=== PATIENT | female | born 1945 | race Caucasian/White ===

== ENCOUNTER → 2017-08-11 12:02 | Outpatient (CLI) | payer MEDICARE, OTHER, SELFPAY ==
[2017-08-11 13:40] LABS: Absolute Lymphocyte Count 2.08 X10^3/ul (0.83-4.51); Absolute Neutrophil Count 5.4 X10^3/uL (2.0-7.7); Basophil# 0.03 X10^3/uL; Basophil% 0.3 % (0-1); Eosinophil# 0.43 X10^3/uL; Hematocrit 37.4 % (37-47); Hemoglobin 11.8 g/dl (12.0-15.0); Lymphocyte # 2.08 X10^3/ul (4.0); Lymphocyte % 24.2 % (19-41); Mean Corp Hgb Conc 31.6 g/gl (32-36); Mean Corpuscular Hgb 30.3 pg (27.0-32.0); Mean Corpuscular Volume 96.1 fL (81-99); Mean Platelet Vol. 10.3 fl (6.2-12.0); Monocyte# 0.62 X10^3/uL; Monocyte% 7.2 % (0-10); Neutrophil # 5.38 X10^3/uL (2.7-7.7); Neutrophil % 62.8 % (47-70); POSITIVE COUNT NO; POSITIVE DIFFERENTIAL NO; POSITIVE MORPHOLOGY NO; Platelet Count 251 K/mm3 (150-450); RBC Distribution Width CV 13.1 % (11.6-14.6); RBC Distribution Width SD 44.4 fl (35.1-43.9); Red Blood Count 3.89 M/mm3 (4.2-5.4); White Blood Count 8.6 K/mm3 (4.4-11.0)
[2017-08-11 13:45] LABS: Erythrocyte Sedimentation Rate 47 mm/hr (0-30)
[2017-08-11 14:11] LABS: ALB/GLOB Ratio 0.9 RATIO (0.9-2.4); AST(SGOT) 17 U/L (15-37); Alanine Aminotransfer ALT/SGPT 16 U/L (13-56); Albumin, Serum 3.4 g/dL (3.2-5.0); Alkaline Phosphatase 94 U/L (45-117); Anion Gap 6 (5-15); BUN 23 mg/dL (7-18); BUN/Creat Ratio 17.7 RATIO (10-20); Calcium,Total 8.9 mg/dL (8.5-10.1); Chloride 107 mmol/L (98-107); EST Glomerular Filtration Rate 43 mL/min (>60); Est Glom Filt Rate - Afr Amer 51 mL/min (>60); Globulin 3.9 g/dL (2.2-4.2); Glucose 106 mg/dL (74-106); Potassium 4.4 mmol/L (3.5-5.1); Protein, Total 7.3 g/dL (6.4-8.2); Sodium Level 142 mmol/L (136-145); Uric Acid 7.5 mg/dL (2.6-6.0)
== END ==
PROVIDERS: Family Provider Family Medicine; PCP Family Medicine; Visit Provider Podiatrist
DX: M10.9 Gout, unspecified (principal); L03.90 Cellulitis, unspecified
CPT/HCPCS: 36415; 80053; 84550; 85025; 85652; 86140

== ENCOUNTER → 2020-03-03 | Outpatient (CLI) | payer MEDICARE, OTHER, SELFPAY ==
--- NOTE | 2020-03-04 10:20 | PFT ---
INTRODUCTION: The patient is a 75-year-old female that presents for pulmonary function studies secondary to a diagnosis of COPD. Respiratory therapy reports good patient effort. Bronchodilators were used during testing. INTERPRETATION: Forced expiration spirometry demonstrates the presence of a mild large airways obstructive ventilatory defect. There was no significant response to aerosolized bronchodilators. Spirograms are of good quality and do not plateau indicating slow emptying of the lungs. Body plethysmography was performed and revealed an elevated TLC and RV, indicative of underlying hyperinflation and air trapping. Diffusing capacity by single breath CO was reduced to 56% of predicted. IMPRESSION: Irreversible mild large airways obstructive ventilatory defect with associated hyperinflation, air trapping and reduction in diffusing capacity.
== END | disposition home or self-care (01) ==
LOC: PSN 10:47
PROVIDERS: PCP Family Medicine; Referring Provider Family Medicine; Visit Provider Family Medicine
DX: J44.9 Chronic obstructive pulmonary disease, unspecified (principal)
CPT/HCPCS: 94060; 94726; 94729

== ENCOUNTER → 2020-04-28 16:44 | Outpatient (CLI) | payer MEDICARE, OTHER, SELFPAY ==
--- NOTE | 2020-04-28 16:50 | RAD_ITS ---
STUDY: X-RAY - LUMBAR SPINE REASON FOR EXAM: Female, 75 years old. LOW BACK PAIN. TECHNIQUE: 3 view(s) of the lumbar spine were obtained. COMPARISON: 09/20/2016 FINDINGS: Normal lumbar lordosis. There is no substantial scoliosis. Status post discectomy and interbody fusion at L3/L4 with anatomic alignment which is unchanged. Interval removal of pedicle screws from L3. Interval transpedicular fixation at L1/L2 with anatomic alignment. There is multilevel endplate spondylosis of the lumbar vertebrae. There is multi-level degenerative disc disease with multi-level disc space narrowing. The soft tissue structures are unremarkable. RAD/Lumbar Spine 2 or 3 Views IMPRESSION: Interval transpedicular fixation at L1/L2 with diffuse degenerative disc disease. Electronically Signed: Orlin Roe MD at 17:15 EST Tel , Service support ,
== END ==
PROVIDERS: PCP Family Medicine; Referring Provider Anesthesiology Pain Medicine; Visit Provider Anesthesiology Pain Medicine
DX: M54.5 Low back pain (principal)
CPT/HCPCS: 72100

== ENCOUNTER 2021-01-29 17:25 | Emergency (ER) | payer MEDICARE, OTHER, SELFPAY ==
[2021-01-29 17:28] VITALS: BP 130/81; PULSE 96; RESP 16; TEMP 36.1; O2SAT 96; BMI 37.8
[2021-01-29 17:46] LABS: Bedside Glucose > 500 mg/dL (70-110)
[2021-01-29 17:54] LABS: Absolute Lymphocyte Count 1.38 X10^3/uL (0.83-4.51); Basophil# 0.06 X10^3/uL; Basophil% 0.5 % (0-1); Eosinophil# 0.07 X10^3/uL; Eosinophils% 0.6 % (0-5); Hematocrit 42.8 % (37-47); Hemoglobin 14.7 g/dL (12.0-15.0); Lymphocyte # 1.38 X10^3/ul (0.83-4.51); Lymphocyte % 11.4 % (19-41); Mean Corp Hgb Conc 34.3 g/dL (32-36); Mean Corpuscular Hgb 31.1 pg (27.0-32.0); Mean Corpuscular Volume 90.7 fL (81-99); Mean Platelet Vol. 11.6 fl (6.2-12.0); Monocyte# 0.54 X10^3/uL; Monocyte% 4.5 % (0-10); NRBC Flagged by Analyzer 0 % (0-5); Neutrophil # 10.01 X10^3/uL (2.7-7.7); Neutrophil % 82.4 % (47-70); Platelet Count 285 K/mm3 (150-450); RBC Distribution Width CV 12.8 % (11.6-14.6); RBC Distribution Width SD 42.8 fl (35.1-43.9); Red Blood Count 4.72 M/mm3 (4.2-5.4); White Blood Count 12.1 K/mm3 (4.4-11.0)
[2021-01-29 18:12] LABS: ALB/GLOB Ratio 0.9 RATIO (0.9-2.4); AST(SGOT) 15 U/L (15-37); Alanine Aminotransfer ALT/SGPT 24 U/L (13-56); Albumin, Serum 3.6 g/dL (3.2-5.0); Alkaline Phosphatase 134 U/L (45-117); Anion Gap 16 (5-15); BUN 40 mg/dL (7-18); BUN/Creat Ratio 20.3 RATIO (10-20); Calcium,Total 9.9 mg/dL (8.5-10.1); Chloride 91 mmol/L (98-107); Creatinine, Serum 1.97 mg/dL (0.55-1.02); EST Glomerular Filtration Rate 26 mL/min (>60); Est Glom Filt Rate - Afr Amer 32 mL/min (>60); Estimated Creatinine Clearance 17.76 ml/min; Globulin 4.2 g/dL (2.2-4.2); Glucose 644 mg/dL (74-106); Potassium 4.6 mmol/L (3.5-5.1); Protein, Total 7.8 g/dL (6.4-8.2); Sodium Level 127 mmol/L (136-145)
--- NOTE | 2021-01-29 21:28 | EDS_ITS ---
HPI History of Present Illness Chief Complaint: Confusion Narrative Narrative: 76-year-old female presenting with confusion for the last 3 days. Apparently her blood sugars were elevated. Her seed cleaning machine operator has her taking NovoLog 30 at breakfast, 30 at lunch, 34 at dinner. She states she did not take her nightly medication after eating. Patient's daughter states she is very confused. Patient herself complains that she cannot sleep very well. She has not had a cough or shortness of breath. She denies fever or chills. She denies nausea or vomiting. She does not have abdominal pain. [facility] Medical History (Updated 01/29/21 @ 22:08 by Laura Rivers) Anxiety Congestive heart failure (CHF) Dementia Depression Diabetes Hypertension Hypothyroidism Home Medications allopurinol 100 mg PO DAILY 01/29/21 [History Last Taken Unknown] amlodipine 5 mg PO DAILY 01/29/21 [History Last Taken Unknown] aripiprazole 5 mg PO QHS 01/29/21 [History Last Taken Unknown] budesonide-formoterol [Symbicort] 2 puff INHALATION BID 01/29/21 [History Last Taken Unknown] buspirone 10 mg PO TID 01/29/21 [History Last Taken Unknown] cholecalciferol (vitamin D3) [Vitamin D3] 125 mcg PO DAILY 01/29/21 [History Last Taken Unknown] cyanocobalamin (vitamin B-12) 5,000 mcg PO DAILY 01/29/21 [History Last Taken Unknown] duloxetine 30 mg PO DAILY 01/29/21 [History Last Taken Unknown] duloxetine 60 mg PO DAILY 01/29/21 [History Last Taken Unknown] gabapentin 600 mg PO 4X/DAY PRN PRN 01/29/21 [History Last Taken Unknown] hydrochlorothiazide 12.5 mg PO DAILY 01/29/21 [History Last Taken Unknown] insulin NPH isoph U-100 human [Novolin N Flexpen] 68 unit SUBCUT DINNER 01/29/21 [History Last Taken Unknown] insulin aspart U-100 [Novolog Flexpen U-100 Insulin] 30 unit SUBCUT BID 01/29/21 [History Last Taken Unknown] insulin aspart U-100 [Novolog Flexpen U-100 Insulin] 34 unit SUBCUT DINNER 01/29/21 [History Last Taken Unknown] insulin glargine [Basaglar KwikPen U-100 Insulin] 22 unit SUBCUT BREAKFAST 01/29/21 [History Last Taken Unknown] levothyroxine 50 mcg PO DAILY 01/29/21 [History Last Taken Unknown] oxybutynin chloride 10 mg PO DAILY 01/29/21 [History Last Taken Unknown] simvastatin 80 mg PO QPM 01/29/21 [History Last Taken Unknown] torsemide 40 mg PO DAILY 01/29/21 [History Last Taken Unknown] Allergy/AdvReac Type Severity Reaction Status Date / Time Penicillins Allergy PT UNSURE Verified 01/29/21 17:26 OF REACTION Social History Smoking Status: Unknown if ever smoked ROS ROS ED Constitutional Constitutional ED: Denies chills or fever(s) Eyes Eyes: Denies blurry vision or diplopia ENT ENT ED: Denies rhinorrhea or sore throat Cardiovascular Cardiovascular: Denies chest pain or palpitations Respiratory/Chest Respiratory/Chest: Denies cough or dyspnea Gastrointestinal Gastrointestinal: Denies abdominal pain, nausea or vomiting Genitourinary Genitourinary ED: Denies dysuria or hematuria Musculoskeletal Musculoskeletal: Denies arthralgias or myalgias Integumentary Denies rash Neurologic Neurologic: Denies headache(s) or paresthesias EXAM Physical Exam Const Vital Signs: 01/29/21 17:28 01/29/21 21:59 01/29/21 22:08 Temperature 97 F L 97 F L Temperature Source Temporal Temporal Pulse Rate 96 96 Respiratory Rate 16 16 Blood Pressure 130/81 H 169/88 H 169/88 H Blood Pressure Mean 97 115 115 Pulse Ox 96 96 Oxygen Delivery Method Room Air Room Air Positive well nourished General Appearance ED: NAD HEJUAN Reports dry mucous membranes Negative for trauma Mouth ED: Yes dry mucous membranes Mouth: dry mucous membranes Eyes PERRL and EOMs intact bilaterally Cardio regular rate and regular rhythm GI normal to inspection, nondistended, normoactive bowel sounds Extremity normal to inspection Neuro oriented x3 and CN's II-XII intact bilaterally Sensorium / Orientation: alert Motor Exam: strength 5/5 throughout Psych mental status grossly normal Skin no rashes or lesions noted MDM MDM MDM Narrative Medical decision making narrative: Patient seen and evaluated for hyperglycemia. Patient states that she ate her dinner but did not take her insulin. She states her blood sugars have been high. She recently had her medications changed by her seed cleaning machine operator. She states she has a current med list. I did review this however she did not take her medication. Patient's daughter and she were concerned she might have a urinary tract infection. Her urinalysis is negative. CBC shows a slight leukocytosis of 12.1, H&H are stable. Creatinine is slightly elevated at 1.97 which is elevated over her previous. Patient was given 2 L of IV fluids and her blood sugar was rechecked and found to be 433. At this point she was given 20 of insulin lispro. She feels improved cognitively she states she feels less confused. I did have a chest x-ray performed which on my interpretation shows no acute cardiopulmonary process and the radiologist does agree. Since I did not find any evidence of infection to treat and the patient's blood sugar has improved she now wishes to be discharged home. I do believe this is reasonable. I think she should follow-up with her doctor to ensure her kidney function gets rechecked but she should take her medications as prescribed. She does not appear to be in DKA. Impression: 1. Hyperglycemia 2. Acute kidney injury 3. Generalized weakness Lab Data Attestation: I reviewed the patient's lab results. Labs: Laboratory Results - last 24 hr 01/29/21 01/29/21 01/29/21 17:33 17:40 17:40 WBC 12.1 H RBC 4.72 Hgb 14.7 Hct 42.8 MCV 90.7 MCH 31.1 MCHC 34.3 RDW Std Deviation 42.8 RDW Coeff of Neeta 12.8 Plt Count 285 MPV 11.6 Immature Gran % (Auto) 0.600 Neut % (Auto) 82.4 H Lymph % (Auto) 11.4 L [place] % (Auto) 4.5 Eos % (Auto) 0.6 Baso % (Auto) 0.5 Absolute Neuts (auto) 10.0 H Absolute Lymphs (auto) 1.38 Nucleated RBC % 0 Sodium 127 L Potassium 4.6 Chloride 91 L Carbon Dioxide 20.0 L Anion Gap 16 H BUN 40 H Creatinine 1.97 H Estim Creat Clear Calc 17.76 Est GFR (MDRD) Af Amer 32 L Est GFR (MDRD) Non-Af 26 L BUN/Creatinine Ratio 20.3 H Glucose 644 H* Calcium 9.9 Total Bilirubin 0.60 AST 15 ALT 24 Alkaline Phosphatase 134 H Total Protein 7.8 Albumin 3.6 Globulin 4.2 Albumin/Globulin Ratio 0.9 Urine Color Urine Clarity Urine pH Ur Specific [place] Urine Protein Urine Glucose (UA) Urine Ketones Urine Occult Blood Urine Nitrite Urine Bilirubin Urine Urobilinogen Ur Leukocyte Esterase Urine RBC Urine WBC Ur Squamous Epith Cells Urine Bacteria Hyaline Casts Urine Mucus POC Glucose > 500 H* 01/29/21 01/29/21 01/30/21 21:57 23:25 01:01 WBC RBC Hgb Hct MCV MCH MCHC RDW Std Deviation RDW Coeff of Neeta Plt Count MPV Immature Gran % (Auto) Neut % (Auto) Lymph % (Auto) [place] % (Auto) Eos % (Auto) Baso % (Auto) Absolute Neuts (auto) Absolute Lymphs (auto) Nucleated RBC % Sodium Potassium Chloride Carbon Dioxide Anion Gap BUN Creatinine Estim Creat Clear Calc Est GFR (MDRD) Af Amer Est GFR (MDRD) Non-Af BUN/Creatinine Ratio Glucose Calcium Total Bilirubin AST ALT Alkaline Phosphatase Total Protein Albumin Globulin Albumin/Globulin Ratio Urine Color Yellow Urine Clarity Clear Urine pH 5.0 Ur Specific [place] 1.015 Urine Protein 30 H Urine Glucose (UA) 1000 H Urine Ketones 50 H Urine Occult Blood Negative Urine Nitrite Negative Urine Bilirubin Negative Urine Urobilinogen Normal Ur Leukocyte Esterase Negative Urine RBC 0 SEEN Urine WBC 0 SEEN Ur Squamous Epith Cells 0 SEEN Urine Bacteria 0 SEEN Hyaline Casts 0-5 SEEN Urine Mucus 0 SEEN POC Glucose > 500 H* 433 H Radiography Diagnostic Testing: Radiology Impression Chest X-Ray 01/29/21 23:07 IMPRESSION: No acute cardiopulmonary disease. Electronically Signed: Holden Iglesias DO at 23:48 EDT Tel [phone], Service support , Discharge Plan Triage Chief Complaint: Confusion ED Provider: Pieter Gabriel Dx/Rx/DC Orders Instructions: ED Diabetic Hyperglycemia Prescriptions: No Action gabapentin 600 mg Tablet 600 mg PO 4X/DAY PRN PRN (Reason: Pain) RF: 0 torsemide 20 mg Tablet 40 mg PO DAILY RF: 0 oxybutynin chloride 10 mg Tablet Extended Release 24hr 10 mg PO DAILY RF: 0 amlodipine 5 mg Tablet 5 mg PO DAILY RF: 0 simvastatin 80 mg Tablet 80 mg PO QPM RF: 0 allopurinol 100 mg Tablet 100 mg PO DAILY RF: 0 buspirone 10 mg Tablet 10 mg PO TID RF: 0 hydrochlorothiazide 12.5 mg Capsule 12.5 mg PO DAILY RF: 0 Novolin N Flexpen 100 unit/mL (3 mL) Insulin Pen 68 unit SUBCUT DINNER RF: 0 insulin aspart U-100 [Novolog Flexpen U-100 Insulin] 100 unit/mL (3 mL) Insulin Pen 30 unit SUBCUT BID RF: 0 insulin aspart U-100 [Novolog Flexpen U-100 Insulin] 100 unit/mL (3 mL) Insulin Pen 34 unit SUBCUT DINNER RF: 0 aripiprazole 5 mg Tablet 5 mg PO QHS RF: 0 duloxetine 30 mg Capsule,Delayed Release(Dr/Ec) 30 mg PO DAILY RF: 0 duloxetine 60 mg Capsule,Delayed Release(Dr/Ec) 60 mg PO DAILY RF: 0 budesonide-formoterol [Symbicort] 160-4.5 mcg/actuation Hfa Aerosol Inhaler 2 puff INHALATION BID RF: 0 Basaglar KwikPen U-100 Insulin 100 unit/mL (3 mL) Insulin Pen 22 unit SUBCUT BREAKFAST RF: 0 cholecalciferol (vitamin D3) [Vitamin D3] 125 mcg (5,000 unit) Tablet 125 mcg PO DAILY RF: 0 levothyroxine 50 mcg Capsule 50 mcg PO DAILY RF: 0 cyanocobalamin (vitamin B-12) 5,000 mcg Capsule 5,000 mcg PO DAILY RF: 0 Primary Care Provider: Chris Thorne Referrals: Chris Thorne MD [Primary Care Provider] - Disposition Disposition: Home, Self Care Discharge Date/Time: 01/30/21 02:13
[2021-01-29 21:58] LABS: Bacteria 0 SEEN /hpf (None Seen); Mucous, Urine 0 SEEN /hpf (<or=2+); Red Blood Cells-Urine 0 SEEN /hpf (0-5); Squamous Epithelial Cells - UA 0 SEEN /hpf (5-10); White Blood Cells 0 SEEN /hpf (0-5)
[2021-01-29 21:59] VITALS: BP 169/88
[2021-01-29 22:08] VITALS: BP 169/88; PULSE 96; RESP 16; TEMP 36.1; O2SAT 96
[2021-01-29 22:22] LABS: Color, Urine Yellow (Yellow); Glucose, Dipstick 1000 mg/dl (Normal); Ketone-Dipstick 50 mg/dl (Negative); Leukocyte Esterase-Dipstick Negative /ul (Negative); Nitrite-Dipstick Negative (Negative); Occult Blood-Urine Negative /ul (Negative); Protein-Dipstick 30 mg/dl (Negative); Specific Gravity, Urine 1.015 (1.002-1.030); Urine Bilirubin Dipstick Negative (Negative); Urine Clarity Clear (Clear); Urine Urobilinogen Normal (Normal)
[2021-01-29 22:28] LABS: Hyaline Cast 0-5 SEEN /lpf (0-5)
[2021-01-29] MEDS: 0.9% Normal Saline 1,000 ML 999 ML IV (22:29)
--- NOTE | 2021-01-29 23:07 | RAD_ITS ---
STUDY: X-RAY CHEST REASON FOR EXAM: Female, 76 years old. Confusion for 3 days. Urinary problems. TECHNIQUE: Single AP portable view of the chest. COMPARISON: None. FINDINGS: The lungs are clear and expanded. There is no demonstrated pleural abnormality. Normal size heart. Normal mediastinum and jovany. Normal visualized pulmonary arteries. There is mild atherosclerotic calcification of the aortic arch with tortuosity. The thoracic spine is obscured by the mediastinum. There is no evidence of fusion on the upper lumbar spine. There is degenerative osteoarthritis of the bilateral shoulders. There is no demonstrated abnormality of the visualized soft tissue structures of the upper abdomen. RAD/Chest 1 View (Portable) IMPRESSION: No acute cardiopulmonary disease. Electronically Signed: Holden Iglesias DO at 23:48 EDT Tel [phone], Service support ,
[2021-01-29 23:41] LABS: Bedside Glucose > 500 mg/dL (70-110)
[2021-01-30 01:06] LABS: Bedside Glucose 433 mg/dL (70-110)
[2021-01-30] MEDS: Insulin Lispro 100 UNIT/ML INSULN.PEN 20 UNIT SC (02:12)
[2021-01-30 02:13] VITALS: BP 172/65; RESP 18
== END 2021-01-30 02:13 | disposition home or self-care (01) ==
PROVIDERS: Emergency Provider Student in an Organized Health Care Education/Training Program; PCP Family Medicine
DX: E11.65 Type 2 diabetes mellitus with hyperglycemia (principal); N17.9 Acute kidney failure, unspecified; R53.1 Weakness; F03.90 Unspecified dementia, unspecified severity, without behavioral disturbance, psychotic disturbance, mood disturbance, and anxiety; F41.9 Anxiety disorder, unspecified; F32.9 Major depressive disorder, single episode, unspecified; E03.9 Hypothyroidism, unspecified; I11.0 Hypertensive heart disease with heart failure; I50.9 Heart failure, unspecified; Z79.4 Long term (current) use of insulin; Z79.899 Other long term (current) drug therapy; Z23 Encounter for immunization
CPT/HCPCS: 71045; 80053; 81001; 82962; 85025; 87426; 90471; 96360; 96361; 99284; J7030; A4216

== ENCOUNTER 2022-06-01 22:40 | Emergency (ER) | payer MEDICARE, OTHER, SELFPAY ==
[2022-06-01 22:42] VITALS: PULSE 89; RESP 16; TEMP 36.1; O2SAT 97; BMI 36.8
--- NOTE | 2022-06-01 22:46 | NURSING ---
NG tube flushed easily with 150 ml luke warm tap water with return. No complications and tolerated well.
--- NOTE | 2022-06-01 23:00 | EDS_ITS ---
HPI History of Present Illness Chief Complaint: Other, Pain/Inj Detail of Chief Complaint: Needs NG tube flushed per the [place]. Patient unable to give any his Informant: EMS and SNF Onset/Context/Timing Onset: Today Timing: Continuous Current Severity: Mild Maximum Severity: Mild Narrative Narrative: 77-year-old female history of dementia, diabetes, hypertension tension and stroke. Sent in this evening from the [facility] due to her NG tube is obstructed. [facility] stroke and history of aspiration. Patient is unable to give any history. Prior similar symptoms: No Recent Illness/Hospitalization: Yes [facility] Medical History Anxiety Congestive heart failure (CHF) Dementia Depression Diabetes Hypertension Hypothyroidism Home Medications allopurinol 100 mg tablet 100 mg PO DAILY 01/29/21 [History Last Taken Unknown] amlodipine 5 mg tablet 5 mg PO DAILY 01/29/21 [History Last Taken Unknown] aripiprazole 5 mg tablet 5 mg PO QHS 01/29/21 [History Last Taken Unknown] budesonide-formoterol HFA 160 mcg-4.5 mcg/actuation aerosol inhaler (Symbicort) 2 puff inhalation BID 01/29/21 [History Last Taken Unknown] buspirone 10 mg tablet 10 mg PO TID 01/29/21 [History Last Taken Unknown] cholecalciferol (vitamin D3) 125 mcg (5,000 unit) tablet (Vitamin D3) 125 mcg PO DAILY 01/29/21 [History Last Taken Unknown] cyanocobalamin (vitamin B-12) 5,000 mcg capsule 5,000 mcg PO DAILY 01/29/21 [History Last Taken Unknown] duloxetine 30 mg capsule,delayed release 30 mg PO DAILY 01/29/21 [History Last Taken Unknown] duloxetine 60 mg capsule,delayed release 60 mg PO DAILY 01/29/21 [History Last Taken Unknown] gabapentin 600 mg tablet 600 mg PO 4X/DAY PRN PRN Pain 01/29/21 [History Last Taken Unknown] hydrochlorothiazide 12.5 mg capsule 12.5 mg PO DAILY 01/29/21 [History Last Taken Unknown] insulin NPH isoph U-100 human 100 unit/mL (3 mL) subcutaneous pen (Novolin N FlexPen) 68 unit subcut DINNER 01/29/21 [History Last Taken Unknown] insulin aspart U-100 100 unit/mL (3 mL) subcutaneous pen (Novolog FlexPen U-100 Insulin aspart) 30 unit subcut BID 01/29/21 [History Last Taken Unknown] insulin aspart U-100 100 unit/mL (3 mL) subcutaneous pen (Novolog FlexPen U-100 Insulin aspart) 34 unit subcut DINNER 01/29/21 [History Last Taken Unknown] insulin glargine 100 unit/mL (3 mL) subcutaneous pen (Basaglar KwikPen U-100 Insulin) 22 unit subcut BREAKFAST 01/29/21 [History Last Taken Unknown] levothyroxine 50 mcg capsule 50 mcg PO DAILY 01/29/21 [History Last Taken Unknown] oxybutynin chloride 10 mg tablet,extended release 24 hr 10 mg PO DAILY 01/29/21 [History Last Taken Unknown] simvastatin 80 mg tablet 80 mg PO QPM 01/29/21 [History Last Taken Unknown] torsemide 20 mg tablet 40 mg PO DAILY 01/29/21 [History Last Taken Unknown] Allergy/AdvReac Type Severity Reaction Status Date / Time Penicillins Allergy PT UNSURE Verified 01/29/21 17:26 OF REACTION Social History Smoking Status: Unknown if ever smoked ROS ROS ED Review of Systems ROS Unobtainable: due to mental status EXAM Physical Exam Narrative Exam Narrative: 77-year-old female. No acute distress. Vital signs stable afebrile. H EENT exam. Moist Ri[employer] members. NG tube in place. Neck nontender. Lungs clear. Heart regular rhythm rate about 90 no murmur. Abdomen soft nontender. Obese. Reportedly had a prior stroke. Very weak in the left hand. Paralysis left leg. Neurologically her eyes are open. She really answers very limited questions. She is a very limited informant. Const Vital Signs: 06/01/22 22:42 06/01/22 22:46 Temperature 96.9 F L Temperature Source Temporal Pulse Rate 89 Respiratory Rate 16 Respiratory Effort Normal Respiratory Pattern Normal Pulse Ox 97 Oxygen Delivery Method Room Air Positive well nourished, well developed and obese; Negative for cachectic, contractures or unkempt General Appearance ED: well developed and NAD; Negative for unkempt, cachectic, contractures, cyanotic or diaphoretic Nutritional Appearance: obese; Negative for cachectic HEENT Reports moist mucous membranes; Denies dry mucous membranes Negative for trauma or tenderness Mouth ED: No dry mucous membranes Mouth: No dry mucous membranes Eyes PERRL and EOMs intact bilaterally General Eye ED: Negative for pale conjunctiva Neck no lymphadenopathy, supple and no JVD General: Negative for tenderness Chest Wall inspection of chest normal and palpation of chest normal Chest: Negative for other Resp normal respiratory effort and clear to auscultation bilaterally Effort and Inspection: Negative for retractions Auscultation: Negative for rales, rhonchi or wheezes Cardio regular rate, regular rhythm, S1 normal heart sound, S2 normal heart sound and no murmurs Rate: Negative for bradycardia or tachycardic GI normal to inspection, nondistended, normoactive bowel sounds, non-tender, non- distended and no masses Inspection: Negative for abdominal distention Auscultation: normoactive bowel sounds Palpation: soft; Negative for tender or guarding Extremity Negative for normal to inspection Extremity Narrative: Left-sided weakness from prior stroke. General Extremety ED: Negative for edema or tenderness General Extremity: Negative for edema Neuro No oriented x3 Neuro Narrative: Left-sided weakness from prior stroke. Left leg paralysis. Sensorium / Orientation: alert Motor Exam: Negative for strength 5/5 throughout Psych Appearance: Negative for unkempt Attitude: No agitated Mood & Affect: Negative for anxious or tearful Skin no rashes or lesions noted and no wounds Lesions: No lesion noted Rashes: No rashes noted Trauma: Negative for abrasion Wounds: Negative for wounds noted MDM MDM MDM Narrative Medical decision making narrative: 77-year-old female has an NG tube in place was sent from the [facility] because the tube was obstructed. Nurses were able to flush it and can get return without difficulty now. We did check a blood sugar because she is d iabetic is 169. I spoke to the nursing facility myself. She will be sent back by ambulance. No tests are necessary at this time. Discharge Plan Triage Chief Complaint: Other, Pain/Inj ED Provider: Sabas Diallo Dx/Rx/DC Orders Clinical Impression: Obstruction of nasogastric tube, History of stroke, History of diabetes mellitus Prescriptions: No Action gabapentin 600 mg Tablet 600 mg PO 4X/DAY PRN PRN (Reason: Pain) torsemide 20 mg Tablet 40 mg PO DAILY oxybutynin chloride 10 mg Tablet Extended Release 24hr 10 mg PO DAILY amlodipine 5 mg Tablet 5 mg PO DAILY simvastatin 80 mg Tablet 80 mg PO QPM allopurinol 100 mg Tablet 100 mg PO DAILY buspirone 10 mg Tablet 10 mg PO TID hydrochlorothiazide 12.5 mg Capsule 12.5 mg PO DAILY Novolin N FlexPen 100 unit/mL (3 mL) Insulin Pen 68 unit SUBCUT DINNER insulin aspart U-100 [Novolog FlexPen U-100 Insulin] 100 unit/mL (3 mL) Insulin Pen 30 unit SUBCUT BID insulin aspart U-100 [Novolog FlexPen U-100 Insulin] 100 unit/mL (3 mL) Insulin Pen 34 unit SUBCUT DINNER aripiprazole 5 mg Tablet 5 mg PO QHS duloxetine 30 mg Capsule,Delayed Release(Dr/Ec) 30 mg PO DAILY duloxetine 60 mg Capsule,Delayed Release(Dr/Ec) 60 mg PO DAILY budesonide-formoterol [Symbicort] 160-4.5 mcg/actuation Hfa Aerosol Inhaler 2 puff INHALATION BID Basaglar KwikPen U-100 Insulin 100 unit/mL (3 mL) Insulin Pen 22 unit SUBCUT BREAKFAST cholecalciferol (vitamin D3) [Vitamin D3] 125 mcg (5,000 unit) Tablet 125 mcg PO DAILY levothyroxine 50 mcg Capsule 50 mcg PO DAILY cyanocobalamin (vitamin B-12) 5,000 mcg Capsule 5,000 mcg PO DAILY Primary Care Provider: Chris Thorne Referrals: Chris Thorne MD [Primary Care Provider] - As Needed Activity Restrictions/Additional Instructions: We were able to flush the NG tube. Her blood sugar is 169. Disposition Disposition: Home, Self Care
--- NOTE | 2022-06-01 23:49 | NURSING ---
report called to [facility] nurse.
[2022-06-02 08:05] LABS: Bedside Glucose 165 mg/dL (74-106)
[2022-06-02 08:05] LABS: Bedside Glucose 169 mg/dL (74-106)
== END 2022-06-02 00:11 | disposition home or self-care (01) ==
PROVIDERS: Emergency Provider Emergency Medicine; PCP Family Medicine; Visit Provider Emergency Medicine
DX: T85.598A Other mechanical complication of other gastrointestinal prosthetic devices, implants and grafts, initial encounter (principal); I11.0 Hypertensive heart disease with heart failure; I50.9 Heart failure, unspecified; E11.9 Type 2 diabetes mellitus without complications; E66.9 Obesity, unspecified; Z86.73 Personal history of transient ischemic attack (TIA), and cerebral infarction without residual deficits; X58.XXXA Exposure to other specified factors, initial encounter
CPT/HCPCS: 82962; 99284

== ENCOUNTER 2022-06-10 09:15 | Emergency (ER) | payer MEDICARE, OTHER, SELFPAY ==
[2022-06-10 09:16] VITALS: BP 116/56; PULSE 50; RESP 16; TEMP 35.9; O2SAT 97; BMI 38.5
--- NOTE | 2022-06-10 09:27 | EX.ED.DYSGE1 ---
HPI History of Present Illness Chief Complaint: Other, Pain/Inj Detail of Chief Complaint: Obstructed feeding tube Informant: EMS and SNF Onset/Context/Timing Onset: Today Timing: Continuous Quality: Unable to instill or aspirate anything from Corpak feeding tube Location: Right naris Current Severity: Not applicable Maximum Severity: Not applicable Worsened by: Pill fragments are noted and pelvic cause of obstruction Relieved by: Nothing and reason why patient was transferred to the emergency department Associated Symptoms Associated Symptoms: None Narrative Narrative: LegPatient is a 77-year-old woman status post stroke Corpak feeding tube placed right naris. She presents because the feeding tube is obstructed. She voices no complaints. History is limited. 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 She also has dysphagia following the stroke. There is a past history of type 2 diabetes, COPD, neoplasm of the bronchus, anemia, hypothyroidism, hyperlipidemia, major depression, obstructive sleep apnea, essential hypertension, GERD and chronic kidney disease. There is no records at [facility] or using [facility] sink to determine when patient had her stroke. 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 Congestive heart failure (CHF) Dementia Depression Diabetes Dysphagia following cerebral infarction Encephalopathy, unspecified Gastro-esophageal reflux disease without esophagitis Gout, unspecified Hemiplegia and hemiparesis following cerebral infarction affecting left non-dominant side Hypertension Hypothyroidism Malignant neoplasm of unspecified part of unspecified bronchus or lung Home Medications allopurinol 100 mg tablet 100 mg PO DAILY 01/29/21 [History Last Taken Unknown] amlodipine 5 mg tablet 5 mg PO DAILY 01/29/21 [History Last Taken Unknown] aripiprazole 5 mg tablet 5 mg PO QHS 01/29/21 [History Last Taken Unknown] budesonide-formoterol HFA 160 mcg-4.5 mcg/actuation aerosol inhaler (Symbicort) 2 puff inhalation BID 01/29/21 [History Last Taken Unknown] buspirone 10 mg tablet 10 mg PO TID 01/29/21 [History Last Taken Unknown] cholecalciferol (vitamin D3) 125 mcg (5,000 unit) tablet (Vitamin D3) 125 mcg PO DAILY 01/29/21 [History Last Taken Unknown] cyanocobalamin (vitamin B-12) 5,000 mcg capsule 5,000 mcg PO DAILY 01/29/21 [History Last Taken Unknown] duloxetine 30 mg capsule,delayed release 30 mg PO DAILY 01/29/21 [History Last Taken Unknown] duloxetine 60 mg capsule,delayed release 60 mg PO DAILY 01/29/21 [History Last Taken Unknown] gabapentin 600 mg tablet 600 mg PO 4X/DAY PRN PRN Pain 01/29/21 [History Last Taken Unknown] hydrochlorothiazide 12.5 mg capsule 12.5 mg PO DAILY 01/29/21 [History Last Taken Unknown] insulin NPH isoph U-100 human 100 unit/mL (3 mL) subcutaneous pen (Novolin N FlexPen) 68 unit subcut DINNER 01/29/21 [History Last Taken Unknown] insulin aspart U-100 100 unit/mL (3 mL) subcutaneous pen (Novolog FlexPen U-100 Insulin aspart) 30 unit subcut BID 01/29/21 [History Last Taken Unknown] insulin aspart U-100 100 unit/mL (3 mL) subcutaneous pen (Novolog FlexPen U-100 Insulin aspart) 34 unit subcut DINNER 01/29/21 [History Last Taken Unknown] insulin glargine 100 unit/mL (3 mL) subcutaneous pen (Basaglar KwikPen U-100 Insulin) 22 unit subcut BREAKFAST 01/29/21 [History Last Taken Unknown] levothyroxine 50 mcg capsule 50 mcg PO DAILY 01/29/21 [History Last Taken Unknown] oxybutynin chloride 10 mg tablet,extended release 24 hr 10 mg PO DAILY 01/29/21 [History Last Taken Unknown] simvastatin 80 mg tablet 80 mg PO QPM 01/29/21 [History Last Taken Unknown] torsemide 20 mg tablet 40 mg PO DAILY 01/29/21 [History Last Taken Unknown] Allergy/AdvReac Type Severity Reaction Status Date / Time Penicillins Allergy PT UNSURE Verified 06/10/22 09:16 OF REACTION Social History (Updated 06/10/22 @ 09:[address] Hammad Cobian MD) household members: none housing: intermediate Smoking Status: Unknown if ever smoked ROS ROS ED Review of Systems ROS Unobtainable: due to mental status EXAM Physical Exam Const Vital Signs: 06/10/22 09:16 Temperature 96.7 F L Temperature Source Temporal Pulse Rate 50 L Respiratory Rate 16 Blood Pressure 116/56 L Blood Pressure Mean 76 Pulse Ox 97 Oxygen Delivery Method Room Air Positive well nourished, well developed and obese General Appearance ED: well developed, NAD and pallor; Negative for cyanotic or diaphoretic Nutritional Appearance: obese HEENT Reports moist mucous membranes HEENT Narrative: Head is atraumatic normocephalic. Ears normal. Mucosa moist. Patient has feeding tube inserted right naris. Eyes PERRL and EOMs intact bilaterally General Eye ED: Negative for scleral icterus Neck no lymphadenopathy, supple and no JVD Chest Wall inspection of chest normal and palpation of chest normal Resp normal respiratory effort and clear to auscultation bilaterally Cardio regular rhythm, S1 normal heart sound, S2 normal heart sound and no murmurs Rate: bradycardia GI normal to inspection, nondistended, normoactive bowel sounds, non-tender, non-distended and no masses; Negative for hepatosplenomegaly Back/Spine no CVA tenderness Extremity normal to inspection General Extremety ED: Yes edema; Negative for tenderness General Extremity: edema Neuro No oriented x3 and No no sensory deficits noted Sensorium / Orientation: Negative for alert Motor Exam: Negative for strength 5/5 throughout Psych Psych Narrative: Depressed mood with flat affect. Skin no rashes or lesions noted, no wounds and No skin turgor normal General Skin Exam: pallor; Negative for jaundice MDM MDM MDM Narrative Medical decision making narrative: Nurse attempting to alleviate the obstruction. There are pill fragments noted. Charge nurse contacted Endo determine if they have a brush that can be used to alleviate the obstruction. Spoke with Dr. Zapata. He recommended getting a KUB to determine if the tube is kinked. He had no other suggestions regarding alleviating the obstruction. Radiography Chest X-Ray - ED: 1 View (Single view KUB was obtained. The feeding tube is not kinked.) and Read by ED Physician (An additional KUB was obtained with the guidewire in place. Unable to see the guidewire. In light of this we will remove the feeding tube and place a new tube. This was independent reviewed and interpreted by me at 1425) Diagnostic Testing: Clinical Impression(s) from Imaging Studies KUB X-Ray 06/10/22 13:47 IMPRESSION: The tip of the feeding tube is in the second portion of the duodenum. Electronically Signed: Leonardo Escalera MD at 14:42 EST , KUB X-Ray 06/10/22 14:23 IMPRESSION: The tip of the feeding tube is in the second portion of the duodenum. The tip of the guidewire is in the distal third of the esophagus. Electronically Signed: Leonardo Escalera MD at 14:43 EST , KUB was obtained. This is x-ray #3. the Dobbhoff is in the stomach but not in the duodenum Recommend not using the tube for 24 to 48 hours. Procedures Other Procedures Procedure(s): Nursing staff and I attempted to alleviate obstruction of the feeding tube. After 20 to 25 minutes of attempting to alleviate the obstruction using a fine brush procedure was aborted. Spoke with Dr. Zapata. He recommended KUB to determine if the tube is kinked. Tube is not kinked. In light of this the old tube was removed and a new tube was placed. The tube is in proper position however the magnet/metal is not in the duodenum. Discharge Plan Triage Chief Complaint: Other, Pain/Inj ED Provider: CobianHammad Dx/Rx/DC Orders Clinical Impression: Feeding tube obstruction, Encounter for feeding tube placement Instructions: Feeding Tube Prescriptions: No Action gabapentin 600 mg Tablet 600 mg PO 4X/DAY PRN PRN (Reason: Pain) torsemide 20 mg Tablet 40 mg PO DAILY oxybutynin chloride 10 mg Tablet Extended Release 24hr 10 mg PO DAILY amlodipine 5 mg Tablet 5 mg PO DAILY simvastatin 80 mg Tablet 80 mg PO QPM allopurinol 100 mg Tablet 100 mg PO DAILY buspirone 10 mg Tablet 10 mg PO TID hydrochlorothiazide 12.5 mg Capsule 12.5 mg PO DAILY Novolin N FlexPen 100 unit/mL (3 mL) Insulin Pen 68 unit SUBCUT DINNER insulin aspart U-100 [Novolog FlexPen U-100 Insulin] 100 unit/mL (3 mL) Insulin Pen 30 unit SUBCUT BID insulin aspart U-100 [Novolog FlexPen U-100 Insulin] 100 unit/mL (3 mL) Insulin Pen 34 unit SUBCUT DINNER aripiprazole 5 mg Tablet 5 mg PO QHS duloxetine 30 mg Capsule,Delayed Release(Dr/Ec) 30 mg PO DAILY duloxetine 60 mg Capsule,Delayed Release(Dr/Ec) 60 mg PO DAILY budesonide-formoterol [Symbicort] 160-4.5 mcg/actuation Hfa Aerosol Inhaler 2 puff INHALATION BID Basaglar KwikPen U-100 Insulin 100 unit/mL (3 mL) Insulin Pen 22 unit SUBCUT BREAKFAST cholecalciferol (vitamin D3) [Vitamin D3] 125 mcg (5,000 unit) Tablet 125 mcg PO DAILY levothyroxine 50 mcg Capsule 50 mcg PO DAILY cyanocobalamin (vitamin B-12) 5,000 mcg Capsule 5,000 mcg PO DAILY Primary Care Provider: Chris Thorne Referrals: Chris Thorne MD [Primary Care Provider] - As Needed Activity Restrictions/Additional Instructions: Recommend not using the feeding tube for 24 hours and recommend obtaining KUB to determine if the feeding tube is in the proper position i.e. metal portion in the duodenum Disposition Disposition: Home, Self Care
--- NOTE | 2022-06-10 13:47 | RAD_ITS ---
STUDY: X-RAY - ABDOMEN/PELVIS REASON FOR EXAM: Female, 77 years old. Determine placement of nasogastric tube TECHNIQUE: Single AP view of the abdomen / pelvis. COMPARISON: None. FINDINGS: The tip of the feeding tube is in the second portion of the duodenum. RAD/Abdomen Single View (Portable) IMPRESSION: The tip of the feeding tube is in the second portion of the duodenum. Electronically Signed: Leonardo Escalera MD at 14:42 EST ,
--- NOTE | 2022-06-10 14:23 | RAD_ITS ---
STUDY: X-RAY - ABDOMEN/PELVIS REASON FOR EXAM: Female, 77 years old. To assess where guidewire is inside the feeding tu TECHNIQUE: Single AP view of the abdomen / pelvis. COMPARISON: None. FINDINGS: The tip of the feeding tube is seen in the second portion of the duodenum. The tip of the guidewire is in the distal third of the esophagus. RAD/Abdomen Single View (Portable) IMPRESSION: The tip of the feeding tube is in the second portion of the duodenum. The tip of the guidewire is in the distal third of the esophagus. Electronically Signed: Leonardo Escalera MD at 14:43 EST ,
--- NOTE | 2022-06-10 14:49 | ED.RN ---
Existing dobhoff unable to be flushed/cleared. Dr. Cobian replaced with a 12 fr feeding tube.
--- NOTE | 2022-06-10 15:10 | RAD_ITS ---
STUDY: X-RAY - ABDOMEN/PELVIS REASON FOR EXAM: Female, 77 years old. Placement of new feeding tube TECHNIQUE: Single AP view of the abdomen / pelvis. COMPARISON: Comparison is made with prior study done earlier today. FINDINGS: The tip of the feeding tube is coiled in the fundal portion of the stomach. RAD/Abdomen Single View (Portable) IMPRESSION: The tip of the feeding tube is coiled in the fundal portion of the stomach. Electronically Signed: Leonardo Escalera MD at 15:40 EST ,
--- NOTE | 2022-06-10 15:23 | ED.RN ---
ETA FOR PHYSICIANS IS [id number]
--- NOTE | 2022-06-10 16:03 | ED.RN ---
CORRECTION, ETA FOR PHYSICIANS IS [id number]
[2022-06-10 16:21] VITALS: BP 122/59; RESP 16; O2SAT 91
== END 2022-06-10 17:38 | disposition home or self-care (01) ==
PROVIDERS: Emergency Provider Emergency Medicine; PCP Family Medicine; Visit Provider Emergency Medicine
DX: K94.23 Gastrostomy malfunction (principal); J44.9 Chronic obstructive pulmonary disease, unspecified; I13.0 Hypertensive heart and chronic kidney disease with heart failure and stage 1 through stage 4 chronic kidney disease, or unspecified chronic kidney disease; I50.9 Heart failure, unspecified; E11.22 Type 2 diabetes mellitus with diabetic chronic kidney disease; E03.9 Hypothyroidism, unspecified; N18.9 Chronic kidney disease, unspecified; I69.391 Dysphagia following cerebral infarction; F32.9 Major depressive disorder, single episode, unspecified; G47.33 Obstructive sleep apnea (adult) (pediatric); E78.5 Hyperlipidemia, unspecified; D64.9 Anemia, unspecified; E66.9 Obesity, unspecified
CPT/HCPCS: 74018; 99284

== ENCOUNTER 2022-06-11 22:48 | Emergency (ER) | payer MEDICARE, OTHER, SELFPAY ==
[2022-06-11 22:51] VITALS: BP 152/59; PULSE 55; RESP 18; TEMP 36.7; O2SAT 95; BMI 28.3
--- NOTE | 2022-06-11 23:09 | EDS_ITS ---
HPI History of Present Illness Chief Complaint: General Illness Narrative Narrative: 77-year-old female presents for feeding tube replacement. History and physical is limited secondary to her baseline mental status.In review of her EMR, she was here yesterday for a clogged Dobbhoff. It was reported that it had been replaced with a Corpak. She has had past medical history of cerebral infarct causing her dysphagia and difficulty swallowing. She presents because NG tube has been pulled out. 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 Congestive heart failure (CHF) Dementia Depression Diabetes Dysphagia following cerebral infarction Encephalopathy, unspecified Gastro-esophageal reflux disease without esophagitis Gout, unspecified Hemiplegia and hemiparesis following cerebral infarction affecting left non- dominant side Hypertension Hypothyroidism Malignant neoplasm of unspecified part of unspecified bronchus or lung Home Medications allopurinol 100 mg tablet 100 mg PO DAILY 01/29/21 [History Last Taken Unknown] amlodipine 5 mg tablet 5 mg PO DAILY 01/29/21 [History Last Taken Unknown] aripiprazole 5 mg tablet 5 mg PO QHS 01/29/21 [History Last Taken Unknown] budesonide-formoterol HFA 160 mcg-4.5 mcg/actuation aerosol inhaler (Symbicort) 2 puff inhalation BID 01/29/21 [History Last Taken Unknown] buspirone 10 mg tablet 10 mg PO TID 01/29/21 [History Last Taken Unknown] cholecalciferol (vitamin D3) 125 mcg (5,000 unit) tablet (Vitamin D3) 125 mcg PO DAILY 01/29/21 [History Last Taken Unknown] cyanocobalamin (vitamin B-12) 5,000 mcg capsule 5,000 mcg PO DAILY 01/29/21 [History Last Taken Unknown] duloxetine 30 mg capsule,delayed release 30 mg PO DAILY 01/29/21 [History Last Taken Unknown] duloxetine 60 mg capsule,delayed release 60 mg PO DAILY 01/29/21 [History Last Taken Unknown] gabapentin 600 mg tablet 600 mg PO 4X/DAY PRN PRN Pain 01/29/21 [History Last Taken Unknown] hydrochlorothiazide 12.5 mg capsule 12.5 mg PO DAILY 01/29/21 [History Last Taken Unknown] insulin NPH isoph U-100 human 100 unit/mL (3 mL) subcutaneous pen (Novolin N FlexPen) 68 unit subcut DINNER 01/29/21 [History Last Taken Unknown] insulin aspart U-100 100 unit/mL (3 mL) subcutaneous pen (Novolog FlexPen U-100 Insulin aspart) 30 unit subcut BID 01/29/21 [History Last Taken Unknown] insulin aspart U-100 100 unit/mL (3 mL) subcutaneous pen (Novolog FlexPen U-100 Insulin aspart) 34 unit subcut DINNER 01/29/21 [History Last Taken Unknown] insulin glargine 100 unit/mL (3 mL) subcutaneous pen (Basaglar KwikPen U-100 Insulin) 22 unit subcut BREAKFAST 01/29/21 [History Last Taken Unknown] levothyroxine 50 mcg capsule 50 mcg PO DAILY 01/29/21 [History Last Taken Unknown] oxybutynin chloride 10 mg tablet,extended release 24 hr 10 mg PO DAILY 01/29/21 [History Last Taken Unknown] simvastatin 80 mg tablet 80 mg PO QPM 01/29/21 [History Last Taken Unknown] torsemide 20 mg tablet 40 mg PO DAILY 01/29/21 [History Last Taken Unknown] Allergy/AdvReac Type Severity Reaction Status Date / Time Penicillins Allergy PT UNSURE Verified 06/10/22 09:16 OF REACTION Social History household members: none housing: [facility] Smoking Status: Unknown if ever smoked ROS ROS ED ROS Narrative Unable to obtain secondary to dementia Review of Systems ROS Unobtainable: due to mental condition EXAM Physical Exam Narrative Exam Narrative: Afebrile. Vital signs noted. HEENT: Normocephalic. Atraumatic. PERRL, EOMI. Neck soft and supple. No point tenderness or step off. Cardiovascular: Regular rate and rhythm. No murmurs, rubs, or gallops appreciated. Respiratory: No tachypnea. Lungs clear to auscultation bilaterally. Gastrointestinal: Abdomen soft, nontender, with normoactive bowel sounds. No rebound or guarding. Neurological: Awake. Alert. Verbal. Skin: No rash. Normal color. No pallor. Musculoskeletal: No pedal edema. Full range of motion extremities. Const Vital Signs: 06/11/22 22:51 Temperature 98.0 F Temperature Source Temporal Pulse Rate 55 L Respiratory Rate 18 Blood Pressure 152/59 H Blood Pressure Mean 90 Pulse Ox 95 Oxygen Delivery Method Room Air MDM MDM MDM Narrative Medical decision making narrative: At this hour, I am unable to have special procedures place a Dobbhoff as she arrived at the beginning of an overnight shift. Regular NG will be inserted and she will be discharged back so that she can get medications and nutrition. She will require Dobbhoff placement for Corpak placement as an outpatient during regular business hours. NG tube was placed by RN. I reviewed her KUB for placement, and see the tip of the NG tube in the stomach in correct position. I reviewed the radiology report who confirms proper placement. At this point in time, I feel she can be [facility] placement of a Dobbhoff for Corpak. Disposition is discharged home in stable condition. Radiography Diagnostic Testing: Clinical Impression(s) from Imaging Studies KUB X-Ray 06/11/22 23:15 IMPRESSION: NG tube as described. Electronically Signed: Holden Iglesias DO at 23:40 EST Reading Location ID and State: [address] [place] [address] Tel [phone], Service support , Discharge Plan Triage Chief Complaint: General Illness ED Provider: Joseluis Pete Dx/Rx/DC Orders Clinical Impression: Encounter for feeding tube placement, Uses feeding tube Instructions: NG Feeding Tube Dc Prescriptions: No Action gabapentin 600 mg Tablet 600 mg PO 4X/DAY PRN PRN (Reason: Pain) torsemide 20 mg Tablet 40 mg PO DAILY oxybutynin chloride 10 mg Tablet Extended Release 24hr 10 mg PO DAILY amlodipine 5 mg Tablet 5 mg PO DAILY simvastatin 80 mg Tablet 80 mg PO QPM allopurinol 100 mg Tablet 100 mg PO DAILY buspirone 10 mg Tablet 10 mg PO TID hydrochlorothiazide 12.5 mg Capsule 12.5 mg PO DAILY Novolin N FlexPen 100 unit/mL (3 mL) Insulin Pen 68 unit SUBCUT DINNER insulin aspart U-100 [Novolog FlexPen U-100 Insulin] 100 unit/mL (3 mL) Insulin Pen 30 unit SUBCUT BID insulin aspart U-100 [Novolog FlexPen U-100 Insulin] 100 unit/mL (3 mL) Insulin Pen 34 unit SUBCUT DINNER aripiprazole 5 mg Tablet 5 mg PO QHS duloxetine 30 mg Capsule,Delayed Release(Dr/Ec) 30 mg PO DAILY duloxetine 60 mg Capsule,Delayed Release(Dr/Ec) 60 mg PO DAILY budesonide-formoterol [Symbicort] 160-4.5 mcg/actuation Hfa Aerosol Inhaler 2 puff INHALATION BID Basaglar KwikPen U-100 Insulin 100 unit/mL (3 mL) Insulin Pen 22 unit SUBCUT BREAKFAST cholecalciferol (vitamin D3) [Vitamin D3] 125 mcg (5,000 unit) Tablet 125 mcg PO DAILY levothyroxine 50 mcg Capsule 50 mcg PO DAILY cyanocobalamin (vitamin B-12) 5,000 mcg Capsule 5,000 mcg PO DAILY Primary Care Provider: Chris Thorne Referrals: Chris Thorne MD [Primary Care Provider] - As soon as possible Activity Restrictions/Additional Instructions: You will require a more permanent feeding tube such as a Dobbhoff or Corpak to be placed by special procedures as an outpatient. Disposition Disposition: Detention Facility Discharge Location: [facility]
--- NOTE | 2022-06-11 23:15 | RAD_ITS ---
STUDY: X-RAY - ABDOMEN/PELVIS REASON FOR EXAM: Female, 77 years old. NG tube placement. TECHNIQUE: A AP view of the lower chest and upper abdomen was performed. COMPARISON: June 10, 2022. FINDINGS: Normal visualized lung bases. The Dobbhoff catheter seen on the earlier exam is no longer present. There is now an NG tube with its tip in the central abdomen in expected position of the proximal stomach. There is an unremarkable bowel gas pattern. There is no demonstrated free abdominal air. The visualized liver, spleen and kidneys are grossly normal in size and morphology. Normal soft tissue structures. Normal visualized osseous structures. RAD/Abdomen Single View (Portable) IMPRESSION: NG tube as described. Electronically Signed: Holden Iglesias DO at 23:40 EST ,
--- NOTE | 2022-06-12 00:14 | NURSING ---
attempted to call nurse report to the [facility] was transferred to unit with no answer.
[2022-06-12 03:30] VITALS: RESP 16
== END 2022-06-12 06:30 | disposition skilled nursing facility (03) ==
PROVIDERS: Emergency Provider Emergency Medicine; PCP Family Medicine; Visit Provider Emergency Medicine
DX: K94.23 Gastrostomy malfunction (principal); I11.0 Hypertensive heart disease with heart failure; I50.9 Heart failure, unspecified; E11.9 Type 2 diabetes mellitus without complications
CPT/HCPCS: 74018; 99285

== ENCOUNTER 2022-06-14 12:51 | Emergency (ER) | payer MEDICARE, OTHER, SELFPAY ==
[2022-06-14 12:53] VITALS: BP 130/60; PULSE 61; RESP 12; TEMP 36.2; O2SAT 97; BMI 35.6
--- NOTE | 2022-06-14 13:10 | EX.ED.DYSGE1 ---
HPI <RAJINDER Lockett - Last Filed: 06/14/22 15:34> History of Present Illness Chief Complaint: Wound Narrative Narrative: Patient presenting with a broken filter on her NG tube. This does not affect the NG tube function in any way. History and physical is limited due to her baseline mental status. PMH includes cerebral infarct causing her dysphagia and difficulty swallowing. Patient also presented to the ED 06/11/2022 after her NG tube was pulled out. A new NG tube was replaced at that time. 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 Congestive heart failure (CHF) Dementia Depression Diabetes Dysphagia following cerebral infarction Encephalopathy, unspecified Gastro-esophageal reflux disease without esophagitis Gout, unspecified Hemiplegia and hemiparesis following cerebral infarction affecting left non-dominant side Hypertension Hypothyroidism Malignant neoplasm of unspecified part of unspecified bronchus or lung Home Medications allopurinol 100 mg tablet 100 mg PO DAILY 01/29/21 [History Last Taken Unknown] amlodipine 5 mg tablet 5 mg PO DAILY 01/29/21 [History Last Taken Unknown] aripiprazole 5 mg tablet 5 mg PO QHS 01/29/21 [History Last Taken Unknown] budesonide-formoterol HFA 160 mcg-4.5 mcg/actuation aerosol inhaler (Symbicort) 2 puff inhalation BID 01/29/21 [History Last Taken Unknown] buspirone 10 mg tablet 10 mg PO TID 01/29/21 [History Last Taken Unknown] cholecalciferol (vitamin D3) 125 mcg (5,000 unit) tablet (Vitamin D3) 125 mcg PO DAILY 01/29/21 [History Last Taken Unknown] cyanocobalamin (vitamin B-12) 5,000 mcg capsule 5,000 mcg PO DAILY 01/29/21 [History Last Taken Unknown] duloxetine 30 mg capsule,delayed release 30 mg PO DAILY 01/29/21 [History Last Taken Unknown] duloxetine 60 mg capsule,delayed release 60 mg PO DAILY 01/29/21 [History Last Taken Unknown] gabapentin 600 mg tablet 600 mg PO 4X/DAY PRN PRN Pain 01/29/21 [History Last Taken Unknown] hydrochlorothiazide 12.5 mg capsule 12.5 mg PO DAILY 01/29/21 [History Last Taken Unknown] insulin NPH isoph U-100 human 100 unit/mL (3 mL) subcutaneous pen (Novolin N FlexPen) 68 unit subcut DINNER 01/29/21 [History Last Taken Unknown] insulin aspart U-100 100 unit/mL (3 mL) subcutaneous pen (Novolog FlexPen U-100 Insulin aspart) 30 unit subcut BID 01/29/21 [History Last Taken Unknown] insulin aspart U-100 100 unit/mL (3 mL) subcutaneous pen (Novolog FlexPen U-100 Insulin aspart) 34 unit subcut DINNER 01/29/21 [History Last Taken Unknown] insulin glargine 100 unit/mL (3 mL) subcutaneous pen (Basaglar KwikPen U-100 Insulin) 22 unit subcut BREAKFAST 01/29/21 [History Last Taken Unknown] levothyroxine 50 mcg capsule 50 mcg PO DAILY 01/29/21 [History Last Taken Unknown] oxybutynin chloride 10 mg tablet,extended release 24 hr 10 mg PO DAILY 01/29/21 [History Last Taken Unknown] simvastatin 80 mg tablet 80 mg PO QPM 01/29/21 [History Last Taken Unknown] torsemide 20 mg tablet 40 mg PO DAILY 01/29/21 [History Last Taken Unknown] Allergy/AdvReac Type Severity Reaction Status Date / Time Penicillins Allergy PT UNSURE Verified 06/10/22 09:16 OF REACTION Social History household members: none housing: skilled nursing Smoking Status: Unknown if ever smoked ROS <RAJINDER Lockett - Last Filed: 06/14/22 15:34> ROS ED Review of Systems ROS Unobtainable: due to mental condition EXAM <RAJINDER Lockett - Last Filed: 06/14/22 15:34> Physical Exam Const Vital Signs: 06/14/22 12:53 Temperature 97.2 F L Temperature Source Temporal Pulse Rate 61 Respiratory Rate 12 Blood Pressure 130/60 H Blood Pressure Mean 83 Pulse Ox 97 Oxygen Delivery Method Room Air Positive well nourished and no apparent distress General Appearance ED: comfortable HEENT Reports normocephalic, head/scalp atraumatic and moist mucous membranes Eyes PERRL and EOMs intact bilaterally Neck full ROM and supple Chest Wall inspection of chest normal Resp normal respiratory effort and clear to auscultation bilaterally Cardio regular rate and regular rhythm GI soft to palpation, non-tender and non-distended Extremity normal to inspection Neuro Sensorium / Orientation: awake and alert Speech: speech normal Skin no rashes or lesions noted and no wounds <Dr. Jet Coles, - Last Filed: 06/14/22 15:23> Physical Exam Const Vital Signs: 06/14/22 12:53 Temperature 97.2 F L Temperature Source Temporal Pulse Rate 61 Respiratory Rate 12 Blood Pressure 130/60 H Blood Pressure Mean 83 Pulse Ox 97 Oxygen Delivery Method Room Air MDM <RAJINDER Lockett - Last Filed: 06/14/22 15:34> [facility] Narrative Medical decision making narrative: Patient in no acute distress and nontoxic-appearing. Presenting due to broken filter on the NG tube. Nursing states that the feedings are being given through the filter and not through the NG suction. They also state that the tubing is not being flushed appropriately. Nursing spoke with [facility] to discuss appropriate management of NG tube flushing. Patient will be discharged back to her facility in stable condition. Attending note: Patient seen and evaluated with formwork carpenter. I perform my own [id number] evaluation. I agree with the plan of work-up. Sent in due to obstructive NG tube. Seen 3 days ago for replacement had a Dobbhoff there previously with stroke history with problem with dysarthria and dysphagia. 3 days ago had NG placed due to no specialists available. Sent back due to it being clogged. Per nursing apparently feedings were being given through the filter and not directly through the NG suction. The filter was broken. This was replaced by nursing. This currently should be working. NG tube clear of obstruction. Nursing will call back to facility maintenance technician discussion appropriate management of NG tube with flushing and use. Patient will be discharged back to facility. <Dr. Jet Coles, - Last Filed: 06/14/22 15:23> [facility] Narrative Medical decision making narrative: Attending note: Patient seen and evaluated with formwork carpenter. I perform my own [id number] evaluation. I agree with the plan of work-up. Sent in due to obstructive NG tube. Seen 3 days ago for replacement had a Dobbhoff there previously with stroke history with problem with dysarthria and dysphagia. 3 days ago had NG placed due to no specialists available. Sent back due to it being clogged. Per nursing apparently feedings were being given through the filter and not directly through the NG suction. The filter was broken. This was replaced by nursing. This currently should be working. NG tube clear of obstruction. Nursing will call back to facility maintenance technician discussion appropriate management of NG tube with flushing and use. Patient will be discharged back to facility. Discharge Plan Triage Chief Complaint: Wound ED Midlevel Provider: Heather Peñaloza ED Provider: Jet Coles Dx/Rx/DC Orders Clinical Impression: Feeding tube obstruction, Feeding by G-tube Instructions: NG Feeding Tube Dc, Tube Feeding Flush Dc Prescriptions: No Action gabapentin 600 mg Tablet 600 mg PO 4X/DAY PRN PRN (Reason: Pain) torsemide 20 mg Tablet 40 mg PO DAILY oxybutynin chloride 10 mg Tablet Extended Release 24hr 10 mg PO DAILY amlodipine 5 mg Tablet 5 mg PO DAILY simvastatin 80 mg Tablet 80 mg PO QPM allopurinol 100 mg Tablet 100 mg PO DAILY buspirone 10 mg Tablet 10 mg PO TID hydrochlorothiazide 12.5 mg Capsule 12.5 mg PO DAILY Novolin N FlexPen 100 unit/mL (3 mL) Insulin Pen 68 unit SUBCUT DINNER insulin aspart U-100 [Novolog FlexPen U-100 Insulin] 100 unit/mL (3 mL) Insulin Pen 30 unit SUBCUT BID insulin aspart U-100 [Novolog FlexPen U-100 Insulin] 100 unit/mL (3 mL) Insulin Pen 34 unit SUBCUT DINNER aripiprazole 5 mg Tablet 5 mg PO QHS duloxetine 30 mg Capsule,Delayed Release(Dr/Ec) 30 mg PO DAILY duloxetine 60 mg Capsule,Delayed Release(Dr/Ec) 60 mg PO DAILY budesonide-formoterol [Symbicort] 160-4.5 mcg/actuation Hfa Aerosol Inhaler 2 puff INHALATION BID Basaglar KwikPen U-100 Insulin 100 unit/mL (3 mL) Insulin Pen 22 unit SUBCUT BREAKFAST cholecalciferol (vitamin D3) [Vitamin D3] 125 mcg (5,000 unit) Tablet 125 mcg PO DAILY levothyroxine 50 mcg Capsule 50 mcg PO DAILY cyanocobalamin (vitamin B-12) 5,000 mcg Capsule 5,000 mcg PO DAILY Primary Care Provider: Chris Thorne Referrals: Chris Thorne MD [Primary Care Provider] - 1 Day Activity Restrictions/Additional Instructions: Please be sure and NG tube is being flushed appropriately. Disposition Disposition: Home, Self Care
--- NOTE | 2022-06-14 13:32 | ED.RN ---
ETA 1530
== END 2022-06-14 16:20 | disposition home or self-care (01) ==
PROVIDERS: Emergency Provider Emergency Medicine; PCP Family Medicine; Visit Provider Emergency Medicine
DX: K94.23 Gastrostomy malfunction (principal); I11.0 Hypertensive heart disease with heart failure; I50.9 Heart failure, unspecified; E11.9 Type 2 diabetes mellitus without complications; R13.10 Dysphagia, unspecified; I69.391 Dysphagia following cerebral infarction
CPT/HCPCS: 99284

== ENCOUNTER 2022-06-17 15:07 | Emergency (ER) | payer MEDICARE, OTHER, SELFPAY ==
[2022-06-17 15:09] VITALS: BP 101/34; PULSE 94; RESP 19; TEMP 35.9; O2SAT 97; BMI 35.6
[2022-06-17 15:14] VITALS: BP 101/34; PULSE 96; RESP 24; O2SAT 97
--- NOTE | 2022-06-17 15:33 | ED.RN ---
NG removed from right nare. remaining 9 inches of NG removed. informed and no further orders replaced. no s/s of distress. branden rodriguez rn [id number]
--- NOTE | 2022-06-17 15:56 | EDS_ITS ---
HPI History of Present Illness Chief Complaint: Foreign Body Narrative Narrative: 77-year-old female [facility] with NG feeding tube displacement. She has past medical history of diabetes, cerebral infarct with residual dysphagia and difficulty swallowing along with reported left-sided weakness. She is unable to provide any history secondary to her baseline mental status. She has been seen in the ED multiple times for feeding tube dislodging and clogging. I last saw her on an overnight shift where her Corpak had been dislodged completely and removed by the ED physician as she had pulled out her Dobbhoff. She is not scheduled for PEG tube placement for another few weeks. In review of her most recent visit, intermediate facility staff had been infusing her filter on her NG tube. She presents today because the NG is almost completely dislodged from her nares. 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 Congestive heart failure (CHF) Dementia Depression Diabetes Dysphagia following cerebral infarction Encephalopathy, unspecified Gastro-esophageal reflux disease without esophagitis Gout, unspecified Hemiplegia and hemiparesis following cerebral infarction affecting left non- dominant side Hypertension Hypothyroidism Malignant neoplasm of unspecified part of unspecified bronchus or lung Home Medications allopurinol 100 mg tablet 100 mg PO DAILY 01/29/21 [History Last Taken Unknown] amlodipine 5 mg tablet 5 mg PO DAILY 01/29/21 [History Last Taken Unknown] aripiprazole 5 mg tablet 5 mg PO QHS 01/29/21 [History Last Taken Unknown] budesonide-formoterol HFA 160 mcg-4.5 mcg/actuation aerosol inhaler (Symbicort) 2 puff inhalation BID 01/29/21 [History Last Taken Unknown] buspirone 10 mg tablet 10 mg PO TID 01/29/21 [History Last Taken Unknown] cholecalciferol (vitamin D3) 125 mcg (5,000 unit) tablet (Vitamin D3) 125 mcg PO DAILY 01/29/21 [History Last Taken Unknown] cyanocobalamin (vitamin B-12) 5,000 mcg capsule 5,000 mcg PO DAILY 01/29/21 [History Last Taken Unknown] duloxetine 30 mg capsule,delayed release 30 mg PO DAILY 01/29/21 [History Last Taken Unknown] duloxetine 60 mg capsule,delayed release 60 mg PO DAILY 01/29/21 [History Last Taken Unknown] gabapentin 600 mg tablet 600 mg PO 4X/DAY PRN PRN Pain 01/29/21 [History Last Taken Unknown] hydrochlorothiazide 12.5 mg capsule 12.5 mg PO DAILY 01/29/21 [History Last Taken Unknown] insulin NPH isoph U-100 human 100 unit/mL (3 mL) subcutaneous pen (Novolin N FlexPen) 68 unit subcut DINNER 01/29/21 [History Last Taken Unknown] insulin aspart U-100 100 unit/mL (3 mL) subcutaneous pen (Novolog FlexPen U-100 Insulin aspart) 30 unit subcut BID 01/29/21 [History Last Taken Unknown] insulin aspart U-100 100 unit/mL (3 mL) subcutaneous pen (Novolog FlexPen U-100 Insulin aspart) 34 unit subcut DINNER 01/29/21 [History Last Taken Unknown] insulin glargine 100 unit/mL (3 mL) subcutaneous pen (Basaglar KwikPen U-100 Insulin) 22 unit subcut BREAKFAST 01/29/21 [History Last Taken Unknown] levothyroxine 50 mcg capsule 50 mcg PO DAILY 01/29/21 [History Last Taken Unknown] oxybutynin chloride 10 mg tablet,extended release 24 hr 10 mg PO DAILY 01/29/21 [History Last Taken Unknown] simvastatin 80 mg tablet 80 mg PO QPM 01/29/21 [History Last Taken Unknown] torsemide 20 mg tablet 40 mg PO DAILY 01/29/21 [History Last Taken Unknown] Allergy/AdvReac Type Severity Reaction Status Date / Time Penicillins Allergy PT UNSURE Verified 06/10/22 09:16 OF REACTION Social History household members: none housing: [facility] Smoking Status: Unknown if ever smoked ROS ROS ED ROS Narrative Unable to obtain secondary to baseline mental status. Review of Systems ROS Unobtainable: due to mental status EXAM Physical Exam Narrative Exam Narrative: Afebrile. Vital signs noted. No acute distress. HEENT: Normocephalic. Atraumatic. PERRL, EOMI. Neck soft and supple. No point tenderness or step off. NG tube almost completely removed from right nares with large amount of slack. Cardiovascular: Regular rate and rhythm. No murmurs, rubs, or gallops appreciated. Respiratory: No tachypnea. Lungs clear to auscultation bilaterally. Gastrointestinal: Abdomen soft, nontender, with normoactive bowel sounds. No rebound or guarding. Neurological: Awake. Alert. Nonfocal, nonlateralizing. Skin: No rash. Normal color. No pallor. Musculoskeletal: No pedal edema. Full range of motion extremities. Const Vital Signs: 06/17/22 15:09 06/17/22 15:14 06/17/22 15:15 Temperature 96.6 F L Temperature Source Temporal Pulse Rate 94 96 Respiratory Rate 19 H 24 H Respiratory Effort Normal Respiratory Pattern Normal Blood Pressure 101/34 L 101/34 L Blood Pressure Mean 56 56 Pulse Ox 97 97 Oxygen Delivery Method Room Air Room Air MDM MDM MDM Narrative Medical decision making narrative: I reviewed her prior outpatient records. She has been seen multiple times for dislodging or clogging of her feeding tube. Charge nurse called special procedures and they are unable to place a Dobbhoff today. NG tube will be replaced by emergency department RN. I do not feel that any laboratory work is indicated. Once placement is confirmed, she will be [facility]. I reviewed the patient's KUB x-ray. NG tube appears to be in good placement on my interpretation. Patient will be discharged in improved and stable condition. Discharge Plan Triage Chief Complaint: Foreign Body ED Provider: Joseluis Pete Dx/Rx/DC Orders Clinical Impression: Encounter for feeding tube placement, Uses feeding tube Instructions: ED Feeding Tube Replacement Prescriptions: No Action gabapentin 600 mg Tablet 600 mg PO 4X/DAY PRN PRN (Reason: Pain) torsemide 20 mg Tablet 40 mg PO DAILY oxybutynin chloride 10 mg Tablet Extended Release 24hr 10 mg PO DAILY amlodipine 5 mg Tablet 5 mg PO DAILY simvastatin 80 mg Tablet 80 mg PO QPM allopurinol 100 mg Tablet 100 mg PO DAILY buspirone 10 mg Tablet 10 mg PO TID hydrochlorothiazide 12.5 mg Capsule 12.5 mg PO DAILY Novolin N FlexPen 100 unit/mL (3 mL) Insulin Pen 68 unit SUBCUT DINNER insulin aspart U-100 [Novolog FlexPen U-100 Insulin] 100 unit/mL (3 mL) Insulin Pen 30 unit SUBCUT BID insulin aspart U-100 [Novolog FlexPen U-100 Insulin] 100 unit/mL (3 mL) Insulin Pen 34 unit SUBCUT DINNER aripiprazole 5 mg Tablet 5 mg PO QHS duloxetine 30 mg Capsule,Delayed Release(Dr/Ec) 30 mg PO DAILY duloxetine 60 mg Capsule,Delayed Release(Dr/Ec) 60 mg PO DAILY budesonide-formoterol [Symbicort] 160-4.5 mcg/actuation Hfa Aerosol Inhaler 2 puff INHALATION BID Basaglar KwikPen U-100 Insulin 100 unit/mL (3 mL) Insulin Pen 22 unit SUBCUT BREAKFAST cholecalciferol (vitamin D3) [Vitamin D3] 125 mcg (5,000 unit) Tablet 125 mcg PO DAILY levothyroxine 50 mcg Capsule 50 mcg PO DAILY cyanocobalamin (vitamin B-12) 5,000 mcg Capsule 5,000 mcg PO DAILY Primary Care Provider: Chris Thorne Referrals: Chris Thorne MD [Primary Care Provider] - Disposition Disposition: Jail Facility Discharge Location: [facility]
[2022-06-17] MEDS: Oxymetazoline 0.05% 1 SPRAY SPRAY.BTL 2 SPRAY NASAL (16:25)
--- NOTE | 2022-06-17 16:31 | RAD_ITS ---
EXAM: XR ABDOMEN, 1 VIEW CLINICAL INDICATION: ng tube placement -- KUB with both diaphragms for NG/OG Verification TECHNIQUE: Frontal supine view of the abdomen/pelvis. This report was created using [employer] report generation technology. COMPARISON: 06/11/2022 FINDINGS: LOWER THORAX: No acute pathology. GASTROINTESTINAL TRACT: Unremarkable. Non-obstructive. No bowel or stomach distention. ORGANS: Unremarkable as visualized. No organomegaly. No abnormal calcifications. BONES/JOINTS: Bilateral pedicle screws are seen at L1-L2. SOFT TISSUES: No acute pathology. TUBES, LINES AND DEVICES: Nasogastric tube is in place with the distal tip within the mid stomach. RAD/Abdomen Single View (Portable) IMPRESSION: Nasogastric tube with the distal tip in the mid stomach. There has been no significant change from the reference exam. Electronically Signed: Nilesh Hernández MD at 16:56 EST ,
[2022-06-17 17:08] VITALS: RESP 18
--- NOTE | 2022-06-17 17:11 | ED.RN ---
THIS RN CALLED REPORT BACK TO [facility], INFORMED OF PLAN OF CARE AND DISCHARGE. NURSE VERBALIZES UNDERSTANDING AND DENIES ANY FURTHER QUESTIONS AT THIS TIME.
[2022-06-17 19:32] VITALS: BP 98/50; PULSE 95; RESP 20; O2SAT 96
== END 2022-06-17 19:38 | disposition skilled nursing facility (03) ==
PROVIDERS: Emergency Provider Emergency Medicine; PCP Family Medicine; Visit Provider Emergency Medicine
DX: K94.23 Gastrostomy malfunction (principal); I11.0 Hypertensive heart disease with heart failure; I50.9 Heart failure, unspecified; E11.9 Type 2 diabetes mellitus without complications; I69.391 Dysphagia following cerebral infarction; R13.10 Dysphagia, unspecified
CPT/HCPCS: 74018; 99285

== ENCOUNTER 2022-06-18 18:07 | Emergency (ER) | payer MEDICARE, OTHER, SELFPAY ==
[2022-06-18 18:11] VITALS: BP 127/53; PULSE 50; RESP 16; TEMP 36.8; O2SAT 98; BMI 36.4
--- NOTE | 2022-06-18 18:36 | EDS_ITS ---
HPI History of Present Illness Chief Complaint: General Illness Informant: EMS and SNF Narrative Narrative: Patient has no complaints. She is currently in [place] [facility]. She states she knows she has diabetes. She is pending getting a PEG tube placed within this coming week. She keeps having her NG tube or Dobbhoff tubes dislodged. This 1 came out sometime today. She is not complaining of any pain. I have no reports of fevers or vomiting. She just needs this to been for hydration and caloric intake. She is at nursing facility due to prior stroke with dysphagia and global weakness worse on the left. 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 Congestive heart failure (CHF) Dementia Depression Diabetes Dysphagia following cerebral infarction Encephalopathy, unspecified Gastro-esophageal reflux disease without esophagitis Gout, unspecified Hemiplegia and hemiparesis following cerebral infarction affecting left non- dominant side Hypertension Hypothyroidism Malignant neoplasm of unspecified part of unspecified bronchus or lung Home Medications allopurinol 100 mg tablet 100 mg PO DAILY 01/29/21 [History Last Taken Unknown] amlodipine 5 mg tablet 5 mg PO DAILY 01/29/21 [History Last Taken Unknown] aripiprazole 5 mg tablet 5 mg PO QHS 01/29/21 [History Last Taken Unknown] budesonide-formoterol HFA 160 mcg-4.5 mcg/actuation aerosol inhaler (Symbicort) 2 puff inhalation BID 01/29/21 [History Last Taken Unknown] buspirone 10 mg tablet 10 mg PO TID 01/29/21 [History Last Taken Unknown] cholecalciferol (vitamin D3) 125 mcg (5,000 unit) tablet (Vitamin D3) 125 mcg PO DAILY 01/29/21 [History Last Taken Unknown] cyanocobalamin (vitamin B-12) 5,000 mcg capsule 5,000 mcg PO DAILY 01/29/21 [History Last Taken Unknown] duloxetine 30 mg capsule,delayed release 30 mg PO DAILY 01/29/21 [History Last Taken Unknown] duloxetine 60 mg capsule,delayed release 60 mg PO DAILY 01/29/21 [History Last Taken Unknown] gabapentin 600 mg tablet 600 mg PO 4X/DAY PRN PRN Pain 01/29/21 [History Last Taken Unknown] hydrochlorothiazide 12.5 mg capsule 12.5 mg PO DAILY 01/29/21 [History Last Taken Unknown] insulin NPH isoph U-100 human 100 unit/mL (3 mL) subcutaneous pen (Novolin N FlexPen) 68 unit subcut DINNER 01/29/21 [History Last Taken Unknown] insulin aspart U-100 100 unit/mL (3 mL) subcutaneous pen (Novolog FlexPen U-100 Insulin aspart) 30 unit subcut BID 01/29/21 [History Last Taken Unknown] insulin aspart U-100 100 unit/mL (3 mL) subcutaneous pen (Novolog FlexPen U-100 Insulin aspart) 34 unit subcut DINNER 01/29/21 [History Last Taken Unknown] insulin glargine 100 unit/mL (3 mL) subcutaneous pen (Basaglar KwikPen U-100 Insulin) 22 unit subcut BREAKFAST 01/29/21 [History Last Taken Unknown] levothyroxine 50 mcg capsule 50 mcg PO DAILY 01/29/21 [History Last Taken Unknown] oxybutynin chloride 10 mg tablet,extended release 24 hr 10 mg PO DAILY 01/29/21 [History Last Taken Unknown] simvastatin 80 mg tablet 80 mg PO QPM 01/29/21 [History Last Taken Unknown] torsemide 20 mg tablet 40 mg PO DAILY 01/29/21 [History Last Taken Unknown] Allergy/AdvReac Type Severity Reaction Status Date / Time Penicillins Allergy PT UNSURE Verified 06/18/22 18:16 OF REACTION Social History household members: none housing: [facility] Smoking Status: Unknown if ever smoked ROS ROS ED ROS Narrative Limited history per patient. Constitutional Constitutional ED: Denies fever(s) Cardiovascular Cardiovascular: Denies chest pain Gastrointestinal Gastrointestinal: Denies abdominal pain, diarrhea, nausea or vomiting Integumentary Denies rash Neurologic Neurologic: Denies headache(s) Allergic/Immunologic Allergic/Immunologic ED: Denies tongue swelling EXAM Physical Exam Narrative Exam Narrative: Patient is awake and alert. She is somewhat quiet. HEENT shows no sign of trauma. Mucous membranes are moist. No sign of bleeding in the nares. It looks like the tube had been in the right side but there is no erosions. There is just a little discharge on the outside. No sinus tenderness. Oropharynx is normal and voice is normal. Swallowing is normal. Neck is supple. Heart is regular with a rate of about 55. Lungs are clear. Abdomen is obese but overall benign. There is no tenderness whatsoever. Extremities show no sign of trauma. She does have boot orthoses on both lower extremities for protection. Patient is awake she is alert. She knows some of her history but not all of it. Const Vital Signs: 06/18/22 18:11 06/18/22 18:15 Temperature 98.2 F Temperature Source Oral Pulse Rate 50 L Respiratory Rate 16 Respiratory Effort Normal Non-Labored Respiratory Pattern Normal Blood Pressure 127/53 H Blood Pressure Mean 77 Pulse Ox 98 Oxygen Delivery Method Room Air MDM MDM MDM Narrative Medical decision making narrative: NG tube was placed here. We checked her postoperative film. The NG was still in the esophagus. My independent interpretation of her first x-ray shows the NG tube in the mid esophagus. Radiology did also call and notified me of this but we had already advanced the NG tube. I discussed this with the nurse. We passed at 20 or more centimeters down. My independent interpretation of the patient's repeat x-ray shows better positioning. NG does appear to be within the stomach now. Plan will be to go back to her care center. She is set to have the PEG tube placed this week. Radiography Diagnostic Testing: Clinical Impression(s) from Imaging Studies KUB X-Ray 06/18/22 18:50 IMPRESSION: Nasogastric tube with the distal tip in the mid to distal esophagus and should be advanced at least 15 cm into the stomach. Electronically Signed: Nilesh Hernández MD at 19:09 EST , ADDENDUM: 06/18/22 193 IMPRESSION: Nasogastric tube with the distal tip in the mid to distal esophagus and should be advanced at least 15 cm into the stomach. N.B. : The above Results were Read Back by Nilesh Hernández MD to KARLIE STRICKLAND MD, and understanding confirmed on 06/18/2022 19:25:20 (ET). Electronically Signed: Nilesh Hernández MD at 19:09 EST , KUB X-Ray 06/18/22 19:37 IMPRESSION: Nasogastric tube in good position. Electronically Signed: Nilesh Hernández MD at 20:02 EST , Discharge Plan Triage Chief Complaint: General Illness ED Provider: Karlie Strickland Dx/Rx/DC Orders Clinical Impression: Encounter for nasogastric (NG) tube placement, Uses feeding tube Instructions: NG Feeding Tube Dc Prescriptions: No Action gabapentin 600 mg Tablet 600 mg PO 4X/DAY PRN PRN (Reason: Pain) torsemide 20 mg Tablet 40 mg PO DAILY oxybutynin chloride 10 mg Tablet Extended Release 24hr 10 mg PO DAILY amlodipine 5 mg Tablet 5 mg PO DAILY simvastatin 80 mg Tablet 80 mg PO QPM allopurinol 100 mg Tablet 100 mg PO DAILY buspirone 10 mg Tablet 10 mg PO TID hydrochlorothiazide 12.5 mg Capsule 12.5 mg PO DAILY Novolin N FlexPen 100 unit/mL (3 mL) Insulin Pen 68 unit SUBCUT DINNER insulin aspart U-100 [Novolog FlexPen U-100 Insulin] 100 unit/mL (3 mL) Insulin Pen 30 unit SUBCUT BID insulin aspart U-100 [Novolog FlexPen U-100 Insulin] 100 unit/mL (3 mL) Insulin Pen 34 unit SUBCUT DINNER aripiprazole 5 mg Tablet 5 mg PO QHS duloxetine 30 mg Capsule,Delayed Release(Dr/Ec) 30 mg PO DAILY duloxetine 60 mg Capsule,Delayed Release(Dr/Ec) 60 mg PO DAILY budesonide-formoterol [Symbicort] 160-4.5 mcg/actuation Hfa Aerosol Inhaler 2 puff INHALATION BID Basaglar KwikPen U-100 Insulin 100 unit/mL (3 mL) Insulin Pen 22 unit SUBCUT BREAKFAST cholecalciferol (vitamin D3) [Vitamin D3] 125 mcg (5,000 unit) Tablet 125 mcg PO DAILY levothyroxine 50 mcg Capsule 50 mcg PO DAILY cyanocobalamin (vitamin B-12) 5,000 mcg Capsule 5,000 mcg PO DAILY Primary Care Provider: Chris Thorne Referrals: Chris Thorne MD [Primary Care Provider] - Keep Gregor appointment (Also keep scheduled appointment for PEG tube placement.) Disposition Disposition: Shelter Acute Care
[2022-06-18] MEDS: Oxymetazoline 0.05% 1 SPRAY SPRAY.BTL 2 SPRAY NASAL (18:37)
--- NOTE | 2022-06-18 18:50 | RAD_ITS ---
We are attempting to reach an attending provider to discuss findings. An addendum with communication details will be sent when the communication is complete. EXAM: XR ABDOMEN, 1 VIEW CLINICAL INDICATION: NG Tube placement -- KUB with both diaphragms for NG/OG Verification TECHNIQUE: Frontal supine view of the abdomen/pelvis. This report was created using [employer] report generation technology. COMPARISON: 07/05/2022 FINDINGS: LOWER THORAX: See below. GASTROINTESTINAL TRACT: Unremarkable. Non-obstructive. No bowel or stomach distention. ORGANS: Unremarkable as visualized. No organomegaly. No abnormal calcifications. BONES/JOINTS: No acute pathology. SOFT TISSUES: No acute pathology. TUBES, LINES AND DEVICES: Nasogastric tube is been retracted with the distal tip in the mid to distal esophagus. The side port is above the level of the any. This should be advanced several centimeters below the diaphragm into the stomach. RAD/Abdomen Single View (Portable) IMPRESSION: Nasogastric tube with the distal tip in the mid to distal esophagus and should be advanced at least 15 cm into the stomach. Electronically Signed: Nilesh Hernández MD at 19:09 EST ,
--- NOTE | 2022-06-18 19:37 | RAD_ITS ---
EXAM: XR ABDOMEN, 1 VIEW CLINICAL INDICATION: NG Insertion TECHNIQUE: Frontal supine view of the abdomen/pelvis. This report was created using [employer] report generation technology. COMPARISON: 06/18/2022 at 1849 hours FINDINGS: LOWER THORAX: No acute pathology. GASTROINTESTINAL TRACT: Unremarkable. Non-obstructive. No bowel or stomach distention. ORGANS: Unremarkable as visualized. No organomegaly. No abnormal calcifications. BONES/JOINTS: No acute pathology. SOFT TISSUES: No acute pathology. TUBES, LINES AND DEVICES: Nasogastric tube has been advanced with the distal tip in the mid stomach. RAD/Abdomen Single View (Portable) IMPRESSION: Nasogastric tube in good position. Electronically Signed: Nilesh Hernández MD at 20:02 EST ,
[2022-06-18 20:32] VITALS: BP 131/55; PULSE 55; RESP 16; O2SAT 95
[2022-06-18 23:07] VITALS: BP 135/61; PULSE 55; RESP 15; O2SAT 95
== END 2022-06-18 23:08 ==
PROVIDERS: Emergency Provider Emergency Medicine; PCP Family Medicine; Visit Provider Emergency Medicine
DX: K94.23 Gastrostomy malfunction (principal); I69.354 Hemiplegia and hemiparesis following cerebral infarction affecting left non-dominant side; I11.0 Hypertensive heart disease with heart failure; I50.9 Heart failure, unspecified; E11.9 Type 2 diabetes mellitus without complications; I69.391 Dysphagia following cerebral infarction; R13.10 Dysphagia, unspecified
CPT/HCPCS: 74018; 99285

== ENCOUNTER 2022-06-23 14:58 | Inpatient (IN) | payer OTHER, MEDICARE, SELFPAY ==
[2022-06-23] VITALS (8 sets, daily range): BP systolic 103–129; BP diastolic 32–66; PULSE 57–99; RESP 12–33; TEMP 36.1–37.1; O2SAT 94–98; BMI 37.9; BMI 17.2
--- NOTE | 2022-06-23 15:04 | CT_ITS ---
STUDY: CT BRAIN WITHOUT CONTRAST REASON FOR EXAM: Female, 77 years old. altered mental status RADIATION DOSAGE (If Supplied By Facility): CTDIvol = ( 44.99 ) mGy, DLP = ( 829.85 ) mGycm TECHNIQUE: Transaxial CT imaging of the brain was performed without administration of intravenous contrast material. Individualized dose optimization techniques were used for this CT. COMPARISON: No relevant priors. FINDINGS: Normal soft tissue structures. Normal calvarium. There is mild cerebral atrophy with widening of the extra-axial spaces and ventricular dilatation. There are areas of decreased attenuation within the white matter tracts of the supratentorial brain, consistent with microvascular disease changes. There is no intracranial hemorrhage. No acute territorial infarct. Chronic right parietal infarct. Normal visualized paranasal sinuses. CT/Brain/Head without Contrast IMPRESSION: No acute findings. Chronic right parietal infarct. Microvascular ischemic changes. Mild atrophy. Electronically Signed: Lory Saha MD at 16:35 EST Reading Location ID and State: [id number] / Tel , Service support ,
--- NOTE | 2022-06-23 15:04 | EKG12_ITS ---
Test Reason : Blood Pressure : / mmHG Vent. Rate : 099 BPM Atrial Rate : 099 BPM P-R Int : 156 ms QRS Dur : 088 ms QT Int : 342 ms P-R-T Axes : 053 013 045 degrees QTc Int : 438 ms Sinus rhythm with frequent Premature ventricular complexes Low voltage QRS Borderline ECG Confirmed by LINDA NAVARRETE, TALON ([id number]), research editor LIDA CARSON ([id number]) on 06/25/2022 10:07:44 AM Referred By: Confirmed By:TALON MCKEON MD
--- NOTE | 2022-06-23 15:05 | EDS_ITS ---
HPI History of Present Illness Chief Complaint: Alt LOC Narrative Narrative: History and physical is mildly limited secondary to patient condition. Patient is a 77-year-old female presenting from the [place] with acute mental status change. She has past medical history of right cerebral artery infarction with left-sided weakness at her baseline. She has been seen multiple times in the emergency department for nasogastric tube replacement. It has been either malfunctioning and clogged or it has been removed. Initially she had a Dobbhoff, then a Corpak, then an NG tube, and now she is presenting with altered mental status. It was obtained from EMS that at the [place] they had to sternal rub her in order to awaken her. She also appeared pale. She states that she feels tired, but denies any pain. Patient is DNR Com[facility] Care arrest. 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 Congestive heart failure (CHF) Dementia Depression Diabetes Dysphagia following cerebral infarction Encephalopathy, unspecified Gastro-esophageal reflux disease without esophagitis Gout, unspecified Hemiplegia and hemiparesis following cerebral infarction affecting left non- dominant side Hypertension Hypothyroidism Malignant neoplasm of unspecified part of unspecified bronchus or lung Home Medications allopurinol 100 mg tablet 50 mg PO DAILY 01/29/21 [History Last Taken Unknown] amlodipine 5 mg tablet 10 mg PO DAILY 01/29/21 [History Last Taken Unknown] budesonide-formoterol HFA 160 mcg-4.5 mcg/actuation aerosol inhaler (Symbicort) 2 puff inhalation BID 01/29/21 [History Last Taken Unknown] cholecalciferol (vitamin D3) 125 mcg (5,000 unit) tablet (Vitamin D3) 125 mcg PO DAILY 01/29/21 [History Last Taken Unknown] cyanocobalamin (vitamin B-12) 5,000 mcg capsule 5,000 mcg PO DAILY 01/29/21 [History Last Taken Unknown] insulin NPH isoph U-100 human 100 unit/mL (3 mL) subcutaneous pen (Novolin N FlexPen) 68 unit subcut DINNER 01/29/21 [History Last Taken Unknown] insulin aspart U-100 100 unit/mL (3 mL) subcutaneous pen (Novolog FlexPen U-100 Insulin aspart) 30 unit subcut BID 01/29/21 [History Last Taken Unknown] insulin aspart U-100 100 unit/mL (3 mL) subcutaneous pen (Novolog FlexPen U-100 Insulin aspart) 34 unit subcut DINNER 01/29/21 [History Last Taken Unknown] insulin glargine 100 unit/mL (3 mL) subcutaneous pen (Basaglar KwikPen U-100 Insulin) 22 unit subcut BREAKFAST 01/29/21 [History Last Taken Unknown] levothyroxine 50 mcg capsule 50 mcg PO DAILY 01/29/21 [History Last Taken Unknown] apixaban 5 mg tablet 5 mg feeding tube BID 06/23/22 [History Last Taken Unknown] atorvastatin 40 mg tablet 40 mg PO DAILY 06/23/22 [History Last Taken Unknown] bisacodyl 10 mg rectal suppository 10 mg SC DAILY PRN Constipation 06/23/22 [History Last Taken Unknown] carvedilol 6.25 mg tablet (Coreg) 1 mg feeding tube BID 06/23/22 [History Last Taken Unknown] Allergy/AdvReac Type Severity Reaction Status Date / Time Penicillins Allergy PT UNSURE Verified 06/18/22 18:16 OF REACTION Social History household members: none housing: [facility] Smoking Status: Unknown if ever smoked ROS ROS ED ROS Narrative Mildly limited secondary to patient condition, obtained from EMS additionally. Constitutional: No fever, no chills. Positive fatigue. HEENT: No sore throat. No neck pain. No loss of vision. No rhinorrhea. Cardiovascular: No chest pain. No palpitations. No pedal edema. Respiratory: No cough, no shortness of breath. Abdominal: No abdominal pain. No nausea. No vomiting. Genitourinary: No dysuria. No hematuria. Musculoskeletal: No myalgias. No arthralgias. Neurologic: No headaches. No dizziness. No lightheadedness. Decreased mental status and lethargy today. Skin: No rash. No change in color. Psychiatric: No depression. No anxiety. EXAM Physical Exam Narrative Exam Narrative: Afebrile. Vital signs noted. HEENT: Normocephalic. Atraumatic. PERRL, EOMI. Neck soft and supple. No point tenderness or step off. Nasogastric tube in right nares. Cardiovascular: Regular rate and rhythm. No murmurs, rubs, or gallops appreciated. Respiratory: No tachypnea. Lungs clear to auscultation bilaterally. Gastrointestinal: Abdomen soft, nontender, with normoactive bowel sounds. No rebound or guarding. Neurological: Awake. Alert. Nonfocal, nonlateralizing. Left-sided weakness. Skin: No rash. Normal color. No pallor. Musculoskeletal: No pedal edema. Left hand edema/upper extremity edema Const Vital Signs: 06/23/22 15:00 06/23/22 14:59 06/23/22 15:59 Temperature 97 F L Temperature Source Temporal Pulse Rate 97 97 Respiratory Rate 12 33 H 18 Blood Pressure 103/66 124/55 H Blood Pressure Mean 78 78 Pulse Ox 95 95 Oxygen Delivery Method Room Air Room Air 06/23/22 16:00 06/23/22 17:00 06/23/22 17:34 Temperature 97.6 F L Temperature Source Temporal Pulse Rate 99 99 Respiratory Rate 19 H 19 H 19 H Blood Pressure 106/50 L 108/32 L Blood Pressure Mean 68 57 Pulse Ox 94 95 Oxygen Delivery Method Room Air Room Air MDM MDM MDM Narrative Medical decision making narrative: I do not feel that the patient is necessarily having extension of her stroke as she is awake and has baseline weakness. She may have occult urinary tract infection. She is afebrile here. Comprehensive work-up was pursued. Straight cath urine specimen will be obtained along with CT of the brain to make sure she is not having intracranial hemorrhage. She may have an occult pneumonia so chest x-ray will also be obtained, however this is less likely because she is afebrile pulse ox of 95% on room air, no reported cough. I will also check for liver failure as form of encephalopathy and ammonia level will also be obtained. I reviewed her laboratory work, she has slightly elevated white count of 11.5, hemoglobin stable at 10.5 with hematocrit 36.2. Platelet count normal at 183. Her CMP P was obtained and reviewed, and shows a sodium of 162, chloride 132 with a BUN elevated at 127. She has a creatinine of 1.9, but history of chronic kidney injury. Ammonia level is slightly elevated at 36 which I think is nonspecific. Urinalysis obtained through straight cath was reviewed and shows WBCs 50-100 with yeast +1. She will be started on Rocephin. I interpreted her chest x-ray and see no evidence of acute pathology such as pneumothorax or pneumonia. I already reviewed the radiology report as well, and they confirm no acute process. She is already receiving Rocephin. Additionally, I reviewed the CT imaging of her brain and see the old right-sided MCA stroke but no evidence of an acute hemorrhage. I reviewed the radiology report and there is no acute process, she has the stable MCA stroke on the right and atrophy. Given her hypernatremia and hyperchloremia consistent with dehydration. She was bolused normal saline 1 L intravenously. I do feel that she requires admission currently given her hypernatremia, mental status change, and UT,. Patient was discussed with the hospitalist, Dr. Gamble. I feel she is stable for the general medical floor. Disposition is admit in stable condition. Lab Data Attestation: I reviewed the patient's lab results. Labs: Laboratory Results - last 24 hr 06/23/22 06/23/22 06/23/22 15:16 15:16 15:16 WBC 11.5 H RBC 3.47 L Hgb 10.5 L Hct 36.2 L MCV 104.3 H MCH 30.3 MCHC 29.0 L RDW Std Deviation 60.7 H RDW Coeff of Neeta 15.9 H Plt Count 183 MPV 13.6 H Immature Gran % (Auto) 0.400 Neut % (Auto) 79.7 H Lymph % (Auto) 12.4 L Ashley % (Auto) 4.0 Eos % (Auto) 3.1 Baso % (Auto) 0.4 Absolute Neuts (auto) 9.1 H Absolute Lymphs (auto) 1.42 Nucleated RBC % 0 Sodium 162 H* Potassium 5.0 Chloride 132 H* Carbon Dioxide 27.0 Anion Gap 3 L BUN 127 H* Creatinine 1.90 H Estim Creat Clear Calc 18.12 Est GFR (MDRD) Af Amer 33 L Est GFR (MDRD) Non-Af 27 L BUN/Creatinine Ratio 66.8 H Glucose 330 H Calcium 10.0 Total Bilirubin 0.40 AST 31 ALT 46 Alkaline Phosphatase 97 Ammonia 36.0 H Total Protein 6.3 L Albumin 2.2 L Globulin 4.1 Albumin/Globulin Ratio 0.5 L Urine Color Urine Clarity Urine pH Ur Specific [place] Urine Protein Urine Glucose (UA) Urine Ketones Urine Occult Blood Urine Nitrite Urine Bilirubin Urine Urobilinogen Ur Leukocyte Esterase Urine RBC Urine WBC Ur Squamous Epith Cells Urine Bacteria Urine Mucus Urine Yeast 06/23/22 15:23 WBC RBC Hgb Hct MCV MCH MCHC RDW Std Deviation RDW Coeff of Neeta Plt Count MPV Immature Gran % (Auto) Neut % (Auto) Lymph % (Auto) Ashley % (Auto) Eos % (Auto) Baso % (Auto) Absolute Neuts (auto) Absolute Lymphs (auto) Nucleated RBC % Sodium Potassium Chloride Carbon Dioxide Anion Gap BUN Creatinine Estim Creat Clear Calc Est GFR (MDRD) Af Amer Est GFR (MDRD) Non-Af BUN/Creatinine Ratio Glucose Calcium Total Bilirubin AST ALT Alkaline Phosphatase Ammonia Total Protein Albumin Globulin Albumin/Globulin Ratio Urine Color Yellow Urine Clarity Cloudy Urine pH 5.0 Ur Specific [place] 1.015 Urine Protein 30 H Urine Glucose (UA) Normal Urine Ketones Negative Urine Occult Blood 150 H Urine Nitrite Positive H Urine Bilirubin Negative Urine Urobilinogen Normal Ur Leukocyte Esterase 500 H Urine RBC 0 SEEN Urine WBC 50-100 SEEN Ur Squamous Epith Cells 0 SEEN Urine Bacteria 2+ Urine Mucus 0 SEEN Urine Yeast 1+ Radiography Diagnostic Testing: Clinical Impression(s) from Imaging Studies Brain CT 06/23/22 15:04 IMPRESSION: No acute findings. Chronic right parietal infarct. Microvascular ischemic changes. Mild atrophy. Electronically Signed: Lory Saha MD at 16:35 EST Reading Location ID and State: Gagan Watkins MD Tel , Service support , Chest X-Ray 06/23/22 15:58 IMPRESSION: No acute cardiopulmonary disease. Electronically Signed: Lory Saha MD at 17:07 EST Reading Location ID and State: Gagan Watkins MD Tel , Service support , Discharge Plan Dx/Rx/DC Orders Clinical Impression: Altered level of consciousness, Hypernatremia, Dehydration, UTI (urinary tract infection), History of stroke, Encephalopathy, Hyperchloremia, Hyperammonemia Disposition Disposition: Acute Care [facility]
--- NOTE | 2022-06-23 15:13 | NURSING ---
NO OLD EKGS
[2022-06-23 15:28] LABS: Mucous, Urine 0 SEEN /hpf (<or=2+); Red Blood Cells-Urine 0 SEEN /hpf (0-5); Squamous Epithelial Cells - UA 0 SEEN /hpf (5-10)
[2022-06-23 15:36] LABS: Color, Urine Yellow (Yellow); Glucose, Dipstick Normal (Normal); Ketone-Dipstick Negative (Negative); Leukocyte Esterase-Dipstick 500 /ul (Negative); Nitrite-Dipstick Positive (Negative); Occult Blood-Urine 150 /ul (Negative); Protein-Dipstick 30 mg/dl (Negative); Specific Gravity, Urine 1.015 (1.002-1.030); Urine Bilirubin Dipstick Negative (Negative); Urine Clarity Cloudy (Clear); Urine Urobilinogen Normal (Normal)
[2022-06-23 15:42] LABS: Absolute Lymphocyte Count 1.42 X10^3/uL (0.83-4.51); Absolute Neutrophil Count 9.1 X10^3/uL (2.0-7.7); Basophil# 0.05 X10^3/uL; Basophil% 0.4 % (0-1); Eosinophil# 0.35 X10^3/uL; Eosinophils% 3.1 % (0-5); Hematocrit 36.2 % (37-47); Hemoglobin 10.5 g/dL (12.0-15.0); Lymphocyte # 1.42 X10^3/ul (0.83-4.51); Lymphocyte % 12.4 % (19-41); Mean Corpuscular Hgb 30.3 pg (27.0-32.0); Mean Corpuscular Volume 104.3 fL (81-99); Mean Platelet Vol. 13.6 fl (6.2-12.0); Monocyte# 0.46 X10^3/uL; NRBC Flagged by Analyzer 0 % (0-5); Neutrophil # 9.14 X10^3/uL (2.7-7.7); Neutrophil % 79.7 % (47-70); Platelet Count 183 K/mm3 (150-450); RBC Distribution Width CV 15.9 % (11.6-14.6); RBC Distribution Width SD 60.7 fl (35.1-43.9); Red Blood Count 3.47 M/mm3 (4.2-5.4); White Blood Count 11.5 K/mm3 (4.4-11.0)
[2022-06-23 15:43] LABS: Bacteria 2+ /hpf (None Seen); White Blood Cells 50-100 SEEN /hpf (0-5); Yeast-Urine 1+ /hpf (None Seen)
[2022-06-23 15:57] LABS: ALB/GLOB Ratio 0.5 RATIO (0.9-2.4); AST(SGOT) 31 U/L (15-37); Alanine Aminotransfer ALT/SGPT 46 U/L (13-56); Albumin, Serum 2.2 g/dL (3.2-5.0); Alkaline Phosphatase 97 U/L (45-117); Anion Gap 3 (5-15); BUN 127 mg/dL (7-18); BUN/Creat Ratio 66.8 RATIO (10-20); Chloride 132 mmol/L (98-107); EST Glomerular Filtration Rate 27 mL/min (>60); Est Glom Filt Rate - Afr Amer 33 mL/min (>60); Estimated Creatinine Clearance 18.12 ml/min; Globulin 4.1 g/dL (2.2-4.2); Glucose 330 mg/dL (74-106); Protein, Total 6.3 g/dL (6.4-8.2); Sodium Level 162 mmol/L (136-145)
--- NOTE | 2022-06-23 15:58 | RAD_ITS ---
INDICATION: cad EXAMINATION/TECHNIQUE: X-RAY - XR Chest 1 View COMPARISON: 06/18/2022. FINDINGS: LINES/DEVICES: NG tube extends into the stomach. Terminus is not visualized. LUNGS: No consolidation, edema or effusion. No pneumothorax. MEDIASTINUM AND CARDIOVASCULAR STRUCTURES: Cardiac silhouette not enlarged. Central airways and mediastinal contour are unremarkable. BONES AND SOFT TISSUES: Unremarkable. RAD/Chest 1 View (Portable) IMPRESSION: No acute cardiopulmonary disease. Electronically Signed: Lory Saha MD at 17:07 EST Reading Location ID and State: [id number] / Tel , Service support ,
[2022-06-23] MEDS: Ceftriaxone 1 GM/50 ML BAG IV (16:08)
[2022-06-23] MEDS: 0.9% Normal Saline 1,000 ML 999 ML IV (16:11)
--- NOTE | 2022-06-23 17:22 | NURSING ---
DR RODRIGUEZ FOR DR FONG
--- NOTE | 2022-06-23 17:23 | HP.PCM.HOS_ITS ---
HPI - General General Date of Admission: 06/23/22 Date of Service: 06/23/22 Chief Complaint: Mental status change from baseline. HPI Narrative The patient is a 77 y/o F w/ PMHx: Obesity, Hx CVA with chronic aphasia, dysphagia, L sided hemiparesis and reported intermittent verbal interactiveness baseline, HTN, HLD, Dementia unclear type with unclear behavioral history, Hypothyroidism, Anxiety and Depression, LANIE not using CPAP/BIPAP, Chronic CHF, Diabetes mellitus type II, Gout, Chronic anemia, COPD who presents to the [facility] ED on 06/23/22 with history of onset altered status with significant lethargy above her baseline and decreased interactiveness with patient reported baseline verbal status intermittent prompting skilled facility to Center for evaluation. Reportedly at skilled facility once EMS was called it required patient being sternally rubbed to awaken her. Patient that time was able to report that she was tired but denied any complaints at that time. Work-up in the ED included T97, heart rate 97, BP 103/66, respiratory rate 12, 95% on room air, CBC with BC 11.5, hemoglobin 10.5, MCV 104.3, platelet 183 with left shift, CMP with sodium 162, chloride 132, BUN/creatinine 127/1.90, glucose 330, ammonia 36 otherwise [place] profile not marked appearing, urinalysis noted to be cloudy, specific roughly 1.015 which is less expected given severe electrolyte disturbances, urine protein 30, negative ketone, negative glucose, occult blood 150, nitrite positive, leukocyte esterase 500, urine WBCs 50-100 with 2+ urine bacteria, chest x-ray with no acute cardiopulmonary findings, CT of the brain with no acute intracranial findings with a chronic right parietal infarct from prior, microvascular ischemic changes with mild atrophy. In the ED patient ministered 1 L normal saline and Rocephin therapy. Urine culture pending per ED. in the ED eventually patient does interact some and will answer some questions which damarisol washington at bedside states is baseline. [facility] Medical History Anxiety Aphasia following unspecified cerebrovascular disease Cerebral infarction due to embolism of right middle cerebral artery Congestive heart failure (CHF) Dementia Depression Diabetes Dysphagia following cerebral infarction Encephalopathy, unspecified Gastro-esophageal reflux disease without esophagitis Gout, unspecified Hemiplegia and hemiparesis following cerebral infarction affecting left non-dominant side Hypertension Hypothyroidism Malignant neoplasm of unspecified part of unspecified bronchus or lung Home Medications allopurinol 100 mg tablet 50 mg PO DAILY 01/29/21 [History Last Taken Unknown] amlodipine 5 mg tablet 10 mg PO DAILY 01/29/21 [History Last Taken Unknown] budesonide-formoterol HFA 160 mcg-4.5 mcg/actuation aerosol inhaler (Symbicort) 2 puff inhalation BID 01/29/21 [History Last Taken Unknown] cholecalciferol (vitamin D3) 125 mcg (5,000 unit) tablet (Vitamin D3) 125 mcg PO DAILY 01/29/21 [History Last Taken Unknown] cyanocobalamin (vitamin B-12) 5,000 mcg capsule 5,000 mcg PO DAILY 01/29/21 [History Last Taken Unknown] insulin NPH isoph U-100 human 100 unit/mL (3 mL) subcutaneous pen (Novolin N FlexPen) 68 unit subcut DINNER 01/29/21 [History Last Taken Unknown] insulin aspart U-100 100 unit/mL (3 mL) subcutaneous pen (Novolog FlexPen U-100 Insulin aspart) 30 unit subcut BID 01/29/21 [History Last Taken Unknown] insulin aspart U-100 100 unit/mL (3 mL) subcutaneous pen (Novolog FlexPen U-100 Insulin aspart) 34 unit subcut DINNER 01/29/21 [History Last Taken Unknown] insulin glargine 100 unit/mL (3 mL) subcutaneous pen (Basaglar KwikPen U-100 Insulin) 22 unit subcut BREAKFAST 01/29/21 [History Last Taken Unknown] levothyroxine 50 mcg capsule 50 mcg PO DAILY 01/29/21 [History Last Taken Unknown] apixaban 5 mg tablet 5 mg feeding tube BID 06/23/22 [History Last Taken Unknown] atorvastatin 40 mg tablet 40 mg PO DAILY 06/23/22 [History Last Taken Unknown] bisacodyl 10 mg rectal suppository 10 mg SD DAILY PRN Constipation 06/23/22 [History Last Taken Unknown] carvedilol 6.25 mg tablet (Coreg) 1 mg feeding tube BID 06/23/22 [History Last Taken Unknown] Allergy/AdvReac Type Severity Reaction Status Date / Time Penicillins Allergy PT UNSURE Verified 06/18/22 18:16 OF REACTION Family History (Updated 06/23/22 @ 19:[address] Mariel Gamble MD) Father Diabetes other (Daughter denies any marked maternal history in her mother including HD, DM, CA.) Surgical History (Updated 06/23/22 @ 19:[address] Mariel Gamble MD) History of back surgery History of hysterectomy History of knee replacement S/P breast biopsy S/P carpal tunnel release S/P cataract surgery Social History (Updated 06/23/22 @ 19:[address] Mariel Gamble MD) housing: [facility] Smoking Status: Former smoker how long ago did patient quit smoking: Quit ~ 20 years prior, smoked 40 years 1 ppd. alcohol intake: never substance use type: does not use ROS Review of Systems ROS Unobtainable: due to encephalopathy and due to mental status Vital Signs Vital Signs Vital Signs: 06/23/22 15:00 06/23/22 14:59 06/23/22 15:59 Temperature 97 F L Temperature Source Temporal Pulse Rate 97 97 Respiratory Rate 12 33 H 18 Blood Pressure 103/66 124/55 H Blood Pressure Mean 78 78 Pulse Ox 95 95 Oxygen Delivery Method Room Air Room Air 06/23/22 16:00 06/23/22 17:00 Temperature Temperature Source Pulse Rate 99 Respiratory Rate 19 H 19 H Blood Pressure 106/50 L Blood Pressure Mean 68 Pulse Ox 94 Oxygen Delivery Method Room Air Weight Weight: 200 lb 13.458 oz Body Mass Index (BMI) 37.9 Physical Exam Narrative In physical Examination: General: Patient eventually awakens to stimuli, able to answer some questions, more alert than she had been previously, cooperative but still fatigued and going back to sleep easily, laying in the ED bed with no acute distress. Skin: Normal color, normal turgor, no icterus, no cyanosis except mild intertrigo, occasional abrasion and ecchymoses. HEENT: AT/NC, EOMI, PERRLA, dry MM, no carotid bruits or JVD noted. Lungs: Diminished, greater bases, decreased effort, no rales, ronchi or wheezing. Heart: Mildly bradycardic with regular rhythm; no gallop, rub audible. Abdomen: Soft, obese, no grimacing with palpation, no obvious distention, distant bowel sounds, no obvious HSM. Extremities: No cyanosis, no clubbing, bilateral lower extremities with mild dis mary peripheral edema, not markedly pitting. Neurological: Patient awake, alert, oriented as noted, cognitive function improving, reduced baseline status post prior stroke, verbal interactiveness intermittent per report, still not baseline intact; pupils equally reactive to light and accommodation, cranial nerves grossly normal, patient with left-sided hemiparesis, chronic dysphagia and dysarthria. Psychiatric: Affect appears flat, fatigued, no acute evidence of depressive or anxiety feelings. Results Lab / Micro Data Result Diagrams: 06/23/22 15:16 06/23/22 15:16 Labs: Laboratory Results - last 24 hr 06/23/22 15:16: WBC 11.5 H, RBC 3.47 L, Hgb 10.5 L, Hct 36.2 L, MCV 104.3 H, MCH 30.3, MCHC 29.0 L, RDW Std Deviation 60.7 H, RDW Coeff of Neeta 15.9 H, Plt Count 183, MPV 13.6 H, Immature Gran % (Auto) 0.400, Neut % (Auto) 79.7 H, Lymph % (Auto) 12.4 L, Lee % (Auto) 4.0, Eos % (Auto) 3.1, Baso % (Auto) 0.4, Absolute Neuts (auto) 9.1 H, Absolute Lymphs (auto) 1.42, Nucleated RBC % 0 06/23/22 15:16: Sodium 162 H*, Potassium 5.0, Chloride 132 H*, Carbon Dioxide 27.0, Anion Gap 3 L, BUN 127 H*, Creatinine 1.90 H, Estim Creat Clear Calc 18.12, Est GFR (MDRD) Af Amer 33 L, Est GFR (MDRD) Non-Af 27 L, BUN/Creatinine Ratio 66.8 H, Glucose 330 H, Calcium 10.0, Total Bilirubin 0.40, AST 31, ALT 46, Alkaline Phosphatase 97, Total Protein 6.3 L, Albumin 2.2 L, Globulin 4.1, Albumin/Globulin Ratio 0.5 L 06/23/22 15:16: Ammonia 36.0 H 06/23/22 15:23: Urine Color Yellow, Urine Clarity Cloudy, Urine pH 5.0, Ur Specific [place] 1.015, Urine Protein 30 H, Urine Glucose (UA) Normal, Urine Ketones Negative, Urine Occult Blood 150 H, Urine Nitrite Positive H, Urine Bilirubin Negative, Urine Urobilinogen Normal, Ur Leukocyte Esterase 500 H, Urine RBC 0 SEEN, Urine WBC 50-100 SEEN, Ur Squamous Epith Cells 0 SEEN, Urine Bacteria 2+, Urine Mucus 0 SEEN, Urine Yeast 1+ Radiology Impression Brain CT 06/23/22 15:04 IMPRESSION: No acute findings. Chronic right parietal infarct. Microvascular ischemic changes. Mild atrophy. Electronically Signed: Lory Saha MD at 16:35 EST Reading Location ID and State: Gagan Watkins MD Tel , Service support , Chest X-Ray 06/23/22 15:58 IMPRESSION: No acute cardiopulmonary disease. Electronically Signed: Lory Saha MD at 17:07 EST Reading Location ID and State: Gagan Watkins MD Tel , Service support , Assessment & Plan Assessment/Plan (1) Altered level of consciousness: PLAN: Plan The patient is a 77 y/o F w/ PMHx: Obesity, Hx CVA with chronic aphasia, dysphagia, L sided hemiparesis and reported intermittent verbal interactiveness baseline, HTN, HLD, Dementia unclear type with unclear behavioral history, Hypothyroidism, Anxiety and Depression, LANIE not using CPAP/BIPAP, Chronic CHF, Diabetes mellitus type II, Gout, Chronic anemia, COPD who presents to the [facility] ED on 06/23/22 with history of onset altered status with significant lethargy above her baseline and decreased interactiveness with patient reported baseline verbal status intermittent prompting skilled facility to Center for evaluation. #1. Acute Encephalopathy, multifactorial, secondary to Acute Complicate UTI with Chronic Indwelling Burgess Catheter and as noted #2, #3, #4: Will admit to medical surgical floor UA upon ED evaluation remarkable, pending UCx, will req uest that catheter be changed as the current catheter is from her skilled facility, continue IVFs, monitor I/Os, continue IV Rocephin w/ transition as able pending sensitivities and speciation. PT/OT/ST/case management consultations for discharge planning. Given patient clinical improvement with l essening lethargy and improving interactiveness will defer ABG with suspicion this is primarily secondary to her UTI and acute kidney injury. #2. Acute kidney injury on CKD unclear type or stage: Secondary to severe dehydration. Admission BUN/Cr 127/1.90, with unfortunately no previous marked labs noted patient had single checks 01/29/2021 and was 1.97 at that time however prior to that she had been 1.3 therefore really unclear baseline and given her significant electrolyte disturbances do suspect acute kidney injury with dehydration status. Will hydrate, hold nephrotoxic medications and repeat chemistry in AM. Will obtain renal ultrasound and FeNa assessment. We will continue treatment of acute urinary tract infection is noted. #3. Acute hyperammonia: Admission ammonia mildly elevated 36, will administer lactulose regimen x 1 only given dehydrated appearance and repeat ammonia level, liver functions otherwise not marked appearing. #4. Hyponatremia, hypochloremia suspected secondary to acute dehydration with acute kidney injury as noted: We will continue hydration, will trend BMPs closely and as noted addressing acute kidney injury concerns with dehydrated appearance with FeNa and ultrasound of the kidneys pending. #5. Dementia, unclear type with unclear behavioral disturbance history: Per current list not on regimen, complicates presentation, maintain on fall and asp iration precautions, therapies consulted as noted as well as case management. #6. Anxiety and depression: Not on any chronic regimen per current list, encourage continued outpatient follow-up and assessment with medications and therapy as needed. #7. Chronic anemia, appearing currently macrocytic: Admission hemoglobin 10.5, last noted remotely 01/30/2020 114.7 at that time however prior to this 08/11/2017 11.8, given anticoagulated status to be cautious we will obtain iron panel, ferritin, folic acid, vitamin B12 and guaiac, repeat level in AM. #8. Hx CVA with chronic aphasia, dysphagia, L sided hemiparesis: Patient with several issues with prior feeding tubes (Dobbhoff, Corpak, NG tube), will continue tube feeds, maintain fall and aspiration precautions, frequent positional changes, continue patient home apixaban, statin, hypertensive regimen and diabetic regimen with adjustments as noted. From discussion planned possible outpatient PEG tube at [facility]. #9. Diabetes mellitus type II with notable hyperglycemia: We will continue home insulin regimen, continue tube feeds per patient usual regimen, accu checks w/ ISS every 6 hours given tube feed history, will obtain hemoglobin C given notable hyperglycemia upon ED presentation. #10. Chronic CHF, unclear type: We will continue patient home apixaban, statin, Coreg regimen, not on RENO/ARB for unclear reason nor on any diuretic therapy, given need for hydration secondary to acute presentation as noted we will continue to closely monitor respiratory status and weights. #11. Hypertension: Continue home regimen including Coreg, amlodipine, PRN hydralazine. #12. Hyperlipidemia: We will continue patient on statin therapy. #13. Chronic COPD: We will temporarily hold patient home inhalers in the interim transition to ATC duonebs, PRN albuterol, HOB, IS parameters. #14. Obesity: Weight loss and lifestyle changes encouraged. #15. Hypothyroidism: We will continue patient home levothyroxine regimen. #16. Gout: We will continue patient home allopurinol regimen. #17. DVT prophylaxis: SCDs, continue patient on apixaban regimen. #18. CODE status: Patient HCPSCAR is her who is primary and her secondary is her daughter who is present and living will is currently in place. Discussed CODE status at length including difference between FULL code, DNR-CCA and DNR-CC status. Following discussions about the differences in these status, requested DNR-CCA, no intubation status. Advanced Care Planning Face to Face Time: 16 minutes. Admission Evaluation Time spent evaluating chart, patient history, patient evaluation, care planning and discussion with specialists: 76 minutes. Charges/Coding Visit Charges Inpatient E&M: 41958 Init Hosp L3 Procedures Hospitalists Procedures: 67434 Advncd Care Plan 30 Min
--- NOTE | 2022-06-23 17:31 | US_ITS ---
INDICATION: JUANA EXAMINATION: US Kidney(s) complete (eg, kidneys and bladder) TECHNIQUE: Dykes scale and color doppler images were obtained of the kidneys. COMPARISON: None. FINDINGS: RIGHT KIDNEY: Measures 9.6 cm in length.. There is no hydronephrosis. No shadowing calculus, focal lesion or perinephric collection is demonstrated. LEFT KIDNEY: Measures 10.4 cm in length.. There is no hydronephrosis. No shadowing calculus, focal lesion or perinephric collection is demonstrated. URINARY BLADDER: No acute abnormality. US/Kidney and Bladder IMPRESSION: Normal renal ultrasound. Electronically Signed: Jorden Rdz MD at 19:56 EST ,
[2022-06-23 18:14] LABS: Urine Sodium 23 mmol/L (Not Establ.)
--- NOTE | 2022-06-23 18:22 | NURSING ---
324 WHITE HYPERNATREMIA, ENCEPHALOPATHY, HX OF STROKE
[2022-06-23] MEDS: 0.9% Saline Lock 10 ML Syringe IV (19:59)
[2022-06-23] MEDS: 0.9% Normal Saline 1,000 ML 125 ML IV (20:00)
--- NOTE | 2022-06-23 20:10 | RAD_ITS ---
INDICATION: NG placement EXAMINATION/TECHNIQUE: X-RAY - XR Abdomen 1 View COMPARISON: 3:53 PM. FINDINGS: Lung bases are clear. NG tube terminates in the gastric antrum. There is a non-obstructive bowel gas pattern. There is no organomegaly. No abnormal calcifications. Prior lumbar instrumentation. Soft tissues and bony structures are unremarkable. RAD/Abdomen Single View IMPRESSION: Non-obstructive bowel gas pattern. NG tube in the stomach. Electronically Signed: Lory Saha MD at 20:37 EST Reading Location ID and State: [id number] / Tel , Service support ,
[2022-06-23 21:43] LABS: Anion Gap 3 (5-15); BUN 118 mg/dL (7-18); BUN/Creat Ratio 71.5 RATIO (10-20); Calcium,Total 9.2 mg/dL (8.5-10.1); Chloride 134 mmol/L (98-107); Creatinine, Serum 1.65 mg/dL (0.55-1.02); EST Glomerular Filtration Rate 32 mL/min (>60); Est Glom Filt Rate - Afr Amer 39 mL/min (>60); Estimated Creatinine Clearance 20.86 ml/min; Glucose 316 mg/dL (74-106); Potassium 4.4 mmol/L (3.5-5.1); Sodium Level 163 mmol/L (136-145)
[2022-06-23] MEDS: Insulin Lispro 100 UNIT/ML INSULN.PEN SC (21:55)
[2022-06-23 22:10] LABS: Bedside Glucose 258 mg/dL (74-106)
[2022-06-24] VITALS (8 sets, daily range): BP systolic 120–131; BP diastolic 49–59; PULSE 51–93; RESP 18–19; TEMP 36.4–37.4; O2SAT 91–97
[2022-06-24] MEDS: APIXABAN 5 MG TABLET NG ×3 (00:03→21:15)
[2022-06-24] MEDS: Atorvastatin Calcium 40 MG Tablet PO (00:03)
[2022-06-24 00:13] LABS: Anion Gap 4 (5-15); BUN 115 mg/dL (7-18); BUN/Creat Ratio 63.9 RATIO (10-20); Calcium,Total 9.5 mg/dL (8.5-10.1); Chloride 135 mmol/L (98-107); EST Glomerular Filtration Rate 29 mL/min (>60); Est Glom Filt Rate - Afr Amer 35 mL/min (>60); Estimated Creatinine Clearance 19.12 ml/min; Glucose 310 mg/dL (74-106); Potassium 4.4 mmol/L (3.5-5.1); Sodium Level 164 mmol/L (136-145)
[2022-06-24] MEDS: Insulin Lispro 100 UNIT/ML INSULN.PEN SC ×5 (00:49→18:09)
[2022-06-24] MEDS: Nystatin Powder 15gm Bottle 1 APPLIC TOPICAL ×4 (00:52→21:15)
[2022-06-24] MEDS: Menthol/Lanolin/Calamine/Znox 113 GM Tube 1 APPLIC TOPICAL ×5 (00:53→21:16)
[2022-06-24] MEDS: Dext 5%-0.45% NS 1,000 ML 125 ML IV (01:13)
[2022-06-24 02:21] LABS: Bedside Glucose 298 mg/dL (74-106)
[2022-06-24 05:34] LABS: Absolute Lymphocyte Count 1.25 X10^3/uL (0.83-4.51); Absolute Neutrophil Count 8.1 X10^3/uL (2.0-7.7); Basophil# 0.03 X10^3/uL; Basophil% 0.3 % (0-1); Eosinophil# 0.23 X10^3/uL; Eosinophils% 2.3 % (0-5); Hematocrit 32.1 % (37-47); Hemoglobin 9.2 g/dL (12.0-15.0); Lymphocyte # 1.25 X10^3/ul (0.83-4.51); Lymphocyte % 12.4 % (19-41); Mean Corp Hgb Conc 28.7 g/dL (32-36); Mean Corpuscular Hgb 30.2 pg (27.0-32.0); Mean Corpuscular Volume 105.2 fL (81-99); Mean Platelet Vol. 13.5 fl (6.2-12.0); Monocyte# 0.49 X10^3/uL; Monocyte% 4.8 % (0-10); NRBC Flagged by Analyzer 0 % (0-5); Neutrophil # 8.07 X10^3/uL (2.7-7.7); Neutrophil % 79.7 % (47-70); Platelet Count 170 K/mm3 (150-450); RBC Distribution Width CV 15.5 % (11.6-14.6); RBC Distribution Width SD 59.6 fl (35.1-43.9); Red Blood Count 3.05 M/mm3 (4.2-5.4); White Blood Count 10.1 K/mm3 (4.4-11.0)
[2022-06-24 06:43] LABS: ALB/GLOB Ratio 0.6 RATIO (0.9-2.4); AST(SGOT) 19 U/L (15-37); Alanine Aminotransfer ALT/SGPT 43 U/L (13-56); Alkaline Phosphatase 87 U/L (45-117); Anion Gap 5 (5-15); BUN 107 mg/dL (7-18); BUN/Creat Ratio 70.4 RATIO (10-20); Calcium,Total 8.9 mg/dL (8.5-10.1); Chloride 133 mmol/L (98-107); Creatinine, Serum 1.52 mg/dL (0.55-1.02); EST Glomerular Filtration Rate 35 mL/min (>60); Est Glom Filt Rate - Afr Amer 42 mL/min (>60); Estimated Creatinine Clearance 19.66 ml/min; Ferritin 268 ng/mL (8-252); Globulin 3.6 g/dL (2.2-4.2); Glucose 268 mg/dL (74-106); Iron 25 ug/dL (50-170); Iron Binding Capacity,Total 189 ug/dL (250-450); PERCENT IRON SATURATION 13.2 % (15.0-55.0); Protein, Total 5.6 g/dL (6.4-8.2); Sodium Level 162 mmol/L (136-145)
[2022-06-24] MEDS: Levothyroxine 50 MCG Tablet PO (06:51)
[2022-06-24 07:20] LABS: Bedside Glucose 280 mg/dL (74-106)
[2022-06-24] MEDS: Budesonide Respules 0.5 MG/2 ML AMPUL.NEB. INHALATION ×2 (07:22→19:05)
--- NOTE | 2022-06-24 07:56 | PN.HOSP_ITS ---
Reason for Visit Reason for Visit: Diagnoses Transient alteration of awareness (06/23/22) Subjective Subjective Patient is a 77-year-old lady with history of CVA with residual aphasia as well as left-sided hemiparesis resident at an extended care facility brought to the emergency department with increasing lethargy. An assessment of suspected acute cystitis made admitted to regular nursing floor for further management Objective Data Objective Data Vital Signs: Vital Signs Temp Pulse Resp BP Pulse Ox O2 Del Method 97.5 F L 83 19 H 120/59 L 93 Room Air 06/24/22 03:00 06/24/22 07:24 06/24/22 07:24 06/24/22 03:00 06/24/22 07:24 06/24/22 07:24 Oxygen Delivery Method Room Air Weight: 41.5 kg Body Mass Index (BMI) 17.2 Intake & Output: Intake and Output for Last 24 Hours 06/22/22 06/23/22 06/24/22 23:59 23:59 23:59 Intake Total 1650 / 1650 687.5 / 687.5 Output Total 700 / 700 250 / 250 Balance 950 / 950 437.5 / 437.5 Lab / Micro Data Result Diagrams: 06/24/22 05:24 06/24/22 05:24 Labs: Laboratory Results - last 24 hr 06/23/22 15:16: WBC 11.5 H, RBC 3.47 L, Hgb 10.5 L, Hct 36.2 L, MCV 104.3 H, MCH 30.3, MCHC 29.0 L, RDW Std Deviation 60.7 H, RDW Coeff of Neeta 15.9 H, Plt Count 183, MPV 13.6 H, Immature Gran % (Auto) 0.400, Neut % (Auto) 79.7 H, Lymph % (Auto) 12.4 L, [place] % (Auto) 4.0, Eos % (Auto) 3.1, Baso % (Auto) 0.4, Absolute Neuts (auto) 9.1 H, Absolute Lymphs (auto) 1.42, Nucleated RBC % 0 06/23/22 15:16: Sodium 162 H*, Potassium 5.0, Chloride 132 H*, Carbon Dioxide 27.0, Anion Gap 3 L, BUN 127 H*, Creatinine 1.90 H, Estim Creat Clear Calc 18.12, Est GFR (MDRD) Af Amer 33 L, Est GFR (MDRD) Non-Af 27 L, BUN/Creatinine Ratio 66.8 H, Glucose 330 H, Calcium 10.0, Total Bilirubin 0.40, AST 31, ALT 46, Alkaline Phosphatase 97, Total Protein 6.3 L, Albumin 2.2 L, Globulin 4.1, Albumin/Globulin Ratio 0.5 L 06/23/22 15:16: Ammonia 36.0 H 06/23/22 15:23: Urine Color Yellow, Urine Clarity Cloudy, Urine pH 5.0, Ur Specific [place] 1.015, Urine Protein 30 H, Urine Glucose (UA) Normal, Urine Ketones Negative, Urine Occult Blood 150 H, Urine Nitrite Positive H, Urine Bilirubin Negative, Urine Urobilinogen Normal, Ur Leukocyte Esterase 500 H, Urine RBC 0 SEEN, Urine WBC 50-100 SEEN, Ur Squamous Epith Cells 0 SEEN, Urine Bacteria 2+, Urine Mucus 0 SEEN, Urine Yeast 1+ 06/23/22 15:23: Ur Random Sodium 23, Urine Creatinine 112.00 06/23/22 20:50: Sodium 163 H*, Potassium 4.4, Chloride 134 H*, Carbon Dioxide 26.0, Anion Gap 3 L, BUN 118 H*, Creatinine 1.65 H, Estim Creat Clear Calc 20.86, Est GFR (MDRD) Af Amer 39 L, Est GFR (MDRD) Non-Af 32 L, BUN/Creatinine R atio 71.5 H, Glucose 316 H, Calcium 9.2 06/23/22 21:51: POC Glucose 258 H 06/23/22 23:40: Sodium 164 H*, Potassium 4.4, Chloride 135 H*, Carbon Dioxide 25.0, Anion Gap 4 L, BUN 115 H*, Creatinine 1.80 H, Estim Creat Clear Calc 19.12, Est GFR (MDRD) Af Amer 35 L, Est GFR (MDRD) Non-Af 29 L, BUN/Creatinine Ratio 63.9 H, Glucose 310 H, Calcium 9.5 06/24/22 00:48: POC Glucose 298 H 06/24/22 05:24: Ammonia 31.0 06/24/22 05:24: WBC 10.1, RBC 3.05 L, Hgb 9.2 L, Hct 32.1 L, MCV 105.2 H, MCH 30.2, MCHC 28.7 L, RDW Std Deviation 59.6 H, RDW Coeff of Neeta 15.5 H, Plt Count 170, MPV 13.5 H, Immature Gran % (Auto) 0.500, Neut % (Auto) 79.7 H, Lymph % (Auto) 12.4 L, [place] % (Auto) 4.8, Eos % (Auto) 2.3, Baso % (Auto) 0.3, Absolute Neuts (auto) 8.1 H, Absolute Lymphs (auto) 1.25, Nucleated RBC % 0 06/24/22 05:24: Sodium 162 H*, Potassium 4.0, Chloride 133 H*, Carbon Dioxide 24.0, Anion Gap 5, BUN 107 H*, Creatinine 1.52 H, Estim Creat Clear Calc 19.66, Est GFR (MDRD) Af Amer 42 L, Est GFR (MDRD) Non-Af 35 L, BUN/Creatinine Ratio 70.4 H, Glucose 268 H, Calcium 8.9, Iron 25 L, TIBC 189 L, Iron Saturation 13.2 L, Ferritin 268 H, Total Bilirubin 0.40, AST 19, ALT 43, Alkaline Phosphatase 87, Total Protein 5.6 L, Albumin 2.0 L, Globulin 3.6, Albumin/Globulin Ratio 0.6 L, Folate 38.10 06/24/22 06:47: POC Glucose 280 H Radiography Diagnostic Testing: Radiology Impression Brain CT 06/23/22 15:04 IMPRESSION: No acute findings. Chronic right parietal infarct. Microvascular ischemic changes. Mild atrophy. Electronically Signed: Lory Saha MD at 16:35 EST Reading Location ID and State: Gagan Watkins MD Tel , Service support , Chest X-Ray 06/23/22 15:58 IMPRESSION: No acute cardiopulmonary disease. Electronically Signed: Lory Saha MD at 17:07 EST Reading Location ID and State: Gagan Watkins MD Tel , Service support , Renal Ultrasound 06/23/22 17:31 IMPRESSION: Normal renal ultrasound. Electronically Signed: Jorden Rdz MD at 19:56 EST , KUB X-Ray 06/23/22 20:10 IMPRESSION: Non-obstructive bowel gas pattern. NG tube in the stomach. Electronically Signed: Lory Saha MD at 20:37 EST , Physical Exam Narrative GENERAL: Noncommunicative HEENT: NG tube in place EYES; Anicteric, Normal Conjunctiva NECK; supple, normal thyroid, RESPIRATORY: Diminished to auscultation CARDIOVASCULAR: Regular S1 S2, GI: soft, normoactive bowel sounds, : No Renal angle tenderness; EXTREMITIES: No edema, no clubbing, MUSCULOSKELETAL: no muscle wasting NEURO: Right-sided hemiplegia SKIN: No Rash PSYCH; Flat affect Assessment & Plan Assessment/Plan (1) Altered level of consciousness: PLAN: Plan Patient is a 77-year-old lady with history of CVA with residual aphasia as well as left-sided hemiparesis resident at an extended care facility brought to the emergency department with increasing lethargy. An assessment of suspected acute cystitis made admitted to regular nursing floor for further management 1. Acute metabolic encephalopathy ? Due to combination of acute cystitis as well as severe hypernatremia admitted to regular nursing floor for treatment of the underlying etiology 2. Acute complicated cystitis ? Due to the presence of chronic indwelling Burgess catheter. Cultures were obtained on admission patient started on broad-spectrum antibiotic therapy 3. Severe hypernatremia ? Patient started on 75 cc per every 4 BMP ordered to monitor response to therapy 4. Acute kidney injury ? Superimposed on chronic kidney disease stage III ? On IV fluid with subsequent monitoring of electrolytes ordered 5. History of CVA ? With history of residual aphasia and left-sided hemiparesis. Patient apparently also has dysphagia and has an NG tube in place. 6. Dysphagia ? Secondary to patient CVA has an NG tube in place. Consult has been placed to GI for possible PEG tube placement. Patient was apparently scheduled to undergo PEG tube [facility] at [facility] in late June 7. Hypertension - Blood pressure controlled, home medications continued with dose adjustment as needed 8. Dyslipidemia -Patient is on statin therapy, continued at home dose 9. Diabetes mellitus type 2 ? Did continue patient home insulin regimen with Accu-Cheks every 6 ordered with sliding scale coverage 10. Systemic use of anticoagulation?apixaban ? Indication not clear from patient history 11. Gout ? Per history 12. COPD ? Did continue patient home bronchodilator treatment regimen 13. Severe protein calorie malnutrition with BMI of 17.3 14. Hypothyroidism - Patient is on levothyroxine home dose continued 15.?? History of lung CA 16. Anemia - Secondary to chronic disorder monitoring H&H and transfuse if patient becomes symptomatic or hemoglobin falls below 7 17. DVT prophylaxis ? Patient on apixaban Time spent in the patient's overall evaluation,decision-making process, review of diagnostic data, adjustment of management, discussion with other providers, nursing nursing and ancillary staff involved in patient's care documentation, 60 Minutes Charges/Coding Visit Charges Inpatient E&M: 52183 [facility] L3
[2022-06-24 08:35] LABS: Vitamin B12 1091 pg/mL (211-911)
[2022-06-24 09:48] LABS: Hemoglobin A1c 8.3 % (3.8-5.6)
[2022-06-24 10:33] LABS: Anion Gap 6 (5-15); BUN 102 mg/dL (7-18); BUN/Creat Ratio 66.7 RATIO (10-20); Calcium,Total 9.2 mg/dL (8.5-10.1); Chloride 133 mmol/L (98-107); Creatinine, Serum 1.53 mg/dL (0.55-1.02); EST Glomerular Filtration Rate 35 mL/min (>60); Est Glom Filt Rate - Afr Amer 42 mL/min (>60); Estimated Creatinine Clearance 19.53 ml/min; Glucose 255 mg/dL (74-106); Sodium Level 164 mmol/L (136-145)
[2022-06-24] MEDS: Ceftriaxone 1 GM/50 ML BAG IV (11:05)
[2022-06-24] MEDS: Allopurinol 100 MG Tablet 50 MG PO (11:07)
[2022-06-24] MEDS: Carvedilol 6.25 MG Tablet NG ×2 (11:11→21:15)
[2022-06-24] MEDS: Cholecalciferol (Vit D3) 125 MCG CAPSULE (5,000 UNITS) PO (11:13)
--- NOTE | 2022-06-24 12:43 | CASEMGMT ---
Social Work Pt is admitted from [facility]. GEETA placed call to Jennifer at the [facility] and pt's daughter Dee and obtained the following information. Pt previously lived at home with her and daughter. Pt was able to ambulate with a cane independently, dress and shower. Pt dgt cooked and cleaned and set up meds. Pt was A&O x3. Pt went to [facility] on 04/22/22 for a lung biopsy and while finishing up procedure she had a stroke. Pt was in [facility] for approximately 1 month, was transferred to [facility] for 20 days and then was admitted to [facility] on 05/31. Pt dgt states pt was confirmed to have lung cancer but she has not seen an oncologist or any followup on this yet as they have been focused on dealing with stroke. Pt has pulled out NG tube numerous time and PEG tube placement is being pursued. Per the [facility], PEG placement was scheduled for 06/14 but due to transportation issues, it was cancelled. Now PEG placement is scheduled for 07/08/22 at [facility]. Pt's physicians are all located out of [place]. Pt currently uses a florian lift for transfers at the [facility] Per dgt, pt does have a living will and health care POA naming pt spouse Freddy Lopez and dgt Dee Dinero. Dee states she will bring a copy in. Dee would like pt to return to the [facility] at time of discharge. GEETA spoke with Jennifer at the [facility] who states pt is not a bed hold and new referral would need to be made when pt is ready for discharge. If a room is available, they would be able to accept back. GEETA updated Dee of this information. [facility] faxed referral information from [facility]. This information placed on pt chart. Charge nurse and physician notified. Plan: [facility], pending bed availability at time of discharge HENRY Desouza
[2022-06-24 12:55] LABS: Bedside Glucose 236 mg/dL (74-106)
--- NOTE | 2022-06-24 14:20 | CON.PCM.RE_ITS ---
Assessment & Plan Assessment/Plan (1) Hypernatremia: PLAN: Likely due to lack of free water intake. Total free water deficit is about 6.8 L. Needs to be corrected over a period of 2 to 3 days. Continue D5 water at 100 cc/h. (2) JUANA (acute kidney injury): PLAN: Baseline creatinine seems to be around 1.3. There is BMP from January which showed a creatinine of 1.9 but also had a sodium low. Given with a c reatinine of 1.8. Likely related to volume depletion. Of note, her BUN is disproportionately high. No evidence of GI bleed at this point. No steroids.? Related to volume depletion. HPI Consult Data Date of Consult: 06/24/22 HPI Narrative Reason for Consultation: Acute renal failure, hypernatremia. HPI Narrative: LIZABETH MICHELE, is a 77 F who presents to the hospital with altered mental status. Nephrology on consultation due to acute renal failure and hyponatremia. She has no history of stroke, [facility]. Baseline mental status is not known at this point. She does carry a history of dementia. Was found to be in altered mental status and sent into the ER. Was found to have significantly high sodium, BUN. Surprisingly she is alert, denies any complaints. Currently has an NG tube. Breathing is acceptable. She also carries a diagnosis of CHF as per records. Baseline creatinine seems to be around 1.3. Urine output is good. 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 Congestive heart failure (CHF) Dementia Depression Diabetes Dysphagia following cerebral infarction Encephalopathy, unspecified Gastro-esophageal reflux disease without esophagitis Gout, unspecified Hemiplegia and hemiparesis following cerebral infarction affecting left non- dominant side Hypertension Hypothyroidism Malignant neoplasm of unspecified part of unspecified bronchus or lung Home Medications allopurinol 100 mg tablet 50 mg feeding tube DAILY gout 01/29/21 [History Last Taken 06/23/22] amlodipine 5 mg tablet 10 mg feeding tube DAILY HTN 01/29/21 [History Last Taken 06/23/22] budesonide-formoterol HFA 160 mcg-4.5 mcg/actuation aerosol inhaler (Symbicort) 2 puff inhalation BID COPD 09/16/21 [History Last Taken 06/23/22] levothyroxine 50 mcg capsule 50 mcg PO DAILY thyroid 01/29/21 [History Last Taken 06/23/22] apixaban 5 mg tablet 5 mg feeding tube BID CVA 06/23/22 [History Last Taken Unknown] atorvastatin 40 mg tablet 40 mg feeding tube QHS cholesterol 06/23/22 [History Last Taken 06/23/22] bisacodyl 10 mg rectal suppository 10 mg [place] DAILY PRN Constipation 06/23/22 [History Last Taken Unknown] carvedilol 6.25 mg tablet (Coreg) 6.25 mg feeding tube BID HTN 06/23/22 [History Last Taken 06/23/22] insulin glargine 100 unit/mL subcutaneous cartridge 12 unit subcut QHS diabetes 06/23/22 [History Last Taken 06/23/22] insulin regular human 100 unit/mL injection solution See Protocol subcut Q6H diabetes 06/23/22 [History Last Taken 06/23/22] insulin regular human 100 unit/mL injection solution cartridge 5 unit subcut Q6H diabetes 06/23/22 [History Last Taken 06/23/22] losartan 50 mg tablet 50 mg feeding tube QHS hypertension 06/23/22 [History Last Taken 06/23/22] multivitamin 1 tab feeding tube DAILY supplement 06/23/22 [History Last Taken Unknown] terazosin 1 mg tablet 1 mg PO QHS HTN 06/23/22 [History Last Taken 06/23/22] Allergy/AdvReac Type Severity Reaction Status Date / Time Penicillins Allergy PT UNSURE Verified 06/18/22 18:16 OF REACTION Family History (Updated 06/23/22 @ 19:[address] Mariel Gamble MD) Father Diabetes Family History other Surgical History (Updated 06/23/22 @ 19:[address] Mariel Gamble MD) History of back surgery History of hysterectomy History of knee replacement S/P breast biopsy S/P carpal tunnel release S/P cataract surgery Social History (Updated 06/23/22 @ 19:[address] Mariel Gamble MD) [facility] Smoking Status: Former smoker how long ago did patient quit smoking: Quit ~ 20 years prior, smoked 40 years 1 ppd. alcohol intake: never substance use type: does not use ROS ROS Narrative Negative except above Physical Exam Narrative no obvious distress no pallor no icterus no JVD s1s2 no murmurs lungs clear abdomen soft no organomegaly no edema no cyanosis [place] + Lab / Micro Data Result Diagrams: 06/24/22 05:24 06/24/22 10:05 Labs: Laboratory Results - last 24 hr 06/23/22 15:16: WBC 11.5 H, RBC 3.47 L, Hgb 10.5 L, Hct 36.2 L, MCV 104.3 H, MCH 30.3, MCHC 29.0 L, RDW Std Deviation 60.7 H, RDW Coeff of Neeta 15.9 H, Plt Count 183, MPV 13.6 H, Immature Gran % (Auto) 0.400, Neut % (Auto) 79.7 H, Lymph % (Auto) 12.4 L, [place] % (Auto) 4.0, Eos % (Auto) 3.1, Baso % (Auto) 0.4, Absolute Neuts (auto) 9.1 H, Absolute Lymphs (auto) 1.42, Nucleated RBC % 0 06/23/22 15:16: Sodium 162 H*, Potassium 5.0, Chloride 132 H*, Carbon Dioxide 27.0, Anion Gap 3 L, BUN 127 H*, Creatinine 1.90 H, Estim Creat Clear Calc 18.12, Est GFR (MDRD) Af Amer 33 L, Est GFR (MDRD) Non-Af 27 L, BUN/Creatinine Ratio 66.8 H, Glucose 330 H, Calcium 10.0, Total Bilirubin 0.40, AST 31, ALT 46, Alkaline Phosphatase 97, Total Protein 6.3 L, Albumin 2.2 L, Globulin 4.1, Albumin/Globulin Ratio 0.5 L 06/23/22 15:16: Ammonia 36.0 H 06/23/22 15:23: Urine Color Yellow, Urine Clarity Cloudy, Urine pH 5.0, Ur Specific [place] 1.015, Urine Protein 30 H, Urine Glucose (UA) Normal, Urine Ketones Negative, Urine Occult Blood 150 H, Urine Nitrite Positive H, Urine Bilirubin Negative, Urine Urobilinogen Normal, Ur Leukocyte Esterase 500 H, Urine RBC 0 SEEN, Urine WBC 50-100 SEEN, Ur Squamous Epith Cells 0 SEEN, Urine Bacteria 2+, Urine Mucus 0 SEEN, Urine Yeast 1+ 06/23/22 15:23: Ur Random Sodium 23, Urine Creatinine 112.00 02/08/23 20:50: Sodium 163 H*, Potassium 4.4, Chloride 134 H*, Carbon Dioxide 26.0, Anion Gap 3 L, BUN 118 H*, Creatinine 1.65 H, Estim Creat Clear Calc 20.86, Est GFR (MDRD) Af Amer 39 L, Est GFR (MDRD) Non-Af 32 L, BUN/Creatinine Ratio 71.5 H, Glucose 316 H, Calcium 9.2 06/23/22 21:51: POC Glucose 258 H 06/23/22 23:40: Sodium 164 H*, Potassium 4.4, Chloride 135 H*, Carbon Dioxide 25.0, Anion Gap 4 L, BUN 115 H*, Creatinine 1.80 H, Estim Creat Clear Calc 19.12, Est GFR (MDRD) Af Amer 35 L, Est GFR (MDRD) Non-Af 29 L, BUN/Creatinine Ratio 63.9 H, Glucose 310 H, Calcium 9.5 06/24/22 00:48: POC Glucose 298 H 06/24/22 05:24: Ammonia 31.0 06/24/22 05:24: WBC 10.1, RBC 3.05 L, Hgb 9.2 L, Hct 32.1 L, MCV 105.2 H, MCH 30.2, MCHC 28.7 L, RDW Std Deviation 59.6 H, RDW Coeff of Neeta 15.5 H, Plt Count 170, MPV 13.5 H, Immature Gran % (Auto) 0.500, Neut % (Auto) 79.7 H, Lymph % (Auto) 12.4 L, [place] % (Auto) 4.8, Eos % (Auto) 2.3, Baso % (Auto) 0.3, Absolute Neuts (auto) 8.1 H, Absolute Lymphs (auto) 1.25, Nucleated RBC % 0 06/24/22 05:24: Sodium 162 H*, Potassium 4.0, Chloride 133 H*, Carbon Dioxide 24.0, Anion Gap 5, BUN 107 H*, Creatinine 1.52 H, Estim Creat Clear Calc 19.66, Est GFR (MDRD) Af Amer 42 L, Est GFR (MDRD) Non-Af 35 L, BUN/Creatinine Ratio 70.4 H, Glucose 268 H, Calcium 8.9, Iron 25 L, TIBC 189 L, Iron Saturation 13.2 L, Ferritin 268 H, Total Bilirubin 0.40, AST 19, ALT 43, Alkaline Phosphatase 87, Total Protein 5.6 L, Albumin 2.0 L, Globulin 3.6, Albumin/Globulin Ratio 0.6 L, Folate 38.10 06/24/22 05:24: Hemoglobin A1c 8.3 H 06/24/22 05:24: Vitamin B12 1091 H 06/24/22 06:47: POC Glucose 280 H 06/24/22 10:05: Sodium 164 H*, Potassium 4.0, Chloride 133 H*, Carbon Dioxide 25.0, Anion Gap 6, BUN 102 H*, Creatinine 1.53 H, Estim Creat Clear Calc 19.53, Est GFR (MDRD) Af Amer 42 L, Est GFR (MDRD) Non-Af 35 L, BUN/Creatinine Ratio 6 6.7 H, Glucose 255 H, Calcium 9.2 06/24/22 12:30: POC Glucose 236 H Micro: Microbiology 06/24/22 06:40 Stool Stool Occult Blood (NUHA) - Final Occult Blood Positive 06/23/22 15:23 Urine Catheter - [place] Urine Culture - Preliminary GNR lactose claims administrator Radiology Impression Brain CT 06/23/22 15:04 IMPRESSION: No acute findings. Chronic right parietal infarct. Microvascular ischemic changes. Mild atrophy. Electronically Signed: Lory Saha MD at 16:35 EST Reading Location ID and State: [id number] / Tel , Service support , Chest X-Ray 06/23/22 15:58 IMPRESSION: No acute cardiopulmonary disease. Electronically Signed: Lory Saha MD at 17:07 EST Reading Location ID and State: [id number] / Tel , Service support , Renal Ultrasound 06/23/22 17:31 IMPRESSION: Normal renal ultrasound. Electronically Signed: Jorden Rdz MD at 19:56 EST , KUB X-Ray 06/23/22 20:10 IMPRESSION: Non-obstructive bowel gas pattern. NG tube in the stomach. Electronically Signed: Lory Saha MD at 20:37 EST Reading Location ID and State: [id number] / Tel , Service support ,
[2022-06-24 16:01] LABS: Anion Gap 7 (5-15); BUN 96 mg/dL (7-18); BUN/Creat Ratio 62.3 RATIO (10-20); Chloride 130 mmol/L (98-107); Creatinine, Serum 1.54 mg/dL (0.55-1.02); EST Glomerular Filtration Rate 35 mL/min (>60); Est Glom Filt Rate - Afr Amer 42 mL/min (>60); Estimated Creatinine Clearance 22.35 ml/min; Glucose 308 mg/dL (74-106); Potassium 3.7 mmol/L (3.5-5.1); Sodium Level 161 mmol/L (136-145)
[2022-06-24] MEDS: Jevity 1.5 1,000 ML 20 ML GT (16:15)
--- NOTE | 2022-06-24 16:24 | CON.PCM.GI_ITS ---
HPI Consult Data Date of Consult: 06/24/22 HPI Narrative Reason for Consultation: Peg tube HPI Narrative: LIZABETH MICHELE, is a 77-year-old female presented from the [facility] with acute mental status change.? She has past medical history of right cerebral artery infarction with left-sided weakness at her baseline.? She has been seen multiple times in the emergency department for nasogastric tube replacement.? It has been either malfunctioning and clogged or it has been removed.? Initially she had a Dobbhoff, then a Corpak, then an NG tube, and now she is presenting with altered mental status.? It was obtained from EMS that at the [facility] they had to sternal rub her in order to awaken her.? She also appeared pale.? She states that she feels tired, but denies any pain.? Patient is DNR Comfort Care arrest. I was consulted for PEG tube placement. 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 Congestive heart failure (CHF) Dementia Depression Diabetes Dysphagia following cerebral infarction Encephalopathy, unspecified Gastro-esophageal reflux disease without esophagitis Gout, unspecified Hemiplegia and hemiparesis following cerebral infarction affecting left non- dominant side Hypertension Hypothyroidism Malignant neoplasm of unspecified part of unspecified bronchus or lung Home Medications allopurinol 100 mg tablet 50 mg feeding tube DAILY gout 01/29/21 [History Last Taken 06/23/22] amlodipine 5 mg tablet 10 mg feeding tube DAILY HTN 01/29/21 [History Last Taken 06/23/22] budesonide-formoterol HFA 160 mcg-4.5 mcg/actuation aerosol inhaler (Symbicort) 2 puff inhalation BID COPD 01/29/21 [History Last Taken 06/23/22] levothyroxine 50 mcg capsule 50 mcg PO DAILY thyroid 01/29/21 [History Last Taken 06/23/22] apixaban 5 mg tablet 5 mg feeding tube BID CVA 06/23/22 [History Last Taken Unknown] atorvastatin 40 mg tablet 40 mg feeding tube QHS cholesterol 06/23/22 [History Last Taken 06/23/22] bisacodyl 10 mg rectal suppository 10 mg [place] DAILY PRN Constipation 06/23/22 [History Last Taken Unknown] carvedilol 6.25 mg tablet (Coreg) 6.25 mg feeding tube BID HTN 06/23/22 [History Last Taken 06/23/22] insulin glargine 100 unit/mL subcutaneous cartridge 12 unit subcut QHS diabetes 06/23/22 [History Last Taken 06/23/22] insulin regular human 100 unit/mL injection solution See Protocol subcut Q6H diabetes 06/23/22 [History Last Taken 06/23/22] insulin regular human 100 unit/mL injection solution cartridge 5 unit subcut Q6H diabetes 06/23/22 [History Last Taken 06/23/22] losartan 50 mg tablet 50 mg feeding tube QHS hypertension 06/23/22 [History Last Taken 06/23/22] multivitamin 1 tab feeding tube DAILY supplement 06/23/22 [History Last Taken Unknown] terazosin 1 mg tablet 1 mg PO QHS HTN 06/23/22 [History Last Taken 06/23/22] Allergy/AdvReac Type Severity Reaction Status Date / Time Penicillins Allergy PT UNSURE Verified 06/18/22 18:16 OF REACTION Family History (Updated 06/23/22 @ 19:[address] Mariel Gamble MD) Father Diabetes Family History other Surgical History (Updated 06/23/22 @ 19:[address] Mariel Gamble MD) History of back surgery History of hysterectomy History of knee replacement S/P breast biopsy S/P carpal tunnel release S/P cataract surgery Social History (Updated 06/23/22 @ 19:[address] Mariel Gamble MD) housing: residential Smoking Status: Former smoker how long ago did patient quit smoking: Quit ~ 20 years prior, smoked 40 years 1 ppd. alcohol intake: never substance use type: does not use ROS ROS Narrative Negative except above Physical Exam Narrative no obvious distress no pallor no icterus no JVD s1s2 no murmurs lungs clear abdomen soft no organomegaly no edema no cyanosis [place] + Lab / Micro Data Result Diagrams: 06/24/22 05:24 06/24/22 14:30 Labs: Laboratory Results - last 24 hr 06/23/22 15:23: Ur Random Sodium 23, Urine Creatinine 112.00 06/23/22 20:50: Sodium 163 H*, Potassium 4.4, Chloride 134 H*, Carbon Dioxide 26.0, Anion Gap 3 L, BUN 118 H*, Creatinine 1.65 H, Estim Creat Clear Calc 20.86, Est GFR (MDRD) Af Amer 39 L, Est GFR (MDRD) Non-Af 32 L, BUN/Creatinine Ratio 71.5 H, Glucose 316 H, Calcium 9.2 06/23/22 21:51: POC Glucose 258 H 06/23/22 23:40: Sodium 164 H*, Potassium 4.4, Chloride 135 H*, Carbon Dioxide 2 5.0, Anion Gap 4 L, BUN 115 H*, Creatinine 1.80 H, Estim Creat Clear Calc 19.12, Est GFR (MDRD) Af Amer 35 L, Est GFR (MDRD) Non-Af 29 L, BUN/Creatinine Ratio 63.9 H, Glucose 310 H, Calcium 9.5 06/24/22 00:48: POC Glucose 298 H 06/24/22 05:24: Ammonia 31.0 06/24/22 05:24: WBC 10.1, RBC 3.05 L, Hgb 9.2 L, Hct 32.1 L, MCV 105.2 H, MCH 30.2, MCHC 28.7 L, RDW Std Deviation 59.6 H, RDW Coeff of Neeta 15.5 H, Plt Count 170, MPV 13.5 H, Immature Gran % (Auto) 0.500, Neut % (Auto) 79.7 H, Lymph % (Auto) 12.4 L, [place] % (Auto) 4.8, Eos % (Auto) 2.3, Baso % (Auto) 0.3, Absolute Neuts (auto) 8.1 H, Absolute Lymphs (auto) 1.25, Nucleated RBC % 0 06/24/22 05:24: Sodium 162 H*, Potassium 4.0, Chloride 133 H*, Carbon Dioxide 24.0, Anion Gap 5, BUN 107 H*, Creatinine 1.52 H, Estim Creat Clear Calc 19.66, Est GFR (MDRD) Af Amer 42 L, Est GFR (MDRD) Non-Af 35 L, BUN/Creatinine Ratio 70.4 H, Glucose 268 H, Calcium 8.9, Iron 25 L, TIBC 189 L, Iron Saturation 13.2 L, Ferritin 268 H, Total Bilirubin 0.40, AST 19, ALT 43, Alkaline Phosphatase 87, Total Protein 5.6 L, Albumin 2.0 L, Globulin 3.6, Albumin/Globulin Ratio 0.6 L, Folate 38.10 06/24/22 05:24: Hemoglobin A1c 8.3 H 06/24/22 05:24: Vitamin B12 1091 H 06/24/22 06:47: POC Glucose 280 H 06/24/22 10:05: Sodium 164 H*, Potassium 4.0, Chloride 133 H*, Carbon Dioxide 25.0, Anion Gap 6, BUN 102 H*, Creatinine 1.53 H, Estim Creat Clear Calc 19.53, Est GFR (MDRD) Af Amer 42 L, Est GFR (MDRD) Non-Af 35 L, BUN/Creatinine Ratio 66.7 H, Glucose 255 H, Calcium 9.2 06/24/22 12:30: POC Glucose 236 H 06/24/22 14:30: Sodium 161 H*, Potassium 3.7, Chloride 130 H*, Carbon Dioxide 24.0, Anion Gap 7, BUN 96 H, Creatinine 1.54 H, Estim Creat Clear Calc 22.35, Est GFR (MDRD) Af Amer 42 L, Est GFR (MDRD) Non-Af 35 L, BUN/Creatinine Ratio 62.3 H, Glucose 308 H, Calcium 9.0 Micro: Microbiology 06/24/22 06:40 Stool Stool Occult Blood (NUHA) - Final Occult Blood Positive 06/23/22 15:23 Urine Catheter - [place] Urine Culture - Preliminary GNR lactose boat outboard engine mechanic Radiology Impression Brain CT 06/23/22 15:04 IMPRESSION: No acute findings. Chronic right parietal infarct. Microvascular ischemic changes. Mild atrophy. Electronically Signed: Lory Saha MD at 16:35 EST Reading Location ID and State: Gagan Watkins MD Tel , Service support , Chest X-Ray 06/23/22 15:58 IMPRESSION: No acute cardiopulmonary disease. Electronically Signed: Lory Saha MD at 17:07 EST Reading Location ID and State: Gagan Watkins MD Tel , Service support , Renal Ultrasound 06/23/22 17:31 IMPRESSION: Normal renal ultrasound. Electronically Signed: Jorden Rdz MD at 19:56 EST , KUB X-Ray 06/23/22 20:10 IMPRESSION: Non-obstructive bowel gas pattern. NG tube in the stomach. Electronically Signed: Lory Saha MD at 20:37 EST Reading Location ID and State: [id number] / Tel , Service support , Assessment & Plan Assessment/Plan (1) Dysphagia: Charges/Coding Visit Charges Inpatient E&M: 20460 Init Hosp L2
[2022-06-24 18:30] LABS: Bedside Glucose 312 mg/dL (74-106)
[2022-06-24 19:37] LABS: Anion Gap 9 (5-15); BUN 89 mg/dL (7-18); BUN/Creat Ratio 62.2 RATIO (10-20); Calcium,Total 9.2 mg/dL (8.5-10.1); Chloride 129 mmol/L (98-107); Creatinine, Serum 1.43 mg/dL (0.55-1.02); EST Glomerular Filtration Rate 38 mL/min (>60); Est Glom Filt Rate - Afr Amer 46 mL/min (>60); Estimated Creatinine Clearance 24.07 ml/min; Glucose 364 mg/dL (74-106); Potassium 3.7 mmol/L (3.5-5.1); Sodium Level 161 mmol/L (136-145)
[2022-06-24] MEDS: Atorvastatin Calcium 40 MG Tablet NG (21:15)
[2022-06-24] MEDS: Insulin Glargine-YFGN 100 UNIT/ML Pen 12 UNIT SC (21:16)
[2022-06-24 21:45] LABS: Bedside Glucose 304 mg/dL (74-106)
[2022-06-24 23:48] LABS: Anion Gap 7 (5-15); BUN 81 mg/dL (7-18); BUN/Creat Ratio 56.2 RATIO (10-20); Calcium,Total 9.1 mg/dL (8.5-10.1); Chloride 129 mmol/L (98-107); Creatinine, Serum 1.44 mg/dL (0.55-1.02); EST Glomerular Filtration Rate 37 mL/min (>60); Est Glom Filt Rate - Afr Amer 45 mL/min (>60); Glucose 321 mg/dL (74-106); Potassium 3.8 mmol/L (3.5-5.1); Sodium Level 160 mmol/L (136-145)
[2022-06-25] VITALS (15 sets, daily range): BP systolic 122–151; BP diastolic 47–79; PULSE 48–97; RESP 16–24; TEMP 36.3–37.7; O2SAT 91–100; BMI 34.8
[2022-06-25] MEDS: Insulin Lispro 100 UNIT/ML INSULN.PEN SC ×4 (01:02→05:47)
[2022-06-25 01:26] LABS: Bedside Glucose 347 mg/dL (74-106)
[2022-06-25 02:46] LABS: Anion Gap 7 (5-15); BUN 80 mg/dL (7-18); BUN/Creat Ratio 51.3 RATIO (10-20); Calcium,Total 8.9 mg/dL (8.5-10.1); Chloride 127 mmol/L (98-107); Creatinine, Serum 1.56 mg/dL (0.55-1.02); EST Glomerular Filtration Rate 34 mL/min (>60); Est Glom Filt Rate - Afr Amer 41 mL/min (>60); Estimated Creatinine Clearance 22.07 ml/min; Glucose 380 mg/dL (74-106); Potassium 3.6 mmol/L (3.5-5.1); Sodium Level 157 mmol/L (136-145)
[2022-06-25] MEDS: Nystatin Powder 15gm Bottle 1 APPLIC TOPICAL ×2 (05:43→21:33)
[2022-06-25] MEDS: Levothyroxine 50 MCG Tablet PO (05:43)
[2022-06-25 06:15] LABS: Bedside Glucose 329 mg/dL (74-106)
[2022-06-25 06:20] LABS: Absolute Lymphocyte Count 1.17 X10^3/uL (0.83-4.51); Absolute Neutrophil Count 7.8 X10^3/uL (2.0-7.7); Basophil# 0.02 X10^3/uL; Basophil% 0.2 % (0-1); Eosinophil# 0.24 X10^3/uL; Eosinophils% 2.5 % (0-5); Hematocrit 28.6 % (37-47); Hemoglobin 8.4 g/dL (12.0-15.0); Lymphocyte # 1.17 X10^3/ul (0.83-4.51); Lymphocyte % 12.1 % (19-41); Mean Corp Hgb Conc 29.4 g/dL (32-36); Mean Corpuscular Hgb 30.3 pg (27.0-32.0); Mean Corpuscular Volume 103.2 fL (81-99); Mean Platelet Vol. 13.7 fl (6.2-12.0); Monocyte% 4.1 % (0-10); NRBC Flagged by Analyzer 0 % (0-5); Neutrophil # 7.78 X10^3/uL (2.7-7.7); Neutrophil % 80.5 % (47-70); Platelet Count 153 K/mm3 (150-450); RBC Distribution Width CV 15.2 % (11.6-14.6); RBC Distribution Width SD 57.9 fl (35.1-43.9); Red Blood Count 2.77 M/mm3 (4.2-5.4); White Blood Count 9.7 K/mm3 (4.4-11.0)
[2022-06-25 06:52] LABS: Thyroid Stim Hormone (TSH) 0.02 uIU/mL (0.358-3.74)
[2022-06-25 06:55] LABS: Anion Gap 4 (5-15); BUN 75 mg/dL (7-18); BUN/Creat Ratio 56.8 RATIO (10-20); Calcium,Total 8.6 mg/dL (8.5-10.1); Chloride 131 mmol/L (98-107); Creatinine, Serum 1.32 mg/dL (0.55-1.02); EST Glomerular Filtration Rate 41 mL/min (>60); Est Glom Filt Rate - Afr Amer 50 mL/min (>60); Estimated Creatinine Clearance 26.08 ml/min; Glucose 357 mg/dL (74-106); Magnesium 2.1 mg/dL (1.6-2.6); Phosphorus 2.8 mg/dL (2.5-4.9); Potassium 3.9 mmol/L (3.5-5.1); Sodium Level 159 mmol/L (136-145)
[2022-06-25] MEDS: Budesonide Respules 0.5 MG/2 ML AMPUL.NEB. INHALATION (07:43)
--- NOTE | 2022-06-25 07:47 | PCM.PN.HOSP ---
Reason for Visit Reason for Visit: Diagnoses Hyperosmolality and hypernatremia (06/23/22) Acute kidney failure, unspecified (06/23/22) Dysphagia, unspecified (06/23/22) Transient alteration of awareness (06/23/22) Subjective Subjective Patient seen, still remains noncommunicative. Plan is for patient to undergo PEG tube placement. Sodium levels still remain markedly elevated at 159 but trending in the right direction Objective Data Objective Data Vital Signs: Vital Signs Temp Pulse Resp BP Pulse Ox O2 Del Method 99.2 F H 93 18 129/79 H 97 Room Air 06/25/22 03:27 06/25/22 03:27 06/25/22 03:27 06/25/22 03:27 06/25/22 03:27 06/25/22 03:27 Oxygen Delivery Method Room Air Weight: 83.688 kg Body Mass Index (BMI) 17.2 Intake & Output: Intake and Output for Last 24 Hours 06/23/22 06/24/22 06/25/22 23:59 23:59 23:59 Intake Total 1650 / 1650 2616.67 / 2616.67 1857.00 / 1857.00 Output Total 700 / 700 250 / 250 725 / 725 Balance 950 / 950 2366.67 / 2366.67 1132.00 / 1132.00 Lab / Micro Data Result Diagrams: 06/25/22 05:49 06/25/22 05:49 Labs: Laboratory Results - last 24 hr 06/24/22 05:24: Hemoglobin A1c 8.3 H 06/24/22 05:24: Vitamin B12 1091 H 06/24/22 10:05: Sodium 164 H*, Potassium 4.0, Chloride 133 H*, Carbon Dioxide 25.0, Anion Gap 6, BUN 102 H*, Creatinine 1.53 H, Estim Creat Clear Calc 19.53, Est GFR (MDRD) Af Amer 42 L, Est GFR (MDRD) Non-Af 35 L, BUN/Creatinine Ratio 66.7 H, Glucose 255 H, Calcium 9.2 06/24/22 12:30: POC Glucose 236 H 06/24/22 14:30: Sodium 161 H*, Potassium 3.7, Chloride 130 H*, Carbon Dioxide 24.0, Anion Gap 7, BUN 96 H, Creatinine 1.54 H, Estim Creat Clear Calc 22.35, Est GFR (MDRD) Af Amer 42 L, Est GFR (MDRD) Non-Af 35 L, BUN/Creatinine Ratio 62.3 H, Glucose 308 H, Calcium 9.0 06/24/22 18:08: POC Glucose 312 H 06/24/22 18:29: Sodium 161 H*, Potassium 3.7, Chloride 129 H*, Carbon Dioxide 23.0, Anion Gap 9, BUN 89 H, Creatinine 1.43 H, Estim Creat Clear Calc 24.07, Est GFR (MDRD) Af Amer 46 L, Est GFR (MDRD) Non-Af 38 L, BUN/Creatinine Ratio 62.2 H, Glucose 364 H, Calcium 9.2 06/24/22 21:16: POC Glucose 304 H 06/24/22 22:30: Sodium 160 H, Potassium 3.8, Chloride 129 H*, Carbon Dioxide 24.0, Anion Gap 7, BUN 81 H, Creatinine 1.44 H, Estim Creat Clear Calc 23.90, Est GFR (MDRD) Af Amer 45 L, Est GFR (MDRD) Non-Af 37 L, BUN/Creatinine Ratio 56.2 H, Glucose 321 H, Calcium 9.1 06/25/22 00:55: POC Glucose 347 H 06/25/22 02:22: Sodium 157 H, Potassium 3.6, Chloride 127 H*, Carbon Dioxide 23.0, Anion Gap 7, BUN 80 H, Creatinine 1.56 H, Estim Creat Clear Calc 22.07, Est GFR (MDRD) Af Amer 41 L, Est GFR (MDRD) Non-Af 34 L, BUN/Creatinine Ratio 51.3 H, Glucose 380 H, Calcium 8.9 06/25/22 05:46: POC Glucose 329 H 06/25/22 05:49: WBC 9.7, RBC 2.77 L, Hgb 8.4 L, Hct 28.6 L, MCV 103.2 H, MCH 30.3, MCHC 29.4 L, RDW Std Deviation 57.9 H, RDW Coeff of Neeta 15.2 H, Plt Count 153, MPV 13.7 H, Immature Gran % (Auto) 0.600, Neut % (Auto) 80.5 H, Lymph % (Auto) 12.1 L, [place] % (Auto) 4.1, Eos % (Auto) 2.5, Baso % (Auto) 0.2, Absolute Neuts (auto) 7.8 H, Absolute Lymphs (auto) 1.17, Nucleated RBC % 0 06/25/22 05:49: Sodium 159 H, Potassium 3.9, Chloride 131 H*, Carbon Dioxide 24.0, Anion Gap 4 L, BUN 75 H, Creatinine 1.32 H, Estim Creat Clear Calc 26.08, Est GFR (MDRD) Af Amer 50 L, Est GFR (MDRD) Non-Af 41 L, BUN/Creatinine Ratio 56.8 H, Glucose 357 H, Calcium 8.6, Phosphorus 2.8, Magnesium 2.1 06/25/22 05:49: TSH 0.02 L Micro: Microbiology 06/24/22 06:40 Stool Stool Occult Blood (NUHA) - Final Occult Blood Positive 06/23/22 15:23 Urine Catheter - [place] Urine Culture - Preliminary GNR lactose resource protection specialist Physical Exam Narrative GENERAL: Noncommunicative HEENT: NG tube in place EYES; Anicteric, Normal Conjunctiva NECK; supple, normal thyroid, RESPIRATORY: Diminished to auscultation CARDIOVASCULAR:? Regular S1 S2, GI:? soft, normoactive bowel sounds, : No Renal angle tenderness; EXTREMITIES:? No edema, no clubbing, MUSCULOSKELETAL:? no muscle wasting NEURO: Right-sided hemiplegia SKIN:? No Rash PSYCH; Flat? 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 An assessment of suspected acute cystitis made admitted to regular nursing floor for further management 1.? Acute metabolic encephalopathy ? Due to combination of acute cystitis as well as severe hypernatremia admitted to regular nursing floor for treatment of the underlying etiology 2.? Acute complicated cystitis ? Due to the presence of chronic indwelling Burgess catheter.? Cultures were obtained on admission patient started on broad-spectrum antibiotic therapy 3.? Severe hypernatremia ? Patient started on 75 cc per every 4 BMP ordered to monitor response to therapy -06/25/2022;Sodium levels still remain markedly elevated at 159 but trending in the right direction 4.? Acute kidney injury ? Superimposed on chronic kidney disease stage III ? On IV fluid with subsequent monitoring of electrolytes ordered 5.? History of CVA ? With history of residual aphasia and left-sided hemiparesis.? Patient apparently also has dysphagia and has an NG tube in place. 6.? Dysphagia ? Secondary to patient CVA has an NG tube in place.? Consult has been placed to GI for possible PEG tube placement.? Patient was apparently scheduled to undergo PEG tube placement at [facility] in late June ? 06/25/2022. Consult was placed to Dr. Zapata for possible PEG tube placement. Procedure scheduled for later today. 7.? Hypertension - Blood pressure controlled, home medications continued with dose adjustment as needed 8.? Dyslipidemia -Patient is on statin therapy, continued at home dose 9.? Diabetes mellitus type 2 ? Did continue patient home insulin regimen with Accu-Cheks every 6 ordered with sliding scale coverage 10.? Systemic use of anticoagulation?apixaban ? Indication not clear from patient history 11.? Gout ? Per history 12.? COPD ? Did continue patient home bronchodilator treatment regimen 13.? Severe protein calorie malnutrition with BMI of 17.3 14.? Hypothyroidism - Patient is on levothyroxine home dose continued 15.??? History of lung CA 16. Anemia - Secondary to chronic disorder monitoring H&H and transfuse if patient becomes symptomatic or hemoglobin falls below 7 ?17.? DVT prophylaxis ? Patient on apixaban Time spent in the patient's overall evaluation,decision-making process, review of diagnostic data, adjustment of management, discussion with other providers, nursing nursing and ancillary staff involved in patient's care documentation,? 58? Minutes Charges/Coding Visit Charges Inpatient E&M: 00712 Subs Hosp L3
--- NOTE | 2022-06-25 09:06 | NURSING ---
Getting Report from Adama RN around 0730 this morning. He informed this RN that Tube Feeding was funning at 35mlhr with flush q4hrs. This Nurse went in at 0745 and stopped Tube Feeding as pt is going to go to Endo for Peg tube placement. Initially This RN and Receptionist Airline Lounge RN did not know the time for the procedure but This RN does know belt picker time is at 0945 this morning. Ac Charge Vi called, informed that TF stopped at 0745 this morning. She just called me back and said they would still pick her up at 0945 and do the ERCP first. S.T came to see pt, Will do the Cookie Swallow Tuesday since pt getting Peg tube today.
--- NOTE | 2022-06-25 09:47 | CASEMGMT ---
Social Work Per physician, pt will be here through the weekend. Updated clinicals sent to [place] via [facility]. Will follow up for discharge planning on Tuesday. Plan: Mai, pending bed availability at time of discharge. HENRY Desouza
--- NOTE | 2022-06-25 09:53 | CASEMGMT ---
Social Work Pt dgt confirms pt has a living will and healthcare POA naming pt Freddy Lopez and dgt Dee Rosette. SW requested documents be brought in for scanning into EMR. HENRY Desouza
[2022-06-25] MEDS: Lactated Ringers 1,000 ML 15 ML IV ×3 (10:22→20:06)
--- NOTE | 2022-06-25 15:03 | PCM.PN.REN ---
Subjective Subjective Somewhat sleepy today Objective Data Objective Data Vital Signs: Vital Signs Temp Pulse Resp BP Pulse Ox O2 Del Method 98.2 F 91 18 122/60 H 96 Room Air 06/25/22 09:30 06/25/22 09:30 06/25/22 09:30 06/25/22 09:30 06/25/22 09:30 06/25/22 09:30 Oxygen Delivery Method Room Air Weight: 83.688 kg Body Mass Index (BMI) 34.8 Intake & Output: Intake and Output for Last 24 Hours 06/23/22 06/24/22 06/25/22 23:59 23:59 23:59 Intake Total 1650 / 1650 2616.67 / 2616.67 3486.00 / 3486.00 Output Total 700 / 700 250 / 250 1175 / 1175 Balance 950 / 950 2366.67 / 2366.67 2311.00 / 2311.00 Lab / Micro Data Result Diagrams: 06/25/22 05:49 06/25/22 05:49 Labs: Laboratory Results - last 24 hr 06/24/22 14:30: Sodium 161 H*, Potassium 3.7, Chloride 130 H*, Carbon Dioxide 24.0, Anion Gap 7, BUN 96 H, Creatinine 1.54 H, Estim Creat Clear Calc 22.35, Est GFR (MDRD) Af Amer 42 L, Est GFR (MDRD) Non-Af 35 L, BUN/Creatinine Ratio 62.3 H, Glucose 308 H, Calcium 9.0 06/24/22 18:08: POC Glucose 312 H 06/24/22 18:29: Sodium 161 H*, Potassium 3.7, Chloride 129 H*, Carbon Dioxide 23.0, Anion Gap 9, BUN 89 H, Creatinine 1.43 H, Estim Creat Clear Calc 24.07, Est GFR (MDRD) Af Amer 46 L, Est GFR (MDRD) Non-Af 38 L, BUN/Creatinine Ratio 62.2 H, Glucose 364 H, Calcium 9.2 06/24/22 21:16: POC Glucose 304 H 06/24/22 22:30: Sodium 160 H, Potassium 3.8, Chloride 129 H*, Carbon Dioxide 24.0, Anion Gap 7, BUN 81 H, Creatinine 1.44 H, Estim Creat Clear Calc 23.90, Est GFR (MDRD) Af Amer 45 L, Est GFR (MDRD) Non-Af 37 L, BUN/Creatinine Ratio 56.2 H, Glucose 321 H, Calcium 9.1 06/25/22 00:55: POC Glucose 347 H 06/25/22 02:22: Sodium 157 H, Potassium 3.6, Chloride 127 H*, Carbon Dioxide 23.0, Anion Gap 7, BUN 80 H, Creatinine 1.56 H, Estim Creat Clear Calc 22.07, Est GFR (MDRD) Af Amer 41 L, Est GFR (MDRD) Non-Af 34 L, BUN/Creatinine Ratio 51.3 H, Glucose 380 H, Calcium 8.9 06/25/22 05:46: POC Glucose 329 H 06/25/22 05:49: WBC 9.7, RBC 2.77 L, Hgb 8.4 L, Hct 28.6 L, MCV 103.2 H, MCH 30.3, MCHC 29.4 L, RDW Std Deviation 57.9 H, RDW Coeff of Neeta 15.2 H, Plt Count 153, MPV 13.7 H, Immature Gran % (Auto) 0.600, Neut % (Auto) 80.5 H, Lymph % (Auto) 12.1 L, [place] % (Auto) 4.1, Eos % (Auto) 2.5, Baso % (Auto) 0.2, Absolute Neuts (auto) 7.8 H, Absolute Lymphs (auto) 1.17, Nucleated RBC % 0 06/25/22 05:49: Sodium 159 H, Potassium 3.9, Chloride 131 H*, Carbon Dioxide 24.0, Anion Gap 4 L, BUN 75 H, Creatinine 1.32 H, Estim Creat Clear Calc 26.08, Est GFR (MDRD) Af Amer 50 L, Est GFR (MDRD) Non-Af 41 L, BUN/Creatinine Ratio 56.8 H, Glucose 357 H, Calcium 8.6, Phosphorus 2.8, Magnesium 2.1 06/25/22 05:49: TSH 0.02 L Micro: Microbiology 06/23/22 15:23 Urine Catheter - [place] Urine Culture - Final Klebsiella aerogenes 06/24/22 06:40 Stool Stool Occult Blood (NUHA) - Final Occult Blood Positive Physical Exam Narrative no obvious distress no pallor no icterus no JVD s1s2 no murmurs lungs clear abdomen soft no organomegaly no edema no cyanosis [place] + Assessment & Plan Assessment/Plan (1) Hypernatremia: PLAN: Likely due to lack of free water intake. Total free water deficit is about 6.8 L. Has been on D5 water but she is fairly hyperglycemic. I think the hyperglycemia is driving osmotic urinary losses hence the lack of serum sodium correction. dw pharmacy. will change IV fluids to 0.45%. we dont have 0.2 Nacl. She was supposed to get PEG tube placed but procedure was deferred. (2) JUANA (acute kidney injury): PLAN: Baseline creatinine seems to be around 1.3. There is BMP from January which showed a creatinine of 1.9 but also had a sodium low. Given with a creatinine of 1.8. Likely related to volume depletion. Of note, her BUN is disproportionately high. No evidence of GI bleed at this point. No steroids. Improving
[2022-06-25] MEDS: 0.45% Normal Saline 1,000 ML 125 ML IV (15:33)
[2022-06-25] MEDS: Menthol/Lanolin/Calamine/Znox 113 GM Tube 1 APPLIC TOPICAL ×2 (15:54→21:30)
[2022-06-25 17:00] LABS: Bedside Glucose 190 mg/dL (74-106)
--- NOTE | 2022-06-25 19:54 | OP.EGD_ITS ---
Patient Name: Zeinab Lopez Procedure Date: 06/25/2022 7:21 PM Date of : 1945 Age: 77 Procedure: Upper GI endoscopy Indications: Dysphagia Providers: Darell Zapata DO Medicines: Monitored Anesthesia Care Patient Profile: This is a 77 year old female. Refer to note in patient chart for documentation of history and physical. Patient has symptoms of chronic dysphagia and acute vomiting. Complications: No immediate complications. Procedure: Pre-Anesthesia Assessment: - Prior to the procedure, a History and Physical was performed, and patient medications and allergies were reviewed. The risks and benefits of the procedure and the sedation options and risks were discussed with the patient. All questions were answered and informed consent was obtained. Patient identification and proposed procedure were verified by the physician in the pre-procedure area. Mental Status Examination: alert and oriented. Airway Examination: normal oropharyngeal airway and neck mobility. Respiratory Examination: clear to auscultation. CV Examination: normal. Prophylactic Antibiotics: The patient does not require prophylactic antibiotics. Prior Anticoagulants: The patient has taken no previous anticoagulant or antiplatelet agents. ASA Grade Assessment: II - A patient with mild systemic disease. After reviewing the risks and benefits, the patient was deemed in satisfactory condition to undergo the procedure. The anesthesia plan was to use monitored anesthesia care (MAC). Immediately prior to administration of medications, the patient was re-assessed for adequacy to receive sedatives. The heart rate, respiratory rate, oxygen saturations, blood pressure, adequacy of pulmonary ventilation, and response to care were monitored throughout the procedure. The physical status of the patient was re-assessed after the procedure. After obtaining informed consent, the endoscope was passed under direct vision. Throughout the procedure, the patient's blood pressure, pulse, and oxygen saturations were monitored continuously. The Endoscope was introduced through the mouth, and advanced to the second part of duodenum. The upper GI endoscopy was accomplished without difficulty. The patient tolerated the procedure well. Scope In: 7:33:16 PM Scope Out: 7:48:15 PM Total Procedure Duration Time 0 hours 14 minutes 59 seconds Findings: A moderate Schatzki ring was found in the lower third of the esophagus. A guidewire was placed and the scope was withdrawn. Dilation was performed with a Savary dilator with no resistance at 45 Fr. Patchy mild inflammation characterized by erythema and friability was found in the gastric body. The patient was placed in the supine position for PEG placement. The stomach was insufflated to appose gastric and abdominal pillai. A site was located in the cardia with excellent transillumination for placement. The abdominal wall was marked and prepped in a sterile manner. The area was anesthetized with 1 mL of 0.5% lidocaine. The trocar needle was introduced through the abdominal wall and into the stomach under direct endoscopic view. A snare was introduced through the endoscope and opened in the gastric lumen. The guide wire was passed through the trocar and into the open snare. The snare was closed around the guide wire. The endoscope and snare were removed, pulling the wire out through the mouth. A skin incision was made at the site of needle insertion. The externally removable 14 Fr Bard gastrostomy tube was lubricated. The G-tube was tied to the guide wire and pulled through the mouth and into the stomach. The trocar needle was removed, and the gastrostomy tube was pulled out from the stomach through the skin. The external bumper was attached to the gastrostomy tube, and the tube was cut to remove the guide wire. The final position of the gastrostomy tube was confirmed by relook endoscopy, and skin marking noted to be 4 cm at the external bumper. The final tension and compression of the abdominal wall by the PEG tube and external bumper were checked and revealed that the bumper was moderately tight and mildly deforming the skin. The feeding tube was capped, and the tube site cleaned and dressed. Estimated blood loss: none. No gross lesions were noted in the duodenal bulb. Impression: - Moderate Schatzki ring. Dilated. - Gastritis. - No gross lesions in the duodenal bulb. - An externally removable PEG placement was successfully completed. - No specimens collected. Recommendation: - Return patient to hospital so for ongoing care. - Resume previous diet. - Continue present medications. Procedure Code(s): --- Professional --- 69927, Esophagogastroduodenoscopy, flexible, transoral; with directed placement of percutaneous gastrostomy tube 89674, Esophagogastroduodenoscopy, flexible, transoral; with insertion of guide wire followed by passage of dilator(s) through esophagus over guide wire CPT copyright 2017 [employer]. All rights reserved. The codes documented in this report are preliminary and upon door furring installer review may be revised to meet current compliance requirements. Darell Zapata DO 06/25/2022 7:54:11 PM This report has been signed electronically. Number of Addenda: 0 Note Initiated On: 06/25/2022 7:21 PM
--- NOTE | 2022-06-25 19:54 | OP.CCLET_ITS ---
06/25/2022 Urbano Palencia MD [address] [id number] Re : Upper GI endoscopy procedure for Zeinabmariaelena Lopez Dear Dr. Palencia This procedure was performed on Saturday, June 25, 2022. My impressions and recommendations are as follows: Impressions : - Moderate Schatzki ring. Dilated. - Gastritis. - No gross lesions in the duodenal bulb. - An externally removable PEG placement was successfully completed. - No specimens collected. Recommendations : - Return patient to hospital so for ongoing care. - Resume previous diet. - Continue present medications. My findings are described in the full procedure note, which is enclosed. If I can be of further assistance, please feel free to contact me at . Sincerely, Darell Zapata, 06/25/2022 7:54:11 PM This report has been signed electronically.
[2022-06-25] MEDS: Insulin Glargine-YFGN 100 UNIT/ML Pen 12 UNIT SC (21:30)
[2022-06-25] MEDS: Ondansetron 4 MG/2 ML Vial IV (21:31)
[2022-06-25] MEDS: Carvedilol 6.25 MG Tablet NG (21:43)
[2022-06-25] MEDS: APIXABAN 5 MG TABLET NG (21:43)
[2022-06-25] MEDS: Atorvastatin Calcium 40 MG Tablet NG (21:43)
[2022-06-25 21:56] LABS: Bedside Glucose 270 mg/dL (74-106)
[2022-06-25 22:06] LABS: Anion Gap 7 (5-15); BUN 49 mg/dL (7-18); BUN/Creat Ratio 46.2 RATIO (10-20); Calcium,Total 8.5 mg/dL (8.5-10.1); Chloride 124 mmol/L (98-107); Creatinine, Serum 1.06 mg/dL (0.55-1.02); EST Glomerular Filtration Rate 53 mL/min (>60); Est Glom Filt Rate - Afr Amer 64 mL/min (>60); Estimated Creatinine Clearance 32.47 ml/min; Glucose 300 mg/dL (74-106); Magnesium 1.9 mg/dL (1.6-2.6); Phosphorus 3.5 mg/dL (2.5-4.9); Potassium 3.9 mmol/L (3.5-5.1); Sodium Level 155 mmol/L (136-145)
[2022-06-25] MEDS: Jevity 1.5 1,000 ML 35 ML GT (23:06)
[2022-06-25] MEDS: Potassium Chloride 10mEq/100mL 10 MEQ/100 ML IV.SOLN. 100 MEQ IV BOLUS (23:18)
[2022-06-26] VITALS (13 sets, daily range): BP systolic 107–148; BP diastolic 43–63; PULSE 67–89; RESP 16–20; TEMP 36.5–37.3; O2SAT 94–100
[2022-06-26] MEDS: Insulin Lispro 100 UNIT/ML INSULN.PEN SC ×8 (00:25→17:48)
[2022-06-26 00:51] LABS: Bedside Glucose 262 mg/dL (74-106)
[2022-06-26] MEDS: 0.45% Normal Saline 1,000 ML 125 ML IV ×3 (04:25→17:51)
[2022-06-26] MEDS: Levothyroxine 50 MCG Tablet GT (05:53)
[2022-06-26] MEDS: Nystatin Powder 15gm Bottle 1 APPLIC TOPICAL ×3 (05:53→22:31)
[2022-06-26 06:26] LABS: Bedside Glucose 234 mg/dL (74-106)
[2022-06-26] MEDS: Budesonide Respules 0.5 MG/2 ML AMPUL.NEB. INHALATION ×2 (07:12→19:42)
[2022-06-26 07:52] LABS: Absolute Lymphocyte Count 1.23 X10^3/uL (0.83-4.51); Absolute Neutrophil Count 5.1 X10^3/uL (2.0-7.7); Basophil# 0.02 X10^3/uL; Basophil% 0.3 % (0-1); Eosinophil# 0.45 X10^3/uL; Eosinophils% 6.2 % (0-5); Hematocrit 27.6 % (37-47); Hemoglobin 8.2 g/dL (12.0-15.0); Lymphocyte # 1.23 X10^3/ul (0.83-4.51); Mean Corp Hgb Conc 29.7 g/dL (32-36); Mean Corpuscular Hgb 29.8 pg (27.0-32.0); Mean Corpuscular Volume 100.4 fL (81-99); Mean Platelet Vol. 13.1 fl (6.2-12.0); Monocyte# 0.37 X10^3/uL; Monocyte% 5.1 % (0-10); NRBC Flagged by Analyzer 0.4 % (0-5); Neutrophil # 5.12 X10^3/uL (2.7-7.7); Neutrophil % 70.6 % (47-70); Platelet Count 148 K/mm3 (150-450); RBC Distribution Width CV 14.8 % (11.6-14.6); RBC Distribution Width SD 54.2 fl (35.1-43.9); Red Blood Count 2.75 M/mm3 (4.2-5.4); White Blood Count 7.3 K/mm3 (4.4-11.0)
[2022-06-26] MEDS: APIXABAN 5 MG TABLET GT ×2 (08:24→22:32)
[2022-06-26] MEDS: Cholecalciferol (VIT D3) 25 MCG TABLET (1,000 UNITS) 125 MCG GT (08:24)
[2022-06-26] MEDS: Allopurinol 100 MG Tablet 50 MG GT (08:24)
[2022-06-26] MEDS: Carvedilol 6.25 MG Tablet GT ×2 (08:24→22:32)
[2022-06-26] MEDS: Menthol/Lanolin/Calamine/Znox 113 GM Tube 1 APPLIC TOPICAL ×2 (08:25→22:33)
[2022-06-26 08:32] LABS: Anion Gap 5 (5-15); BUN 43 mg/dL (7-18); BUN/Creat Ratio 40.6 RATIO (10-20); Calcium,Total 8.4 mg/dL (8.5-10.1); Chloride 119 mmol/L (98-107); Creatinine, Serum 1.06 mg/dL (0.55-1.02); EST Glomerular Filtration Rate 53 mL/min (>60); Est Glom Filt Rate - Afr Amer 64 mL/min (>60); Estimated Creatinine Clearance 32.47 ml/min; Glucose 273 mg/dL (74-106); Sodium Level 149 mmol/L (136-145)
--- NOTE | 2022-06-26 10:22 | PN_ITS ---
Subjective Subjective She underwent PEG tube placement yesterday. She tolerated procedure without any problems. Objective Data Objective Data Vital Signs: Vital Signs Temp Pulse Resp BP Pulse Ox O2 Del Method O2 Flow Rate 97.7 F L 72 18 148/63 H 98 Room Air 2 06/26/22 08:45 06/26/22 08:45 06/26/22 08:45 06/26/22 08:45 06/26/22 09:15 06/26/22 09:15 06/26/22 08:45 Oxygen Flow Rate (L/min) 2 Oxygen Delivery Method Room Air Weight: 189 lb 2.506 oz Body Mass Index (BMI) 34.8 Intake & Output: Intake and Output for Last 24 Hours 06/24/22 06/25/22 06/26/22 23:59 23:59 23:59 Intake Total 2616.67 / 2616.67 3779.50 / 3779.50 1716.5 / 1716.5 Output Total 250 / 250 1925 / 1925 700 / 700 Balance 2366.67 / 2366.67 1854.50 / 1854.50 1016.5 / 1016.5 Lab / Micro Data Result Diagrams: 06/26/22 07:27 06/26/22 07:27 Labs: Laboratory Results - last 24 hr 06/25/22 15:23: POC Glucose 190 H 06/25/22 21:27: Sodium 155 H, Potassium 3.9, Chloride 124 H, Carbon Dioxide 24.0, Anion Gap 7, BUN 49 H, Creatinine 1.06 H, Estim Creat Clear Calc 32.47, Est GFR (MDRD) Af Amer 64, Est GFR (MDRD) Non-Af 53 L, BUN/Creatinine Ratio 46.2 H, Glucose 300 H, Calcium 8.5, Phosphorus 3.5, Magnesium 1.9 06/25/22 21:29: POC Glucose 270 H 06/26/22 00:24: POC Glucose 262 H 06/26/22 05:52: POC Glucose 234 H 06/26/22 07:27: WBC 7.3, RBC 2.75 L, Hgb 8.2 L, Hct 27.6 L, MCV 100.4 H, MCH 29.8, MCHC 29.7 L, RDW Std Deviation 54.2 H, RDW Coeff of Neeta 14.8 H, Plt Count 148 L, MPV 13.1 H, Immature Gran % (Auto) 0.800, Neut % (Auto) 70.6 H, Lymph % (Auto) 17.0 L, [place] % (Auto) 5.1, Eos % (Auto) 6.2 H, Baso % (Auto) 0.3, Absolute Neuts (auto) 5.1, Absolute Lymphs (auto) 1.23, Nucleated RBC % 0.4 06/26/22 07:27: Sodium 149 H, Potassium 4.0, Chloride 119 H, Carbon Dioxide 25.0, Anion Gap 5, BUN 43 H, Creatinine 1.06 H, Estim Creat Clear Calc 32.47, Est GFR (MDRD) Af Amer 64, Est GFR (MDRD) Non-Af 53 L, BUN/Creatinine Ratio 40.6 H, Glucose 273 H, Calcium 8.4 L Micro: Microbiology 06/23/22 15:23 Urine Catheter - [place] Urine Culture - Final Klebsiella aerogenes 06/24/22 06:40 Stool Stool Occult Blood (NUHA) - Final Occult Blood Positive Physical Exam Narrative no obvious distress no pallor no icterus no JVD s1s2 no murmurs lungs clear abdomen soft no organomegaly no edema no cyanosis [place] + Assessment & Plan Assessment/Plan (1) Hypernatremia: PLAN: Likely secondary to dehydration. It is okay to use the peg tube for free water flushes, medications and feedings. (2) JUANA (acute kidney injury): PLAN: Renal function seems to be at baseline. Charges/Coding Visit Charges Inpatient E&M: 68741 Subs Hosp L2
[2022-06-26 15:01] LABS: Bedside Glucose 256 mg/dL (74-106)
--- NOTE | 2022-06-26 15:27 | PCM.PN.HOSP ---
Reason for Visit Reason for Visit: Diagnoses Hyperosmolality and hypernatremia (06/23/22) Acute kidney failure, unspecified (06/23/22) Dysphagia, unspecified (06/23/22) Transient alteration of awareness (06/23/22) Subjective Subjective Follow-up for metabolic encephalopathy with hypernatremia and Klebsiella acute cystitis Objective Data Objective Data Vital Signs: Vital Signs Temp Pulse Resp BP Pulse Ox O2 Del Method O2 Flow Rate 98.1 F 67 18 136/56 H 94 Room Air 2 06/26/22 14:45 06/26/22 14:45 06/26/22 14:45 06/26/22 14:45 06/26/22 14:47 06/26/22 14:47 06/26/22 08:45 Oxygen Flow Rate (L/min) 2 Oxygen Delivery Method Room Air Weight: 189 lb 2.506 oz Body Mass Index (BMI) 34.8 Intake & Output: Intake and Output for Last 24 Hours 06/24/22 06/25/22 06/26/22 23:59 23:59 23:59 Intake Total 2616.67 / 2616.67 3779.50 / 3779.50 2812.33 / 2812.33 Output Total 250 / 250 1925 / 1925 1250 / 1250 Balance 2366.67 / 2366.67 1854.50 / 1854.50 1562.33 / 1562.33 Lab / Micro Data Result Diagrams: 06/26/22 07:27 06/26/22 07:27 Labs: Laboratory Results - last 24 hr 06/25/22 15:23: POC Glucose 190 H 06/25/22 21:27: Sodium 155 H, Potassium 3.9, Chloride 124 H, Carbon Dioxide 24.0, Anion Gap 7, BUN 49 H, Creatinine 1.06 H, Estim Creat Clear Calc 32.47, Est GFR (MDRD) Af Amer 64, Est GFR (MDRD) Non-Af 53 L, BUN/Creatinine Ratio 46.2 H, Glucose 300 H, Calcium 8.5, Phosphorus 3.5, Magnesium 1.9 06/25/22 21:29: POC Glucose 270 H 06/26/22 00:24: POC Glucose 262 H 06/26/22 05:52: POC Glucose 234 H 06/26/22 07:27: WBC 7.3, RBC 2.75 L, Hgb 8.2 L, Hct 27.6 L, MCV 100.4 H, MCH 29.8, MCHC 29.7 L, RDW Std Deviation 54.2 H, RDW Coeff of Neeta 14.8 H, Plt Count 148 L, MPV 13.1 H, Immature Gran % (Auto) 0.800, Neut % (Auto) 70.6 H, Lymph % (Auto) 17.0 L, [place] % (Auto) 5.1, Eos % (Auto) 6.2 H, Baso % (Auto) 0.3, Absolute Neuts (auto) 5.1, Absolute Lymphs (auto) 1.23, Nucleated RBC % 0.4 06/26/22 07:27: Sodium 149 H, Potassium 4.0, Chloride 119 H, Carbon Dioxide 25.0, Anion Gap 5, BUN 43 H, Creatinine 1.06 H, Estim Creat Clear Calc 32.47, Est GFR (MDRD) Af Amer 64, Est GFR (MDRD) Non-Af 53 L, BUN/Creatinine Ratio 40.6 H, Glucose 273 H, Calcium 8.4 L 06/26/22 11:33: POC Glucose 256 H Micro: Microbiology 06/23/22 15:23 Urine Catheter - Burgess Urine Culture - Final Klebsiella aerogenes 06/24/22 06:40 Stool Stool Occult Blood (NUHA) - Final Occult Blood Positive Physical Exam Narrative Seen and examined. Patient is still confused and disoriented. Does not remember the month and date and year. Confused about the place and takes longer time to answer. Patient cannot tell about acute [place] tract symptoms including burning micturition, frequency and urgency, states does not remember Physical exam General: awake, confused and disoriented to time and place. HEENT: Atraumatic, PERRLA, EOMI, Normocephalic Oral: Oral mucosa dry. No Gingival or Mucosal Lesions/ Ulcerations Neck: Supple, No JVD, Negative Carotid Bruits Lungs: Air entry diminished in bilateral lung bases. No crepitation/rhonchi Cardiovascular: Regular rate, Regular Rhythm, Normal S1, Normal S2, No murmurs Abdomen: PEG tube. Tube feed. Bowel Sounds Present, Soft, Non Tender, Non-Distended : No renal angle tenderness. No suprapubic tenderness. Extremities: No edema, Capillary Refill Less than 3 Seconds Skin: No rashes, No breakdown Musculoskeletal: ROM restricted. 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 An assessment of suspected acute cystitis made admitted to regular nursing floor for further management 1.? Acute metabolic encephalopathy ? Due to combination of acute cystitis as well as severe hypernatremia admitted to regular nursing floor for treatment of the underlying etiology 2.? Acute complicated cystitis ? Due to the presence of chronic indwelling Burgess catheter.? Cultures were obtained on admission patient started on broad-spectrum antibiotic therapy, Levaquin adjusted to creatinine clearance 3.? Severe hypernatremia: IV fluid D5W. Sodium was 164, has come down to 149. Continue IV fluid D5W. 4.? Acute kidney injury on superimposed CKD stage IIIb: Creatinine on baseline 1.06. BUN is still elevated 49. Continue IV fluid. Monitor kidney function electrolytes. 5.? History of CVA ? With history of residual aphasia and left-sided hemiparesis.? Patient apparently also has dysphagia and has an NG tube in place. 6.? Dysphagia ? Secondary to patient CVA has an NG tube in place.? Consult has been placed to GI for possible PEG tube placement.? Patient was apparently scheduled to undergo PEG tube placement at [facility] in late June 17: Patient had PEG tube inserted by Dr. Zapata on 06/25. On tube feed. 7.? Hypertension - Blood pressure controlled, home medications continued with dose adjustment as needed 8.? Dyslipidemia -Patient is on statin therapy, continued at home dose 9.? Diabetes mellitus type 2 ? Did continue patient home insulin regimen with Accu-Cheks every 6 ordered with sliding scale coverage 10.? Systemic use of anticoagulation?apixaban ? Indication not clear from patient history 11.? Gout ? Per history 12.? COPD ? continue patient home bronchodilator treatment regimen 13.? Severe protein calorie malnutrition with BMI of 17.3 14.? Hypothyroidism - Patient is on levothyroxine home dose continued 15.??? History of lung CA 16. Anemia - Secondary to chronic disorder monitoring H&H and transfuse if patient becomes symptomatic or hemoglobin falls below 7 ?17.? DVT prophylaxis ? Patient on apixaban Charges/Coding Visit Charges Inpatient E&M: 82895 Subs Hosp L2
--- NOTE | 2022-06-26 15:52 | PCM.PN.REN ---
Subjective Subjective Follow-up on acute kidney injury. She is doing better. But her mental status remains pretty altered. Makes good urine Objective Data Objective Data Vital Signs: Vital Signs Temp Pulse Resp BP Pulse Ox O2 Del Method O2 Flow Rate 98.1 F 67 18 136/56 H 94 Room Air 2 06/26/22 14:45 06/26/22 14:45 06/26/22 14:45 06/26/22 14:45 06/26/22 14:47 06/26/22 14:47 06/26/22 08:45 Oxygen Flow Rate (L/min) 2 Oxygen Delivery Method Room Air Weight: 85.8 kg Body Mass Index (BMI) 34.8 Intake & Output: Intake and Output for Last 24 Hours 06/24/22 06/25/22 06/26/22 23:59 23:59 23:59 Intake Total 2616.67 / 2616.67 3779.50 / 3779.50 2812.33 / 2812.33 Output Total 250 / 250 1925 / 1925 1250 / 1250 Balance 2366.67 / 2366.67 1854.50 / 1854.50 1562.33 / 1562.33 Lab / Micro Data Attestation: I reviewed the patient's lab results. Result Diagrams: 06/26/22 07:27 06/26/22 07:27 Labs: Laboratory Results - last 24 hr 06/25/22 15:23: POC Glucose 190 H 06/25/22 21:27: Sodium 155 H, Potassium 3.9, Chloride 124 H, Carbon Dioxide 24.0, Anion Gap 7, BUN 49 H, Creatinine 1.06 H, Estim Creat Clear Calc 32.47, Est GFR (MDRD) Af Amer 64, Est GFR (MDRD) Non-Af 53 L, BUN/Creatinine Ratio 46.2 H, Glucose 300 H, Calcium 8.5, Phosphorus 3.5, Magnesium 1.9 06/25/22 21:29: POC Glucose 270 H 06/26/22 00:24: POC Glucose 262 H 06/26/22 05:52: POC Glucose 234 H 06/26/22 07:27: WBC 7.3, RBC 2.75 L, Hgb 8.2 L, Hct 27.6 L, MCV 100.4 H, MCH 29.8, MCHC 29.7 L, RDW Std Deviation 54.2 H, RDW Coeff of Neeta 14.8 H, Plt Count 148 L, MPV 13.1 H, Immature Gran % (Auto) 0.800, Neut % (Auto) 70.6 H, Lymph % (Auto) 17.0 L, [place] % (Auto) 5.1, Eos % (Auto) 6.2 H, Baso % (Auto) 0.3, Absolute Neuts (auto) 5.1, Absolute Lymphs (auto) 1.23, Nucleated RBC % 0.4 06/26/22 07:27: Sodium 149 H, Potassium 4.0, Chloride 119 H, Carbon Dioxide 25.0, Anion Gap 5, BUN 43 H, Creatinine 1.06 H, Estim Creat Clear Calc 32.47, Est GFR (MDRD) Af Amer 64, Est GFR (MDRD) Non-Af 53 L, BUN/Creatinine Ratio 40.6 H, Glucose 273 H, Calcium 8.4 L 06/26/22 11:33: POC Glucose 256 H Micro: Microbiology 06/23/22 15:23 Urine Catheter - Burgess Urine Culture - Final Klebsiella aerogenes 06/24/22 06:40 Stool Stool Occult Blood (NUHA) - Final Occult Blood Positive Physical Exam Const alert and no apparent distress Orientation / Consciousness: confused Nutritional Appearance: obese HEENT normocephalic Head and Scalp: atraumatic Neck no lymphadenopathy Resp clear to auscultation bilaterally Cardio regular rate and no rub GI Auscultation: normoactive bowel sounds Assessment & Plan Assessment/Plan (1) JUANA (acute kidney injury): PLAN: She is getting better, creatinine is down to 1.06, makes good urine. No acidosis and no hyperkalemia. We will be following her peripherally
[2022-06-26 18:10] LABS: Bedside Glucose 245 mg/dL (74-106)
[2022-06-26] MEDS: Atorvastatin Calcium 40 MG Tablet GT (22:33)
[2022-06-26] MEDS: Insulin Glargine-YFGN 100 UNIT/ML Pen 12 UNIT SC (22:39)
[2022-06-26 23:10] LABS: Bedside Glucose 204 mg/dL (74-106)
[2022-06-27] VITALS (13 sets, daily range): BP systolic 125–144; BP diastolic 51–72; PULSE 69–88; RESP 16–20; TEMP 37–37.4; O2SAT 90–100
[2022-06-27] MEDS: Insulin Lispro 100 UNIT/ML INSULN.PEN SC ×8 (00:38→17:40)
[2022-06-27 01:16] LABS: Bedside Glucose 243 mg/dL (74-106)
[2022-06-27] MEDS: 0.45% Normal Saline 1,000 ML 125 ML IV ×2 (04:56→09:46)
[2022-06-27 05:18] LABS: Absolute Lymphocyte Count 1.15 X10^3/uL (0.83-4.51); Absolute Neutrophil Count 4.4 X10^3/uL (2.0-7.7); Basophil# 0.01 X10^3/uL; Basophil% 0.2 % (0-1); Eosinophil# 0.46 X10^3/uL; Eosinophils% 7.2 % (0-5); Hematocrit 25.5 % (37-47); Hemoglobin 8.1 g/dL (12.0-15.0); Lymphocyte # 1.15 X10^3/ul (0.83-4.51); Mean Corp Hgb Conc 31.8 g/dL (32-36); Mean Corpuscular Hgb 31.2 pg (27.0-32.0); Mean Corpuscular Volume 98.1 fL (81-99); Mean Platelet Vol. 12.7 fl (6.2-12.0); Monocyte# 0.32 X10^3/uL; NRBC Flagged by Analyzer 0 % (0-5); Neutrophil # 4.39 X10^3/uL (2.7-7.7); Neutrophil % 68.7 % (47-70); Platelet Count 145 K/mm3 (150-450); RBC Distribution Width CV 14.6 % (11.6-14.6); RBC Distribution Width SD 52.3 fl (35.1-43.9); White Blood Count 6.4 K/mm3 (4.4-11.0)
[2022-06-27 05:50] LABS: Anion Gap 7 (5-15); BUN 26 mg/dL (7-18); BUN/Creat Ratio 34.5 RATIO (10-20); Calcium,Total 7.9 mg/dL (8.5-10.1); Chloride 115 mmol/L (98-107); Creatinine, Serum 0.75 mg/dL (0.55-1.02); EST Glomerular Filtration Rate 79 mL/min (>60); Est Glom Filt Rate - Afr Amer 95 mL/min (>60); Estimated Creatinine Clearance 34.42 ml/min; Glucose 235 mg/dL (74-106); Potassium 3.7 mmol/L (3.5-5.1); Sodium Level 145 mmol/L (136-145)
[2022-06-27] MEDS: Nystatin Powder 15gm Bottle 1 APPLIC TOPICAL ×3 (06:22→23:20)
[2022-06-27] MEDS: Levothyroxine 50 MCG Tablet GT (06:22)
[2022-06-27] MEDS: Budesonide Respules 0.5 MG/2 ML AMPUL.NEB. INHALATION ×2 (07:11→19:17)
--- NOTE | 2022-06-27 08:17 | PN.HOSP_ITS ---
Reason for Visit Reason for Visit: Diagnoses Hyperosmolality and hypernatremia (06/23/22) Acute kidney failure, unspecified (06/23/22) Dysphagia, unspecified (06/23/22) Transient alteration of awareness (06/23/22) Objective Data Objective Data Follow-up for encephalopathy. Patient is more awake and alert but she might have dementia as he still does not remember the month and year. Vital Signs: Vital Signs Temp Pulse Resp BP Pulse Ox O2 Del Method O2 Flow Rate 99.0 F 72 18 127/65 H 96 Room Air 2 06/27/22 03:07 06/27/22 07:11 06/27/22 07:11 06/27/22 03:07 06/27/22 07:11 06/27/22 07:11 06/26/22 08:45 Oxygen Flow Rate (L/min) 2 Oxygen Delivery Method Room Air Weight: 134 lb 14.766 oz Body Mass Index (BMI) 34.8 Intake & Output: Intake and Output for Last 24 Hours 06/25/22 06/26/22 06/27/22 23:59 23:59 23:59 Intake Total 3779.50 / 3779.50 3595.66 / 3595.66 1999 Output Total 1925 / 1925 1450 / 1450 875 / 875 Balance 1854.50 / 1854.50 2145.66 / 2145.66 1125 / 1125 Lab / Micro Data Result Diagrams: 06/27/22 04:39 06/27/22 04:39 Labs: Laboratory Results - last 24 hr 06/26/22 07:27: Sodium 149 H, Potassium 4.0, Chloride 119 H, Carbon Dioxide 25.0, Anion Gap 5, BUN 43 H, Creatinine 1.06 H, Estim Creat Clear Calc 32.47, Est GFR (MDRD) Af Amer 64, Est GFR (MDRD) Non-Af 53 L, BUN/Creatinine Ratio 40.6 H, Glucose 273 H, Calcium 8.4 L 06/26/22 11:33: POC Glucose 256 H 06/26/22 17:46: POC Glucose 245 H 06/26/22 22:39: POC Glucose 204 H 06/27/22 00:37: POC Glucose 243 H 06/27/22 04:39: WBC 6.4, RBC 2.60 L, Hgb 8.1 L, Hct 25.5 L, MCV 98.1, MCH 31.2, MCHC 31.8 L D, RDW Std Deviation 52.3 H, RDW Coeff of Neeta 14.6, Plt Count 145 L, MPV 12.7 H, Immature Gran % (Auto) 0.900, Neut % (Auto) 68.7, Lymph % (Auto) 18.0 L, [place] % (Auto) 5.0, Eos % (Auto) 7.2 H, Baso % (Auto) 0.2, Absolute Neuts (auto) 4.4, Absolute Lymphs (auto) 1.15, Nucleated RBC % 0 06/27/22 04:39: Sodium 145, Potassium 3.7, Chloride 115 H, Carbon Dioxide 23.0, Anion Gap 7, BUN 26 H, Creatinine 0.75, Estim Creat Clear Calc 34.42, Est GFR (MDRD) Af Amer 95, Est GFR (MDRD) Non-Af 79, BUN/Creatinine Ratio 34.5 H, Glucose 235 H, Calcium 7.9 L Micro: Microbiology 06/23/22 15:23 Urine Catheter - Burgess Urine Culture - Final Klebsiella aerogenes 06/24/22 06:40 Stool Stool Occult Blood (NUHA) - Final Occult Blood Positive Physical Exam Narrative Seen and examined. Patient cannot tell about acute LUT symptoms including burning micturition, frequency and urgency, states does not remember Physical exam General: Awake and alert, oriented to place and person. Does not know month and year. HEENT: Atraumatic, PERRLA, EOMI, Normocephalic Oral: Oral mucosa moist. No Gingival or Mucosal Lesions/ Ulcerations Neck: Supple, No JVD, Negative Carotid Bruits Lungs: Air entry diminished in bilateral lung bases. No crepitation/rhonchi Cardiovascular: Regular rate, Regular Rhythm, Normal S1, Normal S2, No murmurs Abdomen: PEG tube. Tube feed. Bowel Sounds Present, Soft, Non Tender, Non- Distended : No renal angle tenderness. No suprapubic tenderness. Extremities: No edema, Capillary Refill Less than 3 Seconds Skin: No rashes, No breakdown Musculoskeletal: ROM restricted. 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 An assessment of suspected acute cystitis made admitted to regular nursing floor for further management 1.? Acute metabolic encephalopathy ? Due to combination of acute cystitis as well as severe hypernatremia admitted to regular nursing floor for treatment of the underlying etiology 06/27: Patient on tube feed with free water supplement. 2.? Acute complicated Klebsiella cystitis ? Due to the presence of chronic indwelling Burgess catheter.? Cultures were obtained on admission. Urine culture shows Klebsiella aerogenes more than 100,000 colonies sensitive to Levaquin. Levaquin adjusted to creatinine clearance 3.? Severe hypernatremia: IV fluid D5W. Sodium was 164, has come down to 149. Continue IV fluid D5W. 06/27 Hypernatremia has almost resolved. Half-normal saline stopped. 4.? Acute kidney injury on superimposed CKD stage IIIb: Creatinine on baseline 1.06. BUN is still elevated 49. Continue IV fluid. Monitor kidney function electrolytes. 5.? History of CVA ? With history of residual aphasia and left-sided hemiparesis.? Patient apparently also has dysphagia and has an NG tube in place. 6.? Dysphagia ? Secondary to patient CVA has an NG tube in place.? Consult has been placed to GI for possible PEG tube placement.? Patient was apparently scheduled to undergo PEG tube placement at [facility] in late June 17: Patient had PEG tube inserted by Dr. Zapata on 06/25. On tube feed. 7.? Hypertension - Blood pressure controlled, home medications continued with dose adjustment as needed 8.? Dyslipidemia -Patient is on statin therapy, continued at home dose 9.? Diabetes mellitus type 2 ? Did continue patient home insulin regimen with Accu-Cheks every 6 ordered with sliding scale coverage 10.? Systemic use of anticoagulation?apixaban ? Indication not clear from patient history 11.? Gout ? Per history 12.? COPD ? continue patient home bronchodilator treatment regimen 13.? Severe protein calorie malnutrition with BMI of 17.3 14.? Hypothyroidism - Patient is on levothyroxine home dose continued 15.??? History of lung CA 16. Anemia - Secondary to chronic disorder monitoring H&H and transfuse if patient becomes symptomatic or hemoglobin falls below 7 ?17.? DVT prophylaxis ? Patient on apixaban Charges/Coding Visit Charges Inpatient E&M: 49380 Subs Hosp L2
[2022-06-27] MEDS: Menthol/Lanolin/Calamine/Znox 113 GM Tube 1 APPLIC TOPICAL ×2 (09:47→23:18)
[2022-06-27] MEDS: levoFLOXacin IV 750 MG/150 ML BAG 100 MG IV (09:48)
[2022-06-27] MEDS: Cholecalciferol (VIT D3) 25 MCG TABLET (1,000 UNITS) 125 MCG GT (09:54)
[2022-06-27] MEDS: Allopurinol 100 MG Tablet 50 MG GT (09:55)
[2022-06-27] MEDS: Carvedilol 6.25 MG Tablet GT ×2 (09:55→23:18)
[2022-06-27] MEDS: APIXABAN 5 MG TABLET GT ×2 (09:55→23:19)
--- NOTE | 2022-06-27 10:28 | PN_ITS ---
Subjective Subjective Patient is doing well and tolerating tube feedings. She is more alert and awake today. Objective Data Objective Data Vital Signs: Vital Signs Temp Pulse Resp BP Pulse Ox O2 Del Method O2 Flow Rate 99.0 F 72 18 127/65 H 96 Room Air 2 06/27/22 03:07 06/27/22 07:11 06/27/22 07:11 06/27/22 03:07 06/27/22 07:11 06/27/22 07:11 06/26/22 08:45 Oxygen Flow Rate (L/min) 2 Oxygen Delivery Method Room Air Weight: 134 lb 14.766 oz Body Mass Index (BMI) 34.8 Intake & Output: Intake and Output for Last 24 Hours 06/25/22 06/26/22 06/27/22 23:59 23:59 23:59 Intake Total 3779.50 / 3779.50 3595.66 / 3595.66 2604.17 / 2604.17 Output Total 1925 / 1925 1450 / 1450 875 / 875 Balance 1854.50 / 1854.50 2145.66 / 2145.66 1729.17 / 1729.17 Lab / Micro Data Result Diagrams: 06/27/22 04:39 06/27/22 04:39 Labs: Laboratory Results - last 24 hr 06/26/22 11:33: POC Glucose 256 H 06/26/22 17:46: POC Glucose 245 H 06/26/22 22:39: POC Glucose 204 H 06/27/22 00:37: POC Glucose 243 H 06/27/22 04:39: WBC 6.4, RBC 2.60 L, Hgb 8.1 L, Hct 25.5 L, MCV 98.1, MCH 31.2, MCHC 31.8 L D, RDW Std Deviation 52.3 H, RDW Coeff of Neeta 14.6, Plt Count 145 L, MPV 12.7 H, Immature Gran % (Auto) 0.900, Neut % (Auto) 68.7, Lymph % (Auto) 18.0 L, [place] % (Auto) 5.0, Eos % (Auto) 7.2 H, Baso % (Auto) 0.2, Absolute Neuts (auto) 4.4, Absolute Lymphs (auto) 1.15, Nucleated RBC % 0 06/27/22 04:39: Sodium 145, Potassium 3.7, Chloride 115 H, Carbon Dioxide 23.0, Anion Gap 7, BUN 26 H, Creatinine 0.75, Estim Creat Clear Calc 34.42, Est GFR (MDRD) Af Amer 95, Est GFR (MDRD) Non-Af 79, BUN/Creatinine Ratio 34.5 H, Glucose 235 H, Calcium 7.9 L Micro: Microbiology 06/23/22 15:23 Urine Catheter - Burgess Urine Culture - Final Klebsiella aerogenes 06/24/22 06:40 Stool Stool Occult Blood (NUHA) - Final Occult Blood Positive Physical Exam Narrative Seen and examined. Physical exam General: awake, confused and disoriented to time and place. HEENT: Atraumatic, PERRLA, EOMI, Normocephalic Oral: Oral mucosa dry. No Gingival or Mucosal Lesions/ Ulcerations Neck: Supple, No JVD, Negative Carotid Bruits Lungs: Air entry diminished in bilateral lung bases. No crepitation/rhonchi Cardiovascular: Regular rate, Regular Rhythm, Normal S1, Normal S2, No murmurs Abdomen: PEG tube. Tube feed. Bowel Sounds Present, Soft, Non Tender, Non- Distended : No renal angle tenderness. No suprapubic tenderness. Extremities: No edema, Capillary Refill Less than 3 Seconds Skin: No rashes, No breakdown Musculoskeletal: ROM restricted. No Tenderness to Palpation of Joints or Extremities Neurological: No focal neurological deficit, DTR 2+/4 and Symmetrical Psych/Mental Status: Flat affect, amnesia Assessment & Plan Assessment/Plan (1) Hypernatremia: PLAN: Likely secondary to dehydration. Continue current fluid administration and feeding administration. (2) UJANA (acute kidney injury): PLAN: Renal function seems to be at baseline. Charges/Coding Visit Charges Inpatient E&M: 15959 Subs Hosp L2
[2022-06-27 11:35] LABS: Bedside Glucose 193 mg/dL (74-106)
[2022-06-27] MEDS: Jevity 1.5 1,000 ML 40 ML GT (11:39)
[2022-06-27 12:00] LABS: Bedside Glucose 214 mg/dL (74-106)
[2022-06-27 20:36] LABS: Bedside Glucose 192 mg/dL (74-106)
[2022-06-27 21:16] LABS: Bedside Glucose 161 mg/dL (74-106)
[2022-06-27] MEDS: Insulin Glargine-YFGN 100 UNIT/ML Pen 12 UNIT SC (23:19)
[2022-06-27] MEDS: Atorvastatin Calcium 40 MG Tablet GT (23:20)
[2022-06-27] MEDS: Acetaminophen 650 MG/20 ML UDC GT (23:23)
[2022-06-28] VITALS (8 sets, daily range): BP systolic 121–138; BP diastolic 57–67; PULSE 66–86; RESP 16–18; TEMP 36.7–37.1; O2SAT 93–100
[2022-06-28] MEDS: Insulin Lispro 100 UNIT/ML INSULN.PEN SC ×6 (01:04→12:31)
[2022-06-28 01:25] LABS: Bedside Glucose 240 mg/dL (74-106)
[2022-06-28] MEDS: Nystatin Powder 15gm Bottle 1 APPLIC TOPICAL ×2 (06:14→15:22)
[2022-06-28] MEDS: Levothyroxine 50 MCG Tablet GT (06:14)
[2022-06-28 06:41] LABS: Bedside Glucose 219 mg/dL (74-106)
[2022-06-28] MEDS: Budesonide Respules 0.5 MG/2 ML AMPUL.NEB. INHALATION (07:35)
--- NOTE | 2022-06-28 08:00 | PN_ITS ---
Subjective Subjective She is tolerating PEG feeds with any problems. Objective Data Objective Data Vital Signs: Vital Signs Temp Pulse Resp BP Pulse Ox O2 Del Method O2 Flow Rate 98.5 F 66 18 121/57 H 100 Nasal Cannula 3 06/28/22 16:44 06/28/22 16:44 06/28/22 16:44 06/28/22 16:44 06/28/22 16:44 06/28/22 16:44 06/28/22 16:44 Oxygen Flow Rate (L/min) 3 Oxygen Delivery Method Nasal Cannula Weight: 190 lb 11.198 oz Body Mass Index (BMI) 34.8 Intake & Output: Intake and Output for Last 24 Hours 06/26/22 06/27/22 06/28/22 23:59 23:59 23:59 Intake Total 3595.66 / 3595.66 3920.00 / 3920.00 740 / 740 Output Total 1450 / 1450 1725 / 1725 1999 / 1999 Balance 2145.66 / 2145.66 2195.00 / 2195.00 -1260 / -1260 Lab / Micro Data Result Diagrams: 06/27/22 04:39 06/27/22 04:39 Labs: Laboratory Results - last 24 hr 06/27/22 17:39: POC Glucose 192 H 06/27/22 20:56: POC Glucose 161 H 06/28/22 01:04: POC Glucose 240 H 06/28/22 06:12: POC Glucose 219 H 06/28/22 11:43: POC Glucose 206 H Micro: Microbiology 06/28/22 11:50 Nasal Secretion SARS-CoV-2 Antigen (Rapid) - Final 06/23/22 15:23 Urine Catheter - Burgess Urine Culture - Final Klebsiella aerogenes 06/24/22 06:40 Stool Stool Occult Blood (NUHA) - Final Occult Blood Positive Radiography Diagnostic Testing: Radiology Impression Chest X-Ray 06/28/22 12:40 IMPRESSION: 2.3 cm x 2.2 cm nodule in the right upper lobe. The previously seen orogastric tube has been removed. Electronically Signed: Leonardo Escalera MD at 13:09 EST , Physical Exam Narrative Seen and examined. Patient cannot tell about acute LUT symptoms including burning micturition, frequency and urgency, states does not remember but patient can answer simple question Physical exam General: Awake and alert, oriented to place and person. Can differentiate about day and night. HEENT: Atraumatic, PERRLA, EOMI, Normocephalic Oral: Oral mucosa moist. No Gingival or Mucosal Lesions/ Ulcerations Neck: Supple, No JVD, Negative Carotid Bruits Lungs: Air entry diminished in bilateral lung bases. No crepitation/rhonchi Cardiovascular: Regular rate, Regular Rhythm, Normal S1, Normal S2, No murmurs Abdomen: PEG tube. Tube feed. Bowel Sounds Present, Soft, Non Tender, Non- Distended : No renal angle tenderness. No suprapubic tenderness. Extremities: No edema, Capillary Refill Less than 3 Seconds Skin: No rashes, No breakdown Musculoskeletal: ROM restricted. 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 An assessment of suspected acute cystitis made admitted to regular nursing floor for further management 1.? Acute metabolic encephalopathy ? Due to combination of acute cystitis as well as severe hypernatremia admitted to regular nursing floor for treatment of the underlying etiology 06/27: Patient on tube feed with free water supplement. 2.? Acute complicated Klebsiella cystitis ? Due to the presence of chronic indwelling Burgess catheter.? Cultures were obtained on admission. Urine culture shows Klebsiella aerogenes more than 100,000 colonies sensitive to Levaquin. Levaquin adjusted to creatinine clearance 3.? Severe hypernatremia: IV fluid D5W. Sodium was 164, has come down to 149. Continue IV fluid D5W. 06/27 Hypernatremia has almost resolved. Half-normal saline stopped. 4.? Acute kidney injury on superimposed CKD stage IIIb: Creatinine on baseline 1.06. BUN is still elevated 49. Continue IV fluid. Monitor kidney function electrolytes. 5.? History of CVA ? With history of residual aphasia and left-sided hemiparesis.? Patient apparently also has dysphagia and has an NG tube in place. 6.? Dysphagia ? Secondary to patient CVA has an NG tube in place.? Consult has been placed to GI for possible PEG tube placement.? Patient was apparently scheduled to undergo PEG tube placement at [facility] in late June 17: Patient had PEG tube inserted by Dr. Zapata on 06/25. On tube feed. Charges/Coding Visit Charges Inpatient E&M: 84575 Subs Hosp L3
--- NOTE | 2022-06-28 10:59 | PCM.TXEXTCAR ---
Diet Diet Order/Speech Therapy: 06/23/22 19:43 Diet: Nothing Per Oral Routine Orders/Code Status Suppository Type: Dulcolax 10mg Suppository Frequency: Daily PRN Code Status: DNRCC-A Wound(s) ankles & right heel: Wound Type: Abrasion coccyx & right buttock: Wound Type: Pressure Injury left acosta: Wound Type: Abrasion right foot-3rd toe: Wound Type: Abrasion Lt butt cheek and coccyx bone: Wound Type: Pressure Injury ABDOMEN/ PEG TUBE SIDE: Wound Type: Surgical Incision Therapies Weight Bearing: Weight bearing as tolerated Extremity Affected:: Bilateral Lower Physical Therapy: Eval and Treat Occupational Therapy: Eval and Treat Speech Therapy: Eval and Treat Problem/Diagnosis (1) Dysphagia: Status: Acute Code(s): R13.10 - Dysphagia, unspecified (2) JUANA (acute kidney injury): Status: Acute Code(s): N17.9 - Acute kidney failure, unspecified (3) Hypernatremia: Status: Acute Code(s): E87.0 - Hyperosmolality and hypernatremia Plan Patient is a 77-year-old lady with 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 An assessment of suspected acute cystitis made admitted to regular nursing floor for further management 1.? Acute metabolic encephalopathy ? Due to combination of acute cystitis as well as severe hypernatremia admitted to regular nursing floor for treatment of the underlying etiology 06/27: Patient on tube feed with free water supplement. 2.? Acute complicated Klebsiella cystitis ? Due to the presence of chronic indwelling Burgess catheter.? Cultures were obtained on admission. Urine culture shows Klebsiella aerogenes more than 100,000 colonies sensitive to Levaquin. Levaquin adjusted to creatinine clearance 3.? Severe hypernatremia: IV fluid D5W. Sodium was 164, has come down to 149. Continue IV fluid D5W. 2 Hypernatremia has almost resolved. Half-normal saline stopped. 4.? Acute kidney injury on superimposed CKD stage IIIb: Creatinine on baseline 1.06. BUN is still elevated 49. Continue IV fluid. Monitor kidney function electrolytes. 5.? History of CVA ? With history of residual aphasia and left-sided hemiparesis.? Patient apparently also has dysphagia and has an NG tube in place. 6.? Dysphagia ? Secondary to patient CVA has an NG tube in place.? Consult has been placed to GI for possible PEG tube placement.? Patient was apparently scheduled to undergo PEG tube placement at [facility] in late June 17: Patient had PEG tube inserted by Dr. Zapata on 06/25. On tube feed. 7.? Hypertension - Blood pressure controlled, home medications continued with dose adjustment as needed 8.? Dyslipidemia -Patient is on statin therapy, continued at home dose 9.? Diabetes mellitus type 2 ? Did continue patient home insulin regimen with Accu-Cheks every 6 ordered with sliding scale coverage 10.? Systemic use of anticoagulation?apixaban ? Indication not clear from patient history 11.? Gout ? Per history 12.? COPD ? continue patient home bronchodilator treatment regimen 13.? Severe protein calorie malnutrition with BMI of 17.3 14.? Hypothyroidism - Patient is on levothyroxine home dose continued 15.??? History of lung CA 16. Anemia - Secondary to chronic disorder monitoring H&H and transfuse if patient becomes symptomatic or hemoglobin falls below 7 ?17.? DVT prophylaxis ? Patient on apixaban Allergies/Procedures Done in Hospital Allergies Penicillins Allergy (Verified 06/18/22 18:16) PT UNSURE OF REACTION Type of Care/Length of Stay Estimated LOS: Convalescent Care Less Than 30 days Type of Care Needed: Skilled Rehab Potential: Good Prognosis: Good Additional Orders/Day of Discharge Day of Discharge: 06/28/22 Dietary and Speech Recommendations Dietitian Recommendations/Changes: Recommend Jevity 1.5cal at 40mL/hr goal rate with 170mL feeding tube flush q4 hours to meet estimated nutrition and hydration needs. Speech Linguistic Eval Summary: Informal cognitive exam conducted on 06/27. Pt was alert and agreeable to tx. Pt was oriented to name, , and current location. Pt was not orinted tocurrent age, today's date, and current month. Pt's alertness fluctauated across session. Pt was unable to recall personal information related to memory (husbands's name, daughts, name) but unable to remeber names of any grandchildren. Ptwas unable to recall current president and former president. Pt's numerical processing was impaired as pt could not perform basic subtraction problems (100-7, etc.). Pt's word retreieval was significantly imapired, as pt could not efftceily perform basic divergent naming tasks. Discharge Plan Admission Admit Date/Time: 06/23/22 17:26 Primary Reason for Your Visit: Acute encephalopathy, dysphagia Attending Provider: Flaco Lemus Primary Care Provider: Urbano Palencia Consulting Providers: Mariel Gamble ; Elsie Kiser ; Lucas Lux Instructions Additional Instructions / Restrictions: Jevity 1.5cal at 40mL/hr goal rate. Initiate at 20mL/hr and advance by 15mL/hr every 8-10 hours as tolerated to goal rate 60 ml/hr with every shift checking for residual. Feeding tube flush: 250 mL q4 hours Discharge Orders/Prescriptions Prescriptions: New cholecalciferol (vitamin D3) 25 mcg (1,000 unit) Tablet 125 mcg G-tube DAILY Qty: 0 0RF menthol-zinc oxide [Calmoseptine] 0.44-20.6 % Ointment 1 applic topical BID Qty: 0 0RF Protocol: *Topical Application Instructions APPLICATION INSTRUCTIONS: apply to affected region insulin lispro [Humalog KwikPen Insulin] 100 unit/mL Insulin Pen See Protocol subcut Q6 Qty: 0 0RF Protocol: 4. Sliding Scale Insulin High-Med Dosing Condition: 150-199 mg/dl = 2 units Condition: 200-259 mg/dl = 4 units Condition: 260-324 mg/dl = 6 units Condition: 325-374 mg/dl = 8 units Condition: 375-409 mg/dl = 10 units Condition: 410-449 mg/dl = 11 units Condition: Greater than 449 call physician Protocol Text: - Use for Total Daily Dose of Insulin 56-80 units - Patient who are insulin resistant or septic HIGH MEDIUM DOSING ALGORITHM insulin lispro [Humalog KwikPen Insulin] 100 unit/mL Insulin Pen 8 unit subcut Q8H Qty: 0 0RF Rx Instructions: Hold if glucose less than 130 mg/dl insulin glargine-yfgn 100 unit/mL (3 mL) Insulin Pen 15 unit subcut QHS Qty: 0 0RF Rx Instructions: Hold if glucose less than 130 mg/dl albuterol sulfate 2.5 mg /3 mL (0.083 %) Solution For Nebulization 2.5 mg inhalation Q2H PRN PRN (Reason: Dyspnea, wheezing) Qty: 0 0RF acetaminophen 650 mg/20.3 mL Solution 650 mg G-tube Q4H PRN PRN (Reason: Fever, pain 1-10) Qty: 0 0RF Jevity 1.5 Chriss 0.06 gram-1.5 kcal/mL liquid See Rx Instructions .ROUTE .COMPLEX Qty: 5688 0RF Rx Instructions: Jevity 1.5cal at 40mL/hr goal rate. Initiate at 20mL/hr and advance by 15mL/hr every 8-10 hours as tolerated to goal rate Feeding tube flush: 250 mL every 4 hourly. Advised to check residual every shift. levofloxacin 500 mg tablet 500 mg PO Q48H 4 Days Qty: 2 0RF Continued amlodipine 5 mg Tablet 10 mg feeding tube DAILY allopurinol 100 mg Tablet 50 mg feeding tube DAILY budesonide-formoterol [Symbicort] 160-4.5 mcg/actuation Hfa Aerosol Inhaler 2 puff INHALATION BID levothyroxine 50 mcg Capsule 50 mcg PO DAILY atorvastatin 40 mg Tablet 40 mg feeding tube QHS carvedilol [Coreg] 6.25 mg Tablet 6.25 mg feeding tube BID bisacodyl 10 mg Suppository 10 mg FL DAILY PRN (Reason: Constipation) apixaban 5 mg Tablet 5 mg feeding tube BID multivitamin Tablet 1 tab feeding tube DAILY losartan 50 mg Tablet 50 mg feeding tube QHS terazosin 1 mg Tablet 1 mg PO QHS Discontinued Humulin R Regular U-100 Insuln 100 unit/mL Cartridge 5 unit SUBCUT Q6H insulin glargine 100 unit/mL Cartridge 12 unit SUBCUT QHS insulin regular human 100 unit/mL Solution See Protocol SUBCUT Q6H Protocol: 2. Sliding Scale Insulin Low-Med Dosing Condition: 150-209 mg/dl = 1 unit Condition: 210-269 mg/dl = 2 units Condition: 270-329 mg/dl = 3 units Condition: 330-389 mg/dl = 4 units Condition: 390-449 mg/dl = 5 units Condition: Greater than 449 call physician Protocol Text: - Use for Total Daily Dose of Insulin 28-36 units - Average size patients LOW MEDIUM DOSING ALGORITHM Referrals / Follow Up: Chris Thorne MD [Non-Staff] - Elsie Kiser MD [Med Staff - Consulting] - Within 1 Month Urbano Palencia MD [Primary Care Provider] - Within 2 Weeks Disposition Disposition (needs filled in before D/C Order can be placed): Intermediate Facility
[2022-06-28] MEDS: Cholecalciferol (VIT D3) 25 MCG TABLET (1,000 UNITS) 125 MCG GT (11:13)
[2022-06-28] MEDS: APIXABAN 5 MG TABLET GT (11:13)
[2022-06-28] MEDS: Carvedilol 6.25 MG Tablet GT (11:14)
[2022-06-28] MEDS: Allopurinol 100 MG Tablet 50 MG GT (11:14)
[2022-06-28] MEDS: Menthol/Lanolin/Calamine/Znox 113 GM Tube 1 APPLIC TOPICAL (11:21)
--- NOTE | 2022-06-28 11:51 | CASEMGMT ---
Social Work MD Lemus informed pt is medically ready to discharge. GEETA called Jennifer at [facility] to confirm bed is open for pt. Jennifer stated a bed is open for pt today. GEETA updated MD Lemus. Intent is to discharge pt today. GEETA asked pt nurseJil to give pt Covid test prior to d/c. PLAN: return to [facility] HENRY Hinson
[2022-06-28 12:05] LABS: Bedside Glucose 206 mg/dL (74-106)
--- NOTE | 2022-06-28 12:25 | ST.MBS ---
Modified Barium Swallow - Patient Information Study Date: 06/28/22 Study Time: 10:00 Direct Billable Minutes: 105 Total Minutes procedure & reportin Diagnosis: Dysphagia (R13.10), Hx of Stroke (Z86.73) Referring Physician: Flaco Lemus Reason for Referral: Objectively assess swallow function, assess risk for aspiration, and determine recommendations for least restrictive diet textures and compensatory strategies to improve safety of swallow. Medical History: The patient is a 77 year-old female with PMH including Obesity, Hx CVA (R HAKEEM and MCA stroke with chronic aphasia, dysphagia, L sided hemiparesis and reported intermittent verbalizations at baseline, HTN, HLD, Dementia unclear type with unclear behavioral history, Hypothyroidism, Anxiety and Depression, LANIE not using CPAP/BIPAP, Chronic CHF, Diabetes mellitus type II, Gout, Chronic anemia, COPD, malignant neoplasm of unspecified bronchus or lung who presented to the [facility] ED on 06/23/22 from SNF with onset of altered mental status with significant lethargy. Chest x-ray with no acute cardiopulmonary findings, CT of the brain with no acute intracranial findings with a chronic right parietal infarct from prior, microvascular ischemic changes with mild atrophy. She has answered some questions in the ED and for RN on MS3, which patient's daughter reported to physician was baseline. Per employment case manager, Jaky, senior living reported the patient has begun to speak a few word at the senior living; however, responses in conversation were not appropriate responses. PHYSICIAN CREDENTIALING SPECIALIST obtained portion of medical record from [facility]. Pt had NG tube placed for dysphagia at [facility], has continued use at SNF since. She required intubation 04/22/2022 and was extubated 04/26/2022. ST note from [facility] was for cognitive-linguistic treatment and noted severe deficits in swallow function. She was referred for ST evaluation upon admission to [facility] for hx of CVA. Evaluating speech therapist at [facility] contacted PHYSICIAN CREDENTIALING SPECIALIST at senior living, [facility]. [facility] requested that prior to PEG placement an MBSS be completed to objectively assess the anatomy and physiology of the swallow function to determine appropriate goals to work in going forward w/ Speech Therapy. Pt had PEG tube placed 06/25/[address] being able to complete MBSS. She was referred for MBSS today to assess aspiration risk and determine appropriateness for diet advancement and/or trials of oral intake with ST. Current Diet Ordered: NPO with PEG Dentition: Edentulous Mental Status: Impaired - aphasia s/p CVA Respiratory Status: Oxygenating on 2L/M nasal cannula - Penetration-Aspiration Scale Penetration-Aspiration Scale: OBJECTIVE ASSESSMENT OF SWALLOW FUNCTION (QUANTITATIVE ? PER TRIAL): PENETRATION / ASPIRATION SCALE (LYNNE): 1 = does not enter airway 2 = enters airway/above vocal folds/ejected 3 = enters airway/above vocal folds/not ejected 4 = enters airway/contacts vocal folds/ejected 5 = enters airway/contacts vocal folds/not ejected 6 = enters airway/below vocal folds/ejected 7 = enters airway/below vocal folds/not ejected despite effort 8 = enters airway/below vocal folds/no effort VIDEOFLOROSCOPIC SCALE SCORE (LYNNE): Grade I = aspiration of material that has penetrated into the laryngeal vestibule, intact cough reflex Grade II = aspiration < 10 % of the bolus, intact cough reflex Grade III = aspiration of < 10 % of the bolus, reduced cough reflex or aspiration of > 10 % of the bolus, intact cough reflex Grade IV = aspiration of > 10 % of the bolus, reduced cough reflex - Penetration-Aspiration Scale Score Thin Liquid via teaspoon Result: 5= enters airways/contacts vocal folds/not ejected - coughing immediately following swallow - PHYSICIAN CREDENTIALING SPECIALIST suspects aspiration but unable to view trachea during the swallow due to pt's body habitus and movement forward Thin Liquid via teaspoon Trial 2 Result: 3= enters airways/above vocal folds/not ejected Shubert Thick Liquid via teaspoon Result: 2= enter airway/above vocal folds/ejected Honey Thick Liquid via teaspoon Result: 1= does not enter airway Honey Thick Liquid via teaspoon Trial 2 Result: 1= does not enter airway Pudding via teaspoon Result: 1= does not enter airway - coughing immediately after the swallow Pudding via teaspoon Trial 2 Result: 1= does not enter airway - Oral Phase Labial Seal: No Labial Escape Tongue Control During Bolus Hold: Posterior escape of greater than half of bolus Bolus Transport/Lingual Motion: Repetitive/disorganized tongue motion Oral Residue: Residue collection on oral structures - Pharyngeal Phase Initiation of Pharyngeal Swallow: Bolus head in pyriforms - thin Soft Palate Elevation: No bolus between soft palate and pharyngeal wall Laryngeal Elevation: Partial superior movement thyroid cart/partial apprx aryt-epig petiole Anterior Hyoid Excursion: Partial anterior movement Epiglottic Movement: Complete inversion Laryngeal Vestibule Closure at Height of Swallow: Incomplete; narrow column of air/contrast in laryngeal vestibule Pharyngeal Stripping Wave: Present - complete Pharyngoesophageal Segment Opening: Complete distension and complete duration; no obstruction of flow Tongue Base Retraction: Narrow column of contrast between tongue base & post. pharyngeal wall Pharyngeal Residue: Collection of residue within or on pharyngeal structures - Diagnosis/Impression Diagnosis: Moderate oropharyngeal phase dysphagia (R13.12) Impression: The oral phase is primarily marked by... -Decreased bolus control observed with thin liquids with premature posterior loss of bolus to the pyriforms prior to swallow onset. -Mild oral residue of pudding, which the patient independently cleared with use of second swallow as needed. -Did not assess cookie trial due to concerns for choking with decreased bolus control, deficits in attention to task, and poor auditory comprehension abilities. The pharyngeal phase is primarily marked by... -Delayed swallow onset, most notable with liquids. -Decreased airway closure due to deficits in anterior hyoid excursion and laryngeal elevation. -Mild pharyngeal residue of pudding after the swallow. -No aspiration observed; however, PHYSICIAN CREDENTIALING SPECIALIST cannot definitively rule out aspiration for all the above mentioned trials due to pt's body habitus and pt requiring frequent verbal and visual cues to keep head up during the swallow to capture optimal images. PHYSICIAN CREDENTIALING SPECIALIST suspects aspiration of thin liquids as they penetrated to the vocal folds with coughing immediately following - PHYSICIAN CREDENTIALING SPECIALIST unable to view trachea to confirm/rule out aspiration. SEE PAS scores above for full details regarding laryngeal penetration and aspiration. - Recommendations Diet: NPO - with PEG tube Comment: Pt is recommended for trials of puree textures / honey (moderately) thick liquids WITH PHYSICIAN CREDENTIALING SPECIALIST ONLY to consider the patient for diet advancement if tolerating trials at bedside without s/s of aspiration or change in lung sounds/respiratory status. Recommend Repeat Modified Barium Swallow: Yes Need for Skilled Speech Therapy Services: Yes Comment: Skilled speech therapy warranted at next level of care to address oropharyngeal phase dysphagia. Will recommend trials of puree / honey (moderately) (via tsp or small cup sips) thick liquids to consider diet advancement at bedside. If pt is able to follow commands for execution, would consider implementing the following exercises (effortful swallow, lingual resistance, CTAR). Education Completed: 1. Described result of evaluation., 7. Pt requires further education on strategies & risks. Comment: PHYSICIAN CREDENTIALING SPECIALIST educated pt, RN, Clau, and treating PHYSICIAN CREDENTIALING SPECIALIST at [facility], [place] (via phone call) regarding results and recommendations of MBSS. - Status Active ST Patient: Active - Contact Information [facility] Speech Therapy:: Lorie Pena M.A. [facility]-PHYSICIAN CREDENTIALING SPECIALIST Speech-Language Pathologist [facility] [address] [place] [address] [email or web address] [phone] 06/28/22 12:47
--- NOTE | 2022-06-28 12:40 | RAD_ITS ---
STUDY: X-RAY CHEST REASON FOR EXAM: Female, 77 years old. Cough TECHNIQUE: AP and lateral views of the chest. COMPARISON: Comparison is made with prior study dated 06/23/2022. FINDINGS: EKG electrodes are seen. There is a 2.3 cm x 2.2 cm nodule in the right upper lobe. This is unchanged. There is no demonstrated pleural abnormality. Normal size heart. Normal mediastinum and jovany. Normal visualized pulmonary arteries. There is atherosclerotic tortuosity of the aortic arch and descending thoracic aorta. There are diffuse degenerative changes of the visualized thoracic spine. Prior intraventricular screw and edna fixation in the lower thoracic spine. There is degenerative osteoarthritis of the bilateral shoulders. There is no demonstrated abnormality of the visualized soft tissue structures of the upper abdomen. RAD/Chest PA and Lateral IMPRESSION: 2.3 cm x 2.2 cm nodule in the right upper lobe. The previously seen orogastric tube has been removed. Electronically Signed: Leonardo Escalera MD at 13:09 EST ,
--- NOTE | 2022-06-28 14:21 | PCM.DC.SUM ---
Providers Date of Admission: 06/23/22 Date of Discharge: 06/28/22 Primary Care Physician: Dr. Urbano Palencia MD Consultations 06/24/22 08:01 Consult: Nephrology Routine Consulting Provider: Elsie Kiser Reason for Consult: hypernatremia EMERGENT Consult: No Notified: Yes Date Notified: 06/24/22 Time Notified: 09:32 Method of Notification: Answering Service 06/24/22 09:28 Consult: Gastroenterology Routine Consulting Provider: [facility] Reason for Consult: possible PEG placement EMERGENT Consult: No Notified: Yes Date Notified: 06/24/22 Time Notified: 09:28 Method of Notification: Text Reason For Visit: ENCEPHALOPATHY,UTI,JUANA,HYPERAMMONIA Diagnosis Discharge Diagnosis (1) Dysphagia: Status: Acute Code(s): R13.10 - Dysphagia, unspecified (2) JUANA (acute kidney injury): Status: Acute Code(s): N17.9 - Acute kidney failure, unspecified (3) Hypernatremia: Status: Acute Code(s): E87.0 - Hyperosmolality and hypernatremia Plan Patient is a 77-year-old lady with 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 An assessment of suspected acute cystitis made admitted to regular nursing floor for further management 1.? Acute metabolic and infectious/UTI encephalopathy ? Due to combination of acute cystitis as well as severe hypernatremia admitted to regular nursing floor for treatment of the underlying etiology 06/27: Patient on tube feed with free water supplement. 06/28: Patient had modified barium swallow. Patient is more awake and alert and responding to simple questions of time and place. 2.? Acute complicated Klebsiella cystitis ? Due to the presence of chronic indwelling Burgess catheter.? Cultures were obtained on admission. Urine culture shows Klebsiella aerogenes more than 100,000 colonies sensitive to Levaquin. Levaquin adjusted to creatinine clearance 06/28: Prescription for Levaquin given for total of 3 days. 3.? Severe hypernatremia: IV fluid D5W. Sodium was 164, has come down to 149. Continue IV fluid D5W. 06/27 Hypernatremia has almost resolved. Half-normal saline stopped. 4.? Acute kidney injury on superimposed CKD stage IIIb: Creatinine on baseline 1.06. BUN is still elevated 49. Continue IV fluid. Monitor kidney function electrolytes. 06/28: JUANA resolved. Patient has CKD stage IIIb with creatinine clearance about 35 mL/min. Follow-up with intervention teacher Dr. Kiser. 5.? History of CVA ? With history of residual aphasia and left-sided hemiparesis.? Patient apparently also has dysphagia and has an NG tube in place. 6.? Dysphagia ? Secondary to patient CVA has an NG tube in place.? Consult has been placed to GI for possible PEG tube placement.? Patient was apparently scheduled to undergo PEG tube placement at [facility] in late June 17: Patient had PEG tube inserted by Dr. Zapata on 06/25. On tube feed. 06/28: Patient tolerating tube feed. On 40 mill per minute. Advised gradual increase with residual check every shift. 7.? Hypertension - Blood pressure controlled, home medications continued with dose adjustment as needed 8.? Dyslipidemia -Patient is on statin therapy, continued at home dose 9.? Diabetes mellitus type 2 ? Did continue patient home insulin regimen with Accu-Cheks every 6 ordered with sliding scale coverage 10.? Systemic use of anticoagulation?apixaban ? Indication not clear from patient history 11.? Gout ? Per history 12.? COPD ? continue patient home bronchodilator treatment regimen 13.? Severe protein calorie malnutrition with BMI of 17.3 14.? Hypothyroidism - Patient is on levothyroxine home dose continued 15.??? History of lung CA 16. Anemia - Secondary to chronic disorder monitoring H&H and transfuse if patient becomes symptomatic or hemoglobin falls below 7 ?17.? DVT prophylaxis ? Patient on apixaban Discharge medication reconciliation done. Discharge follow-up instructions completed. Discharge process discussed with the patient and all questions were answered to patient's satisfaction. Discharge to SNF. Total time spent, exact 35 minutes on discharge meds reconciliation, examination, coordination of care with nurses and ancillary staff, review of imaging and blood test and discussion with the patient on follow-up instructions. Medications at Discharge Home Medications allopurinol 100 mg tablet 50 mg feeding tube DAILY gout 01/29/21 amlodipine 5 mg tablet 10 mg feeding tube DAILY HTN 01/29/21 budesonide-formoterol HFA 160 mcg-4.5 mcg/actuation aerosol inhaler (Symbicort) 2 puff inhalation BID COPD 01/29/21 levothyroxine 50 mcg capsule 50 mcg PO DAILY thyroid 01/29/21 apixaban 5 mg tablet 5 mg feeding tube BID CVA 06/23/22 atorvastatin 40 mg tablet 40 mg feeding tube QHS cholesterol 06/23/22 bisacodyl 10 mg rectal suppository 10 mg OR DAILY PRN Constipation 06/23/22 carvedilol 6.25 mg tablet (Coreg) 6.25 mg feeding tube BID HTN 06/23/22 losartan 50 mg tablet 50 mg feeding tube QHS hypertension 06/23/22 multivitamin 1 tab feeding tube DAILY supplement 06/23/22 terazosin 1 mg tablet 1 mg PO QHS HTN 06/23/22 acetaminophen 650 mg/20.3 mL oral solution 650 mg (20.3 mL) G-tube Q4H PRN PRN Fever, pain 1-10 #0 mL 06/28/22 albuterol sulfate 2.5 mg/3 mL (0.083 %) solution for nebulization 2.5 mg (3 mL) inhalation Q2H PRN PRN Dyspnea, wheezing #0 mL 06/28/22 cholecalciferol (vitamin D3) 25 mcg (1,000 unit) tablet 125 mcg G-tube DAILY #0 tabs 06/28/22 insulin glargine-yfgn 100 unit/mL (3 mL) subcutaneous pen 15 unit (0.15 mL) subcut QHS #0 mL 06/28/22 insulin lispro 100 unit/mL subcutaneous pen (Humalog KwikPen (U-100) Insulin) 8 unit (0.08 mL) subcut Q8H #0 mL 06/28/22 insulin lispro 100 unit/mL subcutaneous pen (Humalog KwikPen (U-100) Insulin) See Protocol subcut Q6 #0 mL 06/28/22 lactose-reduced food with fiber 0.06 gram-1.5 kcal/mL oral liquid (Jevity 1.5 Chriss) See Rx Instructions .Route .COMPLEX #5,688 mL 06/28/22 levofloxacin 500 mg tablet 500 mg PO Q48H 4 days #2 tabs 06/28/22 menthol 0.44 %-zinc oxide 20.6 % topical ointment (Calmoseptine) 1 applic topical BID #0 grams 06/28/22 Physical Exam Narrative Seen and examined. Patient cannot tell about acute LUT symptoms including burning micturition, frequency and urgency, states does not remember but patient can answer simple question Physical exam General: Awake and alert, oriented to place and person. Can differentiate about day and night. HEENT: Atraumatic, PERRLA, EOMI, Normocephalic Oral: Oral mucosa moist. No Gingival or Mucosal Lesions/ Ulcerations Neck: Supple, No JVD, Negative Carotid Bruits Lungs: Air entry diminished in bilateral lung bases. No crepitation/rhonchi Cardiovascular: Regular rate, Regular Rhythm, Normal S1, Normal S2, No murmurs Abdomen: PEG tube. Tube feed. Bowel Sounds Present, Soft, Non Tender, Non-Distended : No renal angle tenderness. No suprapubic tenderness. Extremities: No edema, Capillary Refill Less than 3 Seconds Skin: No rashes, No breakdown Musculoskeletal: ROM restricted. No Tenderness to Palpation of Joints or Extremities Neurological: No focal neurological deficit, DTR 2+/4 and Symmetrical Psych/Mental Status: Flat affect, amnesia Weight / BMI Weight Weight: 190 lb 11.198 oz Body Mass Index (BMI) 34.8 ABG / Lab / Microbiology Data Result Diagrams: 06/27/22 04:39 06/27/22 04:39 Laboratory: Laboratory Results - last 24 hr 06/27/22 17:39: POC Glucose 192 H 06/27/22 20:56: POC Glucose 161 H 06/28/22 01:04: POC Glucose 240 H 06/28/22 06:12: POC Glucose 219 H 06/28/22 11:43: POC Glucose 206 H Microbiology: Microbiology 06/28/22 11:50 Nasal Secretion SARS-CoV-2 Antigen (Rapid) - Final 06/23/22 15:23 Urine Catheter - Burgess Urine Culture - Final Klebsiella aerogenes 06/24/22 06:40 Stool Stool Occult Blood (NUHA) - Final Occult Blood Positive Radiography Diagnostic Testing: Radiology Impression Chest X-Ray 06/28/22 12:40 IMPRESSION: 2.3 cm x 2.2 cm nodule in the right upper lobe. The previously seen orogastric tube has been removed. Electronically Signed: Leonardo Escalera MD at 13:09 EST , Meaningful Use Info Meaningful Use Diagnoses (Choose all that apply): None applicable Discharge Plan Admission Admit Date/Time: 06/23/22 17:26 Primary Reason for Your Visit: Acute encephalopathy, dysphagia Attending Provider: Flaco Lemus Primary Care Provider: Urbano Palencia Consulting Providers: Mariel Gamble ; Elsie Kiser ; Lucas Lux Instructions Additional Instructions / Restrictions: Jevity 1.5cal at 40mL/hr goal rate. Initiate at 20mL/hr and advance by 15mL/hr every 8-10 hours as tolerated to goal rate 60 ml/hr with every shift checking for residual. Feeding tube flush: 250 mL q4 hours Discharge Orders/Prescriptions Prescriptions: New cholecalciferol (vitamin D3) 25 mcg (1,000 unit) Tablet 125 mcg G-tube DAILY Qty: 0 0RF menthol-zinc oxide [Calmoseptine] 0.44-20.6 % Ointment 1 applic topical BID Qty: 0 0RF Protocol: *Topical Application Instructions APPLICATION INSTRUCTIONS: apply to affected region insulin lispro [Humalog KwikPen Insulin] 100 unit/mL Insulin Pen See Protocol subcut Q6 Qty: 0 0RF Protocol: 4. Sliding Scale Insulin High-Med Dosing Condition: 150-199 mg/dl = 2 units Condition: 200-259 mg/dl = 4 units Condition: 260-324 mg/dl = 6 units Condition: 325-374 mg/dl = 8 units Condition: 375-409 mg/dl = 10 units Condition: 410-449 mg/dl = 11 units Condition: Greater than 449 call physician Protocol Text: - Use for Total Daily Dose of Insulin 56-80 units - Patient who are insulin resistant or septic HIGH MEDIUM DOSING ALGORITHM insulin lispro [Humalog KwikPen Insulin] 100 unit/mL Insulin Pen 8 unit subcut Q8H Qty: 0 0RF Rx Instructions: Hold if glucose less than 130 mg/dl insulin glargine-yfgn 100 unit/mL (3 mL) Insulin Pen 15 unit subcut QHS Qty: 0 0RF Rx Instructions: Hold if glucose less than 130 mg/dl albuterol sulfate 2.5 mg /3 mL (0.083 %) Solution For Nebulization 2.5 mg inhalation Q2H PRN PRN (Reason: Dyspnea, wheezing) Qty: 0 0RF acetaminophen 650 mg/20.3 mL Solution 650 mg G-tube Q4H PRN PRN (Reason: Fever, pain 1-10) Qty: 0 0RF Jevity 1.5 Chriss 0.06 gram-1.5 kcal/mL liquid See Rx Instructions .ROUTE .COMPLEX Qty: 5688 0RF Rx Instructions: Jevity 1.5cal at 40mL/hr goal rate. Initiate at 20mL/hr and advance by 15mL/hr every 8-10 hours as tolerated to goal rate Feeding tube flush: 250 mL every 4 hourly. Advised to check residual every shift. levofloxacin 500 mg tablet 500 mg PO Q48H 4 Days Qty: 2 0RF Continued amlodipine 5 mg Tablet 10 mg feeding tube DAILY allopurinol 100 mg Tablet 50 mg feeding tube DAILY budesonide-formoterol [Symbicort] 160-4.5 mcg/actuation Hfa Aerosol Inhaler 2 puff INHALATION BID levothyroxine 50 mcg Capsule 50 mcg PO DAILY atorvastatin 40 mg Tablet 40 mg feeding tube QHS carvedilol [Coreg] 6.25 mg Tablet 6.25 mg feeding tube BID bisacodyl 10 mg Suppository 10 mg OR DAILY PRN (Reason: Constipation) apixaban 5 mg Tablet 5 mg feeding tube BID multivitamin Tablet 1 tab feeding tube DAILY losartan 50 mg Tablet 50 mg feeding tube QHS terazosin 1 mg Tablet 1 mg PO QHS Discontinued Humulin R Regular U-100 Insuln 100 unit/mL Cartridge 5 unit SUBCUT Q6H insulin glargine 100 unit/mL Cartridge 12 unit SUBCUT QHS insulin regular human 100 unit/mL Solution See Protocol SUBCUT Q6H Protocol: 2. Sliding Scale Insulin Low-Med Dosing Condition: 150-209 mg/dl = 1 unit Condition: 210-269 mg/dl = 2 units Condition: 270-329 mg/dl = 3 units Condition: 330-389 mg/dl = 4 units Condition: 390-449 mg/dl = 5 units Condition: Greater than 449 call physician Protocol Text: - Use for Total Daily Dose of Insulin 28-36 units - Average size patients LOW MEDIUM DOSING ALGORITHM Referrals / Follow Up: Chris Throne MD [Non-Staff] - Elsie Kiser MD [Med Staff - Consulting] - Within 1 Month Urbano Palencia MD [Primary Care Provider] - Within 2 Weeks Disposition Disposition (needs filled in before D/C Order can be placed): [facility] Facility Charges/Coding Visit Charges Inpatient E&M: 25251 Disch Hosp >30min
--- NOTE | 2022-06-28 14:49 | CASEMGMT ---
Social Work? GEETA notified pt and pt daughter, Dee, of discharge to [facility] today. [facility] up cot transportation [facility] for 5:00 pm. GEETA faxed all discharge orders to [facility] via [facility] and notified of discharge time. SW notified pt nurse of transport time. GEETA made copies of discharge orders and placed on pt chart. Sent original orders in envelope with pt upon discharge.?? Disposition: [facility], skilled, convalescent, level of care? HENRY Hinson?
== END 2022-06-28 16:54 | disposition skilled nursing facility (03) | DRG 698 ==
LOC: ED 17:36 → MS3 18:04
PROVIDERS: Anesthesiology; Internal Medicine; Internal Medicine Gastroenterology; Admitting Provider Family Medicine; Emergency Provider Emergency Medicine; PCP Family Medicine; Visit Provider Internal Medicine
PROC: 0DJ08ZZ Inspection of Upper Intestinal Tract, Via Natural or Artificial Opening Endoscopic (ICD-10-PCS; CPT 43235; principal; 2022-06-25 11:10)
DX: T83.511A Infection and inflammatory reaction due to indwelling urethral catheter, initial encounter (principal); G93.41 Metabolic encephalopathy; E43 Unspecified severe protein-calorie malnutrition; I69.354 Hemiplegia and hemiparesis following cerebral infarction affecting left non-dominant side; N17.9 Acute kidney failure, unspecified; E87.0 Hyperosmolality and hypernatremia; I13.0 Hypertensive heart and chronic kidney disease with heart failure and stage 1 through stage 4 chronic kidney disease, or unspecified chronic kidney disease; N30.00 Acute cystitis without hematuria; Z68.1 Body mass index [BMI] 19.9 or less, adult; K22.2 Esophageal obstruction; E11.22 Type 2 diabetes mellitus with diabetic chronic kidney disease; E86.0 Dehydration; F03.90 Unspecified dementia, unspecified severity, without behavioral disturbance, psychotic disturbance, mood disturbance, and anxiety; J44.9 Chronic obstructive pulmonary disease, unspecified; I50.9 Heart failure, unspecified; N18.32 Chronic kidney disease, stage 3b; Z79.4 Long term (current) use of insulin; Z93.1 Gastrostomy status; D63.8 Anemia in other chronic diseases classified elsewhere; E78.5 Hyperlipidemia, unspecified; M10.9 Gout, unspecified; E03.9 Hypothyroidism, unspecified; E87.8 Other disorders of electrolyte and fluid balance, not elsewhere classified; I69.391 Dysphagia following cerebral infarction; K29.70 Gastritis, unspecified, without bleeding; I69.320 Aphasia following cerebral infarction; B96.1 Klebsiella pneumoniae [K. pneumoniae] as the cause of diseases classified elsewhere; Z79.01 Long term (current) use of anticoagulants; Z79.51 Long term (current) use of inhaled steroids; Z79.890 Hormone replacement therapy; Z79.899 Other long term (current) drug therapy; Z87.891 Personal history of nicotine dependence; Z85.118 Personal history of other malignant neoplasm of bronchus and lung; Y84.6 Urinary catheterization as the cause of abnormal reaction of the patient, or of later complication, without mention of misadventure at the time of the procedure
CPT/HCPCS: 36415; 51702; 70450; 71045; 71046; 74018; 74230; 76770; 80048; 80053; 81001; 82140; 82274; 82570; 82607; 82728; 82746; 82962; 83036; 83540; 83550; 83735; 84100; 84300; 84443; 85025; 87077; 87086; 87088; 87186; 87426; 92507; 92610; 92611; 93005; 94640; 94668; 97110; 97162; 97166; 97530; 97535; 97802; 99285; J7030; J7040; J7050; J7120; A4216; J2405; J7799

== ENCOUNTER 2022-07-31 12:08 | Emergency (ER) | payer MEDICARE, OTHER, SELFPAY ==
[2022-07-31 12:11] VITALS: BP 122/47; PULSE 38; RESP 20; TEMP 36.6; O2SAT 100; BMI 39.6
--- NOTE | 2022-07-31 12:21 | EKG12_ITS ---
Test Reason : BRADYCARDIA Blood Pressure : / mmHG Vent. Rate : 079 BPM Atrial Rate : 079 BPM P-R Int : 172 ms QRS Dur : 070 ms QT Int : 374 ms P-R-T Axes : 049 007 042 degrees QTc Int : 428 ms Sinus rhythm with frequent Premature ventricular complexes in a pattern of bigeminy Low voltage QRS Borderline ECG Confirmed by MOE NAVARRETE, BERRY ([id number]), editor sound LIDA CARSON ([id number]) on 08/02/2022 9:46:31 AM Referred By: JAVIER Confirmed By:LOIS ROSA MD
--- NOTE | 2022-07-31 12:23 | EX.ED.DYSGE1 ---
HPI <RAJINDER Solano - Last Filed: 07/31/22 13:38> History of Present Illness Chief Complaint: Palpitations Narrative Narrative: 77-year-old female with PMH of HTN, HLD, DM2, CVA, hypothyroidism was sent here when her [place] [facility] staff noted her heart rate was in the 30s to 40s this morning. Patient is completely asymptomatic and denies chest pain, shortness of breath, lightheadedness or syncope. They held her morning amlodipine 10 mg and carvedilol 6.25 mg this morning. Patient denies history of bradycardia or cardiac problems. She is in a SNF for a stroke with left hemiparesis. No recent changes to her medications. 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 Congestive heart failure (CHF) Dementia Depression Diabetes Dysphagia following cerebral infarction Encephalopathy, unspecified Gastro-esophageal reflux disease without esophagitis Gout, unspecified Hemiplegia and hemiparesis following cerebral infarction affecting left non-dominant side Hypertension Hypothyroidism Malignant neoplasm of unspecified part of unspecified bronchus or lung Home Medications allopurinol 100 mg tablet 50 mg feeding tube DAILY gout 01/29/21 [History Last Taken 06/23/22] amlodipine 5 mg tablet 10 mg feeding tube DAILY HTN 01/29/21 [History Last Taken 06/23/22] budesonide-formoterol HFA 160 mcg-4.5 mcg/actuation aerosol inhaler (Symbicort) 2 puff inhalation BID COPD 01/29/21 [History Last Taken 06/23/22] levothyroxine 50 mcg capsule 50 mcg PO DAILY thyroid 01/29/21 [History Last Taken 06/23/22] apixaban 5 mg tablet 5 mg feeding tube BID CVA 06/23/22 [History Last Taken Unknown] atorvastatin 40 mg tablet 40 mg feeding tube QHS cholesterol 06/23/22 [History Last Taken 06/23/22] bisacodyl 10 mg rectal suppository 10 mg ND DAILY PRN Constipation 06/23/22 [History Last Taken Unknown] carvedilol 6.25 mg tablet (Coreg) 6.25 mg feeding tube BID HTN 06/23/22 [History Last Taken 06/23/22] losartan 50 mg tablet 50 mg feeding tube QHS hypertension 06/23/22 [History Last Taken 06/23/22] multivitamin 1 tab feeding tube DAILY supplement 06/23/22 [History Last Taken Unknown] terazosin 1 mg tablet 1 mg PO QHS HTN 06/23/22 [History Last Taken 06/23/22] acetaminophen 650 mg/20.3 mL oral solution 650 mg (20.3 mL) G-tube Q4H PRN PRN Fever, pain 1-10 #0 mL 06/28/22 [Rx Last Taken Unknown] albuterol sulfate 2.5 mg/3 mL (0.083 %) solution for nebulization 2.5 mg (3 mL) inhalation Q2H PRN PRN Dyspnea, wheezing #0 mL 06/28/22 [Rx Last Taken Unknown] cholecalciferol (vitamin D3) 25 mcg (1,000 unit) tablet 125 mcg G-tube DAILY #0 tabs 06/28/22 [Rx Last Taken Unknown] insulin glargine-yfgn 100 unit/mL (3 mL) subcutaneous pen 15 unit (0.15 mL) subcut QHS #0 mL 06/28/22 [Rx Last Taken Unknown] insulin lispro 100 unit/mL subcutaneous pen (Humalog KwikPen (U-100) Insulin) 8 unit (0.08 mL) subcut Q8H #0 mL 06/28/22 [Rx Last Taken Unknown] insulin lispro 100 unit/mL subcutaneous pen (Humalog KwikPen (U-100) Insulin) See Protocol subcut Q6 #0 mL 06/28/22 [Rx Last Taken Unknown] lactose-reduced food with fiber 0.06 gram-1.5 kcal/mL oral liquid (Jevity 1.5 Chriss) See Rx Instructions .Route .COMPLEX #5,688 mL 06/28/22 [Rx Last Taken Unknown] levofloxacin 500 mg tablet 500 mg PO Q48H 4 days #2 tabs 06/28/22 [Rx Last Taken Unknown] menthol 0.44 %-zinc oxide 20.6 % topical ointment (Calmoseptine) 1 applic topical BID #0 grams 06/28/22 [Rx Last Taken Unknown] Allergy/AdvReac Type Severity Reaction Status Date / Time Penicillins Allergy PT UNSURE Verified 07/31/22 12:22 OF REACTION Family History Father Diabetes Surgical History History of back surgery History of hysterectomy History of knee replacement S/P breast biopsy S/P carpal tunnel release S/P cataract surgery Social History (Updated 06/23/22 @ 19:[address] Mariel Gamble MD) housing: [facility] Smoking Status: Former smoker how long ago did patient quit smoking: Quit ~ 20 years prior, smoked 40 years 1 ppd. alcohol intake: never substance use type: does not use ROS <RAJINDER Solano - Last Filed: 07/31/22 13:38> ROS ED ROS Narrative Constitutional: Negative for fever, chills, malaise. CVS: Negative for palpitations, chest pain, syncope. Respiratory: Negative for shortness of breath, cough. GI: Negative for abdominal pain, nausea, vomiting. : Negative for dysuria. Neuro: Negative for headache. Skin: Negative for rash, abscess, or wound. EXAM <RAJINDER Solano - Last Filed: 07/31/22 13:38> Physical Exam Narrative Exam Narrative: CONST: Patient sitting in no acute distress. EYES: Normal inspection. ENT: Normal inspection, moist mucous membranes. NECK: Normal inspection. RESP: No respiratory distress, CTAB. CVS: Bradycardic and regular at 40/minute, no murmur or gallop. ABD: Soft and nontender, no guarding or rebound, nondistended. SKIN: Color normal, no rash, warm, dry, intact. EXTREMITIES: Chronic left upper extremity contracture from CVA. NEURO: Oriented x4. PSYCH: Normal affect. Const Vital Signs: 07/31/22 12:11 07/31/22 13:01 07/31/22 13:01 Temperature 98 F Temperature Source Temporal Pulse Rate 38 L 40 L Respiratory Rate 20 H 18 Respiratory Effort Normal Respiratory Pattern Normal Blood Pressure 122/47 H 105/43 L Blood Pressure Mean 72 63 Pulse Ox 100 100 Oxygen Delivery Method Nasal Cannula Nasal Cannula Oxygen Flow Rate (L/min) 2 <Dr. Tariq Alexander DO - Last Filed: 07/31/22 13:45> Physical Exam Const Vital Signs: 07/31/22 12:11 07/31/22 13:01 07/31/22 13:01 Temperature 98 F Temperature Source Temporal Pulse Rate 38 L 40 L Respiratory Rate 20 H 18 Respiratory Effort Normal Respiratory Pattern Normal Blood Pressure 122/47 H 105/43 L Blood Pressure Mean 72 63 Pulse Ox 100 100 Oxygen Delivery Method Nasal Cannula Nasal Cannula Oxygen Flow Rate (L/min) 2 MDM <RAJINDER Solano - Last Filed: 07/31/22 13:38> [facility] Narrative Medical decision making narrative: History gathered from: Patient, paramedics Patient sent in for asymptomatic bradycardia around 40 bpm. BP 122/47. She is 100% on 2 L nasal cannula and states she wears oxygen overnight and it was left on from the [place] [facility]. She has no chest pain or shortness of breath is completely asymptomatic. Due to her age labs will be obtained and she was given IV fluids. CBC shows normal white count 8.9, Hgb 9.6 trending up. She has normal electrolytes, normal renal function, glucose 193 with normal anion gap. EKG is sinus rhythm with PVCs and pattern of bigeminy which is unchanged from previous. No ischemic changes. She has no CP/SOB so no indication for cardiac enzymes. Her heart rate remains around 40 here but she is asymptomatic so there is no emergent work-up needed. I recommend her SNF hold her carvedilol if her heart rate continues to be low and she follow-up with her primary care doctor. Return if she develops symptoms. She was discharged in stable condition. Differential: Dysrhythmia, heart block, beta-monique side effect, electrolyte derangement Lab Data Attestation: I reviewed the patient's lab results. Labs: Laboratory Results - last 24 hr 07/31/22 07/31/22 12:55 12:55 WBC 8.9 RBC 3.19 L Hgb 9.6 L Hct 31.2 L MCV 97.8 MCH 30.1 MCHC 30.8 L RDW Std Deviation 54.9 H RDW Coeff of Neeta 15.2 H Plt Count 325 MPV 10.2 Immature Gran % (Auto) 0.600 Neut % (Auto) 59.7 Lymph % (Auto) 19.3 [place] % (Auto) 7.1 Eos % (Auto) 12.7 H Baso % (Auto) 0.6 Absolute Neuts (auto) 5.3 Absolute Lymphs (auto) 1.71 Nucleated RBC % 0 Sodium 140 Potassium 5.1 Chloride 104 Carbon Dioxide 30.0 Anion Gap 6 BUN 41 H Creatinine 0.90 Estim Creat Clear Calc 38.25 Est GFR (MDRD) Af Amer 77 Est GFR (MDRD) Non-Af 64 BUN/Creatinine Ratio 45.5 H Glucose 193 H Calcium 9.6 EKG Initial EKG: Attestation: I personally reviewed and interpreted this EKG as follows: Comments: Sinus rhythm with frequent PVCs in pattern of bigeminy, no acute ischemic changes Unchanged from EKG on 06/23/2022 Prior EKG tracings: available for review Prior: Unchanged <Dr. Tariq Alexander, DO - Last Filed: 07/31/22 13:45> [facility] Lab Data Labs: Laboratory Results - last 24 hr 07/31/22 07/31/22 12:55 12:55 WBC 8.9 RBC 3.19 L Hgb 9.6 L Hct 31.2 L MCV 97.8 MCH 30.1 MCHC 30.8 L RDW Std Deviation 54.9 H RDW Coeff of Neeta 15.2 H Plt Count 325 MPV 10.2 Immature Gran % (Auto) 0.600 Neut % (Auto) 59.7 Lymph % (Auto) 19.3 [place] % (Auto) 7.1 Eos % (Auto) 12.7 H Baso % (Auto) 0.6 Absolute Neuts (auto) 5.3 Absolute Lymphs (auto) 1.71 Nucleated RBC % 0 Sodium 140 Potassium 5.1 Chloride 104 Carbon Dioxide 30.0 Anion Gap 6 BUN 41 H Creatinine 0.90 Estim Creat Clear Calc 38.25 Est GFR (MDRD) Af Amer 77 Est GFR (MDRD) Non-Af 64 BUN/Creatinine Ratio 45.5 H Glucose 193 H Calcium 9.6 Treatment and Re-Evaluation :: I have personally performed a face to face assessment of the patient and have reviewed the SHAUNNA Note. I performed a substantive portion of the visit including all aspects of the following. My marshall findings include: History: Patient presents with palpitations that were noticed today at the [facility]. Staff there noted that the patient's heart rate was in the 40s. Staff called EMS to transport the patient to the emergency department. Patient denies any chest pain or shortness of breath. Patient denies any feelings of palpitations. Patient denies any lightheadedness or dizziness. Patient denies any other symptoms. Exam: Vital signs are stable except for bradycardia of 40. Patient is afebrile. Patient is in no acute distress. Oral mucosa is pink and moist. Neck is supple. Trachea is midline. No JVD. Heart was regular and bradycardic. Lungs are clear and equal bilaterally. Abdomen is soft. Bowel sounds are normal. There is no tenderness. Cranial nerves II through XII are intact. There are no focal motor or sensory deficits noted. Medical Decision Making: Differential diagnosis includes cardiac dysrhythmia, electrolyte abnormality, and medication side effect. EKG will be obtained to assess for cardiac dysrhythmia and cardiac ischemia. CBC will be obtained to assess for anemia and leukocytosis. Basic metabolic profile will be obtained to assess for electrolyte abnormality and renal function. CBC was reviewed and showed a mild anemia with a hemoglobin of 9.6 hematocrit 31.2. This was consistent with prior results. Basic metabolic profile was reviewed and showed a slightly elevated BUN of 41. Creatinine was normal. Electrolytes were all normal. EKG was obtained. On my interpretation it shows normal sinus rhythm with frequent PVCs and a ventricular bigeminy pattern. There are no acute changes noted. This was unchanged compared to previous EKG dated 06/23/2022. Patient is feeling better on reevaluation. Patient will be discharged back to the extended care facility. Patient was instructed to follow-up with her primary care physician in 5 to 7 days. Patient understood and was agreeable with the plan. All questions were answered. Discharge Plan Triage Chief Complaint: Palpitations ED Midlevel Provider: Dee Watkins ED Provider: Tariq Alexander Dx/Rx/DC Orders Clinical Impression: Asymptomatic bradycardia Instructions: ED Bradycardia Prescriptions: No Action amlodipine 5 mg Tablet 10 mg feeding tube DAILY allopurinol 100 mg Tablet 50 mg feeding tube DAILY budesonide-formoterol [Symbicort] 160-4.5 mcg/actuation Hfa Aerosol Inhaler 2 puff INHALATION BID levothyroxine 50 mcg Capsule 50 mcg PO DAILY atorvastatin 40 mg Tablet 40 mg feeding tube QHS carvedilol [Coreg] 6.25 mg Tablet 6.25 mg feeding tube BID bisacodyl 10 mg Suppository 10 mg ND DAILY PRN (Reason: Constipation) apixaban 5 mg Tablet 5 mg feeding tube BID multivitamin Tablet 1 tab feeding tube DAILY losartan 50 mg Tablet 50 mg feeding tube QHS terazosin 1 mg Tablet 1 mg PO QHS cholecalciferol (vitamin D3) 25 mcg (1,000 unit) Tablet 125 mcg G-tube DAILY Qty: 0 0RF menthol-zinc oxide [Calmoseptine] 0.44-20.6 % Ointment 1 applic topical BID Qty: 0 0RF Protocol: *Topical Application Instructions APPLICATION INSTRUCTIONS: apply to affected region insulin lispro [Humalog KwikPen Insulin] 100 unit/mL Insulin Pen See Protocol subcut Q6 Qty: 0 0RF Protocol: 4. Sliding Scale Insulin High-Med Dosing Condition: 150-199 mg/dl = 2 units Condition: 200-259 mg/dl = 4 units Condition: 260-324 mg/dl = 6 units Condition: 325-374 mg/dl = 8 units Condition: 375-409 mg/dl = 10 units Condition: 410-449 mg/dl = 11 units Condition: Greater than 449 call physician Protocol Text: - Use for Total Daily Dose of Insulin 56-80 units - Patient who are insulin resistant or septic HIGH MEDIUM DOSING ALGORITHM insulin lispro [Humalog KwikPen Insulin] 100 unit/mL Insulin Pen 8 unit subcut Q8H Qty: 0 0RF Rx Instructions: Hold if glucose less than 130 mg/dl insulin glargine-yfgn 100 unit/mL (3 mL) Insulin Pen 15 unit subcut QHS Qty: 0 0RF Rx Instructions: Hold if glucose less than 130 mg/dl albuterol sulfate 2.5 mg /3 mL (0.083 %) Solution For Nebulization 2.5 mg inhalation Q2H PRN PRN (Reason: Dyspnea, wheezing) Qty: 0 0RF acetaminophen 650 mg/20.3 mL Solution 650 mg G-tube Q4H PRN PRN (Reason: Fever, pain 1-10) Qty: 0 0RF Jevity 1.5 Chriss 0.06 gram-1.5 kcal/mL liquid See Rx Instructions .ROUTE .COMPLEX Qty: 5688 0RF Rx Instructions: Jevity 1.5cal at 40mL/hr goal rate. Initiate at 20mL/hr and advance by 15mL/hr every 8-10 hours as tolerated to goal rate Feeding tube flush: 250 mL every 4 hourly. Advised to check residual every shift. levofloxacin 500 mg tablet 500 mg PO Q48H 4 Days Qty: 2 0RF Primary Care Provider: Urbano Palencia Referrals: Urbano Palencia MD [Primary Care Provider] - Activity Restrictions/Additional Instructions: Patient's blood work was unremarkable. She has asymptomatic bradycardia. You can hold her carvedilol if this continues and have her reevaluated by the SNF physician for further care. If she becomes symptomatic or symptoms worsen in any way return to the ER. Disposition Disposition: Home, Self Care
[2022-07-31] MEDS: 0.9% Normal Saline 1,000 ML 999 ML IV (12:59)
[2022-07-31 13:01] VITALS: BP 105/43; PULSE 40; RESP 18; O2SAT 100
[2022-07-31 13:07] LABS: Absolute Lymphocyte Count 1.71 X10^3/uL (0.83-4.51); Absolute Neutrophil Count 5.3 X10^3/uL (2.0-7.7); Basophil# 0.05 X10^3/uL; Basophil% 0.6 % (0-1); Eosinophil# 1.13 X10^3/uL; Eosinophils% 12.7 % (0-5); Hematocrit 31.2 % (37-47); Hemoglobin 9.6 g/dL (12.0-15.0); Lymphocyte # 1.71 X10^3/ul (0.83-4.51); Lymphocyte % 19.3 % (19-41); Mean Corp Hgb Conc 30.8 g/dL (32-36); Mean Corpuscular Hgb 30.1 pg (27.0-32.0); Mean Corpuscular Volume 97.8 fL (81-99); Mean Platelet Vol. 10.2 fl (6.2-12.0); Monocyte# 0.63 X10^3/uL; Monocyte% 7.1 % (0-10); NRBC Flagged by Analyzer 0 % (0-5); Neutrophil % 59.7 % (47-70); Platelet Count 325 K/mm3 (150-450); RBC Distribution Width CV 15.2 % (11.6-14.6); RBC Distribution Width SD 54.9 fl (35.1-43.9); Red Blood Count 3.19 M/mm3 (4.2-5.4); White Blood Count 8.9 K/mm3 (4.4-11.0)
[2022-07-31 13:19] LABS: Anion Gap 6 (5-15); BUN 41 mg/dL (7-18); BUN/Creat Ratio 45.5 RATIO (10-20); Calcium,Total 9.6 mg/dL (8.5-10.1); Chloride 104 mmol/L (98-107); EST Glomerular Filtration Rate 64 mL/min (>60); Est Glom Filt Rate - Afr Amer 77 mL/min (>60); Estimated Creatinine Clearance 38.25 ml/min; Glucose 193 mg/dL (74-106); Potassium 5.1 mmol/L (3.5-5.1); Sodium Level 140 mmol/L (136-145)
--- NOTE | 2022-07-31 13:21 | ED.RN ---
PT IN ROOM YELLING. THIS RN IN ROOM. PT SCREAMING I WANT MY DAUGHTER. THIS RN CALLED DAUGHTER. DAUGHTER STATES SHE WILL BE E ENROUTE
--- NOTE | 2022-07-31 13:53 | NURSING ---
CALLED [facility], ETA IS 90 MIN
[2022-07-31 14:05] VITALS: BP 105/43; PULSE 77; RESP 18; O2SAT 99
[2022-07-31 14:13] VITALS: BP 105/43; PULSE 80; RESP 18; O2SAT 100
--- NOTE | 2022-07-31 14:15 | ED.RN ---
ATTEMPTED TO DRAW BLOOD MULTIPLE TIMES THRU MIDLINE IV. NO SUCCESS. SITE FLUSHES WITH SOME DIFFICULTY. PERIPHERAL IV INITIATED
[2022-07-31 16:00] VITALS: BP 113/49; PULSE 81; RESP 16; O2SAT 98
--- NOTE | 2022-07-31 16:05 | NURSING ---
CALLED [facility], ETA IS ANOTHER 45 MIN
== END 2022-07-31 17:32 | disposition home or self-care (01) ==
PROVIDERS: Physician Assistant; Emergency Provider Emergency Medicine; PCP Family Medicine; Visit Provider Emergency Medicine
DX: R00.1 Bradycardia, unspecified (principal); I69.354 Hemiplegia and hemiparesis following cerebral infarction affecting left non-dominant side; E11.9 Type 2 diabetes mellitus without complications; I10 Essential (primary) hypertension; E78.5 Hyperlipidemia, unspecified
CPT/HCPCS: 80048; 85025; 93005; 96360; 96361; 99285; J7030; A4216

== ENCOUNTER → 2022-08-09 | Outpatient (CLI) | payer OTHER, MEDICARE, SELFPAY ==
--- NOTE | 2022-08-09 14:46 | SP.MBSS_ITS ---
Modified Barium Swallow - Patient Information Study Date: 08/09/22 Study Time: 12:55 Direct Billable Minutes: 120 Total Minutes procedure & reportin Diagnosis: Dysphagia following cerebral infarction (I69.391) Referring Physician: Urbano Palencia Reason for Referral: Objectively assess swallow function, assess risk for aspiration, and determine recommendations for least restrictive diet textures and compensatory strategies to improve safety of swallow. Medical History: The patient is a 77 year-old female with PMH including Obesity, Hx CVA (R HAKEEM and MCA stroke with chronic aphasia, dysphagia, L sided hemiparesis and reported intermittent verbalizations at baseline, HTN, HLD, Dementia unclear type with unclear behavioral history, Hypothyroidism, Anxiety and Depression, LANIE not using CPAP/BIPAP, Chronic CHF, Diabetes mellitus type II, Gout, Chronic anemia, COPD, malignant neoplasm of unspecified bronchus or lung. See [facility] for full report. Patient had a past hospitalization to [facility] on 06/23/22. During this hospitalization, pt had PEG tube placement on 06/25/22. Additionally, pt completed a MBSS on 06/28/22, and was recommended for puree textures / honey (moderately) thick liquids. At the SNF, patient was upgraded to nectar/mildly thick liquids and continued with puree textures. Patient?s daughter, Dee, reported patient had pneumonia ~1 month ago, shortly after discharge from [facility] on 06/28/22. The patient?s current speech therapist at the SNF, Carolina, reports patient is still receiving PEG tube feedings with consistent oral intake of puree / nectar. Patient was recommended for a repeat MBSS to consider patient for diet advancement.? Current Diet Ordered: Puree textures / Mark thick liquids Dentition: Upper Dentures, Lower Dentures Mental Status: Impaired - Some difficulty following commands to decrease bolus size during MBSS. Respiratory Status: Oxygenating on Room Air - Penetration-Aspiration Scale Penetration-Aspiration Scale: OBJECTIVE ASSESSMENT OF SWALLOW FUNCTION (QUANTITATIVE ? PER TRIAL): PENETRATION / ASPIRATION SCALE (LYNNE): 1 = does not enter airway 2 = enters airway/above vocal folds/ejected 3 = enters airway/above vocal folds/not ejected 4 = enters airway/contacts vocal folds/ejected 5 = enters airway/contacts vocal folds/not ejected 6 = enters airway/below vocal folds/ejected 7 = enters airway/below vocal folds/not ejected despite effort 8 = enters airway/below vocal folds/no effort VIDEOFLOROSCOPIC SCALE SCORE (LYNNE): Grade I = aspiration of material that has penetrated into the laryngeal vestibule, intact cough reflex Grade II = aspiration < 10 % of the bolus, intact cough reflex Grade III = aspiration of < 10 % of the bolus, reduced cough reflex or aspiration of > 10 % of the bolus, intact cough reflex Grade IV = aspiration of > 10 % of the bolus, reduced cough reflex - Penetration-Aspiration Scale Score Thin Liquid via teaspoon Result: 8= enters airway/below vocal folds/no effort Thin Liquid via teaspoon Trial 2 Result: 1= does not enter airway Thin Liquid via large single sip from cup Result: 2= enter airway/above vocal folds/ejected Mark Thick Liquid via large single sip from cup Result: 2= enter airway/above vocal folds/ejected Pudding via teaspoon Result: 1= does not enter airway 1/4 Cookie Result: 1= does not enter airway Thin Liquid via single sip from straw Result: 2= enter airway/above vocal folds/ejected Thin Liquids via 10cc cup sip Result: 2= enter airway/above vocal folds/ejected - Oral Phase Labial Seal: Interlabial escape, no progression to anterior lip Tongue Control During Bolus Hold: Posterior escape of greater than half of bolus Bolus Preparation/Mastication: Minimal chewing/mashing with majority of bolus unchewed Bolus Transport/Lingual Motion: Repetitive/disorganized tongue motion Oral Residue: Trace residue lining oral structures - Pharyngeal Phase Initiation of Pharyngeal Swallow: Bolus head at posterior laryngeal surgace of epiglottis Soft Palate Elevation: No bolus between soft palate and pharyngeal wall Laryngeal Elevation: Partial superior movement thyroid cart/partial apprx aryt- epig petiole Anterior Hyoid Excursion: Partial anterior movement Epiglottic Movement: Complete inversion Laryngeal Vestibule Closure at Height of Swallow: None; wide column of air/contrast in laryngeal vestibule Pharyngoesophageal Segment Opening: Complete distension and complete duration; no obstruction of flow Tongue Base Retraction: Trace column of contrast between tongue base & post. pharyngeal wall Pharyngeal Residue: Collection of residue within or on pharyngeal structures - Diagnosis/Impression Diagnosis: Mild-Moderate Oropharyngeal Phase Dysphagia (R13.12) Impression: Unable to definitively rule out aspiration for all the trials of the study due to patient?s body habitus. Vocal folds and trachea only visible during the swallow. The oral phase is primarily marked by? -Decreased bolus control with posterior loss of >1/2 of large sips to the pharynx prior to swallow onset. -Repetitive tongue motion for A-P transport. -Decreased mastication of regular textured cookie with much of the cookie appearing un-chewed. Per COMMERCIAL CREDIT REVIEWERCarolina, at [facility], the patient has been tolerating soft solid trials without difficulty. The pharyngeal phase is primarily marked by?. -For a majority of trials, trace pharyngeal residues; however, large sips did result in collection of pharyngeal residue. -Mildly decreased airway closure during the swallow due to mildly decreased laryngeal elevation and anterior hyoid excursion. -Trace SILENT aspiration of first trial of study ? thin barium by tsp. Laryngeal penetration with full ejection of various thin liquids by cup and straw and nectar thickened liquid trials by cup. Amount of laryngeal penetration decreased with decreased bolus size. Patient not able to reliably decrease sip size with verbal cues alone. -Throat clearing observed between trials during the study; however, laryngeal vestibule appeared clear of contrast after each trial. Unable to complete esophageal screen due to pt?s body habitus. No concerns for reflux or regurgitation per patient?s daughter. - Recommendations Diet: Puree Textures, Thin Liquids Comment: Closely monitor lung sounds due to trace SILENT aspiration observed with thin liquid by tsp on first trial. If worsening lung sounds, will recommend downgrade to nectar thickened liquids. Compensatory Strategies: Small Bites, Small Sips - Recommend Provale bolus control cup (10cc), Slow Rate, Sitting upright, Remain sitting upright for 30 minutes after PO intake Supervision: 1:1 Close Supervision Recommend Repeat Modified Barium Swallow: TBD Need for Skilled Speech Therapy Services: Yes Comment: Will recommend the patient for continued dysphagia therapy to address deficits in oropharyngeal swallow function. Will recommend the patient for oropharyngeal strengthening to improve lingual strength/coordination, anterior hyoid excursion, and laryngeal elevation (lingual resistance and coordination exercises, CTAR, effortful breath hold and swallow). The patient would benefit from thorough education regarding diet recommendations and recommended compensatory strategies. Will recommend soft and bite size meal analysis with COMMERCIAL CREDIT REVIEWER to consider patient for further diet advancement. Education Completed: 1. Described result of evaluation. - COMMERCIAL CREDIT REVIEWER called and educated COMMERCIAL CREDIT REVIEWERCarolina, at SNF in results and recommendations of MBSS. Education well received.\, 4. Family/caregivers understand evaluation & agree w/ goals & tx plan., 7. Pt requires further education on strategies & risks. - Status Active ST Patient: Active - Contact Information [facility] Speech Therapy:: Lorie Pena M.A. CCC-COMMERCIAL CREDIT REVIEWER Speech-Language Pathologist [address] [address] [email or web address] [phone] 08/09/22 14:54
== END | disposition home or self-care (01) ==
LOC: RAD 12:43
PROVIDERS: PCP Family Medicine; Referring Provider Family Medicine; Visit Provider Family Medicine
DX: I69.991 Dysphagia following unspecified cerebrovascular disease (principal)
CPT/HCPCS: 74230; 92611

== ENCOUNTER 2022-09-26 13:28 | Inpatient (IN) | payer MEDICARE, OTHER, MEDICAID, SELFPAY ==
[2022-09-26] VITALS (16 sets, daily range): BP systolic 118–183; BP diastolic 11–155; PULSE 43–121; RESP 12–28; TEMP 36.6–37.2; O2SAT 26–98; BMI 39.9; BMI 38.1
--- NOTE | 2022-09-26 13:42 | EKG12_ITS ---
Test Reason : SOB Blood Pressure : / mmHG Vent. Rate : 121 BPM Atrial Rate : 138 BPM P-R Int : 000 ms QRS Dur : 168 ms QT Int : 306 ms P-R-T Axes : 000 105 -71 degrees QTc Int : 434 ms Sinus rhythm with intermittent V Tach Non-specific intra-ventricular conduction block Lateral infarct , age undetermined Abnormal ECG Confirmed by LINDA NAVARRETE, TALON ([id number]), technical writer and editor LIDA CARSON ([id number]) on 09/28/2022 10:49:27 AM Referred By: AGUSTÍN Confirmed By:TALON MCKEON MD
--- NOTE | 2022-09-26 13:44 | EDS_ITS ---
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 Congestive heart failure (CHF) Dementia Depression Diabetes Dysphagia following cerebral infarction Encephalopathy, unspecified Gastro-esophageal reflux disease without esophagitis Gout, unspecified Hemiplegia and hemiparesis following cerebral infarction affecting left non- dominant side Hypertension Hypothyroidism Malignant neoplasm of unspecified part of unspecified bronchus or lung Home Medications allopurinol 100 mg tablet 50 mg PO DAILY gout 01/29/21 [History Last Taken 06/23/22] amlodipine 5 mg tablet 10 mg PO DAILY HTN 01/29/21 [History Last Taken 06/23/22] levothyroxine 50 mcg capsule 50 mcg PO DAILY thyroid 01/29/21 [History Last Taken 06/23/22] apixaban 5 mg tablet 5 mg PO BID CVA 06/23/22 [History Last Taken Unknown] atorvastatin 40 mg tablet 40 mg PO QHS cholesterol 06/23/22 [History Last Taken 06/23/22] bisacodyl 10 mg rectal suppository 10 mg [place] DAILY PRN Constipation 06/23/22 [History Last Taken Unknown] carvedilol 6.25 mg tablet (Coreg) 3.125 mg PO BID HTN 06/23/22 [History Last Taken 06/23/22] losartan 50 mg tablet 50 mg PO QHS hypertension 06/23/22 [History Last Taken 06/23/22] multivitamin 1 tab PO DAILY supplement 06/23/22 [History Last Taken Unknown] terazosin 1 mg tablet 1 mg PO QHS HTN 06/23/22 [History Last Taken 06/23/22] albuterol sulfate 2.5 mg/3 mL (0.083 %) solution for nebulization 2.5 mg (3 mL) inhalation Q2H PRN PRN Dyspnea, wheezing #0 mL 06/28/22 [Rx Last Taken Unknown] insulin glargine-yfgn 100 unit/mL (3 mL) subcutaneous pen 15 unit (0.15 mL) subcut QHS #0 mL 06/28/22 [Rx Last Taken Unknown] insulin lispro 100 unit/mL subcutaneous pen (Humalog KwikPen (U-100) Insulin) 8 unit (0.08 mL) subcut Q8H #0 mL 06/28/22 [Rx Last Taken Unknown] menthol 0.44 %-zinc oxide 20.6 % topical ointment (Calmoseptine) 1 applic topical BID #0 grams 06/28/22 [Rx Last Taken Unknown] acetaminophen 650 mg/20.3 mL oral solution 650 mg PO Q4H PRN PRN Fever, pain 1- 10 09/26/22 [History Last Taken Unknown] budesonide 0.5 mg/2 mL suspension for nebulization 0.5 mg inhalation BID 09/26/22 [History Last Taken Unknown] buspirone 5 mg tablet 5 mg PO TID PRN Anxiety 09/26/22 [History Last Taken Unknown] cholecalciferol (vitamin D3) 25 mcg (1,000 unit) tablet 125 mcg PO DAILY 09/26/22 [History Last Taken Unknown] insulin lispro 100 unit/mL subcutaneous pen (Humalog KwikPen (U-100) Insulin) See Protocol subcut ACHS 09/26/22 [History Last Taken Unknown] sertraline 50 mg tablet 75 mg PO QHS 09/26/22 [History Last Taken Unknown] trazodone 50 mg tablet 50 mg PO QHS 09/26/22 [History Last Taken Unknown] Allergy/AdvReac Type Severity Reaction Status Date / Time Penicillins Allergy PT UNSURE Verified 07/31/22 12:22 OF REACTION Family History Father Diabetes Surgical History History of back surgery History of hysterectomy History of knee replacement S/P breast biopsy S/P carpal tunnel release S/P cataract surgery Social History (Updated 06/23/22 @ 19:[address] Mariel Gamble MD) housing: intermediate Smoking Status: Former smoker how long ago did patient quit smoking: Quit ~ 20 years prior, smoked 40 years 1 ppd. alcohol intake: never substance use type: does not use EXAM Physical Exam Const Vital Signs: 09/26/22 13:30 09/26/22 13:42 09/26/22 13:50 Temperature 98.8 F 98.8 F Temperature Source Oral Oral Pulse Rate 101 H 121 H Respiratory Rate 27 H Respiratory Effort Respiratory Pattern Blood Pressure 169/11 H 183/155 H Blood Pressure Mean 63 164 Pulse Ox 93 95 Oxygen Delivery Method Nasal Cannula Nasal Cannula Nasal Cannula Oxygen Flow Rate (L/min) 3 3 3 Fraction of Inspired Oxygen (FIO2) 09/26/22 14:00 09/26/22 14:04 09/26/22 14:23 Temperature Temperature Source Pulse Rate 99 98 Respiratory Rate 22 H 23 H Respiratory Effort Short of Breath Accessory Muscle Use Respiratory Pattern Tachypnea Blood Pressure 148/69 H Blood Pressure Mean 95 Pulse Ox 97 93 Oxygen Delivery Method Nasal Cannula Nasal Cannula Oxygen Flow Rate (L/min) 3 3 Fraction of Inspired Oxygen (FIO2) 30 09/26/22 15:00 09/26/22 15:00 09/26/22 16:00 Temperature 98.2 F 98 F Temperature Source Temporal Temporal Pulse Rate 86 86 81 Respiratory Rate 22 H 22 H 28 H Respiratory Effort Respiratory Pattern Blood Pressure 118/92 H 118/92 H 135/60 H Blood Pressure Mean 100 100 85 Pulse Ox 98 98 98 Oxygen Delivery Method Nasal Cannula Nasal Cannula Nasal Cannula Oxygen Flow Rate (L/min) 3 3 3 Fraction of Inspired Oxygen (FIO2) 09/26/22 16:31 Temperature 98 F Temperature Source Temporal Pulse Rate 84 Respiratory Rate 28 H Respiratory Effort Respiratory Pattern Blood Pressure 135/60 H Blood Pressure Mean 85 Pulse Ox 98 Oxygen Delivery Method Nasal Cannula Oxygen Flow Rate (L/min) 2 Fraction of Inspired Oxygen (FIO2) MDM MDM MDM Narrative Medical decision making narrative: HISTORY OF PRESENT ILLNESS: 77-year-old female here with acute onset of shortness of breath. Symptoms are constant. She denies any alleviating exacerbating features States began this morning. Denies any cough fever or recent illness. Denies any lower extremity edema. The patient denies recent surgery in the last 4 weeks or immobilization in the last 3 days, denies previous diagnosis of DVT or PE, hemoptysis, unilateral leg swelling or malignancy with treatment the last 6 months. No estrogen use noted. Patient states she does not wear home oxygen. Patient states she has had no bleeding diathesis. Spoke to [facility] who noted she was complaining of SOB. Noted hypoxia to 86% applied 2 L O2 with O2 sats improved to low 90s. Notes breathing treatment improved. Notes the patient has 2 L O2 PRN. REVIEW OF SYSTEMS: Pertinent positives: Shortness of breath Pertinent negatives: Palpitations, chest pain or lower extremity edema PHYSICAL EXAM: Nursing triage notes reviewed, Vital signs reviewed Constitutional: please see mdm HENT: MMM Eyes: Pupils equal round and reactive to light, Extraocular muscles intact Neck: No stridor, no JVD, full neck ROM Lungs: Increased work of breathing, prolonged expiratory phase, no obvious rales, Heart: Regular rate and rhythm, No murmurs, No rubs and No gallops, 2+ distal pulses (radial, femoral, posterior tibial) in all extremities Abdomen: Soft, there is no tenderness, rigidity, rebound or guarding, no obvious peritoneal signs, no palpable pulsatile abdominal masses, no auscultated abdominal bruit : No CVAT Extremities: 1+ pitting edema bilateral lower extremity Neuro: No focal neurological deficits, cranial nerves II through XII intact, 5/5 strength in all extremities. Intact sensation to light touch in all extremities, 2+ reflexes bilateral patella tendons. Normal gait. No ataxia. Skin: No rash or lesions noted MEDICAL DECISION MAKING: Chief Complaint: Shortness of breath External records reviewed: No recent echocardiograms on the chart. Last ED visit for asymptomatic bradycardia was then July 2022 [facility] Narrative: Patient was initially tachycardic hypertensive, tachypneic she was saturating well on 3 L nasal cannula. Per patient she is not on baseline oxygen I considered the following differential diagnosis: Arrhythmia, COPD exacerbation, electrolyte abnormality, CHF exacerbation, ACS, PE, pneumonia Patient was initially tachycardic tachypneic on new oxygen requirement. Initial EKG showed intermittent sinus rhythm with PVCs (bigeminy) that evolved into what appears to be a wide-complex tachycardia likely A-fib with aberrancy versus stable V. tach. Repeat EKG showed A-fib with RVR, likely A-fib with aberrancy. Did not give beta-blockers given concern for wide-complex tachycardia or reentrant tachycardia. I chose to stabilize the patient with a small fluid bolus, calcium empirically for any potassium issues, magnesium for prolonged QT. Ectopy decreased. Patient continued to have increased work of breathing prolonged expiratory phase. VBG without evidence of CO2 retention. Given increased work of breathing I did place patient on rescue BiPAP as a precaution. I did not feel the patient would benefit from breathing treatments because albuterol as a beta agonist only increased ectopy which may lead to decompensated arrhythmia. After BiPAP, magnesium and calcium patient's vitals improved. Ectopy decreased. EKG showed normal sinus rhythm, normal axis, no intervals, no STEMI. CTA of the chest was obtained given no clear expiration for the patient's hypoxia, increased work of breathing. CTA showed known lung mass, bilateral pneumonia. We will prophylactic of the patient antibiotics and begin diuresis given my suspicion for heart failure exacerbation. Lower suspicion for PNA given lack of cough, fever, leukocytosis. Factors affecting care: History of CHF, UTI, dehydration, hyponatremia, on Eliquis 2/2 CVA although patient does not endorse A-fib Social determinants of health: Elderly, poor health literacy History obtained from others: EMS, NH staff Shared decision making: I will have a discussion with the patient and or visitors regarding risk/benefits of further testing or admission. They will be made aware of of the risk/benefits inherent in this decision they will be given the opportunity to voice understanding. Consults: Internal medicine Lab Data Attestation: I reviewed the patient's lab results. Lab results narrative: VBG with no respiratory acidosis, no CO2 retention CBC with no leukocytosis, and anemia improved from baseline, no thrombocytopenia BMP without evidence of significant electrolyte abnormalities, no anion gap, no acute kidney injury. Troponin is negative, no evidence of myocardial ischemia BNP elevated consistent with volume overload Labs: Laboratory Results - last 24 hr 09/26/22 09/26/22 09/26/22 13:45 13:45 13:45 WBC 7.2 RBC 3.61 L Hgb 10.4 L Hct 33.8 L MCV 93.6 MCH 28.8 MCHC 30.8 L RDW Std Deviation 53.2 H RDW Coeff of Neeta 15.6 H Plt Count 250 MPV 9.4 Immature Gran % (Auto) 0.300 Neut % (Auto) 69.0 Lymph % (Auto) 25.1 [place] % (Auto) 5.2 Eos % (Auto) 0.1 Baso % (Auto) 0.3 Absolute Neuts (auto) 4.9 Absolute Lymphs (auto) 1.80 Nucleated RBC % 0 Sodium 144 Potassium 4.2 Chloride 114 H Carbon Dioxide 24.0 Anion Gap 6 BUN 19 H Creatinine 1.08 H Estim Creat Clear Calc 31.87 Est GFR (MDRD) Af Amer 63 Est GFR (MDRD) Non-Af 52 L BUN/Creatinine Ratio 17.6 Glucose 194 H Calcium 9.3 Troponin I High Sens 9 B-Natriuretic Peptide 249.8 H ABG Data ABG results: ABG 09/26/22 13:56 Specimen Type ALVINO VBG pH 7.38 VBG pO2 50 H VBG HCO3 23 VBG Total CO2 24 VBG O2 Sat (Calc) 84 H VBG Base Excess -2 L POC Mix VBG pCO2 Pt Tmp 39.1 L Liter Flow 3.0 Radiography Chest X-Ray - ED: Read by ED Physician Diagnostic Testing: Clinical Impression(s) from Imaging Studies Chest X-Ray 09/26/22 13:45 IMPRESSION: There is a left pleural effusion. Bilateral infiltrates. Enlarging right upper lobe mass. This currently measures 44 mm. Electronically Signed: Tony Burns MD at 14:24 EDT , Chest CTA 09/26/22 14:54 IMPRESSION: 31 mm mass of the right upper lobe. ACR Lung CT Screening Reporting T Data System (Lung-RADS) score: 4B - Very Suspicious. Recommend chest CT with or without contrast, PET/CT and/or tissue sampling depending on the probability of malignancy and comorbidities. PET/CT may be used when there is a >=8 mm solid component. For new large nodules that develop on an annual repeat screening CT, a 1 month LDCT may be recommended to address potentially infectious or inflammatory conditions. No demonstrated pulmonary embolism or arterial dissection. There are bilateral pleural effusions. There is bilateral pneumonia. Partially visualized lyndon hepatic Ascites. Electronically Signed: Tony Burns MD at 15:53 EDT , Chest x-ray by my read shows bilateral pulmonary edema possible right lower lobe infiltrate Discharge Plan Disposition Disposition: Acute Care Hospital [facility] Discharge Date/Time: 09/26/22 17:05
--- NOTE | 2022-09-26 13:45 | RAD_ITS ---
STUDY: XR Chest 1 View 09/26/2022 1:43 PM REASON FOR EXAM: Female, 77 years old. CHEST PAIN chest pain COMPARISON: 2.. TECHNIQUE: XR Chest 1 View FINDINGS: There is a left pleural effusion. Bilateral infiltrates. Enlarging right upper lobe mass. This currently measures 44 mm. Enlarged heart size. Normal mediastinum. Prominent jovany. Prominent appearing increased interstitial lung markings. Normal visualized pulmonary arteries. There is atherosclerotic calcification of the aortic arch with tortuosity. There are diffuse degenerative changes of the visualized thoracic spine. There is degenerative osteoarthritis of the bilateral shoulders. Partially visualized lumbar spinal fusion hardware. RAD/Chest 1 View (Portable) IMPRESSION: There is a left pleural effusion. Bilateral infiltrates. Enlarging right upper lobe mass. This currently measures 44 mm. Electronically Signed: Tony Burns MD at 14:24 EDT ,
[2022-09-26 13:53] LABS: Absolute Neutrophil Count 4.9 X10^3/uL (2.0-7.7); Basophil# 0.02 X10^3/uL; Basophil% 0.3 % (0-1); Eosinophil# 0.01 X10^3/uL; Eosinophils% 0.1 % (0-5); Hematocrit 33.8 % (37-47); Hemoglobin 10.4 g/dL (12.0-15.0); Lymphocyte % 25.1 % (19-41); Mean Corp Hgb Conc 30.8 g/dL (32-36); Mean Corpuscular Hgb 28.8 pg (27.0-32.0); Mean Corpuscular Volume 93.6 fL (81-99); Mean Platelet Vol. 9.4 fl (6.2-12.0); Monocyte# 0.37 X10^3/uL; Monocyte% 5.2 % (0-10); NRBC Flagged by Analyzer 0 % (0-5); Neutrophil # 4.94 X10^3/uL (2.7-7.7); Platelet Count 250 K/mm3 (150-450); RBC Distribution Width CV 15.6 % (11.6-14.6); RBC Distribution Width SD 53.2 fl (35.1-43.9); Red Blood Count 3.61 M/mm3 (4.2-5.4); White Blood Count 7.2 K/mm3 (4.4-11.0)
[2022-09-26] MEDS: Calcium Gluconate 1 GM/10 ML Vial IVP (13:54)
--- NOTE | 2022-09-26 13:57 | EKG12_ITS ---
Test Reason : SOB Blood Pressure : / mmHG Vent. Rate : 147 BPM Atrial Rate : 000 BPM P-R Int : 000 ms QRS Dur : 180 ms QT Int : 382 ms P-R-T Axes : 000 108 -66 degrees QTc Int : 597 ms Wide QRS tachycardia , V Tach Non-specific intra-ventricular conduction block Possible Right ventricular hypertrophy Confirmed by LINDA NAVARRETE, TALON ([id number]), editor sound LIDA CARSON ([id number]) on 09/28/2022 10:50:13 AM Referred By: AGUSTÍN Confirmed By:TALON MCKEON MD
[2022-09-26 14:01] LABS: Blood Gas Specimen Type VEN; VBG BASE EXCESS -2 mmol/L (-1.0-3.5); VBG Bicarbonate 23 mmol/L (22-26); VBG PO2 50 mmHg (25-40); VBG SO2 84 % (50-70); VBG TCO2 24 mmol/L (23-33); VBG pCO2 39.1 mmHg (41-51); VBG pH 7.38 (7.32-7.42)
[2022-09-26 14:10] LABS: Anion Gap 6 (5-15); BUN 19 mg/dL (7-18); BUN/Creat Ratio 17.6 RATIO (10-20); Calcium,Total 9.3 mg/dL (8.5-10.1); Chloride 114 mmol/L (98-107); Creatinine, Serum 1.08 mg/dL (0.55-1.02); EST Glomerular Filtration Rate 52 mL/min (>60); Est Glom Filt Rate - Afr Amer 63 mL/min (>60); Estimated Creatinine Clearance 31.87 ml/min; Glucose 194 mg/dL (74-106); Potassium 4.2 mmol/L (3.5-5.1); Sodium Level 144 mmol/L (136-145); Troponin-I HS (w/2H Reflex) 9 pg/mL (3.0-54.0)
[2022-09-26 14:11] LABS: BNP,B-Type NATRIURETIC PEPTIDE 249.8 pg/mL (0-100)
--- NOTE | 2022-09-26 14:54 | CT_ITS ---
STUDY: CTA Chest WO/W Contrast Injection 09/26/2022 3:49 PM REASON FOR EXAM: Female, 77 years old. Shortness of breath which started this morning. Denies chest pain, cancer, hypoxia r/o PE TECHNIQUE: The examination was performed with the intravenous administration of w w/o IV 100mL Isovue-370 contrast material. Post-processing of the angiographic images was performed, with axial imaging and 3D reconstruction. MIPS images were obtained. Individualized dose optimization techniques were used for this CT. COMPARISON: None. FINDINGS: There are degenerative changes of the shoulders. There is no pneumothorax. There are bilateral pleural effusions. There is bilateral pneumonia. 31 mm mass of the right upper lobe. There are calcifications of the coronary arteries. 13 mm right paratracheal lymph node. Normal hilar regions. Normal pulmonary arteries. There is atherosclerotic calcification of the aortic arch with tortuosity and elongation of the aortic arch and descending thoracic aorta. There are multi-level degenerative changes of the thoracic spine. Partially visualized lyndon hepatic Ascites. Spinal fixation hardware visualized. CT/CTA Chest W/WO Contrast IMPRESSION: 31 mm mass of the right upper lobe. ACR Lung CT Screening Reporting T Data System (Lung-RADS) score: 4B - Very Suspicious. Recommend chest CT with or without contrast, PET/CT and/or tissue sampling depending on the probability of malignancy and comorbidities. PET/CT may be used when there is a >=8 mm solid component. For new large nodules that develop on an annual repeat screening CT, a 1 month LDCT may be recommended to address potentially infectious or inflammatory conditions. No demonstrated pulmonary embolism or arterial dissection. There are bilateral pleural effusions. There is bilateral pneumonia. Partially visualized lyndon hepatic Ascites. Electronically Signed: Tony Burns MD at 15:53 EDT ,
--- NOTE | 2022-09-26 15:10 | CPS ---
Patient taken off Bipap for trip to CT, placed on 3lpm.
--- NOTE | 2022-09-26 16:02 | EKG12_ITS ---
Test Reason : Blood Pressure : / mmHG Vent. Rate : 084 BPM Atrial Rate : 084 BPM P-R Int : 186 ms QRS Dur : 084 ms QT Int : 384 ms P-R-T Axes : 053 009 056 degrees QTc Int : 453 ms Normal sinus rhythm Low voltage QRS Borderline ECG When compared with ECG of 26-SEP-2022 15:45, MANUAL COMPARISON REQUIRED, DATA IS UNCONFIRMED Confirmed by LINDA NAVARRETE, TALON ([id number]), news copy editor LIDA CARSON ([id number]) on 09/28/2022 9:53:46 AM Referred By: LINDA Confirmed By:TALON MCKEON MD
[2022-09-26] MEDS: Furosemide 40 MG/4 ML Vial IV (16:11)
[2022-09-26] MEDS: Ceftriaxone 1 GM/50 ML BAG IV (16:36)
--- NOTE | 2022-09-26 16:37 | PCM.HP.STD ---
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 In ED heart rate initially low 100s and sinus arrhythmia, SBP 169/110. Was tachypneic at 27 and saturating 95 on 3 L of O2 due to work of breathing was placed on BiPAP for a period of time. BNP was 249, troponin 9. Due to clinical picture she had CTA which had no PE but did have bilateral pleural effusions and read out as bilateral pneumonia.. Paddock ascites and a lung mass which reportedly is known. QTc 597, heart rate/rhythm devolved into a wide-complex tachycardia and she was given mag and calcium. Appeared overloaded and was given 40 of IV Lasix x1 and given the query of pneumonia was given Rocephin. Hospitalist consulted for admission. Evaluated with patient and family member at bedside and she reported she had been in her usual health until this morning when she woke up short of breath and progressively worsened throughout the day till presentation. She reports shortness of breath is improving with management in the ED but still more short of breath than baseline. She denies any cough or fever, does have headaches almost daily and has for months, has no other acute complaints. [facility] Medical History Anxiety Aphasia following unspecified cerebrovascular disease Cerebral infarction due to embolism of right middle cerebral artery Congestive heart failure (CHF) Dementia Depression Diabetes Dysphagia following cerebral infarction Encephalopathy, unspecified Gastro-esophageal reflux disease without esophagitis Gout, unspecified Hemiplegia and hemiparesis following cerebral infarction affecting left non-dominant side Hypertension Hypothyroidism Malignant neoplasm of unspecified part of unspecified bronchus or lung Home Medications allopurinol 100 mg tablet 50 mg PO DAILY gout 01/29/21 [History Last Taken 06/23/22] amlodipine 5 mg tablet 10 mg PO DAILY HTN 01/29/21 [History Last Taken 06/23/22] levothyroxine 50 mcg capsule 50 mcg PO DAILY thyroid 01/29/21 [History Last Taken 06/23/22] apixaban 5 mg tablet 5 mg PO BID CVA 06/23/22 [History Last Taken Unknown] atorvastatin 40 mg tablet 40 mg PO QHS cholesterol 06/23/22 [History Last Taken 06/23/22] bisacodyl 10 mg rectal suppository 10 mg NH DAILY PRN Constipation 06/23/22 [History Last Taken Unknown] carvedilol 6.25 mg tablet (Coreg) 3.125 mg PO BID HTN 06/23/22 [History Last Taken 06/23/22] losartan 50 mg tablet 50 mg PO QHS hypertension 06/23/22 [History Last Taken 06/23/22] multivitamin 1 tab PO DAILY supplement 06/23/22 [History Last Taken Unknown] terazosin 1 mg tablet 1 mg PO QHS HTN 06/23/22 [History Last Taken 06/23/22] albuterol sulfate 2.5 mg/3 mL (0.083 %) solution for nebulization 2.5 mg (3 mL) inhalation Q2H PRN PRN Dyspnea, wheezing #0 mL 06/28/22 [Rx Last Taken Unknown] insulin glargine-yfgn 100 unit/mL (3 mL) subcutaneous pen 15 unit (0.15 mL) subcut QHS #0 mL 06/28/22 [Rx Last Taken Unknown] insulin lispro 100 unit/mL subcutaneous pen (Humalog KwikPen (U-100) Insulin) 8 unit (0.08 mL) subcut Q8H #0 mL 06/28/22 [Rx Last Taken Unknown] menthol 0.44 %-zinc oxide 20.6 % topical ointment (Calmoseptine) 1 applic topical BID #0 grams 06/28/22 [Rx Last Taken Unknown] acetaminophen 650 mg/20.3 mL oral solution 650 mg PO Q4H PRN PRN Fever, pain 1-10 09/26/22 [History Last Taken Unknown] budesonide 0.5 mg/2 mL suspension for nebulization 0.5 mg inhalation BID 09/26/22 [History Last Taken Unknown] buspirone 5 mg tablet 5 mg PO TID PRN Anxiety 09/26/22 [History Last Taken Unknown] cholecalciferol (vitamin D3) 25 mcg (1,000 unit) tablet 125 mcg PO DAILY 09/26/22 [History Last Taken Unknown] insulin lispro 100 unit/mL subcutaneous pen (Humalog KwikPen (U-100) Insulin) See Protocol subcut ACHS 05/14/23 [History Last Taken Unknown] sertraline 50 mg tablet 75 mg PO QHS 09/26/22 [History Last Taken Unknown] trazodone 50 mg tablet 50 mg PO QHS 09/26/22 [History Last Taken Unknown] Allergy/AdvReac Type Severity Reaction Status Date / Time Penicillins Allergy PT UNSURE Verified 07/31/22 12:22 OF REACTION Family History Father Diabetes Surgical History History of back surgery History of hysterectomy History of knee replacement S/P breast biopsy S/P carpal tunnel release S/P cataract surgery Social History (Updated 06/23/22 @ 19:[address] Mariel Gamble MD) housing: [facility] Smoking Status: Former smoker how long ago did patient quit smoking: Quit ~ 20 years prior, smoked 40 years 1 ppd. alcohol intake: never substance use type: does not use ROS ROS Narrative General: Denies fever/chills HENT: Has headaches that have been present for months, denies stuffy nose, denies sore throat EYES: Denies changes in vision Resp: Denies cough, increasing shortness of breath primarily over the past day Cardiac: Denies chest pain GI: Denies abdominal pain, denies changes in bowel, denies nausea/vomiting : Denies changes in urination Extremity: Denies swelling MSK: Chronically weaker on the left than the right from previous stroke Neuro: Denies any numbness/tingling Heme: Denies any bleeding or bruising Skin: Denies rashes Psychiatric: No complaints voiced Vital Signs Vital Signs Vital Signs: 09/26/22 13:30 09/26/22 13:42 09/26/22 13:50 Temperature 98.8 F 98.8 F Temperature Source Oral Oral Pulse Rate 101 H 121 H Respiratory Rate 27 H Respiratory Effort Respiratory Pattern Blood Pressure 169/11 H 183/155 H Blood Pressure Mean 63 164 Pulse Ox 93 95 Oxygen Delivery Method Nasal Cannula Nasal Cannula Nasal Cannula Oxygen Flow Rate (L/min) 3 3 3 Fraction of Inspired Oxygen (FIO2) 09/26/22 14:00 09/26/22 14:04 09/26/22 14:23 Temperature Temperature Source Pulse Rate 99 98 Respiratory Rate 22 H 23 H Respiratory Effort Short of Breath Accessory Muscle Use Respiratory Pattern Tachypnea Blood Pressure 148/69 H Blood Pressure Mean 95 Pulse Ox 97 93 Oxygen Delivery Method Nasal Cannula Nasal Cannula Oxygen Flow Rate (L/min) 3 3 Fraction of Inspired Oxygen (FIO2) 30 09/26/22 15:00 09/26/22 15:00 09/26/22 16:00 Temperature 98.2 F 98 F Temperature Source Temporal Temporal Pulse Rate 86 86 81 Respiratory Rate 22 H 22 H 28 H Respiratory Effort Respiratory Pattern Blood Pressure 118/92 H 118/92 H 135/60 H Blood Pressure Mean 100 100 85 Pulse Ox 98 98 98 Oxygen Delivery Method Nasal Cannula Nasal Cannula Nasal Cannula Oxygen Flow Rate (L/min) 3 3 3 Fraction of Inspired Oxygen (FIO2) 09/26/22 16:31 Temperature 98 F Temperature Source Temporal Pulse Rate 84 Respiratory Rate 28 H Respiratory Effort Respiratory Pattern Blood Pressure 135/60 H Blood Pressure Mean 85 Pulse Ox 98 Oxygen Delivery Method Nasal Cannula Oxygen Flow Rate (L/min) 2 Fraction of Inspired Oxygen (FIO2) Weight Weight: 96 kg Body Mass Index (BMI) 39.9 Physical Exam Narrative General: Alert, oriented, no apparent distress HEENT: Atraumatic, normocephalic Eyes: Anicteric, normal conjunctiva, extraocular movements grossly intact Neck: Supple Respiratory: Somewhat diminished at the bases, slight increased work of breathing Cardiovascular: Regular rate and rhythm with occasional ectopy on monitor GI: Soft, nontender, nondistended Extremities: 1+ bilateral lower extremity edema Musculoskeletal: Moving all extremities, does have chronic weakness left greater than right Neuro: No overt focal neurological deficits aside from the chronic weakness Skin: No rashes appreciated Psych: Cooperative Results Lab / Micro Data Result Diagrams: 09/26/22 13:45 09/26/22 13:45 Labs: Laboratory Results - last 24 hr 09/26/22 13:45: WBC 7.2, RBC 3.61 L, Hgb 10.4 L, Hct 33.8 L, MCV 93.6, MCH 28.8, MCHC 30.8 L, RDW Std Deviation 53.2 H, RDW Coeff of Neeta 15.6 H, Plt Count 250, MPV 9.4, Immature Gran % (Auto) 0.300, Neut % (Auto) 69.0, Lymph % (Auto) 25.1, [place] % (Auto) 5.2, Eos % (Auto) 0.1, Baso % (Auto) 0.3, Absolute Neuts (auto) 4.9, Absolute Lymphs (auto) 1.80, Nucleated RBC % 0 09/26/22 13:45: Sodium 144, Potassium 4.2, Chloride 114 H, Carbon Dioxide 24.0, Anion Gap 6, BUN 19 H, Creatinine 1.08 H, Estim Creat Clear Calc 31.87, Est GFR (MDRD) Af Amer 63, Est GFR (MDRD) Non-Af 52 L, BUN/Creatinine Ratio 17.6, Glucose 194 H, Calcium 9.3, Troponin I High Sens 9 09/26/22 13:45: B-Natriuretic Peptide 249.8 H Micro: Microbiology 09/26/22 13:55 Nasal Secretion SARS-CoV-2 & FLU Antigen (Rapid) - Final ABG Data ABG results: ABG 09/26/22 13:56 Specimen Type ALVINO VBG pH 7.38 VBG pO2 50 H VBG HCO3 23 VBG Total CO2 24 VBG O2 Sat (Calc) 84 H VBG Base Excess -2 L POC Mix VBG pCO2 Pt Tmp 39.1 L Liter Flow 3.0 Radiology Impression Chest X-Ray 09/26/22 13:45 IMPRESSION: There is a left pleural effusion. Bilateral infiltrates. Enlarging right upper lobe mass. This currently measures 44 mm. Electronically Signed: Tony Burns MD at 14:24 EDT Reading Location ID and State: [address] [place] [address] , Service support , Chest CTA 09/26/22 14:54 IMPRESSION: 31 mm mass of the right upper lobe. ACR Lung CT Screening Reporting T Data System (Lung-RADS) score: 4B - Very Suspicious. Recommend chest CT with or without contrast, PET/CT and/or tissue sampling depending on the probability of malignancy and comorbidities. PET/CT may be used when there is a >=8 mm solid component. For new large nodules that develop on an annual repeat screening CT, a 1 month LDCT may be recommended to address potentially infectious or inflammatory conditions. No demonstrated pulmonary embolism or arterial dissection. There are bilateral pleural effusions. There is bilateral pneumonia. Partially visualized lyndon hepatic Ascites. Electronically Signed: Tony Burns MD at 15:53 EDT , Assessment & Plan Assessment/Plan (1) Shortness of breath: PLAN: Plan #Increasing SOB likely secondary to fluid overload -BNP of 249 -CTA with bilateral pleural effusions without pulmonary embolism, it queried bilateral pneumonia though less convinced that this is a bilateral pneumonia especially given sudden onset without cough or sputum production and labs pointing towards fluid overload and not infection -Will order echo, no echo presently in our system -Troponin 9 -Daily weights, I's and O's, fluid restriction -Does have history of COPD reportedly, will start ipratropium neb as albuterol may exacerbate arrhythmia and tachycardia and continue her home Pulmicort -BiPAP nightly and as needed -COVID-negative but we will obtain respiratory panel #Arrhythmia -Monitor on telemetry -No chest pain -Troponin 9, improved with mag and calcium -Continue beta-monique -Continue Synthroid, daily mag, TSH, calcium -AM EKG to assess QTc -Avoid QTc prolonging agents #History of right MCA stroke with residual left-sided deficits -PT/OT -Reportedly takes Eliquis for this, do not see history of A-fib but will continue this and with active cancer is at high risk of clotting #lung mass -Pt reportedly aware of cancer but had stroke prior to getting bx -Awaiting outpatient follow up -Has been having daily headaches, will get head CT given active cancer -Can consider MRI if negative #LANIE -Reports chronically using NIPPV, will also continue here #CKD stage IIIb -Appears slightly elevated from previous but comparing historically this appears to be about baseline #Type 2 diabetes mellitus -Glucose checks and sliding scale insulin -We will continue long-acting but at lower dose #DVT ppx: Continue Eliquis Did discuss CODE STATUS with patient with family member at bedside and patient did endorse she wanted to be full code and this was also echoed to ED physician Linda Murphy MD Time spent in the patient's overall evaluation,decision-making process, review of diagnostic data, adjustment of management, discussion with other providers, nursing nursing and ancillary staff involved in patient's care documentation, 60 minutes Charges/Coding Visit Charges Inpatient E&M: 80895 Init Hosp L2
--- NOTE | 2022-09-26 16:51 | ECHOCS_ITS ---
Reason For Study: Arrhythmia Procedure This was a 2D Doppler, Color Flow transthoracic echocardiogram. Contrast injection was performed. Exam performed portable in patient room. Left Ventricle Normal LV size. Left ventricular systolic function is normal. The estimated ejection fraction is 60 %. Stage 1 diastolic dysfunction. No regional wall motion abnormalities noted. Right Ventricle Normal RV size. Normal systolic function. Atria Normal left atrium. Normal right atrium. Mitral Valve Normal mitral valve. Tricuspid Valve Normal tricuspid valve. Moderate (2+) tricuspid valve insufficiency. Pulmonary artery systolic pressure is 58 mmHg. Moderate pulmonary hypertension. Aortic Valve Trisinus/trileaflet aortic valve. Pulmonic Valve Normal pulmonic valve. Great Vessels Normal aortic root. Pericardium/Pleural Small pericardial effusion. There are no echocardiographic indications of cardiac tamponade. Moderate size left pleural effusion. Medication Diluted definity 4ml given slow IV push to enhance endocardial definition. MMode/2D Measurements & Calculations LVIDd: 5.0 cm IVSd: 0.91 cm Ao root diam: 3.3 cm LVIDs: 3.3 cm LVPWd: 1.0 cm RVDd: 4.0 cm FS: 34.0 % LAV(MOD-bp): 50.0 ml LVAd ap4: 31.8 cm2 SV(MOD-sp4): 67.2 ml LAV(MOD-bp) Indexed: 26.5 ml/m2 LVLd ap4: 8.0 cm LAV(MOD-sp2): 41.0 ml EDV(MOD-sp4): 104.2 ml LAV(MOD-sp4): 51.9 ml EDV(sp4-el): 108.2 ml LVAs ap4: 16.8 cm2 LVLs ap4: 6.5 cm ESV(MOD-sp4): 37.0 ml ESV(sp4-el): 36.8 ml EF(MOD-sp4): 64.5 % EF(sp4-el): 66.0 % SV(sp4-el): 71.4 ml LA A4 area: 20.6 cm2 LA dimension(2D): 4.0 cm RA A4 area: 13.2 cm2 Time Measurements MV dec time: 0.31 sec Doppler Measurements & Calculations MV E max matthew: 91.8 cm/sec Lat Peak E' Matthew: 7.9 cm/sec Med Peak E' Matthew: 4.7 cm/sec MV A max matthew: 102.8 cm/sec E/E' lat: 11.7 E/E' med: 19.5 MV E/A: 0.89 MV dec slope: 293.0 cm/sec2 Ao V2 max: 148.7 cm/sec LV V1 max: 110.0 cm/sec Ao max P.9 mmHg LV V1 max P.8 mmHg Ao V2 mean: 97.9 cm/sec Ao mean P.5 mmHg Ao V2 VTI: 34.4 cm PA V2 max: 95.2 cm/sec TR max matthew: 355.4 cm/sec TR max P.5 mmHg ECHO/Echo Complete W/ Contrast Interpretation Summary Normal LV size. Left ventricular systolic function is normal. The estimated ejection fraction is 60 %. Stage 1 diastolic dysfunction. Pulmonary artery systolic pressure is 58 mmHg. Moderate pulmonary hypertension. Small pericardial effusion. Ordering Physician: Linda Murphy Referring Physician: Urbano Palencia Performed By: Samira Wilkinson, CARINE, RVT
[2022-09-26 18:16] LABS: Color, Urine Straw (Yellow); Glucose, Dipstick Normal (Normal); Ketone-Dipstick Negative (Negative); Leukocyte Esterase-Dipstick 500 /ul (Negative); Nitrite-Dipstick Negative (Negative); Occult Blood-Urine 25 /ul (Negative); Protein-Dipstick Negative (Negative); Specific Gravity, Urine 1.005 (1.002-1.030); Urine Bilirubin Dipstick Negative (Negative); Urine Clarity Clear (Clear); Urine Urobilinogen Normal (Normal)
[2022-09-26] MEDS: Magnesium Sulfate 4gm/100mL 4 GM/100 ML IV.SOLN. IV (18:16)
[2022-09-26 18:24] LABS: Red Blood Cells-Urine 0-5 SEEN /hpf (0-5); White Blood Cells 5-10 SEEN /hpf (0-5)
[2022-09-26 18:25] LABS: Bacteria 1+ /hpf (None Seen); Squamous Epithelial Cells - UA 0-5 SEEN /hpf (5-10)
[2022-09-26] MEDS: Ipratropium 0.5 MG/2.5 ML SOLUTION INHALATION (20:51)
[2022-09-26] MEDS: Budesonide Respules 0.5 MG/2 ML AMPUL.NEB. INHALATION (20:51)
[2022-09-26] MEDS: Carvedilol 3.125 MG TABLET PO (21:39)
[2022-09-26] MEDS: Losartan Potassium 50 MG Tablet PO (21:39)
[2022-09-26] MEDS: Sertraline 50 MG Tablet 75 MG PO (21:39)
[2022-09-26] MEDS: Atorvastatin Calcium 40 MG Tablet PO (21:39)
[2022-09-26] MEDS: APIXABAN 5 MG TABLET PO (21:39)
[2022-09-26] MEDS: Acetaminophen 325 MG Tablet 650 MG PO (21:45)
[2022-09-26] MEDS: Insulin Glargine-YFGN 100 UNIT/ML Pen 10 UNIT SC (21:50)
[2022-09-26 22:16] LABS: Bedside Glucose 140 mg/dL (74-106)
[2022-09-27] VITALS (8 sets, daily range): BP systolic 129–152; BP diastolic 62–76; PULSE 69–86; RESP 16–18; TEMP 36.5–37.4; O2SAT 94–95; BMI 38.1
--- NOTE | 2022-09-27 02:10 | CPS ---
pt refuses to go back on bipap, was used for rescue only
[2022-09-27] MEDS: Levothyroxine 50 MCG Tablet PO (05:14)
[2022-09-27 05:34] LABS: Absolute Lymphocyte Count 1.73 X10^3/uL (0.83-4.51); Absolute Neutrophil Count 3.9 X10^3/uL (2.0-7.7); Basophil# 0.03 X10^3/uL; Basophil% 0.5 % (0-1); Eosinophil# 0.05 X10^3/uL; Eosinophils% 0.8 % (0-5); Hematocrit 29.6 % (37-47); Hemoglobin 9.3 g/dL (12.0-15.0); Lymphocyte # 1.73 X10^3/ul (0.83-4.51); Lymphocyte % 28.1 % (19-41); Mean Corp Hgb Conc 31.4 g/dL (32-36); Mean Corpuscular Hgb 28.9 pg (27.0-32.0); Mean Corpuscular Volume 91.9 fL (81-99); Mean Platelet Vol. 9.4 fl (6.2-12.0); Monocyte% 6.5 % (0-10); NRBC Flagged by Analyzer 0 % (0-5); Neutrophil # 3.91 X10^3/uL (2.7-7.7); Neutrophil % 63.6 % (47-70); Platelet Count 239 K/mm3 (150-450); RBC Distribution Width CV 15.6 % (11.6-14.6); RBC Distribution Width SD 52.9 fl (35.1-43.9); Red Blood Count 3.22 M/mm3 (4.2-5.4); White Blood Count 6.2 K/mm3 (4.4-11.0)
[2022-09-27 06:36] LABS: Bedside Glucose 105 mg/dL (74-106)
[2022-09-27 06:47] LABS: BUN 17 mg/dL (7-18); Creatinine, Serum 0.99 mg/dL (0.55-1.02); EST Glomerular Filtration Rate 58 mL/min (>60); Estimated Creatinine Clearance 34.77 ml/min; Glucose 111 mg/dL (74-106)
[2022-09-27 06:48] LABS: ALB/GLOB Ratio 0.8 RATIO (0.9-2.4); AST(SGOT) 12 U/L (15-37); Alanine Aminotransfer ALT/SGPT 16 U/L (13-56); Albumin, Serum 2.7 g/dL (3.2-5.0); Alkaline Phosphatase 75 U/L (45-117); Anion Gap 5 (5-15); BUN/Creat Ratio 17.2 RATIO (10-20); Calcium,Total 9.1 mg/dL (8.5-10.1); Chloride 110 mmol/L (98-107); Est Glom Filt Rate - Afr Amer 70 mL/min (>60); Globulin 3.4 g/dL (2.2-4.2); Magnesium 2.6 mg/dL (1.6-2.6); Potassium 3.8 mmol/L (3.5-5.1); Protein, Total 6.1 g/dL (6.4-8.2); Sodium Level 140 mmol/L (136-145); T4 Free Direct 1.27 ng/dL (0.76-1.46); Thyroid Stim Hormone (TSH) 0.42 uIU/mL (0.358-3.74)
[2022-09-27] MEDS: Budesonide Respules 0.5 MG/2 ML AMPUL.NEB. INHALATION ×2 (07:32→18:55)
[2022-09-27] MEDS: Ipratropium 0.5 MG/2.5 ML SOLUTION INHALATION ×2 (07:32→18:55)
--- NOTE | 2022-09-27 07:57 | PCM.PN.HOSP ---
Reason for Visit Reason for Visit: Diagnoses Shortness of breath (09/26/22) Objective Data Objective Data Vital Signs: Vital Signs Temp Pulse Resp BP Pulse Ox O2 Del Method O2 Flow Rate 98.2 F 71 16 149/76 H 94 Nasal Cannula 3 09/27/22 02:16 09/27/22 04:10 09/27/22 02:16 09/27/22 02:16 09/27/22 02:16 09/27/22 02:16 09/27/22 02:16 FiO2 30 09/26/22 18:00 Oxygen Flow Rate (L/min) 3 Oxygen Delivery Method Nasal Cannula Weight: 201 lb 15.095 oz Body Mass Index (BMI) 38.1 Intake & Output: Intake and Output for Last 24 Hours 09/25/22 09/26/22 09/27/22 23:59 23:59 23:59 Intake Total 254 / 254 600 / 600 Output Total 1250 / 1250 400 / 400 Balance -996 / -996 200 / 200 Lab / Micro Data Result Diagrams: 09/27/22 05:00 09/27/22 05:00 Labs: Laboratory Results - last 24 hr 09/26/22 13:45: WBC 7.2, RBC 3.61 L, Hgb 10.4 L, Hct 33.8 L, MCV 93.6, MCH 28.8, MCHC 30.8 L, RDW Std Deviation 53.2 H, RDW Coeff of Neeta 15.6 H, Plt Count 250, MPV 9.4, Immature Gran % (Auto) 0.300, Neut % (Auto) 69.0, Lymph % (Auto) 25.1, [place] % (Auto) 5.2, Eos % (Auto) 0.1, Baso % (Auto) 0.3, Absolute Neuts (auto) 4.9, Absolute Lymphs (auto) 1.80, Nucleated RBC % 0 09/26/22 13:45: Sodium 144, Potassium 4.2, Chloride 114 H, Carbon Dioxide 24.0, Anion Gap 6, BUN 19 H, Creatinine 1.08 H, Estim Creat Clear Calc 31.87, Est GFR (MDRD) Af Amer 63, Est GFR (MDRD) Non-Af 52 L, BUN/Creatinine Ratio 17.6, Glucose 194 H, Calcium 9.3, Troponin I High Sens 9 09/26/22 13:45: B-Natriuretic Peptide 249.8 H 09/26/22 17:30: Urine Color Straw, Urine Clarity Clear, Urine pH 6.0, Ur Specific [employer] 1.005, Urine Protein Negative, Urine Glucose (UA) Normal, Urine Ketones Negative, Urine Occult Blood 25 H, Urine Nitrite Negative, Urine Bilirubin Negative, Urine Urobilinogen Normal, Ur Leukocyte Esterase 500 H, Urine RBC 0-5 SEEN, Urine WBC 5-10 SEEN, Ur Squamous Epith Cells 0-5 SEEN, Urine Bacteria 1+, Urine Mucus Not Reportable 09/26/22 21:50: POC Glucose 140 H 09/27/22 05:00: Sodium 140, Potassium 3.8, Chloride 110 H, Carbon Dioxide 25.0, Anion Gap 5, BUN 17, Creatinine 0.99, Estim Creat Clear Calc 34.77, Est GFR (MDRD) Af Amer 70, Est GFR (MDRD) Non-Af 58 L, BUN/Creatinine Ratio 17.2, Glucose 111 H, Calcium 9.1, Magnesium 2.6, Total Bilirubin 0.40, AST 12 L, ALT 16, Alkaline Phosphatase 75, Total Protein 6.1 L, Albumin 2.7 L, Globulin 3.4, Albumin/Globulin Ratio 0.8 L, TSH 0.42, Free T4 1.27 09/27/22 05:00: WBC 6.2, RBC 3.22 L, Hgb 9.3 L, Hct 29.6 L, MCV 91.9, MCH 28.9, MCHC 31.4 L, RDW Std Deviation 52.9 H, RDW Coeff of Neeta 15.6 H, Plt Count 239, MPV 9.4, Immature Gran % (Auto) 0.500, Neut % (Auto) 63.6, Lymph % (Auto) 28.1, [place] % (Auto) 6.5, Eos % (Auto) 0.8, Baso % (Auto) 0.5, Absolute Neuts (auto) 3.9, Absolute Lymphs (auto) 1.73, Nucleated RBC % 0 09/27/22 06:14: POC Glucose 105 Micro: Microbiology 09/26/22 17:30 Mucosa - Nasopharyngeal Respiratory Panel (PCR) - Final 09/26/22 17:30 Urine Catheter - Burgess Legionella Antigen - Final 09/26/22 17:30 Urine Catheter - [place] Streptococcus pneumoniae Antigen (M - Final 09/26/22 13:55 Nasal Secretion SARS-CoV-2 & FLU Antigen (Rapid) - Final ABG Data ABG results: ABG 09/26/22 13:56 Specimen Type ALVINO VBG pH 7.38 VBG pO2 50 H VBG HCO3 23 VBG Total CO2 24 VBG O2 Sat (Calc) 84 H VBG Base Excess -2 L POC Mix VBG pCO2 Pt Tmp 39.1 L Liter Flow 3.0 Radiography Diagnostic Testing: Radiology Impression Chest X-Ray 09/26/22 13:45 IMPRESSION: There is a left pleural effusion. Bilateral infiltrates. Enlarging right upper lobe mass. This currently measures 44 mm. Electronically Signed: Tony Burns MD at 14:24 EDT , Chest CTA 09/26/22 14:54 IMPRESSION: 31 mm mass of the right upper lobe. ACR Lung CT Screening Reporting T Data System (Lung-RADS) score: 4B - Very Suspicious. Recommend chest CT with or without contrast, PET/CT and/or tissue sampling depending on the probability of malignancy and comorbidities. PET/CT may be used when there is a >=8 mm solid component. For new large nodules that develop on an annual repeat screening CT, a 1 month LDCT may be recommended to address potentially infectious or inflammatory conditions. No demonstrated pulmonary embolism or arterial dissection. There are bilateral pleural effusions. There is bilateral pneumonia. Partially visualized lyndon hepatic Ascites. Electronically Signed: Tony Burns MD at 15:53 EDT , Physical Exam Narrative Seen and examined. Patient is hypervolemic with leg swelling/edema, shortness of breath. Patient is also depressed. She is frequently tearful. Patient had wide-complex tachycardia on EKG on admission. Second EKG was artifact. Physical exam General: Alert, Oriented x3, Cooperative HEENT: Atraumatic, PERRLA, EOMI, Normocephalic Oral: Oral mucosa moist. No Gingival or Mucosal Lesions/ Ulcerations Neck: Supple, No JVD, Negative Carotid Bruits Lungs: Air entry diminished in bilateral lung bases. Dyspnea at minimal exertion. No crepitation/rhonchi. Cardiovascular: Sinus rhythm on monitor, Normal S1, Normal S2, No murmurs Abdomen: PEG tube present. Bowel Sounds Present, Soft, Non Tender, Non-Distended : No renal angle tenderness. No suprapubic tenderness. Extremities: Bilateral leg edema edema, Capillary Refill Less than 3 Seconds Skin: No rashes, No breakdown Musculoskeletal: No Tenderness to Palpation of Joints or Extremities. ROM limited, degenerative arthritis of hip and knee joints. Neurological: Cranial nerves II-XII grossly intact, DTR 2+/4 and Symmetrical Psych/Mental Status: Flat affect. Depressed Assessment & Plan Assessment/Plan (1) Shortness of breath: PLAN: Plan #Acute on chronic HFpEF with moderate pulmonary hypertension: Patient was admitted with shortness of breath. Patient does not have cough. -BNP of 249 -CTA with bilateral pleural effusions without pulmonary embolism. Clinically pneumonia ruled out. Pneumonia work-up came negative. -Echo reported EF 60% with moderate pulmonary hypertension. -Troponin 9. Heart failure core measures including intake and output, fluid restriction less than 1500 mL, daily weight monitoring, kidney and electrolytes monitoring 09/27: Urinary antigens, SARS-CoV-2 and respiratory panel are negative. 2. Possible COPD: Patient probably has reported history of COPD. On DuoNeb. On ipratropium neb as albuterol may exacerbate arrhythmia and tachycardia and continue her home Pulmicort -BiPAP nightly and as needed. Patient not on home oxygen. Does not seem to be in exacerbation. #Arrhythmia, wide-complex tachycardia. First EKG shows wide-complex tachycardia 147 bpm, QTc 597 ms. Second EKG shows artifacts. Repeat EKG on 09/27 normal sinus rhythm low voltage QRS 84 bpm. QTc 453 ms. On director of cardiac rehabilitation sinus rhythm with multiple PVCs. -No chest pain -Troponin 9, improved with mag and calcium -Continue beta-monique -Continue Synthroid, -Serum magnesium and calcium level normal. TSH 0.42, free T4 normal. -Avoid QTc prolonging agents #History of right MCA stroke with residual left-sided deficits -PT/OT -Reportedly takes Eliquis for this, do not see history of A-fib but will continue this and with active cancer is at high risk of clotting Right upper lobe lung mass highly suggestive of cancer. CT chest shows 31 mm mass of the right upper lobe. No demonstrated pulmonary embolism or arterial dissection. -Pt reportedly aware of cancer but had stroke prior to getting bx -Awaiting outpatient follow up -Has been having daily headaches, will get head CT given active cancer -Can consider MRI if negative #LANIE -Reports chronically using NIPPV, will also continue here #CKD stage IIIb -Appears slightly elevated from previous but comparing historically this appears to be about baseline #Type 2 diabetes mellitus -Glucose checks and sliding scale insulin -We will continue long-acting but at lower dose #DVT ppx: Continue Eliquis CODE STATUS with patient with family member at bedside and patient did endorse she wanted to be full code and this was also echoed to ED physician Echocardiogram 09/26/22 16:51 Interpretation Summary Normal LV size. Left ventricular systolic function is normal. The estimated ejection fraction is 60 %. Stage 1 diastolic dysfunction. Pulmonary artery systolic pressure is 58 mmHg. Moderate pulmonary hypertension. Small pericardial effusion. Charges/Coding Visit Charges Inpatient E&M: 56022 Subs Hosp L2
--- NOTE | 2022-09-27 08:00 | CT_ITS ---
STUDY: CT BRAIN WITHOUT CONTRAST REASON FOR EXAM: Female, 77 years old. Daily headaches,. Lung cancer. History of right MCA stroke. RADIATION DOSAGE (If Supplied By Facility): CTDIvol = ( 44.99 ) mGy, DLP = ( 762.36 ) mGycm TECHNIQUE: Transaxial CT imaging of the brain was performed without administration of intravenous contrast material. Individualized dose optimization techniques were used for this CT. COMPARISON: Comparison is made with prior study June 23, 2022. FINDINGS: Normal soft tissue structures. There is hyperostosis frontalis internus. There is mild cerebral atrophy with widening of the extra-axial spaces and ventricular dilatation. There are areas of decreased attenuation within the white matter tracts of the supratentorial brain, consistent with microvascular disease changes. Stable encephalomalacia in the right frontoparietal lobes in the deep aspect suggestive of prior ischemic change in the watershed region of the right cerebral hemisphere. Small lacunar infarct in the insular cortex of the right temporal lobe. Normal brainstem. Normal cerebellum. There is no intracranial hemorrhage. There are no findings of an acute ischemic infarction. Atherosclerotic lack formation of the cavernous portion of the internal carotid arteries bilaterally. Normal visualized paranasal sinuses. CT/Brain/Head without Contrast IMPRESSION: Chronic involutional changes of the brain. Findings of old encephalomalacia in the region of the watershed area of the right cerebral hemisphere. Electronically Signed: Leonardo Escalera MD at 12:40 EDT ,
--- NOTE | 2022-09-27 08:39 | EKG12_ITS ---
Test Reason : REPEAT Blood Pressure : / mmHG Vent. Rate : 082 BPM Atrial Rate : 082 BPM P-R Int : 188 ms QRS Dur : 078 ms QT Int : 372 ms P-R-T Axes : 057 017 048 degrees QTc Int : 434 ms Normal sinus rhythm Low voltage QRS Borderline ECG Confirmed by LINDA NAVARRETE, TALON ([id number]), research editor LIDA CARSON ([id number]) on 09/28/2022 10:50:29 AM Referred By: ALMA Confirmed By:TALON MCKEON MD
[2022-09-27] MEDS: amLODIPine 10 MG Tablet PO (08:40)
[2022-09-27] MEDS: Carvedilol 3.125 MG TABLET PO ×2 (08:40→21:45)
[2022-09-27] MEDS: APIXABAN 5 MG TABLET PO ×2 (08:40→21:45)
[2022-09-27] MEDS: Furosemide 20 MG/2 ML VIAL IV (08:40)
[2022-09-27] MEDS: Allopurinol 100 MG Tablet 50 MG PO (08:41)
--- NOTE | 2022-09-27 09:37 | CASEMGMT ---
[facility]charge Planning Up[facility] Sachi Julien
--- NOTE | 2022-09-27 10:41 | CASEMGMT ---
Patient is from [place]. SW met with patient. Introduced self as well as role at [facility]. SW asked patient if her plan is to return to [facility] at discharge. Patient confirmed that is her plan. Patient declined a list of new nursing homes. Rachel NI
[2022-09-27 11:25] LABS: Bedside Glucose 143 mg/dL (74-106)
--- NOTE | 2022-09-27 12:07 | CHAPLAIN ---
Type of Pastoral Visit _x__ Initial Visit ___ Follow-up Visit ___ On-call Visit ___ General Patient Visit ___ Spiritual Assessment ___ Family Conference ___ Bereavement ___ Rapid Response ___ Code Blue ___ Other (describe below) Pastoral Care Referral From _x__ Patient ___ Family ___ Nurse ___ Physician ___ Warp Tying Machine Knotter ___ Computer Peripheral Equipment Operator ___ Other (describe below) Sacrament/Intervention _x__ Active listening ___ Anointing ___ Yarsanism ___ Bereavement ___ Communion ___ Leonarda exploration ___ ___ Life review _x__ Prayer ___ Reconciliation ___ Sacrament of Sick _x__ Supportive presence ___ Wedding ___ Other (describe below) Pastoral Comments patient is encouraged that today is better than yesterday but admits to a long struggle with health; pt is not able to be mobile and is also worried about her spouse who has serious health concerns too; pt has not seen spouse in two months due to her being in SNF; daughter of pt is handling many duties for them; pt does welcome prayer and presence but reports no further needs
[2022-09-27] MEDS: Insulin Lispro 100 UNIT/ML INSULN.PEN SC ×2 (15:58→21:46)
[2022-09-27 16:21] LABS: Bedside Glucose 168 mg/dL (74-106)
--- NOTE | 2022-09-27 18:55 | CPS ---
Pt refused BiPAP for tonight
[2022-09-27] MEDS: busPIRone 5 MG Tablet PO (19:58)
[2022-09-27] MEDS: Acetaminophen 325 MG Tablet 650 MG PO (19:58)
[2022-09-27] MEDS: Losartan Potassium 50 MG Tablet PO (21:45)
[2022-09-27] MEDS: Sertraline 50 MG Tablet 75 MG PO (21:45)
[2022-09-27] MEDS: Insulin Glargine-YFGN 100 UNIT/ML Pen 10 UNIT SC (21:46)
[2022-09-27] MEDS: Atorvastatin Calcium 40 MG Tablet PO (21:46)
[2022-09-27 22:10] LABS: Bedside Glucose 173 mg/dL (74-106)
[2022-09-28 03:08] VITALS: BMI 38.0
[2022-09-28 03:30] VITALS: BP 141/66; PULSE 76; RESP 19; TEMP 36.2; O2SAT 94
[2022-09-28] MEDS: Levothyroxine 50 MCG Tablet PO (06:37)
[2022-09-28] MEDS: Ipratropium 0.5 MG/2.5 ML SOLUTION INHALATION (06:52)
[2022-09-28 06:53] VITALS: PULSE 70; RESP 18; O2SAT 92
[2022-09-28] MEDS: Budesonide Respules 0.5 MG/2 ML AMPUL.NEB. INHALATION (06:53)
[2022-09-28 06:56] LABS: Absolute Lymphocyte Count 1.85 X10^3/uL (0.83-4.51); Absolute Neutrophil Count 3.8 X10^3/uL (2.0-7.7); Basophil# 0.04 X10^3/uL; Basophil% 0.7 % (0-1); Eosinophil# 0.04 X10^3/uL; Eosinophils% 0.7 % (0-5); Hematocrit 30.6 % (37-47); Hemoglobin 9.8 g/dL (12.0-15.0); Lymphocyte # 1.85 X10^3/ul (0.83-4.51); Lymphocyte % 30.4 % (19-41); Mean Corpuscular Hgb 29.5 pg (27.0-32.0); Mean Corpuscular Volume 92.2 fL (81-99); Mean Platelet Vol. 9.3 fl (6.2-12.0); Monocyte# 0.36 X10^3/uL; Monocyte% 5.9 % (0-10); NRBC Flagged by Analyzer 0 % (0-5); Neutrophil # 3.78 X10^3/uL (2.7-7.7); Neutrophil % 62.1 % (47-70); Platelet Count 220 K/mm3 (150-450); RBC Distribution Width CV 15.7 % (11.6-14.6); RBC Distribution Width SD 52.4 fl (35.1-43.9); Red Blood Count 3.32 M/mm3 (4.2-5.4); White Blood Count 6.1 K/mm3 (4.4-11.0)
[2022-09-28 07:39] LABS: ALB/GLOB Ratio 0.9 RATIO (0.9-2.4); AST(SGOT) 10 U/L (15-37); Alanine Aminotransfer ALT/SGPT 15 U/L (13-56); Alkaline Phosphatase 81 U/L (45-117); Anion Gap 8 (5-15); BUN 20 mg/dL (7-18); BUN/Creat Ratio 19.2 RATIO (10-20); Calcium,Total 9.1 mg/dL (8.5-10.1); Chloride 109 mmol/L (98-107); Creatinine, Serum 1.04 mg/dL (0.55-1.02); EST Glomerular Filtration Rate 54 mL/min (>60); Est Glom Filt Rate - Afr Amer 66 mL/min (>60); Globulin 3.4 g/dL (2.2-4.2); Glucose 191 mg/dL (74-106); Magnesium 1.9 mg/dL (1.6-2.6); Potassium 3.9 mmol/L (3.5-5.1); Protein, Total 6.4 g/dL (6.4-8.2); Sodium Level 141 mmol/L (136-145)
[2022-09-28 08:00] VITALS: BP 134/66; PULSE 78; RESP 18; TEMP 36.6; O2SAT 95
[2022-09-28] MEDS: busPIRone 5 MG Tablet PO ×2 (08:31→13:34)
--- NOTE | 2022-09-28 08:44 | DS.PCM_ITS ---
Providers Date of Admission: 09/26/22 Date of Discharge: 09/28/22 Primary Care Physician: Dr. Urbano Palencia MD Reason For Visit: INCREASING SHORTNESS OF BREATH Diagnosis Discharge Diagnosis (1) Shortness of breath: Status: Acute Code(s): R06.02 - Shortness of breath Plan 77-year-old female with history of CVA with residual left-sided weakness and other multiple comorbidities was admitted with shortness of breath. Patient was also tachycardic with sinus arrhythmia. Later on also she had wide-complex tachycardia. Diagnosis and assessment and management plan as mentioned below: #Acute on chronic HFpEF with moderate pulmonary hypertension: Patient was admitted with shortness of breath. Patient does not have cough. -BNP of 249 -CTA with bilateral pleural effusions without pulmonary embolism. Clinically pneumonia ruled out. Pneumonia work-up came negative. -Echo reported EF 60% with moderate pulmonary hypertension. -Troponin 9. Heart failure core measures including intake and output, fluid restriction less than 1500 mL, daily weight monitoring, kidney and electrolytes monitoring 09/27: Urinary antigens, SARS-CoV-2 and respiratory panel are negative. 09/28. Patient discharged on furosemide 40 mg daily with instruction,Take an additional 40 mg dose at 5 PM for increased leg swelling or weight gain 5 pounds in 1 week. Continue other cardiac medications Carvedilol, losartan, high i ntensity statin and amlodipine. 2. Possible COPD: Patient probably has reported history of COPD. On DuoNeb. On ipratropium neb as albuterol may exacerbate arrhythmia and tachycardia and continue her home Pulmicort -BiPAP nightly and as needed. Patient not on home oxygen. Does not seem to be in exacerbation. 09/28 continue oxygen support. BiPAP at night. Incentive spirometry and Pep #Arrhythmia, wide-complex tachycardia. First EKG shows wide-complex tachycardia 147 bpm, QTc 597 ms. Second EKG shows artifacts. Repeat EKG on 09/27 normal sinus rhythm low voltage QRS 84 bpm. QTc 453 ms. On color television console monitor sinus rhythm with multiple PVCs. -No chest pain -Troponin 9, improved with mag and calcium -Continue beta-monique -Continue Synthroid, -Serum magnesium and calcium level normal. TSH 0.42, free T4 normal. -Avoid QTc prolonging agents 09/28: Trazodone was discontinued at the time of admission therefore Discontinued on home discharge. #History of right MCA stroke with residual left-sided deficits -PT/OT -Reportedly takes Eliquis for this, do not see history of A-fib but will continue this and with active cancer is at high risk of clotting Right upper lobe lung mass highly suggestive of cancer. CT chest shows 31 mm mass of the right upper lobe. No demonstrated pulmonary embolism or arterial dissection. -Pt reportedly aware of cancer but had stroke prior to getting bx -Awaiting outpatient follow up -Has been having daily headaches, will get head CT given active cancer -Can consider MRI if negative 09/28 follow-up in pulmonary clinic #LANIE -Reports chronically using NIPPV, will also continue here #CKD stage IIIb -Appears slightly elevated from previous but comparing historically this appears to be about baseline Culture shows 2 organism presumptive E. coli 80,000 -100,000 colonies of Klebsiella 50,000-80,000 colonies Which most probably may be contamination or may be due to Burgess catheter insertion , CAUTI, Therefore It is indeterminant. Keflex for 5 days. Burgess catheter probably inserted in ED on 09/26.Discontinue Burgess catheter #Type 2 diabetes mellitus -Glucose checks and sliding scale insulin -We will continue long-acting but at lower dose #DVT ppx: Continue Eliquis CODE STATUS with patient with family member at bedside and patient did endorse she wanted to be full code and this was also echoed to ED physician Discharge medication reconciliation done. Discharge follow-up instructions completed. Discharge process discussed with the patient and all questions were answered to patient's satisfaction. Total time spent, exact 35 minutes on discharge meds reconciliation, examination, coordination of care with nurses and ancillary staff, review of imaging and blood test and discussion with the patient on follow-up instructions. Echocardiogram 09/26/22 16:51 Interpretation Summary Normal LV size. Left ventricular systolic function is normal. The estimated ejection fraction is 60 %. Stage 1 diastolic dysfunction. Pulmonary artery systolic pressure is 58 mmHg. Moderate pulmonary hypertension. Small pericardial effusion. Microbiology Past 72 Hours 09/26/22 17:30 Urine Catheter - Burgess Urine Culture - Preliminary Presumptive E. coli Klebsiella pneumoniae sp pneum 09/26/22 17:30 Urine Catheter - Burgess Legionella Antigen - Final 09/26/22 17:30 Urine Catheter - Burgess Streptococcus pneumoniae Antigen (M - Final 09/26/22 17:30 Mucosa - Nasopharyngeal Respiratory Panel (PCR) - Final 09/26/22 13:55 Nasal Secretion SARS-CoV-2 & FLU Antigen (Rapid) - Final Laboratory Results 09/27/22 15:57: POC Glucose 168 H 09/27/22 21:41: POC Glucose 173 H 09/28/22 06:40: Sodium 141, Potassium 3.9, Chloride 109 H, Carbon Dioxide 24.0, Anion Gap 8, BUN 20 H, Creatinine 1.04 H, Estim Creat Clear Calc 33.10, Est GFR (MDRD) Af Amer 66, Est GFR (MDRD) Non-Af 54 L, BUN/Creatinine Ratio 19.2, Glucose 191 H, Calcium 9.1, Magnesium 1.9, Total Bilirubin 0.40, AST 10 L, ALT 15, Alkaline Phosphatase 81, Total Protein 6.4, Albumin 3.0 L, Globulin 3.4, Albumin/Globulin Ratio 0.9 09/28/22 06:40: WBC 6.1, RBC 3.32 L, Hgb 9.8 L, Hct 30.6 L, MCV 92.2, MCH 29.5, MCHC 32.0, RDW Std Deviation 52.4 H, RDW Coeff of Neeta 15.7 H, Plt Count 220, MPV 9.3, Immature Gran % (Auto) 0.200, Neut % (Auto) 62.1, Lymph % (Auto) 30.4, [place] % (Auto) 5.9, Eos % (Auto) 0.7, Baso % (Auto) 0.7, Absolute Neuts (auto) 3.8, Absolute Lymphs (auto) 1.85, Nucleated RBC % 0 Medications at Discharge Home Medications allopurinol 100 mg tablet 50 mg PO DAILY gout 01/29/21 amlodipine 5 mg tablet 10 mg PO DAILY HTN 01/29/21 levothyroxine 50 mcg capsule 50 mcg PO DAILY thyroid 01/29/21 apixaban 5 mg tablet 5 mg PO BID CVA 06/23/22 atorvastatin 40 mg tablet 40 mg PO QHS cholesterol 06/23/22 bisacodyl 10 mg rectal suppository 10 mg SC DAILY PRN Constipation 06/23/22 carvedilol 6.25 mg tablet (Coreg) 3.125 mg PO BID HTN 06/23/22 losartan 50 mg tablet 50 mg PO QHS hypertension 06/23/22 multivitamin 1 tab PO DAILY supplement 06/23/22 terazosin 1 mg tablet 1 mg PO QHS HTN 06/23/22 insulin glargine-yfgn 100 unit/mL (3 mL) subcutaneous pen 15 unit (0.15 mL) subcut QHS #0 mL 06/28/22 insulin lispro 100 unit/mL subcutaneous pen (Humalog KwikPen (U-100) Insulin) 8 unit (0.08 mL) subcut Q8H #0 mL 06/28/22 menthol 0.44 %-zinc oxide 20.6 % topical ointment (Calmoseptine) 1 applic topical BID #0 grams 06/28/22 acetaminophen 650 mg/20.3 mL oral solution 650 mg PO Q4H PRN PRN Fever, pain 1- 10 09/26/22 budesonide 0.5 mg/2 mL suspension for nebulization 0.5 mg inhalation BID buspirone 5 mg tablet 5 mg PO TID PRN Anxiety 09/26/22 cholecalciferol (vitamin D3) 25 mcg (1,000 unit) tablet 125 mcg PO DAILY 09/26/22 insulin lispro 100 unit/mL subcutaneous pen (Humalog KwikPen (U-100) Insulin) See Protocol subcut ACHS 09/26/22 sertraline 50 mg tablet 75 mg PO QHS 09/26/22 albuterol sulfate 2.5 mg/3 mL (0.083 %) solution for nebulization 2.5 mg (3 mL) inhalation Q4H PRN Dyspnea, wheezing #0 mL 09/28/22 cephalexin 500 mg tablet 500 mg PO TID 5 days #15 tabs 09/28/22 furosemide 40 mg tablet 40 mg PO DAILY #30 tabs 09/28/22 ipratropium bromide 0.02 % solution for inhalation 0.5 mg (2.5 mL) inhalation Q6HWA.RT #0 mL 09/28/22 sennosides 8.6 mg-docusate sodium 50 mg tablet (Stool Softener-Stimulant Laxative) 2 tab PO BID PRN PRN Constipation #0 tabs 09/28/22 Physical Exam Narrative Seen and examined. Patient is hypervolemic with leg swelling/edema, shortness of breath. Patient is also depressed. She is frequently tearful. Patient had wide-complex tachycardia on EKG on admission. Second EKG was artifact. Physical exam General: Alert, Oriented x3, Cooperative HEENT: Atraumatic, PERRLA, EOMI, Normocephalic Oral: Oral mucosa moist. No Gingival or Mucosal Lesions/ Ulcerations Neck: Supple, No JVD, Negative Carotid Bruits Lungs: Air entry diminished in bilateral lung bases. Dyspnea at minimal exertion. No crepitation/rhonchi. Cardiovascular: Sinus rhythm on monitor, Normal S1, Normal S2, No murmurs Abdomen: PEG tube present. Bowel Sounds Present, Soft, Non Tender, Non-Distend ed : No renal angle tenderness. No suprapubic tenderness. Extremities: Bilateral leg edema edema, Capillary Refill Less than 3 Seconds Skin: No rashes, No breakdown Musculoskeletal: No Tenderness to Palpation of Joints or Extremities. ROM limited, degenerative arthritis of hip and knee joints. Neurological: Cranial nerves II-XII grossly intact, DTR 2+/4 and Symmetrical Psych/Mental Status: Flat affect. Depressed Weight / BMI Weight Weight: 201 lb 11.567 oz Body Mass Index (BMI) 38.0 ABG / Lab / Microbiology Data Result Diagrams: 09/28/22 06:40 09/28/22 06:40 Laboratory: Laboratory Results - last 24 hr 09/27/22 10:54: POC Glucose 143 H 09/27/22 15:57: POC Glucose 168 H 09/27/22 21:41: POC Glucose 173 H 09/28/22 06:40: Sodium 141, Potassium 3.9, Chloride 109 H, Carbon Dioxide 24.0, Anion Gap 8, BUN 20 H, Creatinine 1.04 H, Estim Creat Clear Calc 33.10, Est GFR (MDRD) Af Amer 66, Est GFR (MDRD) Non-Af 54 L, BUN/Creatinine Ratio 19.2, Glucose 191 H, Calcium 9.1, Magnesium 1.9, Total Bilirubin 0.40, AST 10 L, ALT 15, Alkaline Phosphatase 81, Total Protein 6.4, Albumin 3.0 L, Globulin 3.4, Al bumin/Globulin Ratio 0.9 09/28/22 06:40: WBC 6.1, RBC 3.32 L, Hgb 9.8 L, Hct 30.6 L, MCV 92.2, MCH 29.5, MCHC 32.0, RDW Std Deviation 52.4 H, RDW Coeff of Neeta 15.7 H, Plt Count 220, MPV 9.3, Immature Gran % (Auto) 0.200, Neut % (Auto) 62.1, Lymph % (Auto) 30.4, [place] % (Auto) 5.9, Eos % (Auto) 0.7, Baso % (Auto) 0.7, Absolute Neuts (auto) 3.8, Absolute Lymphs (auto) 1.85, Nucleated RBC % 0 Microbiology: Microbiology 09/26/22 17:30 Urine Catheter - Burgess Urine Culture - Preliminary Presumptive E. coli Klebsiella pneumoniae sp pneum 09/26/22 17:30 Urine Catheter - Burgess Legionella Antigen - Final 09/26/22 17:30 Urine Catheter - Burgess Streptococcus pneumoniae Antigen (M - Final 09/26/22 17:30 Mucosa - Nasopharyngeal Respiratory Panel (PCR) - Final 09/26/22 13:55 Nasal Secretion SARS-CoV-2 & FLU Antigen (Rapid) - Final Radiography Diagnostic Testing: Radiology Impression Echocardiogram 09/26/22 16:51 Interpretation Summary Normal LV size. Left ventricular systolic function is normal. The estimated ejection fraction is 60 %. Stage 1 diastolic dysfunction. Pulmonary artery systolic pressure is 58 mmHg. Moderate pulmonary hypertension. Small pericardial effusion. Ordering Physician: Linda Murphy Referring Physician: Urbano Palencia Performed By: Samira Wilkinson, CARINE, RVT Brain CT 09/27/22 08:00 IMPRESSION: Chronic involutional changes of the brain. Findings of old encephalomalacia in the region of the watershed area of the right cerebral hemisphere. Electronically Signed: Leonardo Escalera MD at 12:40 EDT , Meaningful Use Info Meaningful Use Diagnoses (Choose all that apply): None applicable Discharge Plan Admission Admit Date/Time: 09/26/22 16:37 Primary Reason for Your Visit: Acute on chronic HFpEF Attending Provider: Flaco Lemus Primary Care Provider: Urbano Palencia Consulting Providers: Linda Murphy Instructions Additional Instructions / Restrictions: Trazodone discontinued due to increased QTc interval with wide complex Tachyarrhythmia. Discharge Orders/Prescriptions Prescriptions: New sennosides-docusate sodium [Stool Softener-Stimulant Laxat] 8.6-50 mg Tablet 2 tab PO BID PRN PRN (Reason: Constipation) Qty: 0 0RF ipratropium bromide 0.02 % Solution 0.5 mg inhalation Q6HWA.RT Qty: 0 0RF furosemide 40 mg tablet 40 mg PO DAILY Qty: 30 2RF Rx Instructions: An additional 40 mg dose at 5 PM for increased leg swelling or weight gain 5 pounds in 1 week. cephalexin 500 mg tablet 500 mg PO TID 5 Days Qty: 15 0RF Continued amlodipine 5 mg Tablet 10 mg PO DAILY allopurinol 100 mg Tablet 50 mg PO DAILY levothyroxine 50 mcg Capsule 50 mcg PO DAILY atorvastatin 40 mg Tablet 40 mg PO QHS carvedilol [Coreg] 6.25 mg Tablet 3.125 mg PO BID bisacodyl 10 mg Suppository 10 mg SC DAILY PRN (Reason: Constipation) apixaban 5 mg Tablet 5 mg PO BID multivitamin Tablet 1 tab PO DAILY losartan 50 mg Tablet 50 mg PO QHS terazosin 1 mg Tablet 1 mg PO QHS menthol-zinc oxide [Calmoseptine] 0.44-20.6 % Ointment 1 applic topical BID Qty: 0 0RF Protocol: *Topical Application Instructions APPLICATION INSTRUCTIONS: apply to affected region insulin lispro [Humalog KwikPen Insulin] 100 unit/mL Insulin Pen 8 unit subcut Q8H Qty: 0 0RF Rx Instructions: Hold if glucose less than 130 mg/dl insulin glargine-yfgn 100 unit/mL (3 mL) Insulin Pen 15 unit subcut QHS Qty: 0 0RF Rx Instructions: Hold if glucose less than 130 mg/dl buspirone 5 mg tablet 5 mg PO TID PRN (Reason: Anxiety) budesonide 0.5 mg/2 mL Suspension For Nebulization 0.5 mg INHALATION BID sertraline 50 mg Tablet 75 mg PO QHS insulin lispro [Humalog KwikPen Insulin] 100 unit/mL insulin pen See Protocol subcut [facility] Protocol: 4. Sliding Scale Insulin High-Med Dosing Condition: 150-199 mg/dl = 2 units Condition: 200-259 mg/dl = 4 units Condition: 260-324 mg/dl = 6 units Condition: 325-374 mg/dl = 8 units Condition: 375-409 mg/dl = 10 units Condition: 410-449 mg/dl = 11 units Condition: Greater than 449 call physician Protocol Text: - Use for Total Daily Dose of Insulin 56-80 units - Patient who are insulin resistant or septic HIGH MEDIUM DOSING ALGORITHM cholecalciferol (vitamin D3) 25 mcg (1,000 unit) tablet 125 mcg PO DAILY acetaminophen 650 mg/20.3 mL solution 650 mg PO Q4H PRN PRN (Reason: Fever, pain 1-10) Changed albuterol sulfate 2.5 mg /3 mL (0.083 %) Solution For Nebulization 2.5 mg inhalation Q4H PRN (Reason: Dyspnea, wheezing) Qty: 0 0RF Discontinued trazodone 50 mg tablet 50 mg PO QHS Referrals / Follow Up: Troy Arambula MD [Med Staff - Active Staff] - Within 1 Month (tachyarrthymia) Eleno Jefferson MD [Med Staff - Active Staff] - Within 2 Weeks Urbano Palencia MD [Primary Care Provider] - Jakub Watt MD [Non-Staff -Ordering Privileges] - Within 2 Weeks Disposition Disposition (needs filled in before D/C Order can be placed): [facility] Charges/Coding Visit Charges Inpatient E&M: 58289 Disch Hosp >30min
--- NOTE | 2022-09-28 08:44 | PCM.TXEXTCAR ---
Diet Diet Order/Speech Therapy: 09/26/22 17:39 Diet: Cardiac: Calorie-Controlled Food consistency:: Regular Liquid Consistency:: Regular/Thin Dietary Modifications:: Consistent Carbohydrate Sodium Restricted Fluid restriction:: 1500 mL How many daily calories?: 1800 calorie Routine Orders/Code Status Suppository Type: Dulcolax 10mg Suppository Frequency: Daily PRN Code Status: Full Code Wound(s) mid abd: Wound Type: Puncture Therapies Weight Bearing: Weight bearing as tolerated Extremity Affected:: Bilateral Lower Physical Therapy: Eval and Treat Occupational Therapy: Eval and Treat Speech Therapy: Eval and Treat Problem/Diagnosis (1) Shortness of breath: Status: Acute Code(s): R06.02 - Shortness of breath Plan #Acute on chronic HFpEF with moderate pulmonary hypertension: Patient was admitted with shortness of breath. Patient does not have cough. -BNP of 249 -CTA with bilateral pleural effusions without pulmonary embolism. Clinically pneumonia ruled out. Pneumonia work-up came negative. -Echo reported EF 60% with moderate pulmonary hypertension. -Troponin 9. Heart failure core measures including intake and output, fluid restriction less than 1500 mL, daily weight monitoring, kidney and electrolytes monitoring 09/27: Urinary antigens, SARS-CoV-2 and respiratory panel are negative. 2. Possible COPD: Patient probably has reported history of COPD. On DuoNeb. On ipratropium neb as albuterol may exacerbate arrhythmia and tachycardia and continue her home Pulmicort -BiPAP nightly and as needed. Patient not on home oxygen. Does not seem to be in exacerbation. #Arrhythmia, wide-complex tachycardia. First EKG shows wide-complex tachycardia 147 bpm, QTc 597 ms. Second EKG shows artifacts. Repeat EKG on 09/27 normal sinus rhythm low voltage QRS 84 bpm. QTc 453 ms. On air sampling and monitoring sinus rhythm with multiple PVCs. -No chest pain -Troponin 9, improved with mag and calcium -Continue beta-monique -Continue Synthroid, -Serum magnesium and calcium level normal. TSH 0.42, free T4 normal. -Avoid QTc prolonging agents #History of right MCA stroke with residual left-sided deficits -PT/OT -Reportedly takes Eliquis for this, do not see history of A-fib but will continue this and with active cancer is at high risk of clotting Right upper lobe lung mass highly suggestive of cancer. CT chest shows 31 mm mass of the right upper lobe. No demonstrated pulmonary embolism or arterial dissection. -Pt reportedly aware of cancer but had stroke prior to getting bx -Awaiting outpatient follow up -Has been having daily headaches, will get head CT given active cancer -Can consider MRI if negative #LANIE -Reports chronically using NIPPV, will also continue here #CKD stage IIIb -Appears slightly elevated from previous but comparing historically this appears to be about baseline #Type 2 diabetes mellitus -Glucose checks and sliding scale insulin -We will continue long-acting but at lower dose #DVT ppx: Continue Eliquis CODE STATUS with patient with family member at bedside and patient did endorse she wanted to be full code and this was also echoed to ED physician Echocardiogram 09/26/22 16:51 Interpretation Summary Normal LV size. Left ventricular systolic function is normal. The estimated ejection fraction is 60 %. Stage 1 diastolic dysfunction. Pulmonary artery systolic pressure is 58 mmHg. Moderate pulmonary hypertension. Small pericardial effusion. Allergies/Procedures Done in Hospital Allergies Penicillins Allergy (Verified 07/31/22 12:22) PT UNSURE OF REACTION Type of Care/Length of Stay Estimated LOS: Convalescent Care Less Than 30 days Type of Care Needed: Skilled Rehab Potential: Good Prognosis: Good Additional Orders/Day of Discharge Day of Discharge: 09/28/22 Dietary and Speech Recommendations Dietitian Recommendations/Changes: Will adjust diet to 1800 calorie/consistent-carbohydrate; cardiac/sodium-restricted with 1500mL FR. CASE MANAGER SPECIALIST as needed for swallow evaluation given history of dysphagia and clamped PEG tube. Will d/c glucerna shake TID w/ medpass, pt is refusing. ONS as needed if PO fails at meals, will defer for now and encourage oral intake at meals. Discharge Plan Admission Admit Date/Time: 09/26/22 16:37 Primary Reason for Your Visit: Acute on chronic HFpEF Attending Provider: Flaco Lemus Primary Care Provider: Urbano Palencia Consulting Providers: Linda Murphy Instructions Additional Instructions / Restrictions: Trazodone discontinued due to increased QTc interval with wide complex Tachyarrhythmia. Discharge Orders/Prescriptions Prescriptions: New sennosides-docusate sodium [Stool Softener-Stimulant Laxat] 8.6-50 mg Tablet 2 tab PO BID PRN PRN (Reason: Constipation) Qty: 0 0RF ipratropium bromide 0.02 % Solution 0.5 mg inhalation Q6HWA.RT Qty: 0 0RF Continued amlodipine 5 mg Tablet 10 mg PO DAILY allopurinol 100 mg Tablet 50 mg PO DAILY levothyroxine 50 mcg Capsule 50 mcg PO DAILY atorvastatin 40 mg Tablet 40 mg PO QHS carvedilol [Coreg] 6.25 mg Tablet 3.125 mg PO BID bisacodyl 10 mg Suppository 10 mg NE DAILY PRN (Reason: Constipation) apixaban 5 mg Tablet 5 mg PO BID multivitamin Tablet 1 tab PO DAILY losartan 50 mg Tablet 50 mg PO QHS terazosin 1 mg Tablet 1 mg PO QHS menthol-zinc oxide [Calmoseptine] 0.44-20.6 % Ointment 1 applic topical BID Qty: 0 0RF Protocol: *Topical Application Instructions APPLICATION INSTRUCTIONS: apply to affected region insulin lispro [Humalog KwikPen Insulin] 100 unit/mL Insulin Pen 8 unit subcut Q8H Qty: 0 0RF Rx Instructions: Hold if glucose less than 130 mg/dl insulin glargine-yfgn 100 unit/mL (3 mL) Insulin Pen 15 unit subcut QHS Qty: 0 0RF Rx Instructions: Hold if glucose less than 130 mg/dl buspirone 5 mg tablet 5 mg PO TID PRN (Reason: Anxiety) budesonide 0.5 mg/2 mL Suspension For Nebulization 0.5 mg INHALATION BID sertraline 50 mg Tablet 75 mg PO QHS insulin lispro [Humalog KwikPen Insulin] 100 unit/mL insulin pen See Protocol subcut ACHS Protocol: 4. Sliding Scale Insulin High-Med Dosing Condition: 150-199 mg/dl = 2 units Condition: 200-259 mg/dl = 4 units Condition: 260-324 mg/dl = 6 units Condition: 325-374 mg/dl = 8 units Condition: 375-409 mg/dl = 10 units Condition: 410-449 mg/dl = 11 units Condition: Greater than 449 call physician Protocol Text: - Use for Total Daily Dose of Insulin 56-80 units - Patient who are insulin resistant or septic HIGH MEDIUM DOSING ALGORITHM cholecalciferol (vitamin D3) 25 mcg (1,000 unit) tablet 125 mcg PO DAILY acetaminophen 650 mg/20.3 mL solution 650 mg PO Q4H PRN PRN (Reason: Fever, pain 1-10) Changed albuterol sulfate 2.5 mg /3 mL (0.083 %) Solution For Nebulization 2.5 mg inhalation Q4H PRN (Reason: Dyspnea, wheezing) Qty: 0 0RF Discontinued trazodone 50 mg tablet 50 mg PO QHS Referrals / Follow Up: Troy Arambula MD [Med Staff - Active Staff] - Within 1 Month (tachyarrthymia) Eleno Jefferson MD [Med Staff - Active Staff] - Within 2 Weeks Urbano Palencia MD [Primary Care Provider] - Jakub Watt MD [Non-Staff -Ordering Privileges] - Within 2 Weeks Disposition Disposition (needs filled in before D/C Order can be placed): [facility]
--- NOTE | 2022-09-28 10:06 | CASEMGMT ---
Discharge Planning [facility] notified that patient will return today. Sachi Julien
[2022-09-28] MEDS: Carvedilol 3.125 MG TABLET PO (11:34)
[2022-09-28] MEDS: Allopurinol 100 MG Tablet 50 MG PO (11:34)
[2022-09-28] MEDS: Furosemide 20 MG/2 ML VIAL IV (11:34)
[2022-09-28] MEDS: APIXABAN 5 MG TABLET PO (11:34)
[2022-09-28] MEDS: amLODIPine 10 MG Tablet PO (11:34)
[2022-09-28] MEDS: Acetaminophen 325 MG Tablet 650 MG PO (11:39)
[2022-09-28] MEDS: 0.9% Saline Lock 10 ML Syringe IV (11:40)
[2022-09-28] MEDS: Insulin Lispro 100 UNIT/ML INSULN.PEN SC (11:48)
--- NOTE | 2022-09-28 12:31 | CASEMGMT ---
Patient will be discharged back to [facility] under skilled level of care. Rachel NI
--- NOTE | 2022-09-28 12:42 | CASEMGMT ---
Discharge Planning Discharge orders, signed med list, covid results and pickup time sent to [facility] via [facility]. Patient will be picked up at 1:30. Patient, her daughter Dee, nursing, and SW notified. Sachi Julien
--- NOTE | 2022-09-28 13:33 | PHA.DC.MR ---
Pharmacy Service has performed discharge medication reconciliation for this patient. The patient's discharge medication list was reviewed for discrepancies and discrepancies were resolved. Home Medications allopurinol 100 mg tablet 50 mg PO DAILY gout 01/29/21 amlodipine 5 mg tablet 10 mg PO DAILY HTN 01/29/21 levothyroxine 50 mcg capsule 50 mcg PO DAILY thyroid 01/29/21 apixaban 5 mg tablet 5 mg PO BID CVA 06/23/22 atorvastatin 40 mg tablet 40 mg PO QHS cholesterol 06/23/22 bisacodyl 10 mg rectal suppository 10 mg [place] DAILY PRN Constipation 06/23/22 carvedilol 6.25 mg tablet (Coreg) 3.125 mg PO BID HTN 06/23/22 losartan 50 mg tablet 50 mg PO QHS hypertension 06/23/22 multivitamin 1 tab PO DAILY supplement 06/23/22 terazosin 1 mg tablet 1 mg PO QHS HTN 06/23/22 insulin glargine-yfgn 100 unit/mL (3 mL) subcutaneous pen 15 unit (0.15 mL) subcut QHS #0 mL 06/28/22 insulin lispro 100 unit/mL subcutaneous pen (Humalog KwikPen (U-100) Insulin) 8 unit (0.08 mL) subcut Q8H #0 mL 06/28/22 menthol 0.44 %-zinc oxide 20.6 % topical ointment (Calmoseptine) 1 applic topical BID #0 grams 06/28/22 acetaminophen 650 mg/20.3 mL oral solution 650 mg PO Q4H PRN PRN Fever, pain 1-10 09/26/22 budesonide 0.5 mg/2 mL suspension for nebulization 0.5 mg inhalation BID 09/26/22 buspirone 5 mg tablet 5 mg PO TID PRN Anxiety 09/26/22 cholecalciferol (vitamin D3) 25 mcg (1,000 unit) tablet 125 mcg PO DAILY 09/26/22 insulin lispro 100 unit/mL subcutaneous pen (Humalog KwikPen (U-100) Insulin) See Protocol subcut ACHS 09/26/22 sertraline 50 mg tablet 75 mg PO QHS 09/26/22 albuterol sulfate 2.5 mg/3 mL (0.083 %) solution for nebulization 2.5 mg (3 mL) inhalation Q4H PRN Dyspnea, wheezing #0 mL 09/28/22 cephalexin 500 mg tablet 500 mg PO TID 5 days #15 tabs 09/28/22 furosemide 40 mg tablet 40 mg PO DAILY #30 tabs 09/28/22 ipratropium bromide 0.02 % solution for inhalation 0.5 mg (2.5 mL) inhalation Q6HWA.RT #0 mL 09/28/22 sennosides 8.6 mg-docusate sodium 50 mg tablet (Stool Softener-Stimulant Laxative) 2 tab PO BID PRN PRN Constipation #0 tabs 09/28/22
[2022-09-28 13:41] VITALS: BP 143/63; PULSE 72; RESP 18; TEMP 36.6; O2SAT 96
[2022-09-28 15:00] LABS: Bedside Glucose 171 mg/dL (74-106)
[2022-09-28 15:00] LABS: Bedside Glucose 175 mg/dL (74-106)
== END 2022-09-28 13:47 | disposition skilled nursing facility (03) | DRG 291 ==
LOC: ED 16:32 → PCU 16:38
PROVIDERS: Admitting Provider Internal Medicine; Emergency Provider Emergency Medicine; PCP Family Medicine; Visit Provider Internal Medicine
DX: I13.0 Hypertensive heart and chronic kidney disease with heart failure and stage 1 through stage 4 chronic kidney disease, or unspecified chronic kidney disease (principal); I50.33 Acute on chronic diastolic (congestive) heart failure; C34.11 Malignant neoplasm of upper lobe, right bronchus or lung; I47.29 Other ventricular tachycardia; I69.354 Hemiplegia and hemiparesis following cerebral infarction affecting left non-dominant side; I27.20 Pulmonary hypertension, unspecified; J44.9 Chronic obstructive pulmonary disease, unspecified; E11.22 Type 2 diabetes mellitus with diabetic chronic kidney disease; Z79.4 Long term (current) use of insulin; N18.32 Chronic kidney disease, stage 3b; F03.90 Unspecified dementia, unspecified severity, without behavioral disturbance, psychotic disturbance, mood disturbance, and anxiety; G47.33 Obstructive sleep apnea (adult) (pediatric); I69.391 Dysphagia following cerebral infarction; I69.320 Aphasia following cerebral infarction; E03.9 Hypothyroidism, unspecified; K21.9 Gastro-esophageal reflux disease without esophagitis; I49.3 Ventricular premature depolarization; Z20.822 Contact with and (suspected) exposure to COVID-19; Z79.01 Long term (current) use of anticoagulants; Z79.51 Long term (current) use of inhaled steroids; Z79.890 Hormone replacement therapy; Z79.899 Other long term (current) drug therapy; Z87.891 Personal history of nicotine dependence
CPT/HCPCS: 36415; 70450; 71045; 71275; 80048; 80053; 81001; 82803; 82962; 83735; 83880; 84439; 84443; 84484; 85025; 87077; 87086; 87088; 87186; 87426; 87428; 87449; 87633; 93005; 93306; 94002; 94640; 94668; 97162; 97166; 97802; 99252; 99285; J7030; J7040; Q9957; Q9967; A4216; C8929; G0463; J0612; J1940

== ENCOUNTER → 2022-11-01 | Outpatient (CLI) | payer MEDICARE, OTHER, MEDICAID, SELFPAY ==
--- NOTE | 2022-11-01 11:50 | STRESSREP ---
Stress Test Report Date: 11/01/2022 Procedure: Pharmacologic stress nuclear imaging study Indications: Arrhythmia Consent: Per the patient Procedure: The patient underwent pharmacologic (Regadenoson 0.4mg ) evaluation with a peak heart rate of 100 beats per minute (70%predicted maximal heart rate) and a peak blood pressure of 130/58 mmHg. The baseline ECG demonstrated sinus rhythm with ventricular bigeminy. The peak pharmacologic ECG demonstrated no ischemic changes. Ventricular bigeminy noted pretest and during infusion and recovery. There was no complaint of chest discomfort during pharmacologic infusion or recovery. The patient was injected with 14.1 millicuries of technetium 99m Cardiolite and subsequently rest SPECT Cardiolite nuclear imaging was obtained in the horizontal long, vertical long, and short axis views. The patient underwent pharmacologic (Regadenoson) evaluation. The patient was injected with 45 millicuries of technetium 99m Cardiolite and subsequently stress SPECT Cardiolite nuclear imaging was obtained in the horizontal long, vertical long, and short axis views. A gated Cardiolite study at peak stress was obtained. The examination was stopped secondary to completion of protocol. Rest and stress SPECT Cardiolite nuclear imaging status post realignment, normalization, and attenuation correction demonstrate a predominantly fixed apical defect that likely represents breast attenuation artifact. There is end systolic thickening and brightening. The gated Cardiolite study demonstrates myocardial thickening and inward wall motion. The reported LVEF is 67%. Impression: 1. Pharmacologic (Regadenoson) evaluation 2. Peak pharmacologic ECG with no ischemic changes. 3. Frequent ventricular ectopy noted pretest, during infusion and recovery. 5. Predominantly fixed apical defect. Likely attenuation artifact. 6. The gated Cardiolite study reports an LVEF of 67%. 7. The right ventricle appears dilated. This note was generated with [employer] software. It may contain incorrect words, spelling, and punctuation that were not noted in checking the note before signing.
== END | disposition home or self-care (01) ==
LOC: CVS 06:54
PROVIDERS: PCP Family Medicine; Referring Provider Internal Medicine Cardiovascular Disease; Visit Provider Internal Medicine Cardiovascular Disease
DX: R06.02 Shortness of breath (principal); R00.0 Tachycardia, unspecified
CPT/HCPCS: 78452; 93017; 93225; 93226; A9500; A4216; J2785

== ENCOUNTER → 2022-11-22 | Outpatient (CLI) | payer MEDICARE, OTHER, MEDICAID, SELFPAY ==
--- NOTE | 2022-11-22 08:25 | CPS ---
Patient unable to do body box due to being wheelchair bound with florian lift.
--- NOTE | 2022-11-23 08:46 | PFT ---
INTRODUCTION: The patient is a 77-year-old female who presents for pulmonary function studies secondary to a diagnosis of COPD. Respiratory therapy reported good patient effort. Bronchodilators were used during testing. INTERPRETATION: Forced expiration spirometry demonstrates the presence of a moderate large airways obstructive ventilatory defect. There was a significant response to aerosolized bronchodilators, based upon change noted in FVC. Body plethysmography was unable to be obtained. Diffusing capacity by single breath CO was reduced to 52% of predicted. IMPRESSION: Partially reversible moderate large airways obstructive ventilatory defect with symmetric reduction in diffusion capacity.
== END | disposition home or self-care (01) ==
LOC: PSN 07:49
PROVIDERS: PCP Family Medicine; Referring Provider Internal Medicine; Visit Provider Internal Medicine
DX: J44.9 Chronic obstructive pulmonary disease, unspecified (principal); G47.33 Obstructive sleep apnea (adult) (pediatric)
CPT/HCPCS: 94060; 94729

== ENCOUNTER 2022-11-29 22:09 | Emergency (ER) | payer MEDICARE, OTHER, MEDICAID, SELFPAY ==
[2022-11-29 22:10] VITALS: BP 136/50; PULSE 68; RESP 24; TEMP 36.3; O2SAT 94; BMI 37.9
--- NOTE | 2022-11-29 22:26 | ED.VIS.FEGU ---
HPI HPI - Female History of Present Illness Chief Complaint: Complaint Informant: patient Narrative Narrative: Patient states she has a chronic indwelling Burgess catheter, and went through a routine change at the half-way yesterday and she states the nurses told her they put it in wrong. She does not know what that means, but they did change it out for 1 that has been functioning well ever since but ever since the procedure, she has been having vaginal pain. It has been about 24 hours now. She states no one has checked in that area, they referred her here to the ER for that. She denies any bleeding, fevers, or abdominal pain. [facility] Medical History Altered level of consciousness Anemia, unspecified Anxiety Aphasia following unspecified cerebrovascular disease Cerebral infarction due to embolism of right middle cerebral artery CKD (chronic kidney disease) stage 3, GFR 30-59 ml/min Congestive heart failure (CHF) COPD not affecting current episode of care Dehydration Dementia Depression Diabetes Dysphagia following cerebral infarction Encephalopathy Encephalopathy, unspecified Gastro-esophageal reflux disease without esophagitis Gout, unspecified Hemiplegia and hemiparesis following cerebral infarction affecting left non-dominant side History of stroke Hyperammonemia Hyperchloremia Hyperlipidemia, unspecified Hypernatremia Hyperosmolality and hypernatremia Hypertension Hypothyroidism Malignant neoplasm of unspecified part of unspecified bronchus or lung Neuromuscular dysfunction of bladder, unspecified Obstructive sleep apnea (adult) (pediatric) LANIE on CPAP SOB (shortness of breath) Type 2 diabetes mellitus Unspecified protein-calorie malnutrition UTI (urinary tract infection) Wide-complex tachycardia Home Medications allopurinol 100 mg tablet 50 mg PO DAILY gout 01/29/21 [History Last Taken 06/23/22] amlodipine 5 mg tablet 10 mg PO DAILY HTN 01/29/21 [History Last Taken 06/23/22] levothyroxine 50 mcg capsule 50 mcg PO DAILY thyroid 01/29/21 [History Last Taken 06/23/22] apixaban 5 mg tablet 5 mg PO BID CVA 06/23/22 [History Last Taken Unknown] atorvastatin 40 mg tablet 40 mg PO QHS cholesterol 06/23/22 [History Last Taken 06/23/22] carvedilol 6.25 mg tablet (Coreg) 3.125 mg PO BID HTN 06/23/22 [History Last Taken 06/23/22] losartan 50 mg tablet 50 mg PO QHS hypertension 06/23/22 [History Last Taken 06/23/22] multivitamin 1 tab PO DAILY supplement 06/23/22 [History Last Taken Unknown] terazosin 1 mg tablet 1 mg PO QHS HTN 06/23/22 [History Last Taken 06/23/22] insulin glargine-yfgn 100 unit/mL (3 mL) subcutaneous pen 15 unit (0.15 mL) subcut QHS #0 mL 06/28/22 [Rx Last Taken Unknown] insulin lispro 100 unit/mL subcutaneous pen (Humalog KwikPen (U-100) Insulin) 8 unit (0.08 mL) subcut Q8H #0 mL 06/28/22 [Rx Last Taken Unknown] menthol 0.44 %-zinc oxide 20.6 % topical ointment (Calmoseptine) 1 applic topical BID #0 grams 06/28/22 [Rx Last Taken Unknown] budesonide 0.5 mg/2 mL suspension for nebulization 0.5 mg inhalation BID 09/26/22 [History Last Taken Unknown] cholecalciferol (vitamin D3) 25 mcg (1,000 unit) tablet 125 mcg PO DAILY 09/26/22 [History Last Taken Unknown] sertraline 50 mg tablet 75 mg PO QHS 09/26/22 [History Last Taken Unknown] albuterol sulfate 2.5 mg/3 mL (0.083 %) solution for nebulization 2.5 mg (3 mL) inhalation Q4H PRN Dyspnea, wheezing #0 mL 09/28/22 [Rx Last Taken Unknown] furosemide 40 mg tablet 40 mg PO DAILY #30 tabs 09/28/22 [Rx Last Taken Unknown] ipratropium bromide 0.02 % solution for inhalation 0.5 mg (2.5 mL) inhalation Q6HWA.RT #0 mL 09/28/22 [Rx Last Taken Unknown] sennosides 8.6 mg-docusate sodium 50 mg tablet (Stool Softener-Stimulant Laxative) 2 tab PO BID PRN PRN Constipation #0 tabs 09/28/22 [Rx Last Taken Unknown] buspirone 5 mg tablet 5 mg PO TID PRN 10/21/22 [History Last Taken Unknown] buspirone 5 mg tablet 10 mg PO BID Anxiety 10/21/22 [History Last Taken Unknown] duloxetine 30 mg capsule,delayed release 30 mg PO DAILY 10/21/22 [History Last Taken Unknown] mirtazapine 7.5 mg tablet 7.5 mg PO QHS 10/21/22 [History Last Taken Unknown] potassium chloride 20 mEq tablet,extended release 40 meq PO DAILY 10/21/22 [History Last Taken Unknown] Allergy/AdvReac Type Severity Reaction Status Date / Time Penicillins Allergy PT UNSURE Verified 10/25/22 15:17 OF REACTION Family History Father Diabetes Mother Diabetes Surgical History Gastrostomy status History of back surgery History of hysterectomy History of knee replacement S/P breast biopsy S/P carpal tunnel release S/P cataract surgery Social History housing: half-way Smoking Status: Former smoker how long ago did patient quit smoking: Quit ~ 14 years prior, smoked 50 years 2 ppd. alcohol intake: never substance use type: does not use caffeine: Yes Type: carbonated beverages ROS ROS ED Constitutional Constitutional ED: Denies chills or fever(s) Gastrointestinal Gastrointestinal: Denies abdominal pain, diarrhea, melena, nausea or vomiting Genitourinary Genitourinary ED: Reports as per HPI; Denies dysuria, hematuria, urinary frequency or vaginal bleeding EXAM Physical Exam Const Vital Signs: 11/29/22 22:10 Temperature 97.3 F L Temperature Source Temporal Pulse Rate 68 Respiratory Rate 24 H Blood Pressure 136/50 H Blood Pressure Mean 78 Pulse Ox 94 Oxygen Delivery Method Room Air Speculum Exam - Vagina: Negative for vaginal bleeding MDM MDM MDM Narrative Medical decision making narrative: Your nurse supervisor briar shop was able to be obtained I performed an external and speculum pelvic exam on the patient. Externally unremarkable except for foul-smelling, and on speculum exam she was screaming in pain with just having the speculum about 2 inches inserted. The pillai of the vagina appear to be inflamed, there is a scant amount of nonbloody white-brown discharge. I think this is probably candidiasis which is causing her pain. Her medication list is compatible with a single dose of fluconazole 150 mg which will be given here and she will be discharged back to the half-way for follow-up. Given that she has had no bleeding and I see no blood on exam or signs of trauma I do not think that there is any type of traumatic tear or other problem due to malposition of the initial Burgess catheter, the current one is in good place and there is transparent nonbloody yellow urine in the catheter and bag. She is not having symptoms of a bladder infection so I do not think we need to test her urine, and this I think is the case based on limited evaluation of the vaginal canal due to pain. Discharge Plan Triage Chief Complaint: Complaint ED Provider: Jaswinder Gastelum Dx/Rx/DC Orders Clinical Impression: Acute candidiasis of vulva and vagina Instructions: ED GLORIA VAGINITIS Prescriptions: No Action buspirone 5 mg tablet 5 mg PO TID PRN duloxetine 30 mg capsule,delayed release(DR/EC) 30 mg PO DAILY mirtazapine 7.5 mg tablet 7.5 mg PO QHS potassium chloride 20 mEq tablet extended release 40 meq PO DAILY amlodipine 5 mg Tablet 10 mg PO DAILY allopurinol 100 mg Tablet 50 mg PO DAILY levothyroxine 50 mcg Capsule 50 mcg PO DAILY atorvastatin 40 mg Tablet 40 mg PO QHS carvedilol [Coreg] 6.25 mg Tablet 3.125 mg PO BID apixaban 5 mg Tablet 5 mg PO BID multivitamin Tablet 1 tab PO DAILY losartan 50 mg Tablet 50 mg PO QHS terazosin 1 mg Tablet 1 mg PO QHS menthol-zinc oxide [Calmoseptine] 0.44-20.6 % Ointment 1 applic topical BID Qty: 0 0RF Protocol: *Topical Application Instructions APPLICATION INSTRUCTIONS: apply to affected region insulin lispro [Humalog KwikPen Insulin] 100 unit/mL Insulin Pen 8 unit subcut Q8H Qty: 0 0RF Rx Instructions: Hold if glucose less than 130 mg/dl insulin glargine-yfgn 100 unit/mL (3 mL) Insulin Pen 15 unit subcut QHS Qty: 0 0RF Rx Instructions: Hold if glucose less than 130 mg/dl budesonide 0.5 mg/2 mL Suspension For Nebulization 0.5 mg INHALATION BID sertraline 50 mg Tablet 75 mg PO QHS cholecalciferol (vitamin D3) 25 mcg (1,000 unit) tablet 125 mcg PO DAILY sennosides-docusate sodium [Stool Softener-Stimulant Laxat] 8.6-50 mg Tablet 2 tab PO BID PRN PRN (Reason: Constipation) Qty: 0 0RF ipratropium bromide 0.02 % Solution 0.5 mg inhalation Q6HWA.RT Qty: 0 0RF albuterol sulfate 2.5 mg /3 mL (0.083 %) Solution For Nebulization 2.5 mg inhalation Q4H PRN (Reason: Dyspnea, wheezing) Qty: 0 0RF furosemide 40 mg tablet 40 mg PO DAILY Qty: 30 2RF Rx Instructions: An additional 40 mg dose at 5 PM for increased leg swelling or weight gain 5 pounds in 1 week. buspirone 5 mg tablet 10 mg PO BID Primary Care Provider: Urbano Palencia Referrals: Urbano Palencia MD [Primary Care Provider] - 3-5 Days if not improving Activity Restrictions/Additional Instructions: Fluconazole 150 mg orally given in the emergency department Disposition Disposition: Home, Self Care
[2022-11-30] VITALS: BP 110/44; PULSE 68; RESP 22; O2SAT 93
[2022-11-30] MEDS: FLUCONAZOLE 150 MG TABLET PO (01:12)
== END 2022-11-30 01:20 | disposition home or self-care (01) ==
PROVIDERS: Emergency Provider Emergency Medicine; PCP Family Medicine; Visit Provider Emergency Medicine
DX: B37.31 Acute candidiasis of vulva and vagina (principal); T83.84XA Pain due to genitourinary prosthetic devices, implants and grafts, initial encounter; J44.9 Chronic obstructive pulmonary disease, unspecified; I13.0 Hypertensive heart and chronic kidney disease with heart failure and stage 1 through stage 4 chronic kidney disease, or unspecified chronic kidney disease; I50.9 Heart failure, unspecified; E11.22 Type 2 diabetes mellitus with diabetic chronic kidney disease; N18.30 Chronic kidney disease, stage 3 unspecified; Z87.891 Personal history of nicotine dependence; E78.5 Hyperlipidemia, unspecified; Y73.8 Miscellaneous gastroenterology and urology devices associated with adverse incidents, not elsewhere classified
CPT/HCPCS: 99284

== ENCOUNTER → 2022-12-13 | Outpatient (CLI) | payer MEDICARE, OTHER, MEDICAID, SELFPAY ==
--- NOTE | 2022-12-13 10:05 | CDU_ITS ---
Reason For Study: FRONTAL PARIETAL WATERSHED INFARCT 04/2022 Rt. Velocities/BP Lt. Velocities/BP Prox CCA 98.1/8.0 cm/sec. Prox CCA 73.3/11.9 cm/sec. Mid CCA 57.4/7.9 cm/sec. Mid CCA 79.0/8.1 cm/sec. Dist CCA 64.0/6.8 cm/sec. Dist CCA 58.2/8.1 cm/sec. Prox ICA 88.9/17.5 cm/sec. Prox ICA 94.1/8.1 cm/sec. Mid ICA 103.9/8.9 cm/sec. Mid ICA 90.4/19.2 cm/sec. Dist ICA 59.3/9.0 cm/sec. Dist ICA 54.4/11.4 cm/sec. Rt. ICA/CCA = 103.9/57.4=1.8. Lt. ICA/CCA = 94.1/79.0=1.2. Prox ECA 74.6/7.6 cm/sec. Prox ECA 75.2/2.5 cm/sec. Rt. Vert. 70.5/7.5 cm/sec. Lt. Vert. 52.3/11.8 cm/sec. Right Extracranial There is intimal thickening but no significant atherosclerotic plaque noted in the right common carotid artery. There is heterogeneous, irregular atherosclerotic plaque noted in the right internal carotid artery. The tortuous nature of the right internal carotid artery may result in flow velocities overestimating the degree of stenosis. There is heterogeneous, irregular atherosclerotic plaque noted in the right external carotid artery. Antegrade flow is noted in the right vertebral artery. There is heterogeneous, irregular atherosclerotic plaque noted in the right bulb. Left Extracranial There is intimal thickening but no significant atherosclerotic plaque noted in the left common carotid artery. There is intimal thickening but no significant atherosclerotic plaque noted in the left internal carotid artery. There is no significant atherosclerotic plaque noted in the left external carotid artery. Antegrade flow is noted in the left vertebral artery. Procedure Carotid Duplex [id number]. This is a Carotid Duplex examination using B-mode, color flow and specral Doppler. Exam performed in department. VL/Carotid Duplex Ultrasound Interpretation Summary Mild (<50%) stenosis right extracranial internal carotid. Normal left extracranial internal carotid. Patent and antegrade vertebrals bilaterally. Ordering Physician: Jakub Watt Referring Physician: Urbano Palencia Performed By: Jaz Wilkes, CARINE, RVT
== END | disposition home or self-care (01) ==
LOC: CVS 10:04
PROVIDERS: PCP Family Medicine; Referring Provider Psychiatry & Neurology Neurology; Visit Provider Psychiatry & Neurology Neurology
DX: I63.411 Cerebral infarction due to embolism of right middle cerebral artery (principal); I69.30 Unspecified sequelae of cerebral infarction
CPT/HCPCS: 93880

== ENCOUNTER 2022-12-19 15:53 | Observation (INO) | payer MEDICARE, MEDICAID, SELFPAY ==
[2022-12-19 15:55] VITALS: BP 123/54; PULSE 65; RESP 18; TEMP 36.8; O2SAT 99; BMI 38.5
--- NOTE | 2022-12-19 15:59 | ED.VIS.DYS ---
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 CKD (chronic kidney disease) stage 3, GFR 30-59 ml/min Congestive heart failure (CHF) COPD not affecting current episode of care Dehydration Dementia Depression Diabetes Dysphagia following cerebral infarction Encephalopathy Encephalopathy, unspecified Gastro-esophageal reflux disease without esophagitis Gout, unspecified Hemiplegia and hemiparesis following cerebral infarction affecting left non-dominant side History of stroke Hyperammonemia Hyperchloremia Hyperlipidemia, unspecified Hypernatremia Hyperosmolality and hypernatremia Hypertension Hypothyroidism Malignant neoplasm of unspecified part of unspecified bronchus or lung Neuromuscular dysfunction of bladder, unspecified Obstructive sleep apnea (adult) (pediatric) LANIE on CPAP SOB (shortness of breath) Type 2 diabetes mellitus Unspecified protein-calorie malnutrition UTI (urinary tract infection) Wide-complex tachycardia Home Medications allopurinol 100 mg tablet 50 mg PO DAILY gout 01/29/21 [History Last Taken 06/23/22] amlodipine 5 mg tablet 10 mg PO DAILY HTN 01/29/21 [History Last Taken 06/23/22] levothyroxine 50 mcg capsule 50 mcg PO DAILY thyroid 01/29/21 [History Last Taken 06/23/22] apixaban 5 mg tablet 5 mg PO BID CVA 06/23/22 [History Last Taken Unknown] atorvastatin 40 mg tablet 40 mg PO QHS cholesterol 06/23/22 [History Last Taken 06/23/22] carvedilol 6.25 mg tablet (Coreg) 3.125 mg PO BID HTN 06/23/22 [History Last Taken 06/23/22] losartan 50 mg tablet 50 mg PO QHS hypertension 06/23/22 [History Last Taken 06/23/22] multivitamin 1 tab PO DAILY supplement 06/23/22 [History Last Taken Unknown] terazosin 1 mg tablet 1 mg PO QHS HTN 06/23/22 [History Last Taken 06/23/22] insulin glargine-yfgn 100 unit/mL (3 mL) subcutaneous pen 15 unit (0.15 mL) subcut QHS #0 mL 06/28/22 [Rx Last Taken Unknown] insulin lispro 100 unit/mL subcutaneous pen (Humalog KwikPen (U-100) Insulin) 8 unit (0.08 mL) subcut Q8H #0 mL 06/28/22 [Rx Last Taken Unknown] menthol 0.44 %-zinc oxide 20.6 % topical ointment (Calmoseptine) 1 applic topical BID #0 grams 06/28/22 [Rx Last Taken Unknown] budesonide 0.5 mg/2 mL suspension for nebulization 0.5 mg inhalation BID 09/26/22 [History Last Taken Unknown] cholecalciferol (vitamin D3) 25 mcg (1,000 unit) tablet 125 mcg PO DAILY 09/26/22 [History Last Taken Unknown] sertraline 50 mg tablet 75 mg PO QHS 09/26/22 [History Last Taken Unknown] albuterol sulfate 2.5 mg/3 mL (0.083 %) solution for nebulization 2.5 mg (3 mL) inhalation Q4H PRN Dyspnea, wheezing #0 mL 09/28/22 [Rx Last Taken Unknown] furosemide 40 mg tablet 40 mg PO DAILY #30 tabs 09/28/22 [Rx Last Taken Unknown] ipratropium bromide 0.02 % solution for inhalation 0.5 mg (2.5 mL) inhalation Q6HWA.RT #0 mL 09/28/22 [Rx Last Taken Unknown] sennosides 8.6 mg-docusate sodium 50 mg tablet (Stool Softener-Stimulant Laxative) 2 tab PO BID PRN PRN Constipation #0 tabs 09/28/22 [Rx Last Taken Unknown] buspirone 5 mg tablet 5 mg PO TID PRN 10/21/22 [History Last Taken Unknown] buspirone 5 mg tablet 10 mg PO BID Anxiety 10/21/22 [History Last Taken Unknown] duloxetine 30 mg capsule,delayed release 30 mg PO DAILY 10/21/22 [History Last Taken Unknown] mirtazapine 7.5 mg tablet 7.5 mg PO QHS 10/21/22 [History Last Taken Unknown] potassium chloride 20 mEq tablet,extended release 40 meq PO DAILY 10/21/22 [History Last Taken Unknown] clindamycin HCl 300 mg capsule 300 mg PO Q6H 14 days #56 caps 12/07/22 [Rx Last Taken Unknown] prednisone 50 mg tablet 50 mg PO DAILY 5 days #5 tabs 12/19/22 [Rx Last Taken Unknown] Allergy/AdvReac Type Severity Reaction Status Date / Time Penicillins Allergy PT UNSURE Verified 12/19/22 15:55 OF REACTION Family History Father Diabetes Mother Diabetes Surgical History Gastrostomy status History of back surgery History of hysterectomy History of knee replacement S/P breast biopsy S/P carpal tunnel release S/P cataract surgery Social History housing: alf Smoking Status: Former smoker how long ago did patient quit smoking: Quit ~ 14 years prior, smoked 50 years 2 ppd. alcohol intake: never substance use type: does not use caffeine: Yes Type: carbonated beverages EXAM Physical Exam Const Vital Signs: 12/19/22 15:55 12/19/22 16:03 12/19/22 16:28 Temperature 98.2 F Temperature Source Oral Pulse Rate 65 67 Respiratory Rate 18 20 H Respiratory Effort Normal Non-Labored Respiratory Depth Normal Respiratory Pattern Normal Normal Blood Pressure 123/54 H Blood Pressure Mean 77 Pulse Ox 99 Oxygen Delivery Method Room Air Room Air MDM MDM MDM Narrative Medical decision making narrative: HISTORY OF PRESENT ILLNESS: 77-year-old female here with shortness of breath. She notes has history of cancer, she has been for breath on and off last couple days. Improved today which prompted her visit. She states she has been having worsening shortness of breath that is off and on for the last several days. No chest pain. No palpitations. No recent sick contacts no fever cough noted. Denies any lower extremity edema. Denies any bleeding diathesis. She notes she wears oxygen at night. She knows she is at a nursing facility and has access to medical care. The patient denies recent surgery in the last 4 weeks or immobilization in the last 3 days, denies previous diagnosis of DVT or PE, hemoptysis, unilateral leg swelling or malignancy with treatment the last 6 months. No estrogen use noted. REVIEW OF SYSTEMS: Pertinent positives: Shortness of breath Pertinent negatives: Leg swelling, chest pain PHYSICAL EXAM: Nursing triage notes reviewed, Vital signs reviewed Constitutional: please see mdm HENT: MMM Eyes: Pupils equal round and reactive to light, Extraocular muscles intact Neck: No stridor, no JVD, full neck ROM Lungs: Diminished breath sounds bilaterally, wheezing noted bilaterally, no obvious rales or focal consolidative processes, there is mild conversational dyspnea but no increased work of breathing accessory muscle use noted. Heart: Regular rate and rhythm, No murmurs, No rubs and No gallops, 2+ distal pulses (radial, femoral, posterior tibial) in all extremities Abdomen: Soft, there is no tenderness, rigidity, rebound or guarding, no obvious peritoneal signs, no palpable pulsatile abdominal masses, no auscultated abdominal bruit : No CVAT Extremities: No edema, no unilateral leg swelling, no calf tenderness Neuro: No focal neurological deficits, cranial nerves II through XII intact, 5/5 strength in all extremities. Intact sensation to light touch in all extremities, 2+ reflexes bilateral patella tendons. Normal gait. No ataxia. Skin: No rash or lesions noted MEDICAL DECISION MAKING: Chief Complaint: Shortness of breath External records reviewed: Stress test from 2022 shows an ejection fraction of 67% Factors affecting care:, Hypothyroidism, hypertension CHF, COPD, on Eliquis Social determinants of health: Elderly History obtained from others: EMS Consults: none ALL IMAGES (IF OBTAINED) HAVE BEEN PERSONALLY REVIEWED AND INTERPRETED BY MYSELF. EKG with normal sinus rhythm, normal axis, normal intervals, no STEMI, frequent PVCs MDM Narrative: Patient was initially hemodynamically stable, afebrile, nontoxic-appearing I considered the following differential diagnosis: CHF exacerbation, COPD exacerbation, pneumonia, COVID, ACS, arrhythmia, anemia, PE I considered pulmonary embolism as a potential diagnosis however thought this was less likely secondary to the patient having a low risk Wells score, being on Eliquis. Patient's clinical exam was most consistent with a COPD exacerbation. There is no rales or lower extremity edema to suggest clinical volume overload. I did obtain a broad lab and imaging work-up to further elucidate the etiology patient complaints including COVID-19 swab, CBC to rule out anemia, chest x-ray rule out pneumonia, CHF BNP to further ascertain CHF, EKG and troponin to rule out arrhythmia and myocardial ischemia. Labs and images were remarkable for no evidence of severe anemia, electrolyte disturbance, there is CKD noted. There is no evidence of myocardial ischemia and negative troponin, nonischemic EKG. I suspect the patient's presentation secondary to COPD exacerbation. Will give prednisone and instructions to take DuoNeb treatments at home The patient and/or family, caregivers express understanding. The patient and/or family, caregivers agrees with the plan. Shared decision making: I will have a discussion with the patient and or visitors regarding risk/benefits of further testing or admission. They will be made aware of of the risk/benefits inherent in this decision they will be given the opportunity to voice understanding. Total critical care time today provided was at least 0 minutes. This excludes separately billable procedures. Critical care time (if documented) is secondary to the patient having high probability of clinically significant/life threatening deterioration in the patient's condition which required my urgent intervention. Lab Data Attestation: I reviewed the patient's lab results. Lab results narrative: CBC without leukocytosis to suggest systemic formation, mild anemia at baseline, no thrombocytopenia Troponin is negative, no evidence of myocardial ischemia BNP within normal limits. No evidence of increased myocardial stretch BMP with hyperkalemia although this was hemolyzed sample, no anion gap, noted CKD similar to prior COVID/flu Labs: Laboratory Results - last 24 hr 12/19/22 16:15 WBC 7.7 RBC 3.52 L Hgb 10.0 L Hct 31.5 L MCV 89.5 MCH 28.4 MCHC 31.7 L RDW Std Deviation 53.5 H RDW Coeff of Neeta 16.3 H Plt Count 273 MPV 9.5 Immature Gran % (Auto) 0.400 Neut % (Auto) 62.2 Lymph % (Auto) 26.1 [place] % (Auto) 5.6 Eos % (Auto) 5.2 H Baso % (Auto) 0.5 Absolute Neuts (auto) 4.8 Absolute Lymphs (auto) 2.01 Nucleated RBC % 0 Sodium 136 Potassium 5.3 H Chloride 107 Carbon Dioxide 24.0 Anion Gap 5 BUN 45 H Creatinine 1.63 H Estim Creat Clear Calc 21.12 Est GFR (MDRD) Af Amer 39 L Est GFR (MDRD) Non-Af 32 L BUN/Creatinine Ratio 27.6 H Glucose 137 H Calcium 9.6 Troponin I High Sens 5 B-Natriuretic Peptide 96.2 Radiography Chest X-Ray - ED: Read by ED Physician Diagnostic Testing: Clinical Impression(s) from Imaging Studies Chest X-Ray 12/19/22 16:35 IMPRESSION: Pulmonary findings appear improved. Stable right upper lobe mass. Electronically Signed: Tony Burns MD at 17:03 EDT , I personally viewed the patient's chest x-ray. Showed a right upper lobe mass consistent with prior history of pneumonia. No obvious pneumothorax, pulmonary edema or pneumonia noted. Discharge Plan Triage Chief Complaint: Shortness of Breath ED Provider: Candido Brandon Dx/Rx/DC Orders Clinical Impression: COPD with exacerbation Instructions: Discharge Instructions: COPD Prescriptions: New prednisone 50 mg tablet 50 mg PO DAILY 5 Days Qty: 5 0RF No Action buspirone 5 mg tablet 5 mg PO TID PRN duloxetine 30 mg capsule,delayed release(DR/EC) 30 mg PO DAILY mirtazapine 7.5 mg tablet 7.5 mg PO QHS potassium chloride 20 mEq tablet extended release 40 meq PO DAILY clindamycin HCl 300 mg capsule 300 mg PO Q6H 14 Days Qty: 56 0RF amlodipine 5 mg Tablet 10 mg PO DAILY allopurinol 100 mg Tablet 50 mg PO DAILY levothyroxine 50 mcg Capsule 50 mcg PO DAILY atorvastatin 40 mg Tablet 40 mg PO QHS carvedilol [Coreg] 6.25 mg Tablet 3.125 mg PO BID apixaban 5 mg Tablet 5 mg PO BID multivitamin Tablet 1 tab PO DAILY losartan 50 mg Tablet 50 mg PO QHS terazosin 1 mg Tablet 1 mg PO QHS menthol-zinc oxide [Calmoseptine] 0.44-20.6 % Ointment 1 applic topical BID Qty: 0 0RF Protocol: *Topical Application Instructions APPLICATION INSTRUCTIONS: apply to affected region insulin lispro [Humalog KwikPen Insulin] 100 unit/mL Insulin Pen 8 unit subcut Q8H Qty: 0 0RF Rx Instructions: Hold if glucose less than 130 mg/dl insulin glargine-yfgn 100 unit/mL (3 mL) Insulin Pen 15 unit subcut QHS Qty: 0 0RF Rx Instructions: Hold if glucose less than 130 mg/dl budesonide 0.5 mg/2 mL Suspension For Nebulization 0.5 mg INHALATION BID sertraline 50 mg Tablet 75 mg PO QHS cholecalciferol (vitamin D3) 25 mcg (1,000 unit) tablet 125 mcg PO DAILY sennosides-docusate sodium [Stool Softener-Stimulant Laxat] 8.6-50 mg Tablet 2 tab PO BID PRN PRN (Reason: Constipation) Qty: 0 0RF ipratropium bromide 0.02 % Solution 0.5 mg inhalation Q6HWA.RT Qty: 0 0RF albuterol sulfate 2.5 mg /3 mL (0.083 %) Solution For Nebulization 2.5 mg inhalation Q4H PRN (Reason: Dyspnea, wheezing) Qty: 0 0RF furosemide 40 mg tablet 40 mg PO DAILY Qty: 30 2RF Rx Instructions: An additional 40 mg dose at 5 PM for increased leg swelling or weight gain 5 pounds in 1 week. buspirone 5 mg tablet 10 mg PO BID Primary Care Provider: Urbano Palencia Referrals: Urbano Palencia MD [Primary Care Provider] - Activity Restrictions/Additional Instructions: Thank you for trusting us with your care today! Please take Tylenol (2 pills, 650 mg), ibuprofen (2 pills, 400 mg) every 6 hours as needed for pain and fever control. Please use your breathing treatments as previously prescribed. Please use oxygen as needed as previously prescribed Please return to the emergency department if your symptoms change or worsen. Specifically develop chest pain, shortness of breath, lose consciousness Please follow with your primary care physician for further outpatient evaluation and management. Disposition Disposition: Home, Self Care
[2022-12-19] MEDS: Ipratropium/Albuterol Sulfate 3 ML AMPUL.NEB INHALATION (16:27)
[2022-12-19 16:28] VITALS: PULSE 67; RESP 20
[2022-12-19] MEDS: predniSONE 20 MG Tablet 40 MG PO (16:30)
[2022-12-19 16:32] LABS: Absolute Lymphocyte Count 2.01 X10^3/uL (0.83-4.51); Absolute Neutrophil Count 4.8 X10^3/uL (2.0-7.7); Basophil# 0.04 X10^3/uL; Basophil% 0.5 % (0-1); Eosinophils% 5.2 % (0-5); Hematocrit 31.5 % (37-47); Lymphocyte # 2.01 X10^3/ul (0.83-4.51); Lymphocyte % 26.1 % (19-41); Mean Corp Hgb Conc 31.7 g/dL (32-36); Mean Corpuscular Hgb 28.4 pg (27.0-32.0); Mean Corpuscular Volume 89.5 fL (81-99); Mean Platelet Vol. 9.5 fl (6.2-12.0); Monocyte# 0.43 X10^3/uL; Monocyte% 5.6 % (0-10); NRBC Flagged by Analyzer 0 % (0-5); Neutrophil # 4.78 X10^3/uL (2.7-7.7); Neutrophil % 62.2 % (47-70); Platelet Count 273 K/mm3 (150-450); RBC Distribution Width CV 16.3 % (11.6-14.6); RBC Distribution Width SD 53.5 fl (35.1-43.9); Red Blood Count 3.52 M/mm3 (4.2-5.4); White Blood Count 7.7 K/mm3 (4.4-11.0)
--- NOTE | 2022-12-19 16:35 | RAD_ITS ---
STUDY: XR Chest 1 View 12/19/2022 4:35 PM REASON FOR EXAM: Female, 77 years old. CHEST PAIN SOB COMPARISON: 5.14.23 TECHNIQUE: XR Chest 1 View FINDINGS: There is a left pleural effusion. Bilateral infiltrates. Enlarging right upper lobe mass. This currently measures 42mm. Enlarged heart size. Normal mediastinum. Prominent jovany. Prominent appearing increased interstitial lung markings. Normal visualized pulmonary arteries. There is atherosclerotic calcification of the aortic arch with tortuosity. There are diffuse degenerative changes of the visualized thoracic spine. There is degenerative osteoarthritis of the bilateral shoulders. Partially visualized lumbar spinal fusion hardware. RAD/Chest 1 View (Portable) IMPRESSION: Pulmonary findings appear improved. Stable right upper lobe mass. Electronically Signed: Tony Burns MD at 17:03 EDT ,
[2022-12-19 16:46] LABS: Anion Gap 5 (5-15); BUN 45 mg/dL (7-18); BUN/Creat Ratio 27.6 RATIO (10-20); Calcium,Total 9.6 mg/dL (8.5-10.1); Chloride 107 mmol/L (98-107); Creatinine, Serum 1.63 mg/dL (0.55-1.02); EST Glomerular Filtration Rate 32 mL/min (>60); Est Glom Filt Rate - Afr Amer 39 mL/min (>60); Estimated Creatinine Clearance 21.12 ml/min; Glucose 137 mg/dL (74-106); Potassium 5.3 mmol/L (3.5-5.1); Sodium Level 136 mmol/L (136-145); Troponin-I HS 5 pg/mL (3.0-54.0)
[2022-12-19 16:51] LABS: BNP,B-Type NATRIURETIC PEPTIDE 96.2 pg/mL (0-100)
--- NOTE | 2022-12-19 17:19 | EKG12_ITS ---
Test Reason : SOB Blood Pressure : / mmHG Vent. Rate : 074 BPM Atrial Rate : 074 BPM P-R Int : 180 ms QRS Dur : 086 ms QT Int : 398 ms P-R-T Axes : 057 012 050 degrees QTc Int : 441 ms Sinus rhythm with frequent Premature ventricular complexes in a pattern of bigeminy Low voltage QRS Borderline ECG Confirmed by LINDA NAVARRETE, TALON ([id number]), sports editor LIDA CARSON ([id number]) on 12/20/2022 1:32:54 PM Referred By: Flaco Lemus Confirmed By:TALON MCKEON MD
--- NOTE | 2022-12-19 18:20 | EKG12_ITS ---
Test Reason : RHYTHM CHANGE Blood Pressure : / mmHG Vent. Rate : 092 BPM Atrial Rate : 092 BPM P-R Int : 208 ms QRS Dur : 090 ms QT Int : 356 ms P-R-T Axes : 063 006 066 degrees QTc Int : 440 ms Sinus rhythm with frequent Premature ventricular complexes in a pattern of bigeminy Otherwise normal ECG Confirmed by LINDA NAVARRETE, TALON ([id number]), purchasing expeditor LIDA CARSON ([id number]) on 12/20/2022 1:33:06 PM Referred By: Flaco Lemus Confirmed By:TALON MCKEON MD
[2022-12-19 18:21] VITALS: BP 137/64; PULSE 157; RESP 22
--- NOTE | 2022-12-19 18:21 | ED.RN ---
PT NOTED TO BE V-TACH ON MONITOR. PT CONVERTED TO BIGEMINY AFTER BEARING DOWN AND COUGHING. DR HARRIS NOTIFIED AND AT BEDSIDE. NEW ORDERS RECEIVED. WILL MONITOR.
--- NOTE | 2022-12-19 19:02 | EKG12_ITS ---
Test Reason : RHYTHM CHANGE Blood Pressure : / mmHG Vent. Rate : 077 BPM Atrial Rate : 077 BPM P-R Int : 194 ms QRS Dur : 082 ms QT Int : 382 ms P-R-T Axes : 040 011 046 degrees QTc Int : 432 ms Normal sinus rhythm Normal ECG Confirmed by LINDA NAVARRETE, TALON ([id number]), health editor LIDA CARSON ([id number]) on 12/20/2022 1:33:20 PM Referred By: Flaco Lemus Confirmed By:TALON MCKEON MD
[2022-12-19] MEDS: LORazepam 2 MG/ML Syringe 1 MG IV (19:18)
[2022-12-19 19:30] VITALS: O2SAT 81
[2022-12-19 19:44] LABS: Anion Gap 7 (5-15); BUN 38 mg/dL (7-18); BUN/Creat Ratio 30.9 RATIO (10-20); Calcium,Total 7.6 mg/dL (8.5-10.1); Chloride 116 mmol/L (98-107); Creatinine, Serum 1.23 mg/dL (0.55-1.02); EST Glomerular Filtration Rate 45 mL/min (>60); Est Glom Filt Rate - Afr Amer 54 mL/min (>60); Estimated Creatinine Clearance 27.99 ml/min; Glucose 130 mg/dL (74-106); Magnesium 1.5 mg/dL (1.6-2.6); Potassium 3.6 mmol/L (3.5-5.1); Sodium Level 142 mmol/L (136-145); Troponin-I HS 5 pg/mL (3.0-54.0)
--- NOTE | 2022-12-19 19:56 | HP.PCM.HOS_ITS ---
HPI - General General Date of Admission: 12/19/22 Date of Service: 12/19/22 Chief Complaint: Worsening of shortness of breath for 2 days HPI Narrative LIZABETH MICHELE, is a 77 F with history of COPD came to ED for progressive worsening of shortness of breath for 2 days along with cough and sputum but was not worse today. She cannot tell me about the characteristic of his sputum whether it was thick or thin or color as he swallow her sputum. Complain of chest tightness mainly anteriorly. No chest pain or pressure. In ED, she got DuoNeb nebulization and was feeling better but she had long run of NSVT. She has history of NSVT during previous hospitalization and stress test. Twelve-lead EKG done in the ER showed frequent PVC and bigeminy pattern. The last EKG after 1 hour shows resolution of PVCs, normal sinus rhythm as described in HPI. Last vitals in the in the ED shows heart rate in 70s, BP 05/16/1936/64 respiratory 22. Pulse ox was 99% on room air. [facility] Medical History Altered level of consciousness Anemia, unspecified Anxiety Aphasia following unspecified cerebrovascular disease Cerebral infarction due to embolism of right middle cerebral artery CKD (chronic kidney disease) stage 3, GFR 30-59 ml/min Congestive heart failure (CHF) COPD not affecting current episode of care Dehydration Dementia Depression Diabetes Dysphagia following cerebral infarction Encephalopathy Encephalopathy, unspecified Gastro-esophageal reflux disease without esophagitis Gout, unspecified Hemiplegia and hemiparesis following cerebral infarction affecting left non- dominant side History of stroke Hyperammonemia Hyperchloremia Hyperlipidemia, unspecified Hypernatremia Hyperosmolality and hypernatremia Hypertension Hypothyroidism Malignant neoplasm of unspecified part of unspecified bronchus or lung Neuromuscular dysfunction of bladder, unspecified Obstructive sleep apnea (adult) (pediatric) LANIE on CPAP SOB (shortness of breath) Type 2 diabetes mellitus Unspecified protein-calorie malnutrition UTI (urinary tract infection) Wide-complex tachycardia Home Medications allopurinol 100 mg tablet 50 mg PO DAILY gout 01/29/21 [History Last Taken 06/23/22] amlodipine 5 mg tablet 10 mg PO DAILY HTN 01/29/21 [History Last Taken 06/23/22] levothyroxine 50 mcg capsule 50 mcg PO DAILY thyroid 01/29/21 [History Last Taken 06/23/22] apixaban 5 mg tablet 5 mg PO BID CVA 06/23/22 [History Last Taken Unknown] atorvastatin 40 mg tablet 40 mg PO QHS cholesterol 06/23/22 [History Last Taken 06/23/22] carvedilol 6.25 mg tablet (Coreg) 3.125 mg PO BID HTN 06/23/22 [History Last Taken 06/23/22] losartan 50 mg tablet 50 mg PO QHS hypertension 06/23/22 [History Last Taken 06/23/22] multivitamin 1 tab PO DAILY supplement 06/23/22 [History Last Taken Unknown] terazosin 1 mg tablet 1 mg PO QHS HTN 06/23/22 [History Last Taken 06/23/22] insulin glargine-yfgn 100 unit/mL (3 mL) subcutaneous pen 15 unit (0.15 mL) subcut QHS #0 mL 06/28/22 [Rx Last Taken Unknown] insulin lispro 100 unit/mL subcutaneous pen (Humalog KwikPen (U-100) Insulin) 8 unit (0.08 mL) subcut Q8H #0 mL 06/28/22 [Rx Last Taken Unknown] menthol 0.44 %-zinc oxide 20.6 % topical ointment (Calmoseptine) 1 applic topic al BID #0 grams 06/28/22 [Rx Last Taken Unknown] budesonide 0.5 mg/2 mL suspension for nebulization 0.5 mg inhalation BID 09/26/22 [History Last Taken Unknown] cholecalciferol (vitamin D3) 25 mcg (1,000 unit) tablet 125 mcg PO DAILY 09/26/22 [History Last Taken Unknown] sertraline 50 mg tablet 75 mg PO QHS 09/26/22 [History Last Taken Unknown] albuterol sulfate 2.5 mg/3 mL (0.083 %) solution for nebulization 2.5 mg (3 mL) inhalation Q4H PRN Dyspnea, wheezing #0 mL 09/28/22 [Rx Last Taken Unknown] furosemide 40 mg tablet 40 mg PO DAILY #30 tabs 09/28/22 [Rx Last Taken Unknown] ipratropium bromide 0.02 % solution for inhalation 0.5 mg (2.5 mL) inhalation Q6HWA.RT #0 mL 09/28/22 [Rx Last Taken Unknown] sennosides 8.6 mg-docusate sodium 50 mg tablet (Stool Softener-Stimulant Laxative) 2 tab PO BID PRN PRN Constipation #0 tabs 09/28/22 [Rx Last Taken Unknown] buspirone 5 mg tablet 5 mg PO TID PRN 10/21/22 [History Last Taken Unknown] buspirone 5 mg tablet 10 mg PO BID Anxiety 10/21/22 [History Last Taken Unknown] duloxetine 30 mg capsule,delayed release 30 mg PO DAILY 10/21/22 [History Last Taken Unknown] mirtazapine 7.5 mg tablet 7.5 mg PO QHS 10/21/22 [History Last Taken Unknown] potassium chloride 20 mEq tablet,extended release 40 meq PO DAILY 10/21/22 [History Last Taken Unknown] clindamycin HCl 300 mg capsule 300 mg PO Q6H 14 days #56 caps 12/07/22 [Rx Last Taken Unknown] prednisone 50 mg tablet 50 mg PO DAILY 5 days #5 tabs 12/19/22 [Rx Last Taken Unknown] Allergy/AdvReac Type Severity Reaction Status Date / Time Penicillins Allergy PT UNSURE Verified 12/19/22 15:55 OF REACTION Family History Father Diabetes Mother Diabetes Surgical History Gastrostomy status History of back surgery History of hysterectomy History of knee replacement S/P breast biopsy S/P carpal tunnel release S/P cataract surgery Social History housing: [facility] Smoking Status: Former smoker how long ago did patient quit smoking: Quit ~ 14 years prior, smoked 50 years 2 ppd. alcohol intake: never substance use type: does not use caffeine: Yes Type: carbonated beverages ROS ROS Narrative Constitutional: Reports fatigue and weakness. No fever. HEENT: Reports systems reviewed and no addt'l complaints, except as documented Respiratory/Chest: Mild wheezing rest as described in HPI CVS: History of frequent PVCs, NSVT/bigeminy. No chest pain or pressure. Gastrointestinal: Denies coffee ground emesis, hematemesis or vomiting Genitourinary: Chronic indwelling Burgess catheter since May 2022, neuromuscular/neurogenic bladder Musculoskeletal: Denies acute joint pain or limited range of motion. No acute injury Neurologic: Denies seizure-like symptoms. History of a stroke in the past. skin: No ulcer. No rash Endocrinology: Reports systems reviewed and no addt'l complaints, except as documented Hematologic/Lymphatic: Reports systems reviewed and no addt'l complaints, except as documented Rest 14 ROS are negative except as mentioned in HPI Vital Signs Vital Signs Vital Signs: 12/19/22 15:55 12/19/22 16:03 12/19/22 16:28 Temperature 98.2 F Temperature Source Oral Pulse Rate 65 67 Respiratory Rate 18 20 H Respiratory Effort Normal Non-Labored Respiratory Depth Normal Respiratory Pattern Normal Normal Blood Pressure 123/54 H Blood Pressure Mean 77 Pulse Ox 99 Oxygen Delivery Method Room Air Room Air 12/19/22 18:21 12/19/22 19:30 Temperature Temperature Source Pulse Rate 157 H Respiratory Rate 22 H Respiratory Effort Respiratory Depth Respiratory Pattern Blood Pressure 137/64 H Blood Pressure Mean 88 Pulse Ox 81 Oxygen Delivery Method Room Air Room Air Weight Weight: 203 lb 11.314 oz Body Mass Index (BMI) 38.5 Physical Exam Narrative General: Alert, Oriented x3, Cooperative, morbid obesity BMI 38.5 kg/m? HEENT: Atraumatic, PERRLA, EOMI, Normocephalic Oral: Oral mucositis moist. No posterior pharyngeal wall inflammation/lymphoid follicle Neck: Supple, No JVD, Negative Carotid Bruits Lungs: Air entry diminished in bilateral lung bases. Bilateral expiratory rhonchi Cardiovascular: Regular rate, Regular Rhythm, Normal S1, Normal S2, No murmurs Abdomen: Bowel Sounds Present, Soft, Non Tender, Non-Distended : Indwelling Burgess catheter./Neurogenic bladder. No renal angle tenderness. No suprapubic tenderness. Extremities: No edema, Capillary Refill Less than 3 Seconds Skin: No rashes, No breakdown Musculoskeletal: No Tenderness to Palpation of Joints or Extremities Neurological: Cranial nerves II-XII grossly intact, DTR 2+/4. No acute focal neurological deficit. Psych/Mental Status: Flat affect. Results Lab / Micro Data 12/19/22 16:15 12/19/22 18:47 Labs: Laboratory Results - last 24 hr 12/19/22 16:15: WBC 7.7, RBC 3.52 L, Hgb 10.0 L, Hct 31.5 L, MCV 89.5, MCH 28.4, MCHC 31.7 L, RDW Std Deviation 53.5 H, RDW Coeff of Neeta 16.3 H, Plt Count 273, MPV 9.5, Immature Gran % (Auto) 0.400, Neut % (Auto) 62.2, Lymph % (Auto) 26.1, Rutherford % (Auto) 5.6, Eos % (Auto) 5.2 H, Baso % (Auto) 0.5, Absolute Neuts (auto) 4.8, Absolute Lymphs (auto) 2.01, Nucleated RBC % 0, Sodium 136, Potassium 5.3 H , Chloride 107, Carbon Dioxide 24.0, Anion Gap 5, BUN 45 H, Creatinine 1.63 H, Estim Creat Clear Calc 21.12, Est GFR (MDRD) Af Amer 39 L, Est GFR (MDRD) Non-Af 32 L, BUN/Creatinine Ratio 27.6 H, Glucose 137 H, Calcium 9.6, Troponin I High Sens 5, B-Natriuretic Peptide 96.2 12/19/22 18:47: Sodium 142, Potassium 3.6, Chloride 116 H, Carbon Dioxide 19.0 L , Anion Gap 7, BUN 38 H, Creatinine 1.23 H, Estim Creat Clear Calc 27.99, Est GFR (MDRD) Af Amer 54 L, Est GFR (MDRD) Non-Af 45 L, BUN/Creatinine Ratio 30.9 H , Glucose 130 H, Calcium 7.6 L, Magnesium 1.5 L, Troponin I High Sens 5 Micro: Microbiology 12/19/22 16:25 Nasal Secretion SARS-CoV-2 & FLU Antigen (Rapid) - Final Radiology Impression Chest X-Ray 12/19/22 16:35 IMPRESSION: Pulmonary findings appear improved. Stable right upper lobe mass. Electronically Signed: Tony Burns MD at 17:03 EDT , Assessment & Plan Assessment/Plan (1) COPD with exacerbation: (2) NSVT (nonsustained ventricular tachycardia): PLAN: Plan 77-year-old female is being admitted for COPD exacerbation with frequent PVCs/ventricular bigeminy in ED 1. COPD exacerbation: Patient is being admitted in PCU. Chest x-ray individually reviewed and shows a enlarging right upper lobe mass 42 mm. No acute infiltrate but has chronic interstitial lung markings. Since patient had sinus tachycardia with PVCs and bigeminy after DuoNeb therefore will give ipratropium every 4 hourly, IV Solu-Medrol, incentive spirometry/Pep and Mucinex. Rapid flu and COVID antigen negative. Rest pretrip ordered 2. Short run of NSVT, PVCs/ventricular bigeminy with history of NSVT, chronic HFpEF with moderate pulmonary hypertension: NSVT most likely precipitated by DuoNeb/albuterol. BNP 96. And chest x-ray not suggestive of pulmonary venous congestion/pulmonary edema therefore no acute heart failure. Patient has history of wide-complex tachycardia during previous hospitalization in September 2022 and at that time EKG shows wide-complex tachycardia 147 bpm. QTc 497 ms. Patient follows with Dr[address] Arambula last seen in clinic in October 2022 and at that time pharmacological nuclear stress test also showed frequent ventricular ectopy during the test infusion and recovery. EKG showed no ischemic changes. Fixed apical defect most likely attenuation defect. RV appears dilated. -Echo reported EF 60% with moderate pulmonary hypertension, RVSP 58 mmHg Continue home dose of Lasix from tomorrow. Hypomagnesemia, magnesium replaced. Serum phosphorus ordered. Continue hold for heart less than 50 or systolic blood pressure less than 100 mmHg.. Avoid QTc prolonging medication. 3. History of right MCA stroke with residual left-sided deficits with neurogenic bladder: Patient recalls that her catheter has not been changed for more than a month. Catheter change tomorrow AM. -PT/OT -Reportedly takes Eliquis for this, do not see history of A-fib but will continue this and with active cancer is at high risk of clotting 4. Right upper lobe lung mass highly suggestive of cancer and obstructive sleep apnea. Chest x-ray reported 42 mm right upper lobe mass. Previous CT chest in September 2022 shows 31 mm mass of the right upper lobe. Patient follows Dr. Arceo in clinic. Continue CPAP 5. CKD stage IIIb: BUNs/creatinine 38/1.23, elevated from baseline 20/1.04 probably due to diuretic. IV fluid Ringer lactate 1 L. Resume Lasix from tomorrow. - 6. Type 2 diabetes mellitus: Glucose is 130. Continue home dose of long-acting insulin along with Accu-Chek insulin coverage milk sliding scale. #DVT ppx: Continue Eliquis Living will/advanced directive/end of life care: Patient does have living will or advanced directive. Her daughter is power of top hat body maker for health. after discussion of benefits/risks procedures involved with full code, DNR CC arrest and DNR CC, the patient opted for full code. Patient does want artificial life support including intubation, tube feed, ventilator and/chest compression, central venous catheter, vasopressor and DC shock if needed Total time spent in [id number] encounter in discussion of advanced directive 17 minutes. Microbiology Past 72 Hours 12/19/22 16:25 Nasal Secretion SARS-CoV-2 & FLU Antigen (Rapid) - Final Laboratory Results 12/19/22 16:15: WBC 7.7, RBC 3.52 L, Hgb 10.0 L, Hct 31.5 L, MCV 89.5, MCH 28.4, MCHC 31.7 L, RDW Std Deviation 53.5 H, RDW Coeff of Neeta 16.3 H, Plt Count 273, MPV 9.5, Immature Gran % (Auto) 0.400, Neut % (Auto) 62.2, Lymph % (Auto) 26.1, Rutherford % (Auto) 5.6, Eos % (Auto) 5.2 H, Baso % (Auto) 0.5, Absolute Neuts (auto) 4.8, Absolute Lymphs (auto) 2.01, Nucleated RBC % 0, Sodium 136, Potassium 5.3 H , Chloride 107, Carbon Dioxide 24.0, Anion Gap 5, BUN 45 H, Creatinine 1.63 H, Estim Creat Clear Calc 21.12, Est GFR (MDRD) Af Amer 39 L, Est GFR (MDRD) Non-Af 32 L, BUN/Creatinine Ratio 27.6 H, Glucose 137 H, Calcium 9.6, Troponin I High Sens 5, B-Natriuretic Peptide 96.2 12/19/22 18:47: Sodium 142, Potassium 3.6, Chloride 116 H, Carbon Dioxide 19.0 L , Anion Gap 7, BUN 38 H, Creatinine 1.23 H, Estim Creat Clear Calc 27.99, Est GFR (MDRD) Af Amer 54 L, Est GFR (MDRD) Non-Af 45 L, BUN/Creatinine Ratio 30.9 H , Glucose 130 H, Calcium 7.6 L, Magnesium 1.5 L, Troponin I High Sens 5 Interpretation Summary Normal LV size. Left ventricular systolic function is normal. The estimated ejection fraction is 60 %. Stage 1 diastolic dysfunction. Pulmonary artery systolic pressure is 58 mmHg. Moderate pulmonary hypertension. Small pericardial effusion. Charges/Coding Visit Charges Inpatient E&M: 65787 Init Hosp L3 Procedures Hospitalists Procedures: 06457 Advncd Care Plan 30 Min
[2022-12-19] MEDS: Magnesium Sulfate 4gm/100mL 4 GM/100 ML IV.SOLN. IV (20:19)
[2022-12-19 20:21] VITALS: BP 107/89; PULSE 83; RESP 14; TEMP 36.8; O2SAT 96
[2022-12-19 20:53] LABS: Phosphorus 4.4 mg/dL (2.5-4.9)
[2022-12-19 20:56] VITALS: BMI 36.2
[2022-12-19 21:00] VITALS: BP 146/63; PULSE 108; RESP 18; TEMP 36.3; O2SAT 97
[2022-12-19] MEDS: Atorvastatin Calcium 40 MG Tablet PO (21:56)
[2022-12-19] MEDS: guaiFENesin 1,200 MG Tablet 1200 MG PO (21:56)
[2022-12-19] MEDS: busPIRone 5 MG Tablet 10 MG PO (21:56)
[2022-12-19] MEDS: Sertraline 50 MG Tablet PO (21:57)
[2022-12-19] MEDS: Doxazosin 1 MG Tablet PO (21:57)
[2022-12-19] MEDS: 0.9% Saline Lock 10 ML Syringe IV (21:57)
[2022-12-19] MEDS: Mirtazapine 15 MG Tablet 7.5 MG PO (21:57)
[2022-12-19] MEDS: APIXABAN 5 MG TABLET PO (21:57)
[2022-12-19] MEDS: Losartan Potassium 50 MG Tablet PO (21:57)
[2022-12-19] MEDS: Methylprednisolone Sod Succ 40 MG/ML VIAL IV (22:00)
[2022-12-19] MEDS: Insulin Glargine-YFGN 100 UNIT/ML Pen 15 UNIT SC (22:00)
[2022-12-19 22:30] LABS: Bedside Glucose 226 mg/dL (74-106)
--- NOTE | 2022-12-19 23:07 | NURSING ---
Pt requested someone call her daughter Dee to let her know of admission. This RN called Dee and updated her.
[2022-12-20 03:34] VITALS: BP 115/65; PULSE 74; RESP 16; TEMP 36.7; O2SAT 97
[2022-12-20 03:44] VITALS: BP 115/65; PULSE 74; RESP 16; TEMP 36.7; O2SAT 97
[2022-12-20 05:13] LABS: Absolute Lymphocyte Count 0.85 X10^3/uL (0.83-4.51); Absolute Neutrophil Count 5.7 X10^3/uL (2.0-7.7); Basophil# 0.02 X10^3/uL; Basophil% 0.3 % (0-1); Hematocrit 32.8 % (37-47); Hemoglobin 10.3 g/dL (12.0-15.0); Lymphocyte # 0.85 X10^3/ul (0.83-4.51); Lymphocyte % 12.9 % (19-41); Mean Corp Hgb Conc 31.4 g/dL (32-36); Mean Corpuscular Hgb 28.2 pg (27.0-32.0); Mean Corpuscular Volume 89.9 fL (81-99); Mean Platelet Vol. 9.1 fl (6.2-12.0); Monocyte# 0.04 X10^3/uL; Monocyte% 0.6 % (0-10); NRBC Flagged by Analyzer 0 % (0-5); Neutrophil # 5.66 X10^3/uL (2.7-7.7); Neutrophil % 85.7 % (47-70); Platelet Count 263 K/mm3 (150-450); RBC Distribution Width CV 15.9 % (11.6-14.6); RBC Distribution Width SD 52.6 fl (35.1-43.9); Red Blood Count 3.65 M/mm3 (4.2-5.4); White Blood Count 6.6 K/mm3 (4.4-11.0)
[2022-12-20 05:57] LABS: Anion Gap 7 (5-15); BUN 49 mg/dL (7-18); BUN/Creat Ratio 30.2 RATIO (10-20); Calcium,Total 9.5 mg/dL (8.5-10.1); Chloride 106 mmol/L (98-107); Creatinine, Serum 1.62 mg/dL (0.55-1.02); EST Glomerular Filtration Rate 33 mL/min (>60); Est Glom Filt Rate - Afr Amer 39 mL/min (>60); Estimated Creatinine Clearance 21.25 ml/min; Glucose 343 mg/dL (74-106); Magnesium 3.2 mg/dL (1.6-2.6); Potassium 4.7 mmol/L (3.5-5.1); Sodium Level 136 mmol/L (136-145); Thyroid Stim Hormone (TSH) 0.23 uIU/mL (0.358-3.74)
[2022-12-20 06:00] VITALS: BMI 36.2
[2022-12-20] MEDS: Levothyroxine 50 MCG Tablet PO (06:23)
[2022-12-20 06:45] LABS: Bedside Glucose 329 mg/dL (74-106)
[2022-12-20] MEDS: Ipratropium 0.5 MG/2.5 ML SOLUTION INHALATION ×2 (07:23→11:01)
[2022-12-20] MEDS: Methylprednisolone Sod Succ 40 MG/ML VIAL IV (07:26)
[2022-12-20] MEDS: 0.9% Saline Lock 10 ML Syringe IV (07:26)
[2022-12-20] MEDS: Insulin Lispro 100 UNIT/ML INSULN.PEN SC ×2 (07:26→11:00)
[2022-12-20] MEDS: Insulin Lispro 100 UNIT/ML INSULN.PEN 8 UNIT SC ×2 (07:26→11:00)
[2022-12-20 07:35] VITALS: PULSE 66; RESP 20
[2022-12-20 08:25] VITALS: O2SAT 86; O2SAT 94
[2022-12-20] MEDS: guaiFENesin 1,200 MG Tablet 1200 MG PO (08:37)
[2022-12-20] MEDS: Furosemide 40 MG Tablet PO (08:37)
[2022-12-20] MEDS: Carvedilol 3.125 MG TABLET PO (08:37)
[2022-12-20] MEDS: busPIRone 5 MG Tablet 10 MG PO (08:37)
[2022-12-20] MEDS: Cholecalciferol (Vit D3) 125 MCG CAPSULE (5,000 UNITS) PO (08:37)
[2022-12-20] MEDS: Multivitamins,Therapeutic Tablet 1 TABLET PO (08:37)
[2022-12-20] MEDS: Allopurinol 100 MG Tablet 50 MG PO (08:38)
[2022-12-20] MEDS: DULoxetine Hcl 30 MG Capsule PO (08:38)
[2022-12-20] MEDS: Potassium Chloride Oral Tablet 20 MEQ 40 MEQ PO (08:38)
[2022-12-20] MEDS: amLODIPine 10 MG Tablet PO (08:38)
[2022-12-20] MEDS: APIXABAN 5 MG TABLET PO (08:38)
[2022-12-20 09:01] VITALS: BP 144/71; PULSE 69; RESP 16; TEMP 36.6; O2SAT 94
--- NOTE | 2022-12-20 09:16 | CASEMGMT ---
Discharge Planning Patient resides at [place]. Updates sent via [facility]. Sachi Julien, Discharge Planning Asst.
--- NOTE | 2022-12-20 11:05 | CT_ITS ---
STUDY: CT CHEST WITHOUT CONTRAST REASON FOR EXAM: Female, 77 years old. Chest mass RADIATION DOSAGE (If Supplied By Facility): CTDIvol = ( 19.09 ) mGy, DLP = ( 572.46 ) mGycm TECHNIQUE: Transaxial imaging was performed without the administration of intravenous contrast material. Multiplanar coronal and sagittal images were reformatted. Individualized dose optimization techniques were used for this CT. COMPARISON: Comparison is made with prior CT scan of thorax dated September 26, 2012. FINDINGS: CHEST Mildly enlarged right lobe of the thyroid gland. There is a lobulated 3.8 cm x 3.6 cm mass in the right upper lobe. Tiny right pleural effusion. Tiny left pleural effusion with left basilar infiltration and/or atelectasis. There are calcifications of the coronary arteries. There is a small pericardial effusion. There are multiple small lymph nodes within the mediastinum, which are normal in size and morphology most compatible with reactive lymph hyperplasia. Normal hilar regions. Normal unenhanced pulmonary arteries. There is atherosclerotic calcification of the aortic arch with tortuosity and elongation of the aortic arch and descending thoracic aorta. There are multi-level degenerative changes of the thoracic spine. Increased kyphosis. There is no demonstrated abnormality of the visualized upper abdomen. CT/Chest without Contrast IMPRESSION: 3.8 cm x 3.6 cm mass in the right upper lobe. This has progressed as compared to prior study. Small pericardial effusion. Small bilateral pleural effusions with left basilar atelectasis. Electronically Signed: Leonardo Escalear MD at 14:11 EDT ,
[2022-12-20 11:19] LABS: Bedside Glucose 381 mg/dL (74-106)
--- NOTE | 2022-12-20 11:53 | DS.PCM_ITS ---
Providers Date of Admission: 12/19/22 Primary Care Physician: Dr. Urbano Palencia MD Reason For Visit: COPD EXA Diagnosis Discharge Diagnosis (1) COPD with exacerbation: Status: Chronic Code(s): J44.1 - Chronic obstructive pulmonary disease with (acute) exacerbation (2) NSVT (nonsustained ventricular tachycardia): Status: Acute Code(s): I47.29 - Other ventricular tachycardia Medications at Discharge Home Medications allopurinol 100 mg tablet 50 mg PO DAILY gout 01/29/21 amlodipine 5 mg tablet 10 mg PO DAILY HTN 01/29/21 levothyroxine 50 mcg capsule 50 mcg PO DAILY thyroid 01/29/21 apixaban 5 mg tablet 5 mg PO BID CVA 06/23/22 atorvastatin 40 mg tablet 40 mg PO QHS cholesterol 06/23/22 carvedilol 6.25 mg tablet (Coreg) 3.125 mg PO BID HTN 06/23/22 losartan 50 mg tablet 50 mg PO QHS hypertension 06/23/22 multivitamin 1 tab PO DAILY supplement 06/23/22 terazosin 1 mg tablet 1 mg PO QHS HTN 06/23/22 insulin glargine-yfgn 100 unit/mL (3 mL) subcutaneous pen 15 unit (0.15 mL) subcut QHS #0 mL 06/28/22 insulin lispro 100 unit/mL subcutaneous pen (Humalog KwikPen (U-100) Insulin) 8 unit (0.08 mL) subcut Q8H #0 mL 06/28/22 menthol 0.44 %-zinc oxide 20.6 % topical ointment (Calmoseptine) 1 applic topical BID #0 grams 06/28/22 budesonide 0.5 mg/2 mL suspension for nebulization 0.5 mg inhalation BID 09/26/22 cholecalciferol (vitamin D3) 25 mcg (1,000 unit) tablet 125 mcg PO DAILY 09/26/22 sertraline 50 mg tablet 75 mg PO QHS 09/26/22 albuterol sulfate 2.5 mg/3 mL (0.083 %) solution for nebulization 2.5 mg (3 mL) inhalation Q4H PRN Dyspnea, wheezing #0 mL 09/28/22 furosemide 40 mg tablet 40 mg PO DAILY #30 tabs 09/28/22 ipratropium bromide 0.02 % solution for inhalation 0.5 mg (2.5 mL) inhalation Q6HWA.RT #0 mL 09/28/22 sennosides 8.6 mg-docusate sodium 50 mg tablet (Stool Softener-Stimulant La xative) 2 tab PO BID PRN PRN Constipation #0 tabs 09/28/22 buspirone 5 mg tablet 5 mg PO TID PRN order changed 10/21/22 buspirone 5 mg tablet 10 mg PO BID Anxiety 10/21/22 duloxetine 30 mg capsule,delayed release 30 mg PO DAILY 10/21/22 mirtazapine 7.5 mg tablet 7.5 mg PO QHS 10/21/22 potassium chloride 20 mEq tablet,extended release 40 meq PO DAILY 10/21/22 clindamycin HCl 300 mg capsule 300 mg PO Q6H 14 days #56 caps 12/07/22 duloxetine 60 mg capsule,delayed release mg PO 12/19/22 prednisone 50 mg tablet 50 mg PO DAILY 5 days #5 tabs 12/19/22 Hospital Course Operations None Procedures EKG and - (Chest x-ray/CT chest) Summary of Care Provided Minutes Spent on Discharge: 38 Hospital Course: Ms. Lopez is a 77-year-old white female who presents emergency department at [facility] from the [facility] where she resides permanently. She reported that had progressively getting worse for about 2 days and had a cough and some sputum. She was not able to ascertain any characteristics of her sputum unfortunately. She complained of some chest tightness anterior but no chest pain or pressure. In the emergency department she got a DuoNeb and was feeling better but had a run of a wide-complex tachycardia. She has previous history of wide-complex tachycardia and has had an extensive work-up with cardiology to include a stress test, echocardiogram, event monitor it is suspected by cardiology given negative work-up that this is a rate related bundle branch block. They actually were going to discharge her back to the nursing facility on supplemental oxygen and a steroid burst prior to her developing this tachycardia however with this development they elected to asked for admission and she was admitted as an observation to the telemetry floor. She was maintained on IV steroids, ipratropium to avoid tachycardia and she was assessed for COVID, influenza, and a respiratory viral panel were all obtained and found to be negative. Her CBC showed no white count or left shift on presentation show pneumonia is very unlikely. They did obtain a chest x-ray which showed an enlarging right upper lobe mass measuring 42 mm. Upon review of previous imaging she had a CT of her chest performed on 09/26/2022 at which time mass was identified and outpatient follow-up with us pursued. I did review her previous pulmonary note from 10/25/2022 and there is no mention of a right upper lobe lung mass on that documentation. Per discussion with the patient it was found in March at [facility] and work-up was going to be pursued however she suffered a stroke and work-up was held. I discussed the case with pulmonary medicine and they have arranged to see her as an outpatient on . She will be referred for percutaneous biopsy especially given the enlarging status of this mass. We also obtain a CT of her chest to better ascertain characteristics of this mass prior to discharge. She is on Eliquis and this will be held at the time of discharge in preparation for probable biopsy per discussion with pulmonary medicine. Her Eliquis will most likely be reinitiated after biopsy and pulmonary medicine is aware that this was held at the time of discharge. She is currently requiring 2 L of supplemental nasal cannula and desats to 86% at rest on room air. Oxygen saturation stabilized to the mid 90s on 2 L so she will continue this at discharge and follow-up with pul monary medicine as an outpatient. We will send her on a burst of steroids as well. Follow-up appointment was made for her on 12/22/2022 at 12:[address] Arceo at the pulmonary medicine office. We have also asked her to follow-up with her primary care physician in the next 2 to 4 weeks. She was discharged back to the [place] in stable condition on 12/20/2022. Discharge diagnoses: Acute exacerbation of COPD Right upper lobe lung mass Chronic normocytic anemia CKD stage IIIb Wide-complex tachycardia LANIE I History of gout Hyperlipidemia Depression Hypertension Vitamin D deficiency DM-2 Steroid-induced hyperglycemia Hypothyroidism COPD--> [id number] history Physical Exam Const alert, oriented x3, no apparent distress and well nourished; Negative for average body habitus Constitutional Narrative: Obese, elderly, white female, sitting up in bed, appears comfortable and nontoxic, very pleasant General Appearance: cooperative, comfortable, well kempt and well developed Orientation / Consciousness: awake, oriented to person, oriented to place and oriented to time Exam Limitations: no limitations Nutritional Appearance: obese HEENT normocephalic, head/scalp atraumatic, hearing grossly normal bilaterally and moist oral mucous membranes HEENT Narrative: Mallampati 3, dentition is poor-dentures in place, no thrush Eyes PERRL, EOMs intact bilaterally and conjunctivae normal Eyes Narrative: No scleral icterus Neck no lymphadenopathy and supple Neck Narrative: Achy midline, no thyroid enlargement Resp normal respiratory effort, no retractions, no use of accessory muscles and No clear to auscultation bilaterally Resp Narrative: Few scattered end expiratory wheezes Auscultation: wheezes; Negative for rales or rhonchi Cardio regular rate, regular rhythm, S1 normal heart sound, S2 normal heart sound, no rub, no gallops and no clicks; Negative for no murmurs Cardio Narrative: 3 out of 6 systolic murmur loudest at right upper sternal border GI normal to inspection, nondistended, normoactive bowel sounds, soft to palpation and non-tender Extremity no clubbing, cyanosis or edema Extremity Narrative: Pedal pulses are 2+ Skin no rashes or lesions noted, no wounds, skin turgor normal and no jaundice Neuro oriented x3, CN's II-XII intact bilaterally and moves all extremities Neuro Narrative: Significant generalized weakness Speech: speech normal Psych affect normal Psych Narrative: Extremely pleasant, eye contact is good, patient interacts appropriately Weight / BMI Weight Weight: 87 kg Body Mass Index (BMI) 36.2 ABG / Lab / Microbiology Data 12/20/22 05:02 12/20/22 05:02 Laboratory: Laboratory Results - last 24 hr 12/19/22 16:15: WBC 7.7, RBC 3.52 L, Hgb 10.0 L, Hct 31.5 L, MCV 89.5, MCH 28.4, MCHC 31.7 L, RDW Std Deviation 53.5 H, RDW Coeff of Neeta 16.3 H, Plt Count 273, MPV 9.5, Immature Gran % (Auto) 0.400, Neut % (Auto) 62.2, Lymph % (Auto) 26.1, [place] % (Auto) 5.6, Eos % (Auto) 5.2 H, Baso % (Auto) 0.5, Absolute Neuts (auto) 4.8, Absolute Lymphs (auto) 2.01, Nucleated RBC % 0, Sodium 136, Potassium 5.3 H , Chloride 107, Carbon Dioxide 24.0, Anion Gap 5, BUN 45 H, Creatinine 1.63 H, Estim Creat Clear Calc 21.12, Est GFR (MDRD) Af Amer 39 L, Est GFR (MDRD) Non-Af 32 L, BUN/Creatinine Ratio 27.6 H, Glucose 137 H, Calcium 9.6, Troponin I High Sens 5, B-Natriuretic Peptide 96.2 12/19/22 18:47: Sodium 142, Potassium 3.6, Chloride 116 H, Carbon Dioxide 19.0 L , Anion Gap 7, BUN 38 H, Creatinine 1.23 H, Estim Creat Clear Calc 27.99, Est GFR (MDRD) Af Amer 54 L, Est GFR (MDRD) Non-Af 45 L, BUN/Creatinine Ratio 30.9 H , Glucose 130 H, Calcium 7.6 L, Phosphorus 4.4, Magnesium 1.5 L, Troponin I High Sens 5 12/19/22 21:34: POC Glucose 226 H 12/20/22 05:02: WBC 6.6, RBC 3.65 L, Hgb 10.3 L, Hct 32.8 L, MCV 89.9, MCH 28.2, MCHC 31.4 L, RDW Std Deviation 52.6 H, RDW Coeff of Neeta 15.9 H, Plt Count 263, MPV 9.1, Immature Gran % (Auto) 0.500, Neut % (Auto) 85.7 H, Lymph % (Auto) 12.9 L, [place] % (Auto) 0.6, Eos % (Auto) 0.0, Baso % (Auto) 0.3, Absolute Neuts (auto) 5.7, Absolute Lymphs (auto) 0.85, Nucleated RBC % 0, Sodium 136, Potassium 4.7, Chloride 106, Carbon Dioxide 23.0, Anion Gap 7, BUN 49 H, Creatinine 1.62 H, Estim Creat Clear Calc 21.25, Est GFR (MDRD) Af Amer 39 L, Est GFR (MDRD) Non-Af 33 L, BUN/Creatinine Ratio 30.2 H, Glucose 343 H, Calcium 9.5, Magnesium 3.2 H, TSH 0.23 L, Free T4 1.00 12/20/22 06:26: POC Glucose 329 H 12/20/22 10:59: POC Glucose 381 H Microbiology: Microbiology 12/19/22 23:10 Mucosa - Nasopharyngeal Respiratory Panel (PCR) - Final 12/19/22 16:25 Nasal Secretion SARS-CoV-2 & FLU Antigen (Rapid) - Final Radiography Diagnostic Testing: Radiology Impression Chest X-Ray 12/19/22 16:35 IMPRESSION: Pulmonary findings appear improved. Stable right upper lobe mass. Electronically Signed: Tony Burns MD at 17:03 EDT Reading Location ID and State: [facility] / [place] , Service support , Meaningful Use Info Meaningful Use Diagnoses (Choose all that apply): None applicable Discharge Plan Admission Admit Date/Time: 12/19/22 19:47 Primary Reason for Your Visit: Shortness of Breath Attending Provider: Geni Johansen Primary Care Provider: Urbano Palencia Consulting Providers: Flaco Lemus; Lucas Lux Discharge Orders/Prescriptions Prescriptions: New prednisone 50 mg tablet 50 mg PO DAILY 5 Days Qty: 5 0RF Continued buspirone 5 mg tablet 5 mg PO TID PRN (Reason: order changed) duloxetine 30 mg capsule,delayed release(DR/EC) 30 mg PO DAILY mirtazapine 7.5 mg tablet 7.5 mg PO QHS potassium chloride 20 mEq tablet extended release 40 meq PO DAILY clindamycin HCl 300 mg capsule 300 mg PO Q6H 14 Days Qty: 56 0RF amlodipine 5 mg Tablet 10 mg PO DAILY allopurinol 100 mg Tablet 50 mg PO DAILY levothyroxine 50 mcg Capsule 50 mcg PO DAILY atorvastatin 40 mg Tablet 40 mg PO QHS carvedilol [Coreg] 6.25 mg Tablet 3.125 mg PO BID multivitamin Tablet 1 tab PO DAILY losartan 50 mg Tablet 50 mg PO QHS terazosin 1 mg Tablet 1 mg PO QHS menthol-zinc oxide [Calmoseptine] 0.44-20.6 % Ointment 1 applic topical BID Qty: 0 0RF Protocol: *Topical Application Instructions APPLICATION INSTRUCTIONS: apply to affected region insulin lispro [Humalog KwikPen Insulin] 100 unit/mL Insulin Pen 8 unit subcut Q8H Qty: 0 0RF Rx Instructions: Hold if glucose less than 130 mg/dl insulin glargine-yfgn 100 unit/mL (3 mL) Insulin Pen 15 unit subcut QHS Qty: 0 0RF Rx Instructions: Hold if glucose less than 130 mg/dl budesonide 0.5 mg/2 mL Suspension For Nebulization 0.5 mg INHALATION BID sertraline 50 mg Tablet 75 mg PO QHS cholecalciferol (vitamin D3) 25 mcg (1,000 unit) tablet 125 mcg PO DAILY sennosides-docusate sodium [Stool Softener-Stimulant Laxat] 8.6-50 mg Tablet 2 tab PO BID PRN PRN (Reason: Constipation) Qty: 0 0RF ipratropium bromide 0.02 % Solution 0.5 mg inhalation Q6HWA.RT Qty: 0 0RF albuterol sulfate 2.5 mg /3 mL (0.083 %) Solution For Nebulization 2.5 mg inhalation Q4H PRN (Reason: Dyspnea, wheezing) Qty: 0 0RF furosemide 40 mg tablet 40 mg PO DAILY Qty: 30 2RF Rx Instructions: An additional 40 mg dose at 5 PM for increased leg swelling or weight gain 5 pounds in 1 week. buspirone 5 mg tablet 10 mg PO BID duloxetine 60 mg capsule,delayed release(DR/EC) PO Patient Comments: TAKE 1 CAPSULE BY MOUTH TWICE DAILY Held apixaban 5 mg Tablet 5 mg PO BID Hold Instructions: Until after bx Referrals / Follow Up: Filippo Arceo DO [Med Staff - Active Staff] - 12/22/22 12:45 pm (For R Lung mass) Urbano Palencia MD [Primary Care Provider] - Within 2 Weeks Disposition Disposition (needs filled in before D/C Order can be placed): NonSkilled NH/Intermed Care Charges/Coding Visit Charges Inpatient E&M: 18338 Disch Hosp >30min
--- NOTE | 2022-12-20 12:17 | PCM.TXEXTCAR ---
Diet Diet Order/Speech Therapy: 12/19/22 21:12 Diet: Cardiac: Calorie-Controlled Food consistency:: Regular Liquid Consistency:: Regular/Thin How many daily calories?: 1800 calorie Routine Orders/Code Status O2 Liters per Minute: 2 O2 Frequency: Continuous Keep PO Greater than or Equal to (%): 90 Code Status: Full Code Problem/Diagnosis (1) COPD with exacerbation: Status: Chronic Code(s): J44.1 - Chronic obstructive pulmonary disease with (acute) exacerbation (2) NSVT (nonsustained ventricular tachycardia): Status: Acute Code(s): I47.29 - Other ventricular tachycardia Allergies/Procedures Done in Hospital Allergies Penicillins Allergy (Verified 12/19/22 15:55) PT UNSURE OF REACTION Type of Care/Length of Stay Estimated LOS: More Than 30 Days Type of Care Needed: Intermediate Rehab Potential: Fair Prognosis: Fair Additional Orders/Day of Discharge Day of Discharge: 12/20/22 Follow Up Care Please Follow Up With: Filippo Arceo DO When: 12/22/2022 @ 12:45 Discharge Plan Admission Admit Date/Time: 12/19/22 19:47 Primary Reason for Your Visit: Shortness of Breath Attending Provider: Geni Johansen Primary Care Provider: Urbano Palencia Consulting Providers: Flaco Lemus; Lucas Lux Discharge Orders/Prescriptions Prescriptions: New prednisone 50 mg tablet 50 mg PO DAILY 5 Days Qty: 5 0RF Continued buspirone 5 mg tablet 5 mg PO TID PRN (Reason: order changed) duloxetine 30 mg capsule,delayed release(DR/EC) 30 mg PO DAILY mirtazapine 7.5 mg tablet 7.5 mg PO QHS potassium chloride 20 mEq tablet extended release 40 meq PO DAILY clindamycin HCl 300 mg capsule 300 mg PO Q6H 14 Days Qty: 56 0RF amlodipine 5 mg Tablet 10 mg PO DAILY allopurinol 100 mg Tablet 50 mg PO DAILY levothyroxine 50 mcg Capsule 50 mcg PO DAILY atorvastatin 40 mg Tablet 40 mg PO QHS carvedilol [Coreg] 6.25 mg Tablet 3.125 mg PO BID multivitamin Tablet 1 tab PO DAILY losartan 50 mg Tablet 50 mg PO QHS terazosin 1 mg Tablet 1 mg PO QHS menthol-zinc oxide [Calmoseptine] 0.44-20.6 % Ointment 1 applic topical BID Qty: 0 0RF Protocol: *Topical Application Instructions APPLICATION INSTRUCTIONS: apply to affected region insulin lispro [Humalog KwikPen Insulin] 100 unit/mL Insulin Pen 8 unit subcut Q8H Qty: 0 0RF Rx Instructions: Hold if glucose less than 130 mg/dl insulin glargine-yfgn 100 unit/mL (3 mL) Insulin Pen 15 unit subcut QHS Qty: 0 0RF Rx Instructions: Hold if glucose less than 130 mg/dl budesonide 0.5 mg/2 mL Suspension For Nebulization 0.5 mg INHALATION BID sertraline 50 mg Tablet 75 mg PO QHS cholecalciferol (vitamin D3) 25 mcg (1,000 unit) tablet 125 mcg PO DAILY sennosides-docusate sodium [Stool Softener-Stimulant Laxat] 8.6-50 mg Tablet 2 tab PO BID PRN PRN (Reason: Constipation) Qty: 0 0RF ipratropium bromide 0.02 % Solution 0.5 mg inhalation Q6HWA.RT Qty: 0 0RF albuterol sulfate 2.5 mg /3 mL (0.083 %) Solution For Nebulization 2.5 mg inhalation Q4H PRN (Reason: Dyspnea, wheezing) Qty: 0 0RF furosemide 40 mg tablet 40 mg PO DAILY Qty: 30 2RF Rx Instructions: An additional 40 mg dose at 5 PM for increased leg swelling or weight gain 5 pounds in 1 week. buspirone 5 mg tablet 10 mg PO BID duloxetine 60 mg capsule,delayed release(DR/EC) PO Patient Comments: TAKE 1 CAPSULE BY MOUTH TWICE DAILY Held apixaban 5 mg Tablet 5 mg PO BID Hold Instructions: Until after bx Referrals / Follow Up: Filippo Arceo DO [Med Staff - Active Staff] - 12/22/22 12:45 pm (For R Lung mass) Urbano Palencia MD [Primary Care Provider] - Within 2 Weeks Disposition Disposition (needs filled in before D/C Order can be placed): NonSkilled NH/Intermed Care
--- NOTE | 2022-12-20 12:34 | CASEMGMT ---
Discharge Planning Discharge orders, signed med list, covid results and transport time sent to [facility]. [facility] will transport patient by cot at 2p. Patient, her daughter, nursing and SW notified. Sachi Julien, Discharge Planning Asst.
--- NOTE | 2022-12-20 12:42 | CASEMGMT ---
SW spoke with patient. Introduced self and role at [facility]. SW confirmed patient's plan is to return to [place] at discharge. Plan: d/c back to [place] under intermediate level of care. [facility] via [facility]. Rachel NI
--- NOTE | 2022-12-20 12:56 | CHAPLAIN ---
Type of Pastoral Visit _x__ Initial Visit ___ Follow-up Visit ___ On-call Visit ___ General Patient Visit ___ Spiritual Assessment ___ Family Conference ___ Bereavement ___ Rapid Response ___ Code Blue ___ Other (describe below) Pastoral Care Referral From _x__ Patient ___ Family ___ Nurse ___ Physician ___ Legal Paraprofessional ___ Coupon Clerk ___ Other (describe below) Sacrament/Intervention _x__ Active listening ___ Anointing ___ Mu-Ism ___ Bereavement ___ Communion ___ Leonarda exploration ___ ___ Life review ___ Prayer ___ Reconciliation ___ Sacrament of Sick _x__ Supportive presence ___ Wedding ___ Other (describe below) Pastoral Comments patient is welcoming of visit; pt reports that she is feeling better today than in the past several weeks; pt daughter arrives at this time; daughter speaks of being a caregiver to both parents and must take father to an appointment today; most of responsibilities are given to this one daughter for parents; a son lives out of state but is consulted often due to his medical understanding; other family members are not active in physical care; pt smiles during the visit and daughter makes mention of that fact; pt states that she has no other concerns at this time
== END 2022-12-20 11:55 | disposition intermediate care facility (04) ==
LOC: ED 20:00 → PCU 21:29
PROVIDERS: Admitting Provider Internal Medicine; Emergency Provider Emergency Medicine; PCP Family Medicine; Referring Provider Internal Medicine; Visit Provider Internal Medicine
DX: J44.1 Chronic obstructive pulmonary disease with (acute) exacerbation (principal); I69.354 Hemiplegia and hemiparesis following cerebral infarction affecting left non-dominant side; F03.90 Unspecified dementia, unspecified severity, without behavioral disturbance, psychotic disturbance, mood disturbance, and anxiety; I50.9 Heart failure, unspecified; I13.0 Hypertensive heart and chronic kidney disease with heart failure and stage 1 through stage 4 chronic kidney disease, or unspecified chronic kidney disease; E11.22 Type 2 diabetes mellitus with diabetic chronic kidney disease; I47.29 Other ventricular tachycardia; Z79.4 Long term (current) use of insulin; N18.32 Chronic kidney disease, stage 3b; M10.9 Gout, unspecified; T38.0X5A Adverse effect of glucocorticoids and synthetic analogues, initial encounter; Z79.01 Long term (current) use of anticoagulants; Z87.891 Personal history of nicotine dependence; Z20.822 Contact with and (suspected) exposure to COVID-19; E78.5 Hyperlipidemia, unspecified; Z79.51 Long term (current) use of inhaled steroids; D64.9 Anemia, unspecified; I49.3 Ventricular premature depolarization; E03.9 Hypothyroidism, unspecified; E55.9 Vitamin D deficiency, unspecified; Z79.899 Other long term (current) drug therapy; Z79.82 Long term (current) use of aspirin; Z79.890 Hormone replacement therapy; I69.320 Aphasia following cerebral infarction; N31.9 Neuromuscular dysfunction of bladder, unspecified; G47.33 Obstructive sleep apnea (adult) (pediatric)
CPT/HCPCS: 71045; 71250; 80048; 82962; 83735; 83880; 84100; 84439; 84443; 84484; 85025; 87428; 87633; 93005; 94640; 94668; 96374; 97162; 97166; 99221; 99252; 99285; A4216; G0378; G0463

== ENCOUNTER 2023-04-14 14:55 | Emergency (ER) | payer MEDICARE, MEDICAID, SELFPAY ==
[2023-04-14] VITALS (7 sets, daily range): BP systolic 117–144; BP diastolic 53–90; PULSE 64–96; RESP 16–24; TEMP 36.6; O2SAT 4–97; BMI 40.8
--- NOTE | 2023-04-14 15:08 | EKG12_ITS ---
Test Reason : Blood Pressure : / mmHG Vent. Rate : 077 BPM Atrial Rate : 077 BPM P-R Int : 184 ms QRS Dur : 082 ms QT Int : 384 ms P-R-T Axes : 042 014 038 degrees QTc Int : 434 ms Sinus rhythm with frequent Premature ventricular complexes Low voltage QRS Borderline ECG Confirmed by LINDA NAVARRETE, TALON ([id number]), medical transcription editor NUBIA GARY ([id number]) on 04/15/2023 9:34:28 AM Referred By: HETAL Confirmed By:TALON MCKEON MD
--- NOTE | 2023-04-14 15:08 | ED.VIS.DYS ---
HPI History of Present Illness Chief Complaint: Shortness of Breath Narrative Narrative: 78-year-old female past medical history of right-sided cerebral infarction with left-sided weakness, presents with her daughter with concern for pneumonia and reported low pulse ox. She has past medical history of obstructive sleep apnea, and her daughter states that she wears oxygen at night, or when she is at home during the day laying flat. They state that they went to the neurologist today, and while she denies shortness of breath, he noticed that her pulse ox was low and reportedly the neurologist auscultated crackles in the left lung field. They are concerned that she has pneumonia. She was sent in for work-up and additionally they found her pulse ox to be 75% on room air. They tried multiple pulse ox devices and had the same results. Of note, patient also has a history of congestive heart failure. And is reportedly on furosemide as well. 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 CKD (chronic kidney disease) stage 3, GFR 30-59 ml/min Congestive heart failure (CHF) COPD not affecting current episode of care Dehydration Dementia Depression Diabetes Dysphagia following cerebral infarction Encephalopathy Encephalopathy, unspecified Gastro-esophageal reflux disease without esophagitis Gout, unspecified Hemiplegia and hemiparesis following cerebral infarction affecting left non-dominant side History of stroke Hyperammonemia Hyperchloremia Hyperlipidemia, unspecified Hypernatremia Hyperosmolality and hypernatremia Hypertension Hypothyroidism Malignant neoplasm of unspecified part of unspecified bronchus or lung Neuromuscular dysfunction of bladder, unspecified NSVT (nonsustained ventricular tachycardia) Obstructive sleep apnea (adult) (pediatric) LANIE on CPAP SOB (shortness of breath) Type 2 diabetes mellitus Unspecified protein-calorie malnutrition UTI (urinary tract infection) Wide-complex tachycardia Home Medications allopurinol 100 mg tablet 50 mg PO DAILY gout 01/29/21 [History Last Taken 06/23/22] amlodipine 5 mg tablet 10 mg PO DAILY HTN 01/29/21 [History Last Taken 06/23/22] apixaban 5 mg tablet 5 mg PO BID CVA 06/23/22 [History Last Taken Unknown] atorvastatin 40 mg tablet 40 mg PO QHS cholesterol 06/23/22 [History Last Taken 06/23/22] carvedilol 6.25 mg tablet (Coreg) 3.125 mg PO BID HTN 06/23/22 [History Last Taken 06/23/22] losartan 50 mg tablet 50 mg PO QHS hypertension 06/23/22 [History Last Taken 06/23/22] multivitamin 1 tab PO DAILY supplement 06/23/22 [History Last Taken Unknown] terazosin 1 mg tablet 1 mg PO QHS HTN 06/23/22 [History Last Taken 06/23/22] insulin glargine-yfgn 100 unit/mL (3 mL) subcutaneous pen 15 unit (0.15 mL) subcut QHS #0 mL 06/28/22 [Rx Last Taken Unknown] insulin lispro 100 unit/mL subcutaneous pen (Humalog KwikPen (U-100) Insulin) 8 unit (0.08 mL) subcut Q8H #0 mL 06/28/22 [Rx Last Taken Unknown] menthol 0.44 %-zinc oxide 20.6 % topical ointment (Calmoseptine) 1 applic topical BID #0 grams 06/28/22 [Rx Last Taken Unknown] budesonide 0.5 mg/2 mL suspension for nebulization 0.5 mg inhalation BID 09/26/22 [History Last Taken Unknown] albuterol sulfate 2.5 mg/3 mL (0.083 %) solution for nebulization 2.5 mg (3 mL) inhalation Q4H PRN Dyspnea, wheezing #0 mL 09/28/22 [Rx Last Taken Unknown] ipratropium bromide 0.02 % solution for inhalation 0.5 mg (2.5 mL) inhalation Q6HWA.RT #0 mL 09/28/22 [Rx Last Taken Unknown] sennosides 8.6 mg-docusate sodium 50 mg tablet (Stool Softener-Stimulant Laxative) 2 tab PO BID PRN PRN Constipation #0 tabs 09/28/22 [Rx Last Taken Unknown] duloxetine 30 mg capsule,delayed release 30 mg PO DAILY 10/21/22 [History Last Taken Unknown] mirtazapine 7.5 mg tablet 7.5 mg PO QHS 10/21/22 [History Last Taken Unknown] acetaminophen 325 mg tablet (Tylenol) 650 mg PO Q4H PRN 12/22/22 [History Last Taken Unknown] cholecalciferol (vitamin D3) 125 mcg (5,000 unit) capsule 125 mcg PO DAILY 12/22/22 [History Last Taken Unknown] dextrose 40 % oral gel (Glucose Gel) 15 g PO Q15M PRN 12/22/22 [History Last Taken Unknown] glucagon 1 mg injection kit 1 mg IM 12/22/22 [History Last Taken Unknown] levothyroxine 25 mcg tablet 25 mcg PO DAILY 12/22/22 [History Last Taken Unknown] magnesium hydroxide 400 mg/5 mL oral suspension (Milk of Magnesia) 30 ml PO DAILY PRN 12/22/22 [History Last Taken Unknown] divalproex 250 mg tablet,extended release 24 hr (Depakote ER) 250 mg PO HS 04/14/23 [History Last Taken Unknown] lorazepam 0.5 mg tablet (Ativan) 0.5 mg PO .QID PRN 04/14/23 [History Last Taken Unknown] melatonin 10 mg capsule 10 mg PO HS PRN 04/14/23 [History Last Taken Unknown] trazodone 50 mg tablet 100 mg PO HS 04/14/23 [History Last Taken Unknown] Allergy/AdvReac Type Severity Reaction Status Date / Time Penicillins Allergy PT UNSURE Verified 04/14/23 14:56 OF REACTION Family History Father Diabetes Mother Diabetes Surgical History Gastrostomy status History of back surgery History of hysterectomy History of knee replacement S/P breast biopsy S/P carpal tunnel release S/P cataract surgery Social History housing: skilled nursing Smoking Status: Former smoker how long ago did patient quit smoking: Quit ~ 14 years prior, smoked 50 years 2 ppd. alcohol intake: never substance use type: does not use caffeine: Yes Type: carbonated beverages ROS ROS ED ROS Narrative Obtained mainly through her daughter. Constitutional: No fever, no chills. HEENT: No sore throat. No neck pain. No loss of vision. No rhinorrhea. Cardiovascular: No chest pain. No palpitations. No pedal edema. Respiratory: No cough, denies shortness of breath. Low pulse ox. Abdominal: No abdominal pain. No nausea. No vomiting. Genitourinary: No dysuria. No hematuria. Musculoskeletal: No myalgias. No arthralgias. Neurologic: No headaches. No dizziness. No lightheadedness. Skin: No rash. No change in color. Psychiatric: No depression. No anxiety. EXAM Physical Exam Narrative Exam Narrative: Afebrile. Vital signs noted. HEENT: Normocephalic. Atraumatic. PERRL, EOMI. Neck soft and supple. No point tenderness or step off. Cardiovascular: Regular rate and rhythm. No murmurs, rubs, or gallops appreciated. Respiratory: No tachypnea. Bibasilar rales. Positive expiratory wheezing bilateral bases with diminished sounds right greater than left. Gastrointestinal: Abdomen soft, obese, nontender, with normoactive bowel sounds. No rebound or guarding. Neurological: Awake. Alert. Nonfocal, nonlateralizing. Skin: No rash. Normal color. No pallor. Const Vital Signs: 04/14/23 14:57 04/14/23 15:08 04/14/23 15:08 Temperature 97.8 F 97.8 F Temperature Source Temporal Temporal Pulse Rate 81 79 Respiratory Rate 22 H 16 Respiratory Effort Respiratory Depth Respiratory Pattern Blood Pressure 117/90 H 144/53 H Blood Pressure Mean 99 83 Pulse Ox 75 97 Oxygen Delivery Method Room Air Nasal Cannula Room Air Oxygen Flow Rate (L/min) 4 04/14/23 15:08 04/14/23 15:35 Temperature Temperature Source Pulse Rate 96 Respiratory Rate 24 H Respiratory Effort Short of Breath Respiratory Depth Shallow Respiratory Pattern Normal Tachypnea Blood Pressure Blood Pressure Mean Pulse Ox Oxygen Delivery Method Nasal Cannula Oxygen Flow Rate (L/min) MDM MDM MDM Narrative Medical decision making narrative: In the differential diagnosis is COPD exacerbation versus CHF exacerbation, or combination of both. Also in the differential diagnosis is pneumonia. Given her increasing oxygen requirement, she will be placed on nasal cannula oxygen, and comprehensive work-up pursued. I reviewed her prior records. She had previous [facility] placement and has had multiple visits to the emergency department as she used to to pull it out frequently. Here she is afebrile and nontachycardic. I have low concern for sepsis at this point as she is not meeting SIRS criteria currently. Given her respiratory exam and wheezing, she was given a DuoNeb aerosolized treatment. She is satting 97% on 4 L nasal cannula oxygen. I did consider Solu-Medrol, but in discussion with the daughter, she is concerned about her blood sugar. Daughter also states that she is a resident of the [facility]. EKG was obtained and interpreted by myself independently as normal sinus rhythm at 77 bpm with frequent PVCs but no acute ST changes. No STEMI. I reviewed her laboratory work and she has a normal white count of 4.6, hemoglobin stable at 9.6, platelet count normal at 185. Review of her electrolyte panel shows a BUN of 20 and a creatinine of 1.12 with an anion gap low at 4, lactic acid is normal at 0.7, high-sensitivity troponin within normal limits at 13. BNP is only slightly elevated at 133 and it has been in the 200s previously. I have low suspicion for CHF exacerbation. Lepyi-[id number]-[id number] glucose appropriately elevated at 128. Given her low anion gap I have low concern for diabetic ketoacidosis. Chest x-ray in 1 view shows no evidence of pneumonia or pneumothorax. I reviewed the radiology report which confirms my independent interpretation. These do mention resolving right upper lobe mass. I do not feel that she requires antibiotics. After DuoNeb aerosolized treatment and Solu-Medrol 125 mg intravenously, she has an oxygen saturation of 97% to 100% on nasal cannula oxygen. As she is a resident of the [facility], and wears oxygen as needed, I do feel she can be discharged to wear her oxygen more frequently. I discussed this with Dr. Urbano Palencia who agrees in sending the patient back to the correction facility. It was not felt that she requires observation or admission at this time. Disposition is discharged in stable condition. History & Record Review Discussion w/independent historian: Patient and Family Additional record(s) reviewed:: Prior ED visit Lab Data Attestation: I reviewed the patient's lab results. Labs: Laboratory Results - last 24 hr 04/14/23 04/14/23 15:20 15:30 WBC 4.6 RBC 3.33 L Hgb 9.6 L Hct 31.4 L MCV 94.3 MCH 28.8 MCHC 30.6 L RDW Std Deviation 54.9 H RDW Coeff of Neeta 16.1 H Plt Count 185 MPV 9.4 Immature Gran % (Auto) 0.200 Neut % (Auto) 69.1 Lymph % (Auto) 18.4 L Hoke % (Auto) 6.1 Eos % (Auto) 5.6 H Baso % (Auto) 0.6 Absolute Neuts (auto) 3.2 Absolute Lymphs (auto) 0.85 Nucleated RBC % 0 Sodium 142 Potassium 4.6 Chloride 107 Carbon Dioxide 31.0 Anion Gap 4 L BUN 20 H Creatinine 1.12 H Estim Creat Clear Calc 30.23 Est GFR (MDRD) Af Amer 60 Est GFR (MDRD) Non-Af 50 L BUN/Creatinine Ratio 17.9 Glucose 141 H Lactic Acid 0.7 Calcium 9.5 Troponin I High Sens 13 B-Natriuretic Peptide 133.1 H POC Glucose 128 H Radiography Diagnostic Testing: Clinical Impression(s) from Imaging Studies Chest X-Ray 04/14/23 15:45 IMPRESSION: Hazy opacity for which resolving right upper lobe lesion is favored over a new superimposed pneumonia. Consider CT of the chest if clinically warranted. Electronically Signed: Lory Saha MD at 16:51 EST Reading Location ID and State: [id number] / Tel , Service support , Discharge Plan Triage Chief Complaint: Shortness of Breath ED Provider: Joseluis Pete Dx/Rx/DC Orders Clinical Impression: Lung mass, Type 2 diabetes mellitus, COPD with exacerbation Instructions: ED COPD Flare Prescriptions: No Action duloxetine 30 mg capsule,delayed release(DR/EC) 30 mg PO DAILY mirtazapine 7.5 mg tablet 7.5 mg PO QHS lorazepam [Ativan] 0.5 mg tablet 0.5 mg PO .QID PRN divalproex [Depakote ER] 250 mg tablet extended release 24 hr 250 mg PO HS melatonin 10 mg capsule 10 mg PO HS PRN glucagon 1 mg kit 1 mg IM dextrose [Glucose Gel] 40 % gel 15 g PO Q15M PRN Rx Instructions: until symptoms of low blood sugar are controlled levothyroxine 25 mcg tablet 25 mcg PO DAILY cholecalciferol (vitamin D3) 125 mcg (5,000 unit) capsule 125 mcg PO DAILY acetaminophen [Tylenol] 325 mg tablet 650 mg PO Q4H PRN magnesium hydroxide [Milk of Magnesia] 400 mg/5 mL suspension 30 ml PO DAILY PRN trazodone 50 mg tablet 100 mg PO HS amlodipine 5 mg Tablet 10 mg PO DAILY allopurinol 100 mg Tablet 50 mg PO DAILY atorvastatin 40 mg Tablet 40 mg PO QHS carvedilol [Coreg] 6.25 mg Tablet 3.125 mg PO BID apixaban 5 mg Tablet 5 mg PO BID Hold Instructions: Until after bx multivitamin Tablet 1 tab PO DAILY losartan 50 mg Tablet 50 mg PO QHS terazosin 1 mg Tablet 1 mg PO QHS menthol-zinc oxide [Calmoseptine] 0.44-20.6 % Ointment 1 applic topical BID Qty: 0 0RF Protocol: *Topical Application Instructions APPLICATION INSTRUCTIONS: apply to affected region insulin lispro [Humalog KwikPen Insulin] 100 unit/mL Insulin Pen 8 unit subcut Q8H Qty: 0 0RF Rx Instructions: Hold if glucose less than 130 mg/dl insulin glargine-yfgn 100 unit/mL (3 mL) Insulin Pen 15 unit subcut QHS Qty: 0 0RF Rx Instructions: Hold if glucose less than 130 mg/dl budesonide 0.5 mg/2 mL Suspension For Nebulization 0.5 mg INHALATION BID sennosides-docusate sodium [Stool Softener-Stimulant Laxat] 8.6-50 mg Tablet 2 tab PO BID PRN PRN (Reason: Constipation) Qty: 0 0RF ipratropium bromide 0.02 % Solution 0.5 mg inhalation Q6HWA.RT Qty: 0 0RF albuterol sulfate 2.5 mg /3 mL (0.083 %) Solution For Nebulization 2.5 mg inhalation Q4H PRN (Reason: Dyspnea, wheezing) Qty: 0 0RF Primary Care Provider: Urbano Palencia Referrals: Urbano Palencia MD [Primary Care Provider] - As soon as possible Activity Restrictions/Additional Instructions: You will need to wear your nasal cannula oxygen anywhere from 1 to 5 L as needed, even during the day. Disposition Disposition: Detention Facility Discharge Location: [facility] [place]
[2023-04-14 15:30] LABS: Absolute Lymphocyte Count 0.85 X10^3/uL (0.83-4.51); Absolute Neutrophil Count 3.2 X10^3/uL (2.0-7.7); Basophil# 0.03 X10^3/uL; Basophil% 0.6 % (0-1); Eosinophil# 0.26 X10^3/uL; Eosinophils% 5.6 % (0-5); Hematocrit 31.4 % (37-47); Hemoglobin 9.6 g/dL (12.0-15.0); Lymphocyte # 0.85 X10^3/ul (0.83-4.51); Lymphocyte % 18.4 % (19-41); Mean Corp Hgb Conc 30.6 g/dL (32-36); Mean Corpuscular Hgb 28.8 pg (27.0-32.0); Mean Corpuscular Volume 94.3 fL (81-99); Mean Platelet Vol. 9.4 fl (6.2-12.0); Monocyte# 0.28 X10^3/uL; Monocyte% 6.1 % (0-10); NRBC Flagged by Analyzer 0 % (0-5); Neutrophil # 3.19 X10^3/uL (2.7-7.7); Neutrophil % 69.1 % (47-70); Platelet Count 185 K/mm3 (150-450); RBC Distribution Width CV 16.1 % (11.6-14.6); RBC Distribution Width SD 54.9 fl (35.1-43.9); Red Blood Count 3.33 M/mm3 (4.2-5.4); White Blood Count 4.6 K/mm3 (4.4-11.0)
[2023-04-14] MEDS: Ipratropium/Albuterol Sulfate 3 ML AMPUL.NEB INHALATION (15:35)
--- NOTE | 2023-04-14 15:45 | RAD_ITS ---
INDICATION: Shortness of Breath EXAMINATION/TECHNIQUE: X-RAY - XR Chest 1 View COMPARISON: 12/19/2022. FINDINGS: LINES/DEVICES: None. LUNGS: Hazy opacity in the right upper lobe. This is consistent with significant interval improvement in previously documented mass, less likely superimposed pneumonic infiltrate at the site of resolved lesion. MEDIASTINUM AND CARDIOVASCULAR STRUCTURES: Cardiac silhouette not enlarged. Central airways and mediastinal contour are unremarkable. BONES AND SOFT TISSUES: Unremarkable. RAD/Chest 1 View (Portable) IMPRESSION: Hazy opacity for which resolving right upper lobe lesion is favored over a new superimposed pneumonia. Consider CT of the chest if clinically warranted. Electronically Signed: Lory Saha MD at 16:51 EST Reading Location ID and State: [id number] / Tel , Service support ,
[2023-04-14 15:48] LABS: Bedside Glucose 128 mg/dL (74-106)
[2023-04-14 15:55] LABS: BNP,B-Type NATRIURETIC PEPTIDE 133.1 pg/mL (0-100)
[2023-04-14 16:00] LABS: Anion Gap 4 (5-15); BUN 20 mg/dL (7-18); BUN/Creat Ratio 17.9 RATIO (10-20); Calcium,Total 9.5 mg/dL (8.5-10.1); Chloride 107 mmol/L (98-107); Creatinine, Serum 1.12 mg/dL (0.55-1.02); EST Glomerular Filtration Rate 50 mL/min (>60); Est Glom Filt Rate - Afr Amer 60 mL/min (>60); Estimated Creatinine Clearance 30.23 ml/min; Glucose 141 mg/dL (74-106); Potassium 4.6 mmol/L (3.5-5.1); Sodium Level 142 mmol/L (136-145); Troponin-I HS 13 pg/mL (3.0-54.0)
[2023-04-14 16:07] LABS: Lactic Acid 0.7 mmol/L (0.4-1.9)
[2023-04-14] MEDS: MethylPREDNISolone 125 MG/2 ML Vial IV (16:10)
--- NOTE | 2023-04-14 18:10 | NURSING ---
CALLED [facility], ETA IS 2 TO 3 HOURS
== END 2023-04-14 20:33 | disposition skilled nursing facility (03) ==
PROVIDERS: Emergency Provider Emergency Medicine; PCP Family Medicine; Visit Provider Emergency Medicine
DX: R91.8 Other nonspecific abnormal finding of lung field (principal); J44.1 Chronic obstructive pulmonary disease with (acute) exacerbation; I50.9 Heart failure, unspecified; I13.0 Hypertensive heart and chronic kidney disease with heart failure and stage 1 through stage 4 chronic kidney disease, or unspecified chronic kidney disease; E11.22 Type 2 diabetes mellitus with diabetic chronic kidney disease; N18.30 Chronic kidney disease, stage 3 unspecified; E78.5 Hyperlipidemia, unspecified; Z87.891 Personal history of nicotine dependence; I69.320 Aphasia following cerebral infarction
CPT/HCPCS: 71045; 80048; 82962; 83605; 83880; 84484; 85025; 87428; 93005; 94640; 96374; 99285; A4216

== ENCOUNTER 2023-04-26 18:54 | Emergency (ER) | payer MEDICARE, MEDICAID, SELFPAY ==
[2023-04-26 18:55] VITALS: BP 124/53; PULSE 87; RESP 30; TEMP 35.7; O2SAT 90; BMI 40.2
[2023-04-26 19:11] VITALS: BP 124/53; PULSE 78; RESP 22; O2SAT 94
--- NOTE | 2023-04-26 19:14 | EKG12_ITS ---
Test Reason : SOB Blood Pressure : / mmHG Vent. Rate : 079 BPM Atrial Rate : 079 BPM P-R Int : 172 ms QRS Dur : 080 ms QT Int : 362 ms P-R-T Axes : 043 027 042 degrees QTc Int : 415 ms Sinus rhythm with frequent Premature ventricular complexes Otherwise normal ECG Confirmed by MOE NAVARRETE, BERRY ([id number]), editor school photograph LIDA CARSON ([id number]) on 05/02/2023 1:40:21 P M Referred By: ANGELLA Confirmed By:LOIS ROSA MD
--- NOTE | 2023-04-26 19:16 | ED.VIS.DYS ---
HPI History of Present Illness Chief Complaint: Shortness of Breath Informant: patient and legal guardian (Dee REBOLLEDO) Narrative Narrative: Patient here from nursing facility increasing dyspnea over the last couple days. History of COPD chronic 3 L oxygen. Remote tobacco. Stroke May 07 left-sided deficits. Diagnosed with lung cancer prior to this. Subsequent A-fib was found after her stroke. She is currently on Eliquis. She has been taking the medications. States chronic cough due to lung cancer. No fevers. COVID vaccinated denies any COVID infections in the past. Reported she was 81% on her 3 L increased to 6 L and brought to the emergency department. Patient DNR [facility] as of June 2022, she does not want intubation or cardiac resuscitation. Confirmed with KESHA Price bedside and the patient. Prior similar symptoms: Yes PFSH COUNT INCLUDES THE [facility] Medical History Altered level of consciousness Anemia, unspecified Anxiety Aphasia following unspecified cerebrovascular disease Cerebral infarction due to embolism of right middle cerebral artery CKD (chronic kidney disease) stage 3, GFR 30-59 ml/min Congestive heart failure (CHF) COPD not affecting current episode of care Dehydration Dementia Depression Diabetes Dysphagia following cerebral infarction Encephalopathy Encephalopathy, unspecified Gastro-esophageal reflux disease without esophagitis Gout, unspecified Hemiplegia and hemiparesis following cerebral infarction affecting left non-dominant side History of stroke Hyperammonemia Hyperchloremia Hyperlipidemia, unspecified Hypernatremia Hyperosmolality and hypernatremia Hypertension Hypothyroidism Malignant neoplasm of unspecified part of unspecified bronchus or lung Neuromuscular dysfunction of bladder, unspecified NSVT (nonsustained ventricular tachycardia) Obstructive sleep apnea (adult) (pediatric) LANIE on CPAP SOB (shortness of breath) Type 2 diabetes mellitus Unspecified protein-calorie malnutrition UTI (urinary tract infection) Wide-complex tachycardia Home Medications allopurinol 100 mg tablet 50 mg PO DAILY gout 01/29/21 [History Last Taken 06/23/22] amlodipine 5 mg tablet 10 mg PO DAILY HTN 01/29/21 [History Last Taken 06/23/22] apixaban 5 mg tablet 5 mg PO BID CVA 06/23/22 [History Last Taken Unknown] atorvastatin 40 mg tablet 40 mg PO QHS cholesterol 06/23/22 [History Last Taken 06/23/22] carvedilol 6.25 mg tablet (Coreg) 3.125 mg PO BID HTN 06/23/22 [History Last Taken 06/23/22] losartan 50 mg tablet 50 mg PO QHS hypertension 06/23/22 [History Last Taken 06/23/22] multivitamin 1 tab PO DAILY supplement 06/23/22 [History Last Taken Unknown] terazosin 1 mg tablet 1 mg PO QHS HTN 06/23/22 [History Last Taken 06/23/22] insulin glargine-yfgn 100 unit/mL (3 mL) subcutaneous pen 15 unit (0.15 mL) subcut QHS #0 mL 06/28/22 [Rx Last Taken Unknown] insulin lispro 100 unit/mL subcutaneous pen (Humalog KwikPen (U-100) Insulin) 8 unit (0.08 mL) subcut Q8H #0 mL 06/28/22 [Rx Last Taken Unknown] menthol 0.44 %-zinc oxide 20.6 % topical ointment (Calmoseptine) 1 applic topical BID #0 grams 06/28/22 [Rx Last Taken Unknown] budesonide 0.5 mg/2 mL suspension for nebulization 0.5 mg inhalation BID 09/26/22 [History Last Taken Unknown] albuterol sulfate 2.5 mg/3 mL (0.083 %) solution for nebulization 2.5 mg (3 mL) inhalation Q4H PRN Dyspnea, wheezing #0 mL 09/28/22 [Rx Last Taken Unknown] ipratropium bromide 0.02 % solution for inhalation 0.5 mg (2.5 mL) inhalation Q6HWA.RT #0 mL 09/28/22 [Rx Last Taken Unknown] sennosides 8.6 mg-docusate sodium 50 mg tablet (Stool Softener-Stimulant Laxative) 2 tab PO BID PRN PRN Constipation #0 tabs 09/28/22 [Rx Last Taken Unknown] duloxetine 30 mg capsule,delayed release 30 mg PO DAILY 10/21/22 [History Last Taken Unknown] mirtazapine 7.5 mg tablet 7.5 mg PO QHS 10/21/22 [History Last Taken Unknown] acetaminophen 325 mg tablet (Tylenol) 650 mg PO Q4H PRN 12/22/22 [History Last Taken Unknown] cholecalciferol (vitamin D3) 125 mcg (5,000 unit) capsule 125 mcg PO DAILY 12/22/22 [History Last Taken Unknown] dextrose 40 % oral gel (Glucose Gel) 15 g PO Q15M PRN 12/22/22 [History Last Taken Unknown] glucagon 1 mg injection kit 1 mg IM 12/22/22 [History Last Taken Unknown] levothyroxine 25 mcg tablet 25 mcg PO DAILY 12/22/22 [History Last Taken Unknown] magnesium hydroxide 400 mg/5 mL oral suspension (Milk of Magnesia) 30 ml PO DAILY PRN 12/22/22 [History Last Taken Unknown] divalproex 250 mg tablet,extended release 24 hr (Depakote ER) 250 mg PO HS 04/14/23 [History Last Taken Unknown] lorazepam 0.5 mg tablet (Ativan) 0.5 mg PO .QID PRN 04/14/23 [History Last Taken Unknown] melatonin 10 mg capsule 10 mg PO HS PRN 04/14/23 [History Last Taken Unknown] trazodone 50 mg tablet 100 mg PO HS 04/14/23 [History Last Taken Unknown] cefdinir 300 mg capsule 300 mg PO Q12H #14 caps 04/26/23 [Rx Last Taken Unknown] prednisone 20 mg tablet 40 mg (2 x 20 mg) PO DAILY #12 TABLETS 04/26/23 [Rx Last Taken Unknown] Allergy/AdvReac Type Severity Reaction Status Date / Time Penicillins Allergy PT UNSURE Verified 04/26/23 18:55 OF REACTION Family History Father Diabetes Mother Diabetes Surgical History Gastrostomy status History of back surgery History of hysterectomy History of knee replacement S/P breast biopsy S/P carpal tunnel release S/P cataract surgery Social History housing: senior care Smoking Status: Former smoker how long ago did patient quit smoking: Quit ~ 14 years prior, smoked 50 years 2 ppd. alcohol intake: never substance use type: does not use caffeine: Yes Type: carbonated beverages ROS ROS ED Constitutional Constitutional ED: Denies chills, fever(s) or sweats Eyes Eyes: Denies change in vision ENT ENT ED: Denies dysphagia or sore throat Cardiovascular Cardiovascular: Denies chest pain, leg edema, palpitations or racing heartbeat Respiratory/Chest Respiratory/Chest: Reports cough and dyspnea; Denies dyspnea on exertion Gastrointestinal Gastrointestinal: Denies abdominal pain, diarrhea, nausea or vomiting Genitourinary Genitourinary ED: Denies dysuria, hematuria or urinary frequency Musculoskeletal Musculoskeletal: Denies back pain, extremity pain or neck pain Integumentary Denies rash or wounds Neurologic Neurologic: Denies headache(s), paresthesias or weakness EXAM Physical Exam Const Vital Signs: 04/26/23 18:55 04/26/23 19:11 04/26/23 19:18 Temperature 96.3 F L Temperature Source Temporal Pulse Rate 87 78 Respiratory Rate 30 H 22 H Respiratory Effort Respiratory Pattern Blood Pressure 124/53 H 124/53 H Blood Pressure Mean 76 76 Pulse Ox 90 94 94 Oxygen Delivery Method Nasal Cannula Nasal Cannula Nasal Cannula Oxygen Flow Rate (L/min) 6 4 4 04/26/23 19:19 04/26/23 19:25 04/26/23 19:25 Temperature Temperature Source Pulse Rate 80 Respiratory Rate 25 H Respiratory Effort Accessory Muscle Use Respiratory Pattern Tachypnea Blood Pressure Blood Pressure Mean Pulse Ox 94 Oxygen Delivery Method Nasal Cannula Oxygen Flow Rate (L/min) 4 04/26/23 21:03 Temperature Temperature Source Pulse Rate 77 Respiratory Rate 22 H Respiratory Effort Respiratory Pattern Blood Pressure 123/66 H Blood Pressure Mean 85 Pulse Ox 96 Oxygen Delivery Method Nasal Cannula Oxygen Flow Rate (L/min) 3 Positive well nourished and well developed Constitutional Narrative: Patient weaned down to 4 L nasal cannula no respiratory distress. General Appearance ED: well developed and NAD HEENT Reports moist mucous membranes normocephalic and atraumatic Eyes PERRL, EOMs intact bilaterally and conjunctivae normal General Eye ED: Yes normal appearance of both eyes Neck no lymphadenopathy and supple General: Negative for tenderness Chest Wall Chest: Negative for tenderness Resp Resp Narrative: Diminished breath sounds at the bases, no wheezing. Effort and Inspection: symmetric chest movement; Negative for respiratory distress Cardio regular rate, regular rhythm and no murmurs Peripheral Pulses: pulses 2+ throughout GI normal to inspection, nondistended, normoactive bowel sounds and non-tender Palpation: Negative for guarding or rebound tenderness present Back/Spine no CVA tenderness and no thoracic nor lumbar tenderness Extremity normal to inspection General Extremety ED: Negative for edema or tenderness General Extremity: Negative for edema Neuro oriented x3 and no sensory deficits noted Sensorium / Orientation: awake and alert Skin no rashes or lesions noted and no wounds MDM MDM MDM Narrative Medical decision making narrative: Interventions / MDM: Differential diagnosis: COPD exacerbation, pneumonia Diagnosis considered but do not suspect: Pulmonary embolism however patient is on Eliquis. My EKG interpretation: Sinus rate of 79, no ST or T wave changes PVCs noted. Imaging independently reviewed and interpreted by myself: 1 view chest x-ray. Right upper lobe and lower lobe pneumonia versus atelectasis also read by radiology. External documents reviewed: N/A Test considered but not ordered:N/A ED course: Patient had no respiratory distress, initial 6 L nasal cannula however pulse ox switched to ear probe with improving pulse ox. She is weaned back down to 4 L initially. Diminished breath sounds therefore aerosol treatments were given. Workup initiated due to her increasing cough and dyspnea over the last couple days. COVID and flu basic labs, chest x-ray ordered. Chest x-ray concerning for right-sided infiltrates versus atelectasis. Aerosol treatments clinic is improved she is weaned down to 3 L nasal cannula. With her COPD and cough symptoms discussed gold criteria she will be started on antibiotics. Blood glucose 140s. Discussed treatment plan with patient and daughter. They agreed. Cefdinir 300 mg and Prednisone at 40 mg were started in the ED. Meds to bed patient to take back to her nursing facility to continue. She currently does not ambulate with her stroke history. Nursing reported back to facility for appropriate pulse oximetry if low especially with czech on her nails. Return precautions discussed. All questions were answered. Re-evaluation: stable Disposition discussed with patient/family/significant other: Case discussed with consulting clinician: N/A This note was generated with [employer] dictation software. It may contain incorrect words, spelling, and punctuation that were not noted in checking the note before signing. Lab Data Attestation: I reviewed the patient's lab results. Labs: Laboratory Results - last 24 hr 04/26/23 19:20 WBC 7.0 RBC 3.12 L Hgb 9.1 L Hct 29.9 L MCV 95.8 MCH 29.2 MCHC 30.4 L RDW Std Deviation 58.8 H RDW Coeff of Neeta 16.8 H Plt Count 182 MPV 9.8 Immature Gran % (Auto) 0.600 Neut % (Auto) 79.1 H Lymph % (Auto) 12.5 L Logan % (Auto) 6.4 Eos % (Auto) 1.0 Baso % (Auto) 0.4 Absolute Neuts (auto) 5.6 Absolute Lymphs (auto) 0.88 Nucleated RBC % 0 Sodium 142 Potassium 4.8 Chloride 108 H Carbon Dioxide 33.0 H Anion Gap 1 L BUN 29 H Creatinine 1.41 H Estim Creat Clear Calc 24.01 Est GFR (MDRD) Af Amer 46 L Est GFR (MDRD) Non-Af 38 L BUN/Creatinine Ratio 20.6 H Glucose 144 H Calcium 9.7 Radiography Diagnostic Testing: Clinical Impression(s) from Imaging Studies Chest X-Ray 04/26/23 19:23 IMPRESSION: Subsegmental atelectasis or infiltrate in both the right upper and right lower lobes Asymmetric right hilar prominence possibly representing lymphadenopathy. CT would be useful for more definitive evaluation if indicated Electronically Signed: Alexsander Muniz MD at 19:59 EST Reading Location ID and State: [facility] / [place] Tel , Service support , Discharge Plan Triage Chief Complaint: Shortness of Breath ED Provider: Jet Coles Dx/Rx/DC Orders Clinical Impression: COPD exacerbation, Pneumonia Instructions: ED COPD Flare, ED Pneumonia (Adult) Prescriptions: New prednisone 20 mg tablet 40 mg PO DAILY Qty: 12 0RF Rx Instructions: Next dose tomorrow 04/27/2023 cefdinir 300 mg capsule 300 mg PO Q12H Qty: 14 0RF No Action duloxetine 30 mg capsule,delayed release(DR/EC) 30 mg PO DAILY mirtazapine 7.5 mg tablet 7.5 mg PO QHS lorazepam [Ativan] 0.5 mg tablet 0.5 mg PO .QID PRN divalproex [Depakote ER] 250 mg tablet extended release 24 hr 250 mg PO HS melatonin 10 mg capsule 10 mg PO HS PRN glucagon 1 mg kit 1 mg IM dextrose [Glucose Gel] 40 % gel 15 g PO Q15M PRN Rx Instructions: until symptoms of low blood sugar are controlled levothyroxine 25 mcg tablet 25 mcg PO DAILY cholecalciferol (vitamin D3) 125 mcg (5,000 unit) capsule 125 mcg PO DAILY acetaminophen [Tylenol] 325 mg tablet 650 mg PO Q4H PRN magnesium hydroxide [Milk of Magnesia] 400 mg/5 mL suspension 30 ml PO DAILY PRN trazodone 50 mg tablet 100 mg PO HS amlodipine 5 mg Tablet 10 mg PO DAILY allopurinol 100 mg Tablet 50 mg PO DAILY atorvastatin 40 mg Tablet 40 mg PO QHS carvedilol [Coreg] 6.25 mg Tablet 3.125 mg PO BID apixaban 5 mg Tablet 5 mg PO BID Hold Instructions: Until after bx multivitamin Tablet 1 tab PO DAILY losartan 50 mg Tablet 50 mg PO QHS terazosin 1 mg Tablet 1 mg PO QHS menthol-zinc oxide [Calmoseptine] 0.44-20.6 % Ointment 1 applic topical BID Qty: 0 0RF Protocol: *Topical Application Instructions APPLICATION INSTRUCTIONS: apply to affected region insulin lispro [Humalog KwikPen Insulin] 100 unit/mL Insulin Pen 8 unit subcut Q8H Qty: 0 0RF Rx Instructions: Hold if glucose less than 130 mg/dl insulin glargine-yfgn 100 unit/mL (3 mL) Insulin Pen 15 unit subcut QHS Qty: 0 0RF Rx Instructions: Hold if glucose less than 130 mg/dl budesonide 0.5 mg/2 mL Suspension For Nebulization 0.5 mg INHALATION BID sennosides-docusate sodium [Stool Softener-Stimulant Laxat] 8.6-50 mg Tablet 2 tab PO BID PRN PRN (Reason: Constipation) Qty: 0 0RF ipratropium bromide 0.02 % Solution 0.5 mg inhalation Q6HWA.RT Qty: 0 0RF albuterol sulfate 2.5 mg /3 mL (0.083 %) Solution For Nebulization 2.5 mg inhalation Q4H PRN (Reason: Dyspnea, wheezing) Qty: 0 0RF Primary Care Provider: Urbano Palencia Referrals: Urbano Palencia MD [Primary Care Provider] - 2 Days Activity Restrictions/Additional Instructions: Chest x-ray concerning pneumonia versus atelectasis upper lobes. He currently only requiring 4 L of oxygen no respiratory distress. Take antibiotic as prescribed, steroids as prescribed. Continue aerosol treatments at the facility. If symptoms worsen return to the ED for reevaluation. Disposition Disposition: Home, Self Care
[2023-04-26 19:18] VITALS: O2SAT 94
--- NOTE | 2023-04-26 19:23 | RAD_ITS ---
STUDY: X-RAY CHEST REASON FOR EXAM: Female, 78 years old. cough TECHNIQUE: AP portable COMPARISON: April 14, 2023 FINDINGS: Mild subsegmental atelectasis or infiltrate in both the right upper and right lower lobes.. There is no demonstrated pleural abnormality. Heart is enlarged. Asymmetric right hilar prominence.. Normal visualized pulmonary arteries. Normal visualized aortic arch and descending thoracic aorta. Dorsal spine demonstrates degenerative changes. Normal visualized ribs, clavicles, and shoulders. Postsurgical changes of the lumbar spine There is no demonstrated abnormality of the visualized soft tissue structures of the upper abdomen. RAD/Chest 1 View (Portable) IMPRESSION: Subsegmental atelectasis or infiltrate in both the right upper and right lower lobes Asymmetric right hilar prominence possibly representing lymphadenopathy. CT would be useful for more definitive evaluation if indicated Electronically Signed: Alexsander Muniz MD at 19:59 EST ,
[2023-04-26 19:25] VITALS: PULSE 80; RESP 25; O2SAT 94
[2023-04-26] MEDS: Ipratropium/Albuterol Sulfate 3 ML AMPUL.NEB INHALATION (19:25)
[2023-04-26 19:34] LABS: Absolute Lymphocyte Count 0.88 X10^3/uL (0.83-4.51); Absolute Neutrophil Count 5.6 X10^3/uL (2.0-7.7); Basophil# 0.03 X10^3/uL; Basophil% 0.4 % (0-1); Eosinophil# 0.07 X10^3/uL; Hematocrit 29.9 % (37-47); Hemoglobin 9.1 g/dL (12.0-15.0); Lymphocyte # 0.88 X10^3/ul (0.83-4.51); Lymphocyte % 12.5 % (19-41); Mean Corp Hgb Conc 30.4 g/dL (32-36); Mean Corpuscular Hgb 29.2 pg (27.0-32.0); Mean Corpuscular Volume 95.8 fL (81-99); Mean Platelet Vol. 9.8 fl (6.2-12.0); Monocyte# 0.45 X10^3/uL; Monocyte% 6.4 % (0-10); NRBC Flagged by Analyzer 0 % (0-5); Neutrophil # 5.55 X10^3/uL (2.7-7.7); Neutrophil % 79.1 % (47-70); Platelet Count 182 K/mm3 (150-450); RBC Distribution Width CV 16.8 % (11.6-14.6); RBC Distribution Width SD 58.8 fl (35.1-43.9); Red Blood Count 3.12 M/mm3 (4.2-5.4)
[2023-04-26 19:50] LABS: Anion Gap 1 (5-15); BUN 29 mg/dL (7-18); BUN/Creat Ratio 20.6 RATIO (10-20); Calcium,Total 9.7 mg/dL (8.5-10.1); Chloride 108 mmol/L (98-107); Creatinine, Serum 1.41 mg/dL (0.55-1.02); EST Glomerular Filtration Rate 38 mL/min (>60); Est Glom Filt Rate - Afr Amer 46 mL/min (>60); Estimated Creatinine Clearance 24.01 ml/min; Glucose 144 mg/dL (74-106); Potassium 4.8 mmol/L (3.5-5.1); Sodium Level 142 mmol/L (136-145)
[2023-04-26] MEDS: Cefdinir 300 MG Capsule PO (21:02)
[2023-04-26] MEDS: predniSONE 20 MG Tablet 40 MG PO (21:02)
[2023-04-26 21:03] VITALS: BP 123/66; PULSE 77; RESP 22; O2SAT 96
--- NOTE | 2023-04-26 21:22 | ED.RN ---
Called report to [facility]. Also called Dee, Daughter to inform of discharge. She is aware of plan of care.
[2023-04-27 01:18] VITALS: BP 142/75; PULSE 74; RESP 28; O2SAT 95
== END 2023-04-27 03:43 | disposition home or self-care (01) ==
PROVIDERS: Emergency Provider Emergency Medicine; PCP Family Medicine; Visit Provider Emergency Medicine
DX: J44.0 Chronic obstructive pulmonary disease with (acute) lower respiratory infection (principal); C34.90 Malignant neoplasm of unspecified part of unspecified bronchus or lung; I69.359 Hemiplegia and hemiparesis following cerebral infarction affecting unspecified side; J44.1 Chronic obstructive pulmonary disease with (acute) exacerbation; I50.9 Heart failure, unspecified; I13.0 Hypertensive heart and chronic kidney disease with heart failure and stage 1 through stage 4 chronic kidney disease, or unspecified chronic kidney disease; E11.22 Type 2 diabetes mellitus with diabetic chronic kidney disease; I48.91 Unspecified atrial fibrillation; N18.30 Chronic kidney disease, stage 3 unspecified; J18.9 Pneumonia, unspecified organism; Z87.891 Personal history of nicotine dependence; E78.5 Hyperlipidemia, unspecified; Z99.81 Dependence on supplemental oxygen; Z79.01 Long term (current) use of anticoagulants; Z66 Do not resuscitate; I69.320 Aphasia following cerebral infarction
CPT/HCPCS: 51702; 71045; 80048; 85025; 87428; 93005; 94640; 99285; A4216